=== PATIENT | male | born 1970 | race Caucasian/White ===

== ENCOUNTER → 2016-05-30 | Outpatient (CLI) | payer MEDICAID ==
[~2016-05-30] MED LIST: AGM875T PO; AMOX500C2 PO; ASP81TEC PO; ATOR80TA PO; BUTA1TAB46 PO; CEFU500T5 PO; CIPR250S2 PO; CLN150C PO; CLN150C1RX PO; CYCL10TA9 PO; CYCL5TAB PO; GABA100T PO; GABA600T PO; GLYB2.5T4 PO; GLYB5TAB6 PO; HYDR-3714 PO; HYDR-3720 PO; HYDR1CAP2 PO; Hydrochlorothiazide PO; LIRA0.6P SQ; LISI10TA PO; LISI1TAB10 PO; Lisinopril PO; MTF500T PO; NAPR-243 PO; NAPR-684 PO; NAPR-689 PO; OXYC-272 PO; SIMV40TA4 PO; TRAM50TA2 PO; TRM50T PO
--- OUTSIDE RECORDS SUMMARY | 2016-05-30 10:00 | XMS REPORT | Continuity of Care Document ---
Author Author [facility] Organization [facility] Address Unknown Phone Unavailable Care Team Providers Care Process Steward Name Role Phone Evelia Oquendo PCP [phone] Source Comments Some departments are not documenting in the electronic medical record. If you do not see the information that you expected, contact Release of Information in the Health Information Management department at [phone] for further assistance in locating additional records.[facility] Active Allergies and Adverse Reactions No Known Allergies Current Medications Prescription Sig. Disp. Refills Start End Date Status Date Bimatoprost 0.01 % drop Place 1 Drop into or Active around eye(s) at bedtime daily. gabapentin (NEURONTIN) Take 600 mg by mouth Active 600 mg tablet three times daily. glyBURIDE (DIABETA) 5 mg Take 10 mg by mouth twice Active tablet daily with meals. lisinopril (PRINIVIL, Take 40 mg by mouth Active ZESTRIL) 40 mg tablet daily. hydrochlorothiazide Take 25 mg by mouth Active (HYDRODIURIL) 25 mg daily. tablet simvastatin (ZOCOR) 40 mg Take 40 mg by mouth Active tablet daily. pioglitazone (ACTOS) 30 Take 30 mg by mouth Active mg tablet daily. cyclobenzaprine Take 10 mg by mouth daily Active (FLEXERIL) 10 mg tablet as needed for Muscle Cramps. naproxen (NAPROSYN) 500 Take 500 mg by mouth at Active mg tablet bedtime daily. acetaminophen (TYLENOL) Take 500 mg by mouth Active 500 mg tablet every 6 hours as needed for Pain. Calcium Carbonate 300 mg Take 1 Tab by mouth daily Active (750 mg) chew as needed. silver sulfADIAZINE Apply 0.5 g to affected Active (THERMAZINE) 1 % topical area daily. cream liraglutide(+) (VICTOZA) Inject 1.2 mg into Active 0.6 mg/0.1 mL (18 mg/3 area(s) as directed mL) pnij daily. omeprazole DR(+) Take 20 mg by mouth Active (PRILOSEC) 20 mg capsule daily. hyoscyamine (ANASPAZ; Place 1 Tab under tongue 20 Tab 1 08/28/19 Active NULEV; SYMAX FASTABS; every 4 hours as needed 16 HYOMAX-FT; ED-SPAZ; (as needed for bladder OSCIMIN) 0.125 mg rapid spasms). dissolve tablet Active Problems Problem Noted Date Anterior urethral stricture 05/13/2015 Peripheral polyneuropathy (HCC) 05/13/2015 Erectile dysfunction 05/13/2015 Charcot foot due to diabetes mellitus ([facility]) 05/13/2015 Type 1 diabetes mellitus ([facility]) 05/13/2015 Social History Tobacco Use Types Packs/Day Years Used Date Former Smoker Cigarettes 2 20 Quit: 05/12/2011 Alcohol Use Drinks/Week oz/Week Comments Yes 0 Standard 0.0 Rare drinks or equivalent Last Filed Vital Signs Vital Sign Reading Time Taken Blood Pressure 129/79 09/08/2015 11:37 AM CDT Pulse 111 09/08/2015 11:37 AM CDT Temperature 36.7 C (98.1 F) 09/08/2015 11:37 AM CDT Respiratory Rate 18 09/08/2015 11:37 AM CDT Height 1.778 m (5' 10") 09/08/2015 11:37 AM CDT Weight 126.281 kg (278 lb 6.4 09/08/2015 11:37 AM CDT oz) Body Mass Index 39.95 09/08/2015 11:37 AM CDT Oxygen Saturation 95% 08/28/2015 9:00 AM CDT Plan of Care Health Maintenance Due Date Last Done Comments Physical (Comprehensive) 1975 Exam Pertussis Vaccine 1979 Tetanus Vaccine 1985 Dilated Eye Exam 1986 Foot Exam 1986 Hba1c 1986 Microalbumin 1986 Pneumonia Vaccine (Dm) 1986 Influenza Vaccine 12/10/2015 Results from Last 3 Months Not on file
[2016-05-30 10:19] LABS: BASOPHILS % (AUTO) 0 % (0-10); EOSINOPHILS # (AUTO) 0.1 10^3/uL (0.0-0.3); EOSINOPHILS % (AUTO) 1 % (0-10); LYMPHOCYTES # (AUTO) 1.6 X 10^3 (1.0-4.0); LYMPHOCYTES % (AUTO) 22 % (12-44); MEAN CORPUSCULAR HEMOGLOBIN 31 PG (25-34); MEAN CORPUSCULAR HGB CONC 33 G/DL (32-36); MEAN CORPUSCULAR VOLUME 93 FL (80-99); MONOCYTES # (AUTO) 0.6 X 10^3 (0.0-1.0); MONOCYTES % (AUTO) 7 % (0-12); NEUTROPHILS # (AUTO) 5.1 X 10^3 (1.8-7.8); NEUTROPHILS % (AUTO) 69 % (42-75); PLATELET COUNT 194 10^3/uL (130-400); RED BLOOD COUNT 4.74 10^6/uL (4.35-5.85); RED CELL DISTRIBUTION WIDTH 14.4 % (10.0-14.5); WHITE BLOOD COUNT 7.4 10^3/uL (4.3-11.0)
[2016-05-30 10:38] LABS: ALANINE AMINOTRANSFERASE 33 U/L (0-55); ANION GAP 12 MMOL/L (5-14); ASPARTATE AMINO TRANSFERASE 20 U/L (5-34); BILIRUBIN,TOTAL 0.4 MG/DL (0.1-1.0); BLOOD UREA NITROGEN 25 MG/DL (7-18); BUN/CREATININE RATIO 21; CALCIUM 9.4 MG/DL (8.5-10.1); CARBON DIOXIDE 21 MMOL/L (21-32); CHLORIDE 106 MMOL/L (98-107); CREATININE SERUM 1.19 MG/DL (0.60-1.30); GFR ESTIMATED > 60; GLUCOSE 95 MG/DL (70-105); POTASSIUM 4.4 MMOL/L (3.6-5.0); SODIUM 139 MMOL/L (135-145); TOTAL PROTEIN 6.6 G/DL (6.4-8.2)
== END ==
LOC: LAB 09:57
PROVIDERS: ATTEND Surgery
DX: E11.621 Type 2 diabetes mellitus with foot ulcer (principal); E11.42 Type 2 diabetes mellitus with diabetic polyneuropathy; L97.522 Non-pressure chronic ulcer of other part of left foot with fat layer exposed
CPT/HCPCS: 36415; 80053; 85025

== ENCOUNTER 2016-07-18 08:27 | Outpatient (RCR) | payer MEDICAID | END 2016-07-18 16:00 | disposition home or self-care (01) | LOC: WOUNDCARE 08:27 | PROVIDERS: ATTEND Surgery | DX: E11.621 Type 2 diabetes mellitus with foot ulcer (principal); E11.42 Type 2 diabetes mellitus with diabetic polyneuropathy; L97.522 Non-pressure chronic ulcer of other part of left foot with fat layer exposed; M14.672 Charcot's joint, left ankle and foot; I70.245 Atherosclerosis of native arteries of left leg with ulceration of other part of foot | CPT/HCPCS: 11042; 29445; 99212 ==

== ENCOUNTER 2016-08-23 12:55 | Outpatient (CLI) | payer MEDICAID ==
[~2016-08-23] VITALS: Ht 182.9 cm; Wt 137.4 kg
[2016-08-23 13:01] VITALS: BP 144/79
[2016-08-23] MEDS ORDERED: BIMA2.5D4 OU (13:09)
== END 2016-08-23 13:20 | disposition home or self-care (01) ==
LOC: PREOP 12:55
PROVIDERS: ATTEND Podiatrist Foot & Ankle Surgery
DX: Z01.818 Encounter for other preprocedural examination (principal); Z11.2 Encounter for screening for other bacterial diseases; M20.22 Hallux rigidus, left foot
CPT/HCPCS: 87081

== ENCOUNTER 2016-08-24 01:11 | Emergency (ER) | payer MEDICAID ==
[~2016-08-24] VITALS: Ht 182.9 cm; Wt 136.1 kg
[~2016-08-24 01:11] MED LIST changes: +BIMA2.5D4 OU
[2016-08-24] MEDS ORDERED: LIDOCAINE 2% VISCOUS 15 ML UDC ONE (02:20)
[2016-08-24] MEDS ORDERED: HURRICAINE EXT TUBE (BENZOCAINE) XX ONE (02:30)
[2016-08-24] MEDS ORDERED: LIDOCAINE 2% VISCOUS 15 ML UDC PO ONE (02:30)
--- NOTE | 2016-08-24 02:50 | ED EENT ---
History of Present Illness General Chief Complaint: Dental Problems/Pain Stated Complaint: DENTAL PAIN Nursing Triage Note: PT TO ED 8 W/ C/O RT UPPER JAW PAIN. REPORTS "BAD TEETH" ET WAS SEEN BY [facility] 08/23/16 BUT DENIES IMPROVEMENT Source: patient Exam Limitations: no limitations History of Present Illness Time seen by provider: 02:11 Initial Comments This 46-year-old gentleman presents to the emergency room with right upper dental pain. He has some significant decay at the base of some of his molars. He has had temperature sensitivity over the past couple of weeks. Pain intensified tonight and he was unable to sleep. He has taken ibuprofen 10 and naproxen 3 in the past 24 hours. He was seen at the [facility] walk-in clinic and started on amoxicillin. He has only had opportunity to take one dose so far. He was instructed to present to the dental clinic tomorrow. He is here tonight because he cannot sleep due to the pain. Allergies and Home Medications Allergies Coded Allergies: No Known Drug Allergies (Unverified , 03/16/14) Home Medications Bimatoprost 2.5 Ml Drops, 1 DROP OU DAILY, (Reported) Cyclobenzaprine Hcl 5 Mg Tablet, 5 MG PO TID PRN for MUSCLE SPASMS, (Reported) Gabapentin 600 Mg Tablet, 600 MG PO TID, (Reported) Glyburide 5 Mg Tablet, 5 MG PO BID, (Reported) Liraglutide 0.6 Mg/0.1 Ml Pen.injctr, 1.2 MG SQ AM, (Reported) Naproxen 500 Mg Tablet, 500 MG PO BID, (Reported) Simvastatin 40 Mg Tablet, 40 MG PO DAILY, (Reported) [Hydrochlorothiazide] 25 MG TAB, 25 MG PO DAILY@0900, #30 Ref 3 Prescribed by: ROBERTA SAHU on 03/19/14 1135 [Lisinopril] 20 MG TAB, 40 MG PO DAILY@0900, #30 Ref 3 Prescribed by: ROBERTA SAHU on 03/19/14 1135 Review of Systems Constitutional: no symptoms reported Eyes: No Symptoms Reported Ears: No Symptoms Reported Nose: no symptoms reported Mouth: see HPI Throat: no symptoms reported Respiratory: no symptoms reported Neurological: No Symptoms Reported Past Qyalznl-Czdren-Rdjmuo Hx Patient Social History Alcohol Use: Denies Use Recreational Drug Use: No Smoking Status: Former Smoker Former Smoker/When Quit: Sep 09, 2011 Recent Foreign Travel: No Contact w/Someone Who Travel: No Recent Infectious Disease Expo: No Recent Hopitalizations: No Immunizations Up To Date Tetanus Booster (TDap): Unknown Date of Influenza Vaccine: Feb 10, 2014 Seasonal Allergies Seasonal Allergies: Yes Surgeries HX Surgeries: Yes (HERNIA AGE 1, HEART CATH, urethreal stricture ) Surgeries: Abdominal, Cardiac (cardiac catheterization), Tonsillectomy Respiratory Hx Respiratory Disorders: No Cardiovascular Hx Cardiac Disorders: Yes Cardiac Disorders: Hypertension Neurological Hx Neurological Disorders: Yes Neurological Disorders: Neuropathy Reproductive System Hx Reproductive Disorders: No Sexually Transmitted Disease: No HIV/AIDS: No Genitourinary Hx Genitourinary Disorders: No Gastrointestinal Hx Gastrointestinal Disorders: No Musculoskeletal Hx Musculoskeletal Disorders: Yes (open wound on left big toe, 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) Endocrine Hx Endocrine Disorders: No Endocrine Disorders: Diabetes, Non-Insulin dep HEENT HX ENT Disorders: No Hearing Impairment: Denies Cancer Hx Cancer: No Psychosocial Hx Psychiatric Problems: No Integumentary HX Skin/Integumentary Disorder: No Skin/Integumentary Disorders: Pruritis Blood Transfusions Hx Blood Disorders: No Adverse Reaction to a Blood Tr: No Family Medical History Significant Family History: No Pertinent Family Hx Family Medial History: Chest pain 03 MOTHER, Onset:Unknown Congestive heart failure 03 MOTHER, Onset:Unknown Family history: Cardiovascular disease 03 MOTHER, Onset:Unknown Family history: Coronary thrombosis 03 MOTHER, Onset:Unknown Family history: Diabetes mellitus 03 FATHER, Onset:Unknown 03 MOTHER, Onset:Unknown 09 BROTHER, Onset:Unknown Family history: Glaucoma 03 MOTHER, Onset:Unknown Family history: Hypertension 03 FATHER, Onset:Unknown 03 MOTHER, Onset:Unknown 09 BROTHER, Onset:Unknown Heart disease 03 MOTHER, Onset:Unknown Hypercholesterolemia 03 FATHER, Onset:Unknown 03 MOTHER, Onset:Unknown 09 BROTHER, Onset:Unknown Myocardial infarction 03 MOTHER, Onset:Unknown Psychotic disorder 03 MOTHER, Onset:Unknown Seizure disorder 03 MOTHER, Onset:Unknown Stroke 03 MOTHER, Onset:Unknown Visual impairment 03 MOTHER, Onset:Unknown No Family History of: Abdominal aortic aneurysm Tab's disease Alcoholism Aphasia Cancer Cancer of colon Cataract Congenital heart disease Cystic fibrosis Dementia Dysphagia Family history: Allergy Family history: Alzheimer's disease Family history: Arthritis Family history: Asthma Family history: Breast disease Family history: Gastrointestinal disease Family history: Osteoporosis Family history: Thyroid disorder Headache Hearing loss Hereditary disease History of - anemia History of - disorder History of - respiratory disease History of drug abuse Human immunodeficiency virus (HIV) seropositivity Infertile Kidney disease Malignant neoplasm of lung Parkinson's disease Prostate cancer Tuberculosis Physical Exam Vital Signs Vital Sign - Last 12Hours 08/24/16 01:24 Temp 98.2 Pulse 85 Resp 20 B/P (MAP) 161/93 Pulse Ox 98 O2 Delivery Room Air General Appearance: WD/WN, no apparent distress Eyes: bilateral eye EOMI, bilateral eye PERRL, bilateral eye normal inspection Ears: bilateral ear TM normal, bilateral ear auricle normal, bilateral ear canal normal Nose: normal inspection Mouth/Throat: pharynx normal, dental tenderness, other (mild edema and erythema of the gingiva and adjacent buccal mucosa on the right upper jaw. Significant decay at the root of the right upper posterior teeth) Neck: normal inspection Cardiovascular: regular rate, rhythm, no edema, no murmur Respiratory: lungs clear, normal breath sounds, no respiratory distress, no accessory muscle use Neurologic/Psychiatric: tripe scraper II-XII nml as tested, no motor/sensory deficits, alert, normal mood/affect, oriented x 3 Skin: normal color, warm/dry Progress/Results/Core Measures Results/Orders My Orders Orders - CHRISSIE ROGERS MD Lidocaine 2% Viscous 15 Ml (Xylocaine Vi (08/24/16 02:30) Benzocaine Extension Tube (Hurricaine Ex (08/24/16 02:30) Lidocaine 2% Viscous 15 Ml (Xylocaine Vi (08/24/16 02:20) Medications Given in ED Current Medications Medications Dose Ordered Sig/Reji Route Start Time Stop Time Status Last Admin Dose Admin Lidocaine HCl 15 ml ONCE ONCE PO 08/24/16 02:30 08/24/16 02:32 DC 08/24/16 02:55 15 ML Vital Signs/I&O Vital Sign - Last 12Hours 08/24/16 08/24/16 01:24 02:55 Temp 98.2 Pulse 85 0 Resp 20 0 B/P (MAP) 161/93 Pulse Ox 98 0 O2 Delivery Room Air Blood Pressure Mean: 115 Progress Note : Progress Note Anesthetic gauze pads were prepared and dispensed. Departure Impression Impression: Primary Impression: Dental caries Additional Impression: Pain, dental Disposition: 01 HOME, SELF-CARE Condition: Improved Departure-Patient Inst. Decision time for Depature: 02:20 Referrals: [facility] (PCP) Primary Care Physician CATIA IBARRA (Family) Primary Care Physician Patient Instructions: Dental Pain (DC) Add. Discharge Instructions: Continue to brush your teeth gently twice daily. See a dentist as soon as possible. Complete your antibiotics as prescribed. You may use the anesthetic gauze pads as needed. Eat and drink carefully after use as they may numb the mouth and throat. Do not fall sleep with gauze pads in your mouth. Return to care if symptoms worsen. You may use ibuprofen up to 800 mg every 8 hours as needed for pain. Add Tylenol (acetaminophen) up to 1000 mg every 6 hours as needed for additional pain relief. All discharge instructions reviewed with patient and/or family. Voiced understanding. CHRISSIE ROGERS MD August 24, 2016 02:50
[2016-08-24 02:55] VITALS: BP 0/0
== END 2016-08-24 02:55 | disposition home or self-care (01) ==
LOC: EDUNIT# 01:11 → ER 01:13
DX: K02.9 Dental caries, unspecified (principal); I10 Essential (primary) hypertension; E11.9 Type 2 diabetes mellitus without complications; Z79.84 Long term (current) use of oral hypoglycemic drugs; Z79.899 Other long term (current) drug therapy; Z87.891 Personal history of nicotine dependence
CPT/HCPCS: 99282

== ENCOUNTER 2016-09-09 12:15 | Day surgery (SDC) | payer MEDICAID ==
[~2016-09-09] VITALS: Ht 182.9 cm; Wt 136.1 kg
[2016-09-09] MEDS: LACTATED RINGERS 1,000 ML IV PRN ×2 (12:30→17:05)
[2016-09-09] MEDS ORDERED: ceFAZolin 1 GM/NS 50 ML IVPB IV ONE ×2 (12:45)
[2016-09-09 12:54] VITALS: BP 145/80
[2016-09-09] MEDS ORDERED: BUPIVACAINE 0.5% 30 ML (SENSORCAINE) VIAL ONE (13:58)
[2016-09-09] MEDS ORDERED: LIDOCAINE 1% INJ 20 ML (XYLOCAINE) VIAL ONE (13:58)
[2016-09-09] MEDS ORDERED: PROPOFOL INJECTION 50 ML IV ONE (15:19)
[2016-09-09] MEDS ORDERED: fentaNYL INJECTION 100 MCG/2 ML AMP ONE (15:19)
[2016-09-09] MEDS ORDERED: LIDOCAINE PF 2% 5 ML (XYLOCAINE) VIAL ONE (15:19)
[2016-09-09] MEDS ORDERED: MIDAZOLAM 2 MG/2 ML (VERSED) VIAL ONE (15:20)
--- NOTE | 2016-09-09 15:48 | Progress Note-Pre Operative ---
Pre-Operative Progress Note H&P Reviewed The H&P was reviewed, patient examined and no changes noted. Date Seen by Provider: Sep 09, 2016 Time Seen by Provider: 15:48 Date H&P Reviewed: Sep 09, 2016 Time H&P Reviewed: 15:47 Pre-Operative Diagnosis: Chronic Ulceration left hallux, Hallux Limitus, left GRISEL BATES DPM Sep 09, 2016 3:48 pm
[2016-09-09] MEDS ORDERED: proPOfol 200 MG/20 ML (DIPRIVAN) VIAL IV ONE (16:58)
[2016-09-09] MEDS ORDERED: LACTATED RINGERS 2,000 ML IV ONE (16:59)
[2016-09-09] MEDS ORDERED: LACTATED RINGERS 1,000 ML IV SCH (17:15)
[2016-09-09] MEDS ORDERED: HYDROcodone/APAP 5 MG/325 MG (LORTAB) TAB PO PRN (17:15)
--- NOTE | 2016-09-09 17:15 | Progress Note-Post Operative ---
Post-Operative Progess Note Surgeon (s)/Zipper Measurer (s) Surgeon GRISEL BATES DPM Zipper Measurer: none Pre-Operative Diagnosis Chronic Ulceration left hallux, Hallux Limitus, left Post-Operative Diagnosis Same Procedure & Operative Findings Date of Procedure 09/09/16 Procedure Performed/Findings Cheilectomy, left Arthroplasty left hallux interphalangeal joint Anesthesia Type General Estimated Blood Loss Estimated blood loss (mL): Minimal Specimens/Packing Specimens Removed Head of proximal phalanx, left hallux GRISEL BATES DPM Sep 09, 2016 5:15 pm
[2016-09-09] MEDS ORDERED: CEPH500C PO (17:18)
[2016-09-09] MEDS ORDERED: HYDR-3812 PO (17:18)
[2016-09-09 17:40] VITALS: BP 161/85
--- NOTE | 2016-09-09 17:51 | Diagnostic Imaging Report ---
INDICATION: Postoperative foot pinning. COMPARISON STUDY: Left foot from 06/28/2014. FINDINGS: Two views of the left foot demonstrate interval ostomy of the distal aspect of the proximal phalanx of the great toe with pinning. IMPRESSION: Interval pinning of the great toe with no complications. Degenerative changes in the forefoot appear stable. Dictated by: Dictated on workstation # [id number]
[2016-09-09 18:10] VITALS: BP 155/83
[2016-09-09 18:15] VITALS: BP 155/83
--- NOTE | 2016-09-09 22:28 | OPERATIVE REPORT ---
DATE OF SERVICE: 09/09/2016 SURGEON: Kelle Bates DPM PREOPERATIVE DIAGNOSES: 1. Chronic ulceration to the left hallux. 2. Hallux rigidus, left. POSTOPERATIVE DIAGNOSES: 1. Chronic ulceration to the left hallux. 2. Hallux rigidus, left. PROCEDURES: 1. Cheilectomy, left. 2. Arthroplasty, left hallux interphalangeal joint, with K-wire fixation. WOUND CLASS: Clean. ANESTHESIA: Monitored anesthesia care. HEMOSTASIS: Pneumatic ankle tourniquet at 250 mmHg. INDICATION: This 46-year-old male presents complaining of a chronic ulceration to the left hallux. Conservative therapy has met with unsatisfactory results, and the patient is agreeable to surgical intervention after risks and complications were discussed at length. No guarantees were extended to the patient, and he is willing to proceed. PROCEDURE: The patient was brought back to the operating table, placed in secure supine position. An appropriate timeout was performed. A pneumatic ankle tourniquet was placed on the left lower extremity over several layers of padding. The left great toe was anesthetized and a Rose block with a 1:1 mixture of 0.5% Marcaine and 2% xylocaine. Twenty mL were utilized in total. The left foot was then prepped and draped in normal sterile manner. The left foot was then elevated and allowed to exsanguinate, after which the tourniquet was inflated to 250 mmHg. Attention was then directed to the dorsal aspect of the left 1st metatarsophalangeal joint where a 6 cm longitudinal linear incision was created. The incision was deepened in the same plane with great care to identify and retract all vital neurovascular structures. All the necessary blood vessels were cauterized as encountered. The incision was deepened down to the capsular tissue TopofForm where a longitudinal capsulotomy was performed. The capsular tissue was reflected medial laterally, exposing the hypertrophic dorsal eminence of the 1st metatarsal head, which was resected with a power sagittal saw. The same saw was utilized to reduce the dorsal eminence to the base of the proximal phalanx as well. Excellent range of motion was appreciated now at the 1st metatarsophalangeal joint. Next, the extensor hallucis longus was incised longitudinally, and a Z slide lengthening performed. The extensor tendon was then reflected distally, exposing the interphalangeal joint of the left hallux. The mediolateral collateral ligaments were released, as well as a capsulorrhaphy. The head of the proximal phalanx was then resected utilizing a power sagittal saw. The wound was flushed with copious amounts of normal saline. A 0.062 smooth K-wire was driven down the toe, holding the phalanx into a rectus alignment. There was good alignment of the digit noted at this time with excellent range of motion of the 1st metatarsophalangeal joint. The wound was flushed once again, after which closure was performed in layers. The K-wire was cut, and a protective ball placed over the end of the wire. The extensor tendon was repaired with 3-0 Vicryl. Deep closure was also performed with 3-0 Vicryl, superficial closure with 4-0 Vicryl, skin closure with 4-0 Prolene in a horizontal mattress-type stitch. Postoperative dressing consisted of Betadine-soaked adaptic, sterile 4 x 4s, sterile Kerlix, all secured with a Coban wrap. The patient tolerated the anesthesia and procedure well and was transported from the operating room to the recovery area with vital signs stable and vascular status intact to all digits of the left foot. He is to follow up in the [facility] on 09/16/2016. Job ID: [id number] DocumentID: [id number] Dictated Date: 09/09/2016 17:24:24 Airconditioning Drafting Officer Date: 09/09/2016 22:27:33 Dictated By: KELLE BATES DPM
== END 2016-09-09 18:15 | disposition home or self-care (01) ==
LOC: SDC 12:15
PROVIDERS: ATTEND Podiatrist Foot & Ankle Surgery
DX: M20.22 Hallux rigidus, left foot (principal); E11.621 Type 2 diabetes mellitus with foot ulcer; E11.40 Type 2 diabetes mellitus with diabetic neuropathy, unspecified; I10 Essential (primary) hypertension; E78.5 Hyperlipidemia, unspecified; F41.9 Anxiety disorder, unspecified; G47.33 Obstructive sleep apnea (adult) (pediatric); Z79.899 Other long term (current) drug therapy
CPT/HCPCS: 73620; 82962

== ENCOUNTER 2017-01-05 09:15 | Outpatient (RCR) | payer MEDICAID ==
[~2017-01-05 09:15] MED LIST changes: +CEPH500C PO; +HYDR-3812 PO
== END 2017-01-07 | disposition home or self-care (01) ==
PROVIDERS: ATTEND Nurse Practitioner Community Health
DX: R60.0 Localized edema (principal); M62.561 Muscle wasting and atrophy, not elsewhere classified, right lower leg; M62.562 Muscle wasting and atrophy, not elsewhere classified, left lower leg

== ENCOUNTER 2017-04-07 13:42 | Outpatient (RCR) | payer MEDICAID ==
[~2017-04-07 13:42] MED LIST changes: +ACHD5005 PO; -HYDR-3812 PO
== END 2017-04-10 | disposition home or self-care (01) ==
PROVIDERS: ATTEND Nurse Practitioner Community Health
DX: R60.0 Localized edema (principal); M62.561 Muscle wasting and atrophy, not elsewhere classified, right lower leg; M62.562 Muscle wasting and atrophy, not elsewhere classified, left lower leg

== ENCOUNTER 2017-04-14 10:05 | Outpatient (RCR) | payer MEDICAID | END 2017-04-21 15:47 | disposition home or self-care (01) | PROVIDERS: ATTEND Nurse Practitioner Community Health | DX: R60.0 Localized edema (principal); M62.561 Muscle wasting and atrophy, not elsewhere classified, right lower leg; M62.562 Muscle wasting and atrophy, not elsewhere classified, left lower leg ==

== ENCOUNTER 2017-09-19 09:28 | Outpatient (CLI) | payer MEDICAID ==
[~2017-09-19] VITALS: Ht 182.9 cm; Wt 150.1 kg
[2017-09-19 09:38] VITALS: BP 125/62
[2017-09-19] MEDS ORDERED: LIRA0.6P3 SQ (11:09)
[2017-09-19] MEDS ORDERED: GLYB5TAB6 PO (11:09)
[2017-09-19] MEDS ORDERED: LISI40TA PO (11:09)
[2017-09-19] MEDS ORDERED: NAPR-915 PO (11:09)
[2017-09-19] MEDS ORDERED: PIOG45TA18 PO (11:09)
[2017-09-19] MEDS ORDERED: GABA600T2 PO (11:09)
[2017-09-19] MEDS ORDERED: SIMV40TA4 PO (11:09)
[2017-09-19] MEDS ORDERED: CYCL10TA9 PO (11:09)
[2017-09-19] MEDS ORDERED: PROP40TA5 PO (11:09)
[2017-09-19] MEDS ORDERED: LATA2.5D5 OU (11:09)
[2017-09-19] MEDS ORDERED: HYDR25TA4 PO (11:09)
[2017-09-27] MEDS ORDERED: HYDR-3062 PO (07:26)
== END 2017-09-19 10:00 | disposition home or self-care (01) ==
LOC: PREOP 09:28
PROVIDERS: ATTEND Orthopaedic Surgery
DX: Z01.818 Encounter for other preprocedural examination (principal); G56.02 Carpal tunnel syndrome, left upper limb; G56.22 Lesion of ulnar nerve, left upper limb
CPT/HCPCS: 87081

== ENCOUNTER 2017-09-27 06:00 | Day surgery (SDC) | payer MEDICAID ==
--- NOTE | 2017-09-18 11:55 | HISTORY AND PHYSICAL ---
DATE OF SERVICE: ADMISSION HISTORY AND PHYSICAL DATE OF ADMISSION: 09/27/2017 REASON FOR ADMISSION: This will be for outpatient surgery on 09/27/2017 for left carpal tunnel release and left ulnar nerve decompression. HISTORY OF PRESENT ILLNESS: The patient is a 47-year-old gentleman with complaints of left hand pain and paresthesias. He underwent a nerve conduction study which showed evidence of left carpal and cubital tunnel syndromes. He reports worsening paresthesias in his ring and small fingers. He reports it is constant. Reports weakness in his hand and difficulty with fine motor skills. Due to functional impairment with progressive symptoms, the patient elected to proceed with surgical intervention. REVIEW OF SYSTEMS: No chest pain, no shortness of breath. No dysuria. PAST MEDICAL HISTORY: Charcot foot, type 2 diabetes, hypertension and neuropathy. PAST SURGICAL HISTORY: Diabetic ulcer, herniorrhaphy, heart catheterization. FAMILY HISTORY: Significant for congestive heart failure, hypertension, diabetes. PR[facility] CARE: [facility]. MEDICATIONS: Simvastatin. ALLERGIES: No known drug allergies. SOCIAL HISTORY: The patient is a former smoker, drinks alcohol rarely. PHYSICAL EXAMINATION: GENERAL: The patient is well developed, well-nourished, in no acute distress. HEENT: Normocephalic, atraumatic. Pupils are equal, round, react to light. Oropharynx is clear. NECK: Supple, no lymphadenopathy. LUNGS: Clear to auscultation bilaterally. HEART: Regular rate and rhythm. ABDOMEN: Soft, nontender, nondistended. EXTREMITIES: The left hand demonstrates intrinsic atrophy has marked weakness in finger abduction, thumb palmar abduction as well as absent sensation in ulnar distribution with decreased sensation in median distribution. He has positive Tinel's at the carpal tunnel and a mildly positive Phalen's maneuver. IMPRESSION: Left carpal and cubital tunnel syndromes. PLAN: Left carpal and cubital tunnel release. The risks, benefits, options, ramifications and recovery have been discussed at length with the patient. He understands and wishes to proceed. Job ID: [id number] DocumentID: [id number] Dictated Date: 09/18/2017 11:31:05 Patient Financial Representative Date: 09/18/2017 11:54:49 Dictated By: DONAL MARTIN MD
[~2017-09-27] VITALS: Ht 182.9 cm; Wt 149.7 kg
[~2017-09-27 06:00] MED LIST changes: +GABA600T2 PO; +HYDR25TA4 PO; +LATA2.5D5 OU; +LIRA0.6P3 SQ; +LISI40TA PO; +NAPR-915 PO; +PIOG45TA18 PO; +PROP40TA5 PO
[2017-09-27 06:15] VITALS: BP 135/74
[2017-09-27] MEDS: LACTATED RINGERS 1,000 ML IV PRN ×2 (06:25→09:08)
[2017-09-27] MEDS ORDERED: ceFAZolin INJECTION 1,000 MG in NS (IVPB) 50 ML IV ONE (06:45)
[2017-09-27] MEDS ORDERED: proPOfol 200 MG/20 ML (DIPRIVAN) VIAL IV ONE ×2 (07:06→08:39)
[2017-09-27] MEDS ORDERED: DEXAMETHASONE 10 MG/ML (DECADRON) 1 ML VIAL ONE (07:06)
[2017-09-27] MEDS ORDERED: ONDANSETRON 4 MG/2 ML (SDV) Z0FRAN ONE (07:06)
[2017-09-27] MEDS ORDERED: LIDOCAINE PF 2% 5 ML (XYLOCAINE) VIAL ONE (07:06)
[2017-09-27] MEDS ORDERED: SEVOFLURANE (ULTANE) 15 ML INHAL SOLN ONE ×5 (07:06→08:39)
[2017-09-27] MEDS ORDERED: fentaNYL INJECTION 100 MCG/2 ML AMP ONE ×2 (07:07→08:12)
[2017-09-27] MEDS ORDERED: ceFAZolin 1,000 MG (ANCEF) VIAL ONE ×2 (07:07→07:32)
[2017-09-27] MEDS ORDERED: NS (IVPB) 50 ML ONE (07:07)
[2017-09-27] MEDS ORDERED: MIDAZOLAM 2 MG/2 ML (VERSED) VIAL ONE (07:07)
[2017-09-27] MEDS ORDERED: LIDOCAINE 1% INJ 20 ML 20 ML VIAL ONE (07:08)
[2017-09-27] MEDS ORDERED: BUPIVACAINE 0.25% 30 ML (SENSORCAINE) VIAL ONE (07:09)
[2017-09-27] MEDS ORDERED: BUPIVACAINE 0.5% 30 ML (SENSORCAINE) VIAL ONE (07:10)
[2017-09-27] MEDS ORDERED: FAMOTIDINE 20MG/2ML IV (PEPCID) ONE (07:17)
--- NOTE | 2017-09-27 07:24 | Progress Note-Pre Operative ---
Pre-Operative Progress Note H&P Reviewed The H&P was reviewed, patient examined and no changes noted. Date Seen by Provider: Sep 27, 2017 Time Seen by Provider: 07:11 Date H&P Reviewed: Sep 27, 2017 Time H&P Reviewed: 07:11 Pre-Operative Diagnosis: left cubital and carpal tunnel syndrome DONAL MARTIN MD Sep 27, 2017 07:24
--- NOTE | 2017-09-27 07:25 | Progress Note-Post Operative ---
Post-Operative Progess Note Surgeon (s)/Tactical Response Group Officer (s) Surgeon DONAL MARTIN MD Tactical Response Group Officer: none Pre-Operative Diagnosis left cubital and carpal tunnel syndrome Post-Operative Diagnosis left cubital and carpal tunnel syndrome Procedure & Operative Findings Date of Procedure 09/27/17 Procedure Performed/Findings left cubital and carpal tunnel release Anesthesia Type GETA Estimated Blood Loss Estimated blood loss (mL): minimal Specimens/Packing Specimens Removed none Packing: none DONAL MARTIN MD Sep 27, 2017 07:25
[2017-09-27] MEDS ORDERED: HYDR-3062 PO (07:26)
[2017-09-27] MEDS ORDERED: oxyCODONE/APAP 5/325MG (PERCOCET 5) TABLET PO PRN (07:30)
[2017-09-27] MEDS ORDERED: ONDANSETRON 4 MG/2 ML (SDV) Z0FRAN IVP PRN ×2 (07:30→08:45)
[2017-09-27] MEDS ORDERED: ACETAMINOPHEN 325 MG TABLET PO PRN (07:30)
[2017-09-27] MEDS ORDERED: morphine INJ 10 MG/ML 1ML (SYR OR VIAL) IVP PRN (08:45)
[2017-09-27] MEDS ORDERED: morphine INJ 10 MG/ML 1ML (SYR OR VIAL) ONE (09:03)
[2017-09-27 09:40] VITALS: BP 140/88
[2017-09-27] MEDS ORDERED: HYDR-3816 PO (09:45)
[2017-09-27 10:10] VITALS: BP 141/85
[2017-09-27 11:00] VITALS: BP 141/85
--- NOTE | 2017-09-27 14:38 | OPERATIVE REPORT ---
DATE OF SERVICE: PREOPERATIVE DIAGNOSIS: Left cubital tunnel syndrome. left carpal tunnel syndrome POSTOPERATIVE DIAGNOSIS: left cubital tunnel syndrome Left carpal tunnel syndrome. PROCEDURE: 1. Left cubital tunnel release. 2. Left carpal tunnel release. SURGEON: Cheikh Martin MD. ANESTHESIA: General endotracheal by Lluvia Terry CRNA. TOURNIQUET TIME: 28 minutes at 250 mmHg. ESTIMATED BLOOD LOSS: Minimal. DRAINS: None. COMPLICATIONS: None. POSTOP PLANS: Routine protocol. The patient was transferred to the recovery room awake and stable condition. STATEMENT OF MEDICAL NECESSITY: The patient is a 47-year-old gentleman with complaints of left hand pain and paresthesias. He had marked atrophy of his intrinsics with marked weakness with finger abduction and thumb palmar abduction with decreased sensation in a median and ulnar distribution. The patient has a positive elbow flexion test, positive Tinel's at the carpal tunnel with positive Phalen's maneuver. The patient was counseled that due to his severe symptoms, he may not get much recovery of his nerve function. DESCRIPTION OF PROCEDURE: After risks and benefits of procedure were discussed and questions were answered, an informed consent was signed and placed on the chart. The operative site was confirmed in the preoperative holding area initialed by the surgeon. The patient was then transferred to the operating room and after adequate levels of general endotracheal anesthetic was obtained, timeout was called confirming the operative site. The left upper extremity was prepped and draped in the usual sterile fashion with arm elevated, tourniquet was inflated to 250 mmHg. An L-shaped incision was made posterior to the medial epicondyle. The underlying soft tissues were carefully dissected. The ulnar nerve was found within the fatty layer posterior to the medial epicondyle, but was markedly atrophied. It was less than one third the size of a typical ulnar nerve. It was in continuity but markedly atrophied. This was dissected free 2.9 cm proximal to the medial epicondyle and into the flexor/pronator mass and was intact at the conclusion of the procedure. This wound was then packed and attention was turned to the carpal tunnel. A longitudinal incision was made on the palmar aspect of the hand in line with the radial border of the ring finger. The underlying soft tissues were sharply dissected. The roof of the carpal tunnel was identified and sharply incised. The median nerve was identified and carefully protected throughout the procedure and intact at the conclusion of the procedure, the distal extent was confirmed fully freed with a freer. Proximally, the transverse carpal ligament was spread above and below with dissection scissors and then opened while carefully protecting the median nerve. This was confirmed, fully freed with a freer. The tourniquet was deflated for a total tourniquet time of 28 minutes. Pressure was used for hemostasis. Both wounds were copiously irrigated and then closed 3-0 Vicryl was used to reapproximate subcutaneous tissue at the elbow incision skin incisions were closed with 4-0 nylon in running alternating horizontal mattress fashion. A soft dressing was applied after infiltrating the incisions with plain Marcaine and a wrist splint was applied and the patient transferred to the recovery room awake and stable condition. Job ID: [id number] DocumentID: [id number] Dictated Date: 09/27/2017 08:52:12 Hotel Associate Date: 09/27/2017 14:37:53 Dictated By: CHEIKH MARTIN MD MTDD
== END 2017-09-27 11:00 | disposition home or self-care (01) ==
LOC: SDC 06:00
PROVIDERS: ATTEND Orthopaedic Surgery
DX: G56.22 Lesion of ulnar nerve, left upper limb (principal); G56.02 Carpal tunnel syndrome, left upper limb; E11.42 Type 2 diabetes mellitus with diabetic polyneuropathy; I10 Essential (primary) hypertension; G47.33 Obstructive sleep apnea (adult) (pediatric); Z87.891 Personal history of nicotine dependence; Z79.899 Other long term (current) drug therapy
CPT/HCPCS: 82962

== ENCOUNTER → 2017-12-25 | Outpatient (CLI) | payer MEDICAID ==
[~2017-12-25] MED LIST changes: +HYDR-3062 PO; +HYDR-3816 PO; -PIOG45TA18 PO; +PIOG45TA65 PO
== END ==
LOC: WOUNDCARE 08:44
PROVIDERS: ATTEND Surgery
DX: E11.622 Type 2 diabetes mellitus with other skin ulcer (principal); I87.333 Chronic venous hypertension (idiopathic) with ulcer and inflammation of bilateral lower extremity; L97.211 Non-pressure chronic ulcer of right calf limited to breakdown of skin; I70.242 Atherosclerosis of native arteries of left leg with ulceration of calf; L97.222 Non-pressure chronic ulcer of left calf with fat layer exposed; I89.0 Lymphedema, not elsewhere classified; E66.01 Morbid (severe) obesity due to excess calories; Z68.42 Body mass index [BMI] 45.0-49.9, adult
CPT/HCPCS: 99214

== ENCOUNTER → 2018-01-01 | Outpatient (CLI) | payer MEDICAID | LOC: WOUNDCARE 08:16 | PROVIDERS: ATTEND Surgery | DX: E11.622 Type 2 diabetes mellitus with other skin ulcer (principal); I70.232 Atherosclerosis of native arteries of right leg with ulceration of calf; I87.333 Chronic venous hypertension (idiopathic) with ulcer and inflammation of bilateral lower extremity; L97.211 Non-pressure chronic ulcer of right calf limited to breakdown of skin; I89.0 Lymphedema, not elsewhere classified; E66.01 Morbid (severe) obesity due to excess calories; Z68.42 Body mass index [BMI] 45.0-49.9, adult | CPT/HCPCS: 99212 ==

== ENCOUNTER → 2018-01-01 | Outpatient (CLI) | payer MEDICAID | LOC: LAB 09:18 | PROVIDERS: ATTEND Surgery | DX: I87.331 Chronic venous hypertension (idiopathic) with ulcer and inflammation of right lower extremity (principal); I70.232 Atherosclerosis of native arteries of right leg with ulceration of calf; L97.211 Non-pressure chronic ulcer of right calf limited to breakdown of skin; E11.622 Type 2 diabetes mellitus with other skin ulcer; I89.0 Lymphedema, not elsewhere classified; E66.01 Morbid (severe) obesity due to excess calories | CPT/HCPCS: 36415; 81240; 81241; 83090; 85240; 85300; 85303; 85306; 85307; 85610; 85613; 85705; 85730; 86146; 86147 ==

== ENCOUNTER → 2018-01-08 | Outpatient (CLI) | payer MEDICAID | LOC: WOUNDCARE 08:19 | PROVIDERS: ATTEND Surgery | DX: L97.211 Non-pressure chronic ulcer of right calf limited to breakdown of skin (principal); I87.331 Chronic venous hypertension (idiopathic) with ulcer and inflammation of right lower extremity; I70.232 Atherosclerosis of native arteries of right leg with ulceration of calf; E11.622 Type 2 diabetes mellitus with other skin ulcer; E66.01 Morbid (severe) obesity due to excess calories | CPT/HCPCS: 29581 ==

== ENCOUNTER → 2018-01-15 | Outpatient (CLI) | payer MEDICAID | LOC: WOUNDCARE 08:11 | PROVIDERS: ATTEND Surgery | DX: E11.622 Type 2 diabetes mellitus with other skin ulcer (principal); I70.232 Atherosclerosis of native arteries of right leg with ulceration of calf; I87.331 Chronic venous hypertension (idiopathic) with ulcer and inflammation of right lower extremity; L97.211 Non-pressure chronic ulcer of right calf limited to breakdown of skin; E66.01 Morbid (severe) obesity due to excess calories; Z68.41 Body mass index [BMI] 40.0-44.9, adult | CPT/HCPCS: 99212 ==

== ENCOUNTER → 2019-03-12 | Outpatient (CLI) | payer MEDICAID ==
[~2019-03-12] VITALS: Ht 182 cm; Wt 162.0 kg
[~2019-03-12] MED LIST changes: +AMOX-358 PO; +ASPI-999; +ATOR80TA76 PO; -GABA600T2 PO; +GBPN600T PO; +OMEP20CA13 PO; +REGADENOSON 0.4 MG/5 ML SYR (LEXISCAN) IV ONE; +SULF-222 PO
[2019-03-12] MEDS: CATHETER FLUSH 10 ML SYR IV PRN ×2 (07:55→07:56)
--- NOTE | 2019-03-12 11:21 | NUR ---
PT GIVEN 1 ML OF DEFINITY SOLUTION. PT TOLERATED EXAM WELL.
--- NOTE | 2019-03-14 12:30 | STRESS TEST ---
DATE OF SERVICE: 03/12/2019 RESTING AND POST REGADENOSON TECHNETIUM-99M TETROFOSMIN SPECT CT IMAGING ORDERING PHYSICIAN: Dr. Dias. PRIMARY PHYSICIAN: Dr. Palma. CLINICAL DIAGNOSES: Coronary artery disease. Baseline images were carried out after injection of 10.6 mCi of technetium-99m Tetrofosmin. This was followed by 0.4 mg regadenoson and 29.9 mCi of technetium-99m Tetrofosmin for stress imaging. The electrocardiogram showed sinus rhythm at baseline. The electrocardiogram did not change significantly with regadenoson infusion. Review of images at rest and following stress does not indicate significant perfusion defects consistent with significant myocardial ischemia or infarction. Gated images show normal global left ventricular systolic function with normal regional wall motion. Left ventricular ejection fraction is calculated to be 79%. Left ventricular end diastolic volume is 47 mL. TID is absent (0.87). CONCLUSIONS: 1. No evidence of any significant myocardial ischemia or infarction is seen. 2. Normal regional wall motion. 3. Normal global left ventricular systolic function with a calculated ejection fraction of 79%. Job ID: [id number] DocumentID: [id number] Dictated Date: 03/14/2019 11:01:01 Binding Folder Machine Date: 03/14/2019 12:30:30 Dictated By: TANESHA DIAS MD, MA, FACP, FACC,
== END ==
LOC: CARD 07:18
PROVIDERS: ATTEND Internal Medicine Cardiovascular Disease
DX: I25.10 Atherosclerotic heart disease of native coronary artery without angina pectoris (principal); E78.5 Hyperlipidemia, unspecified; E11.42 Type 2 diabetes mellitus with diabetic polyneuropathy
CPT/HCPCS: 78452; 93017

== ENCOUNTER 2019-03-29 11:12 | Inpatient (IN) | payer MEDICAID ==
[~2019-03-29] VITALS: Ht 182.9 cm; Wt 166.0 kg
[~2019-03-29 11:12] MED LIST changes: -AMOX-358 PO; -ASPI-999; -ATOR80TA76 PO; -OMEP20CA13 PO; -REGADENOSON 0.4 MG/5 ML SYR (LEXISCAN) IV ONE; -SULF-222 PO
--- NOTE | 2019-03-29 11:49 | NUR ---
PT STATES NO CHANGE MEDS.
--- NOTE | 2019-03-29 11:53 | ED General ---
General Chief Complaint: Lower Extremity Stated Complaint: CELLULITUS LEFT HEEL Source of Information: Patient Exam Limitations: No Limitations History of Present Illness Date Seen by Provider: Mar 29, 2019 Time Seen by Provider: 11:33 Initial Comments Here with worsening wound to the left foot at the area of the heel. Wound apparently has purulent drainage is foul-smelling and he has red streaks up the leg as well as surrounding erythema. He was seen by Dr. Carpenter today and office and had some debridement. Apparently his had cultures recently although these are still pending. Does have history of diabetes as well as history of previous diabetic ulcer to that foot. States diabetes is usually well controlled although recently his blood sugars have been in the low 200s. Has had some low-grade fevers and feels like he is sick. Denies nausea, vomiting, chest pain or breathing problems. Timing/Duration: Getting Worse Severity: Moderate Associated Systoms: No Chest Pain, No Cough; Fever/Chills, Malaise; No Nausea/Vomiting, No Shortness of Air, No Weakness Allergies and Home Medications Allergies Coded Allergies: No Known Drug Allergies (Unverified , 03/16/14) Home Medications Bimatoprost 2.5 Ml Drops, 1 DROP OU HS, (Reported) Cyclobenzaprine HCl 10 Mg Tablet, 10 MG PO TID PRN for MUSCLE SPASMS, (Reported) Gabapentin 600 Mg Tablet, 600 MG PO TID, (Reported) Glyburide 5 Mg Tablet, 10 MG PO BID, (Reported) take 2 (5mg) tabs Hydrochlorothiazide 25 Mg Tablet, 25 MG PO DAILY, (Reported) Hydrocodone/Acetaminophen 1 Each Tablet, 1-2 TAB PO Q4H PRN for PAIN-MODERATE Prescribed by: PARUL ARGUETA on 09/27/17 0945 Latanoprost 2.5 Ml Drops, 1 DROP OU HS, (Reported) Liraglutide 0.6 Mg/0.1 Ml Pen.injctr, 1.2 MG SQ DAILY, (Reported) Lisinopril 40 Mg Tablet, 40 MG PO DAILY, (Reported) Naproxen 500 Mg Tablet, 500 MG PO BID, (Reported) Pioglitazone HCl 45 Mg Tablet, 45 MG PO DAILY, (Reported) Propranolol HCl 40 Mg Tablet, 40 MG PO BID, (Reported) Simvastatin 40 Mg Tablet, 40 MG PO HS, (Reported) Patient Home Medication List Home Medication List Reviewed: Yes Review of Systems Review of Systems Constitutional: see HPI EENTM: no symptoms reported Respiratory: no symptoms reported Cardiovascular: no symptoms reported Gastrointestinal: No diarrhea, No nausea, No vomiting Genitourinary: No dysuria, No pain Musculoskeletal: No back pain; joint pain, muscle pain Skin: change in color, lesions Psychiatric/Neurological: No Symptoms Reported All Other Systems Reviewed Negative Unless Noted: Yes Past Xudtmii-Alekhk-Fykwvd Hx Past Med/Social Hx: Reviewed Nursing Past Med/Soc Hx Patient Social History Alcohol Use: Denies Use Recreational Drug Use: No Smoking Status: Former Smoker Type Used: Cigarettes Former Smoker, Quit: Sep 26, 2011 Recent Foreign Travel: No Contact w/Someone Who Travel: No Recent Hopitalizations: No Physical Abuse: No Sexual Abuse: No Immunizations Up To Date Tetanus Booster (TDap): Unknown Date of Influenza Vaccine: Feb 10, 2014 Seasonal Allergies Seasonal Allergies: Yes Past Medical History Surgeries: Yes (HERNIA AGE 1, HEART CATH, urethreal stricture, left big toe osteoectomy) Abdominal, Cardiac, Tonsillectomy Respiratory: Yes (going to get a sleep study done) Cardiac: Yes High Cholesterol, Hypertension Neurological: Yes Neuropathy Reproductive Disorders: No Sexually Transmitted Disease: No HIV/AIDS: No Gastrointestinal: No Musculoskeletal: Yes (open wound on left big toe, 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) Endocrine: Yes Diabetes, Non-Insulin dep Hearing Impairment: Denies Cancer: No Psychosocial: No Integumentary: No Pruritis Blood Disorders: No Adverse Reaction/Blood Tranf: No Family Medical History Reviewed Nursing Family Hx Chest pain 03 MOTHER, Onset:Unknown Congestive heart failure 03 MOTHER, Onset:Unknown Family history: Cardiovascular disease 03 MOTHER, Onset:Unknown Family history: Coronary thrombosis 03 MOTHER, Onset:Unknown Family history: Diabetes mellitus 03 FATHER, Onset:Unknown 03 MOTHER, Onset:Unknown 09 BROTHER, Onset:Unknown Family history: Glaucoma 03 MOTHER, Onset:Unknown Family history: Hypertension 03 FATHER, Onset:Unknown 03 MOTHER, Onset:Unknown 09 BROTHER, Onset:Unknown Heart disease 03 MOTHER, Onset:Unknown Hypercholesterolemia 03 FATHER, Onset:Unknown 03 MOTHER, Onset:Unknown 09 BROTHER, Onset:Unknown Myocardial infarction 03 MOTHER, Onset:Unknown Psychotic disorder 03 MOTHER, Onset:Unknown Seizure disorder 03 MOTHER, Onset:Unknown Stroke 03 MOTHER, Onset:Unknown Visual impairment 03 MOTHER, Onset:Unknown No Pertinent Family Hx Physical Exam-Suspected Sepsis Physical Exam Vital Signs Vital Signs - First Documented 03/29/19 11:15 Temp 37.0 Pulse 96 Resp 18 B/P (MAP) 150/76 (100) Pulse Ox 94 Capillary Refill : Height, Weight, BMI Height: 6'0.00" Weight: 330lbs. 0.0oz. 149.643930ca; 48.90 BMI Method:Stated General Appearance: No Apparent Distress, WD/WN, Obese HEENT: PERRL/EOMI, Pharynx Normal Neck: Non Tender, Supple Respiratory: Lungs Clear, Normal Breath Sounds Cardiovascular: No Murmur, Tachycardia Gastrointestinal: Non Tender, Soft Back: Normal Inspection, No CVA Tenderness, No Vertebral Tenderness Extremity: Normal Range of Motion, Non Tender Neurologic/Psychiatric: Alert, Oriented x3 Skin: ulcerations (left heel with 10-10 cm ulceration with black eschar and foul-smelling drainage. Significant surrounding erythema involving most of the foot and encroaching up the lower leg.) Focused Exam Lactate Level 03/29/19 13:50: Lactic Acid Level 1.36 Lactic Acid Level Laboratory Tests Test 03/29/19 13:50 Lactic Acid Level 1.36 MMOL/L (0.50-2.00) Progress/Results/Core Measures Suspected Sepsis SIRS Temperature: Pulse: Respiratory Rate: Laboratory Tests 03/29/19 11:49: White Blood Count 10.1 Blood Pressure / Mean: 03/29/19 13:50: Lactic Acid Level 1.36 Laboratory Tests 03/29/19 11:49: Creatinine 1.58H, INR Comment 1.2, Platelet Count 274, Total Bilirubin 0.5 Results/Orders Lab Results Laboratory Tests Test 03/29/19 11:49 03/29/19 13:50 03/29/19 14:30 Range/Units White Blood Count 10.1 4.3-11.0 10^3/uL Red Blood Count 3.78 L 4.35-5.85 10^6/uL Hemoglobin 11.4 L 13.3-17.7 G/DL Hematocrit 35 L 40-54 % Mean Corpuscular Volume 92 80-99 FL Mean Corpuscular Hemoglobin 30 25-34 PG Mean Corpuscular Hemoglobin Concent 33 32-36 G/DL Red Cell Distribution Width 15.4 H 10.0-14.5 % Platelet Count 274 130-400 10^3/uL Mean Platelet Volume 11.6 H 7.4-10.4 FL Neutrophils (%) (Auto) 82 H 42-75 % Lymphocytes (%) (Auto) 9 L 12-44 % Monocytes (%) (Auto) 8 0-12 % Eosinophils (%) (Auto) 1 0-10 % Basophils (%) (Auto) 0 0-10 % Neutrophils # (Auto) 8.2 H 1.8-7.8 X 10^3 Lymphocytes # (Auto) 1.0 1.0-4.0 X 10^3 Monocytes # (Auto) 0.8 0.0-1.0 X 10^3 Eosinophils # (Auto) 0.1 0.0-0.3 10^3/uL Basophils # (Auto) 0.0 0.0-0.1 10^3/uL Prothrombin Time 15.2 H 12.2-14.7 SEC INR Comment 1.2 0.8-1.4 Activated Partial Thromboplast Time 31 24-35 SEC Sodium Level 134 L 135-145 MMOL/L Potassium Level 4.7 3.6-5.0 MMOL/L Chloride Level 100 98-107 MMOL/L Carbon Dioxide Level 23 21-32 MMOL/L Anion Gap 11 5-14 MMOL/L Blood Urea Nitrogen 25 H 7-18 MG/DL Creatinine 1.58 H 0.60-1.30 MG/DL Estimat Glomerular Filtration Rate 47 BUN/Creatinine Ratio 16 Glucose Level 145 H 70-105 MG/DL Calcium Level 9.3 8.5-10.1 MG/DL Corrected Calcium 9.5 8.5-10.1 MG/DL Total Bilirubin 0.5 0.1-1.0 MG/DL Aspartate Amino Transf (AST/SGOT) 19 5-34 U/L Alanine Aminotransferase (ALT/SGPT) 21 0-55 U/L Alkaline Phosphatase 118 40-136 U/L Total Protein 7.2 6.4-8.2 GM/DL Albumin 3.7 3.2-4.5 GM/DL Lactic Acid Level 1.36 0.50-2.00 MMOL/L Urine Color YELLOW Urine Clarity CLEAR Urine pH 6.0 5-9 Urine Specific Perkins 1.020 1.016-1.022 Urine Protein NEGATIVE NEGATIVE Urine Glucose (UA) NEGATIVE NEGATIVE Urine Ketones NEGATIVE NEGATIVE Urine Nitrite NEGATIVE NEGATIVE Urine Bilirubin NEGATIVE NEGATIVE Urine Urobilinogen 0.2 < = 1.0 MG/DL Urine Leukocyte Esterase NEGATIVE NEGATIVE Urine RBC (Auto) TRACE-I NEGATIVE Urine RBC 0-2 /HPF Urine WBC 0-2 /HPF Urine Crystals NONE /LPF Urine Bacteria TRACE /HPF Urine Casts NONE /LPF Urine Mucus NEGATIVE /LPF Urine Culture Indicated CULTURE PENDING My Orders Orders - LEONIDAS MEDINA MD Cbc With Automated Diff (03/29/19 11:32) Comprehensive Metabolic Panel (03/29/19 11:32) Blood Culture (03/29/19 11:32) Sputum Culture (03/29/19 11:32) Urinalysis (03/29/19 11:32) Urine Culture (03/29/19 11:32) Protime With Inr (03/29/19 11:32) Partial Thromboplastin Time (03/29/19 11:32) Ed Iv/Invasive Line Start (03/29/19 11:32) Vital Signs Adult Sepsis Patie Q15M (03/29/19 11:32) O2 (03/29/19 11:32) Remove Rings In Anticipation O (03/29/19 11:32) Lactic Acid Analyzer (03/29/19 11:32) Venous Access Request Order (03/29/19 11:32) Wound Culture (03/29/19 12:17) Chest 1 View, Ap/Pa Only (03/29/19 12:58) Amb Us Guide Vascular Access (03/29/19 ) Us Balbir Lower Ext [id number] (03/29/19 15:05) Piperacillin Sodium/Tazobactam (Zosyn Vi (03/29/19 15:15) Vancomycin Injection (Vancomycin Injecti (03/29/19 15:15) Vital Signs/I&O 03/29/19 11:15 Temp 37.0 Pulse 96 Resp 18 B/P (MAP) 150/76 (100) Pulse Ox 94 Capillary Refill : Progress Note : Progress Note Seen and evaluated. IV, labs, blood cultures and lactic acid ordered. Wound culture left foot. Chest x-ray ordered. Anticipate admission. Monitor patient. Patient sent for PICC line placement. 1445: I discussed the case with Dr. Oquendo who accepts patient for admission on-call for [facility]. She is requesting vancomycin and Zosyn for antibiotics. These were ordered. She is requesting cardiology consult. I discussed the case with Dr. Issa. He is requesting bilateral lower extremity arterial ultrasound and echocardiogram. This has not been done recently. Records reveal that an echo was done earlier this month so that was not ordered. Admit, inpatient status. Patient agrees with plan. Diagnostic Imaging Diagonstic Imaging: Xray Plain Films/CT/US/NM/MRI: chest Comments [facility]. [place], [place] NAME: ASAF AGUILA [facility] REC#: [id number] PT STATUS: REG ER : 1970 PHYSICIAN: LEONIDAS MEDINA MD ADMIT DATE: 03/29/19/ER Signed Date of Exam:03/29/19 CHEST 1 VIEW, AP/PA ONLY INDICATION: PICC line placement. TIME OF EXAM: 01:33 p.m. Comparison is made with prior chest from 04/06/2011. FINDINGS: Heart size is stable. Lungs are clear. No infiltrates are seen. There is no effusion or pneumothorax. PICC line appears to have the tip overlying the SVC. IMPRESSION: Satisfactory PICC line placement. Dictated by: Dictated on workstation # [id number] Dict: 03/29/19 1344 Trans: 03/29/19 1508 [id number] Interpreted by: DAWIT LOMBARDI MD Electronically signed by: DAWIT LOMBARDI MD 03/29/19 1508 Departure Communication (Admissions) Time/Spoke to Admitting Phy: 14:45 Time/Spoke to Consulting Phy: 14:50 Impression Primary Impression: Diabetic ulcer of left foot Qualified Codes: E11.621 - Type 2 diabetes mellitus with foot ulcer; L97.422 - Non-pressure chronic ulcer of left heel and midfoot with fat layer exposed Disposition: ADMITTED INPATIENT Condition: Stable Admissions Decision to Admit Reason: Admit from ER (General) Decision to Admit/Date: Mar 29, 2019 Time/Decision to Admit Time: 14:45 Departure-Patient Inst. Referrals: ANIA BARRIOS MD (PCP) Primary Care Physician CATIA IBARRA (Family) Primary Care Physician LEONIDAS MEDINA MD Mar 29, 2019 11:53
--- NOTE | 2019-03-29 11:55 | NUR ---
PT TO OUT PATIENT FOR PICC LINE PLACEMENT
[2019-03-29 12:02] LABS: BASOPHILS % (AUTO) 0 % (0-10); EOSINOPHILS # (AUTO) 0.1 10^3/uL (0.0-0.3); EOSINOPHILS % (AUTO) 1 % (0-10); HEMATOCRIT 35 % (40-54); HEMOGLOBIN 11.4 G/DL (13.3-17.7); LYMPHOCYTES % (AUTO) 9 % (12-44); MEAN CORPUSCULAR HEMOGLOBIN 30 PG (25-34); MEAN CORPUSCULAR HGB CONC 33 G/DL (32-36); MEAN CORPUSCULAR VOLUME 92 FL (80-99); MEAN PLATELET VOLUME 11.6 FL (7.4-10.4); MONOCYTES # (AUTO) 0.8 X 10^3 (0.0-1.0); MONOCYTES % (AUTO) 8 % (0-12); NEUTROPHILS # (AUTO) 8.2 X 10^3 (1.8-7.8); NEUTROPHILS % (AUTO) 82 % (42-75); PLATELET COUNT 274 10^3/uL (130-400); RED CELL DISTRIBUTION WIDTH 15.4 % (10.0-14.5); WHITE BLOOD COUNT 10.1 10^3/uL (4.3-11.0)
[2019-03-29 12:17] LABS: INR 1.2 (0.8-1.4); PROTHROMBIN TIME PATIENT 15.2 SEC (12.2-14.7)
[2019-03-29 12:26] LABS: ALBUMIN 3.7 GM/DL (3.2-4.5); BILIRUBIN,TOTAL 0.5 MG/DL (0.1-1.0); CALCIUM 9.3 MG/DL (8.5-10.1); CREATININE SERUM 1.58 MG/DL (0.60-1.30); POTASSIUM 4.7 MMOL/L (3.6-5.0); TOTAL PROTEIN 7.2 GM/DL (6.4-8.2)
--- NOTE | 2019-03-29 13:47 | Diagnostic Imaging Report ---
INDICATION: PICC line placement. TIME OF EXAM: 01:33 p.m. Comparison is made with prior chest from 04/06/2011. FINDINGS: Heart size is stable. Lungs are clear. No infiltrates are seen. There is no effusion or pneumothorax. PICC line appears to have the tip overlying the SVC. IMPRESSION: Satisfactory PICC line placement. Dictated by: Dictated on workstation # [id number]
[2019-03-29 14:39] LABS: BILIRUBIN,URINE NEGATIVE (NEGATIVE); CLARITY,URINE CLEAR; COLOR,URINE YELLOW; GLUCOSE, URINE (UA) NEGATIVE (NEGATIVE); KETONES,URINE NEGATIVE (NEGATIVE); LEUKOCYTE ESTERASE ,URINE NEGATIVE (NEGATIVE); NITRITE,URINE NEGATIVE (NEGATIVE); PROTEIN,URINE NEGATIVE (NEGATIVE)
[2019-03-29 14:47] LABS: BACTERIA,URINE TRACE /HPF; RBC,URINE 0-2 /HPF; WBC,URINE 0-2 /HPF
[2019-03-29] MEDS ORDERED: PIPERACILLIN SODIUM/TAZOBACTAM 4.5 GM in NS (IVPB) 100 ML IV ONE (15:15)
[2019-03-29] MEDS ORDERED: VANCOMYCIN INJECTION 2,000 MG in NS IV 500 ML 500 ML IV SCH (15:15)
--- NOTE | 2019-03-29 16:04 | NUR ---
REPORT TO ANDREW SOSA
--- NOTE | 2019-03-29 16:22 | History & Physical-Hospitalist ---
History of Present Illness Source: patient Exam Limitations: no limitations Date Seen 03/29/19 Time Seen by a Provider: 17:00 Attending Physician Evelia Oquendo David F MD Referring Physician Date of Admission Mar 29, 2019 at 15:00 Home Medications & Allergies Home Medications Reviewed patient Home Medication Reconciliation performed by pharmacy medication reconciliations service center technician and/or nursing. Patients Allergies have been reviewed. Allergies Allergies Coded Allergies No Known Drug Allergies (Gyjpelkydx61/7/14) Past Gtetjbl-Pvermw-Jcjrfs Hx Past Med/Social Hx: Reviewed Nursing Past Med/Soc Hx Patient Social History Alcohol Use: Denies Use Recreational Drug Use: No Smoking Status: Former Smoker Former Smoker, Quit: Sep 26, 2011 Type Used: Cigarettes Recent Foreign Travel: No Contact w/other who traveled: No Recent Hopitalizations: No Recent Infectious Disease Expo: No Immunizations Up To Date Tetanus Booster (TDap): Unknown Date of Influenza Vaccine: Feb 10, 2014 Seasonal Allergies Seasonal Allergies: Yes Past Medical History Surgeries: Abdominal, Cardiac, Tonsillectomy Cardiac: High Cholesterol, Hypertension Neurological: Neuropathy Reproductive: No Sexually Transmitted Disease: No HIV/AIDS: No Endocrine: Diabetes, Non-Insulin dep Hearing Impairment: Denies Skin/Integumentary: Pruritis History of Blood Disorders: No Adverse Reaction to Blood Salazar: No Family History Reviewed Nursing Family Hx Chest pain 03 MOTHER, Onset:Unknown Congestive heart failure 03 MOTHER, Onset:Unknown Family history: Cardiovascular disease 03 MOTHER, Onset:Unknown Family history: Coronary thrombosis 03 MOTHER, Onset:Unknown Family history: Diabetes mellitus 03 FATHER, Onset:Unknown 03 MOTHER, Onset:Unknown 09 BROTHER, Onset:Unknown Family history: Glaucoma 03 MOTHER, Onset:Unknown Family history: Hypertension 03 FATHER, Onset:Unknown 03 MOTHER, Onset:Unknown 09 BROTHER, Onset:Unknown Heart disease 03 MOTHER, Onset:Unknown Hypercholesterolemia 03 FATHER, Onset:Unknown 03 MOTHER, Onset:Unknown 09 BROTHER, Onset:Unknown Myocardial infarction 03 MOTHER, Onset:Unknown Psychotic disorder 03 MOTHER, Onset:Unknown Seizure disorder 03 MOTHER, Onset:Unknown Stroke 03 MOTHER, Onset:Unknown Visual impairment 03 MOTHER, Onset:Unknown No Family History of: Abdominal aortic aneurysm [place]'s disease Alcoholism Aphasia Cancer Cancer of colon Cataract Congenital heart disease Cystic fibrosis Dementia Dysphagia Family history: Allergy Family history: Alzheimer's disease Family history: Arthritis Family history: Asthma Family history: Breast disease Family history: Gastrointestinal disease Family history: Osteoporosis Family history: Thyroid disorder Headache Hearing loss Hereditary disease History of - anemia History of - disorder History of - respiratory disease History of drug abuse Human immunodeficiency virus (HIV) seropositivity Infertile Kidney disease Malignant neoplasm of lung Parkinson's disease Prostate cancer Tuberculosis No Pertinent Family Hx Physical Exam Physical Exam Vital Signs Vital Signs - First Documented 03/29/19 11:15 Temp 37.0 Pulse 96 Resp 18 B/P (MAP) 150/76 (100) Pulse Ox 94 Capillary Refill : Less Than 3 Seconds Height, Weight, BMI Height: 6'0.00" Weight: 330lbs. 0.0oz. 149.422496mn; 49.00 BMI Method:Stated Results Results/Procedures Labs Laboratory Tests 03/29/19 11:49 03/30/19 05:30 Patient resulted labs reviewed. EVELIA OQUENDO DO Mar 29, 2019 16:22
--- NOTE | 2019-03-29 16:43 | Diagnostic Imaging Report ---
PROCEDURE: US Bilateral lower extremity arterial. TECHNIQUE: Multiple real-time grayscale images are obtained through both lower extremity arterial systems with color Doppler imaging and color Doppler spectral analysis. INDICATION: Nonhealing ulcer left heel, diabetes, leg pain. COMPARISON: None. FINDINGS: Mild atherosclerotic disease is seen throughout. There is a predominant biphasic wave pattern. There is normal runoff flow in the right lower extremity. However, no flow is detected in the dorsalis pedis artery of the left foot. Runoff flow is seen in the left posterior tibial artery. Velocities are elevated in the left common femoral artery indicating a moderate degree of stenosis. IMPRESSION: 1. Diffuse atherosclerosis. 2. Focal elevated velocity in left common femoral artery indicating a moderate degree of stenosis. 3. No flow detected within the left dorsalis pedis artery. Dictated by: Dictated on workstation # [id number]
[2019-03-29] MEDS ORDERED: ONDANSETRON 4 MG/2 ML (SDV) Z0FRAN IV PRN (16:45)
[2019-03-29 16:47] VITALS: BP 160/70
--- NOTE | 2019-03-29 16:48 | NUR ---
CR 1.58; CR CL > 60; WT 165 KG; VANCO 2000 MG IV GIVEN IN ER; CONTINUE WITH VANCO 1500 MG IV Q12H; TROUGH AFTER 3RD DOSE
[2019-03-29] MEDS ORDERED: diphenhydrAMINE 25 MG TAB (BENADRYL) PO PRN (17:15)
[2019-03-29] MEDS ORDERED: DOCUSATE SODIUM 100 MG (COLACE) CAP PO PRN (17:15)
[2019-03-29] MEDS ORDERED: ALPRAZolam 0.25 MG (XANAX) TAB PO PRN (17:15)
[2019-03-29] MEDS ORDERED: HYDROcodone/APAP 5 MG/325 MG (LORTAB) TAB PO PRN (17:15)
[2019-03-29] MEDS ORDERED: CALCIUM CARBONATE 500 MG (TUMS) TAB.CHEW PO PRN (17:15)
[2019-03-29] MEDS ORDERED: guaiFENesin/CODEINE (ROBITUSSIN AC) 10ML UDC PO PRN (17:15)
[2019-03-29] MEDS ORDERED: ONDANSETRON 4 MG/2 ML (SDV) Z0FRAN IVP PRN (17:15)
[2019-03-29] MEDS ORDERED: LOPERAMIDE 2 MG (IMODIUM) TABLET PO PRN (17:15)
[2019-03-29] MEDS ORDERED: ACETAMINOPHEN 500 MG TAB (TYLENOL) PO PRN (17:15)
[2019-03-29] MEDS ORDERED: MELATONIN 3 MG TABLET PO PRN (17:15)
[2019-03-29] MEDS ORDERED: ASPI-999 (17:52)
[2019-03-29] MEDS ORDERED: SULF-222 PO (17:52)
[2019-03-29] MEDS ORDERED: OMEP20CA13 PO (17:52)
--- NOTE | 2019-03-29 18:24 | NUR ---
Med rec completed by this RN using patient's bottles of medication to verify. Notified Dr. Oquendo at this time that med rec is complete. Dr. Oquendo states, "Restart all home medications, please." Will carry out order and continue to monitor.
[2019-03-29] MEDS ORDERED: CYCLOBENZAPRINE 10 MG (FLEXERIL) TAB PO PRN (18:30)
[2019-03-29] MEDS: ENOXAPARIN 40 MG/0.4 ML (LOVENOX) SYR SC SCH (18:45)
[2019-03-29] MEDS: NS IV 1000 ML 1,000 ML IV SCH (18:45)
[2019-03-29 19:54] VITALS: BP 140/63
[2019-03-29] MEDS: inSUlin ASPART (NovoLOG) 1 UNIT/0.01 ML (CHARGE PER UNIT) SC SCH (20:54)
[2019-03-29] MEDS ORDERED: SIMvastatin 40 MG (ZOCOR) TAB PO SCH (21:00)
[2019-03-29] MEDS ORDERED: NON-FORMULARY MEDICATION 1 EA EA (Naproxen 500 MG) PO SCH (21:00)
[2019-03-29] MEDS ORDERED: NON-FORMULARY MEDICATION 1 EA EA (Propranolol HCl 40 MG) PO SCH (21:00)
[2019-03-29] MEDS: SENNA W/DOCUSATE (SENOKOT S) TABLET PO SCH (21:14)
[2019-03-29] MEDS: PROPRANOLOL 20 MG (INDERAL) TABLET PO SCH (21:14)
[2019-03-29] MEDS: GABAPENTIN 600 MG (NEURONTIN) TAB PO SCH (21:14)
[2019-03-29] MEDS: PIPERACILLIN/TAZO 4.5 GM/NS 100 ML IV SCH ×2 (21:15)
[2019-03-29] MEDS: LATANOPROST 0.005% (XALATAN) OPHTH SOLN 2.5 ML OU SCH (21:15)
[2019-03-29 23:43] VITALS: BP 136/63
[2019-03-30 04:00] VITALS: BP 142/68
[2019-03-30] MEDS: PIPERACILLIN/TAZO 4.5 GM/NS 100 ML IV SCH ×6 (05:30→20:57)
[2019-03-30] MEDS: VANCOMYCIN 1500 MG/NS 500 ML IVPB IV SCH ×4 (05:31→18:30)
[2019-03-30 05:44] LABS: BASOPHILS % (AUTO) 0 % (0-10); EOSINOPHILS # (AUTO) 0.1 10^3/uL (0.0-0.3); EOSINOPHILS % (AUTO) 1 % (0-10); HEMATOCRIT 35 % (40-54); HEMOGLOBIN 11.2 G/DL (13.3-17.7); LYMPHOCYTES # (AUTO) 0.8 X 10^3 (1.0-4.0); LYMPHOCYTES % (AUTO) 11 % (12-44); MEAN CORPUSCULAR HEMOGLOBIN 29 PG (25-34); MEAN CORPUSCULAR HGB CONC 32 G/DL (32-36); MEAN CORPUSCULAR VOLUME 92 FL (80-99); MEAN PLATELET VOLUME 10.9 FL (7.4-10.4); MONOCYTES # (AUTO) 0.6 X 10^3 (0.0-1.0); MONOCYTES % (AUTO) 8 % (0-12); NEUTROPHILS # (AUTO) 5.6 X 10^3 (1.8-7.8); NEUTROPHILS % (AUTO) 80 % (42-75); PLATELET COUNT 247 10^3/uL (130-400); RED CELL DISTRIBUTION WIDTH 15.2 % (10.0-14.5); WHITE BLOOD COUNT 7.1 10^3/uL (4.3-11.0)
[2019-03-30 06:14] LABS: ALBUMIN 3.5 GM/DL (3.2-4.5); BILIRUBIN,TOTAL 0.5 MG/DL (0.1-1.0); CREATININE SERUM 1.49 MG/DL (0.60-1.30); POTASSIUM 4.6 MMOL/L (3.6-5.0); TOTAL PROTEIN 6.9 GM/DL (6.4-8.2)
[2019-03-30] MEDS: inSUlin ASPART (NovoLOG) 1 UNIT/0.01 ML (CHARGE PER UNIT) SC SCH ×4 (06:49→19:38)
[2019-03-30] MEDS: NAPROXEN 250 MG (NAPROSYN) TABLET PO SCH ×2 (07:01→18:45)
[2019-03-30] MEDS: ENOXAPARIN 40 MG/0.4 ML (LOVENOX) SYR SC SCH ×2 (07:01→18:30)
[2019-03-30] MEDS: PIOGLITAZONE 30MG (ACTOS) TAB PO SCH (07:02)
[2019-03-30] MEDS: glyBURIDE 5 MG (MICRONASE) TAB PO SCH ×2 (07:02→18:30)
[2019-03-30 08:03] VITALS: BP 146/65
[2019-03-30] MEDS ORDERED: OMEPRAZOLE 20 MG (PriLOSEC) CAP NON-FORMULARY PO SCH (09:00)
[2019-03-30] MEDS ORDERED: NON-FORMULARY MEDICATION 1 EA EA (Pioglitazone HCl 45 MG) PO SCH (09:00)
[2019-03-30] MEDS ORDERED: NON-FORMULARY MEDICATION 1 EA EA (Liraglutide (Victoza 3-Pak) 1.2 MG) SQ SCH (09:00)
[2019-03-30] MEDS: SENNA W/DOCUSATE (SENOKOT S) TABLET PO SCH ×2 (09:09→20:29)
[2019-03-30] MEDS: PROPRANOLOL 20 MG (INDERAL) TABLET PO SCH ×2 (09:10→20:29)
[2019-03-30] MEDS: lisINopril 40 MG (PRINIVIL) TABLET PO SCH (09:10)
[2019-03-30] MEDS: PANTOPRAZOLE 20 MG TABLET (PROTONIX) PO SCH (09:11)
[2019-03-30] MEDS: HYDROCHLOROTHIAZIDE 25 MG (HCTZ) TAB PO SCH (09:11)
[2019-03-30] MEDS: ASPIRIN 81 MG CHEW (CHILDREN'S ASA) PO SCH (09:11)
[2019-03-30] MEDS: GABAPENTIN 600 MG (NEURONTIN) TAB PO SCH ×3 (09:11→20:29)
[2019-03-30 11:52] VITALS: BP 139/63
--- NOTE | 2019-03-30 11:55 | Consultation - Surgery ---
BUTCH FINNEY MED STUDENT 03/30/19 1155: History of Present Illness History of Present Illness Patient Consulted On(douglas/time) 03/30/19 11:50 Date Seen by Provider: Mar 30, 2019 Time Seen by Provider: 11:30 History of Present Illness Mr. Chung was seen today due to a large non-healing ulcer on the heel of his left foot. He reports that he first noticed it about 9 days ago, and it started to l ook like it does today about one week ago. During this time he reports having a low grade fever and feeling fatigued. He saw an urgent care, which prescribed him bactram, which he reports did not help his symptoms. He saw his jewel bearing turner Dr. Carpenter on Monday, who he reports debrided his wound and recommended he be admitted to the hospital. Since being admitted and started on fluids and medications he reports his fever has gone away and he feels much better. Allergies and Home Medications Allergies Coded Allergies: No Known Drug Allergies (Unverified , 03/16/14) Home Medications Aspirin 81 Mg Tab.chew, 81 MG DAILY, (Reported) Cyclobenzaprine HCl 10 Mg Tablet, 10 MG PO TID PRN for MUSCLE SPASMS, (Reported) Gabapentin 600 Mg Tablet, 600 MG PO TID, (Reported) Glyburide 5 Mg Tablet, 10 MG PO BID, (Reported) take 2 (5mg) tabs Hydrochlorothiazide 25 Mg Tablet, 25 MG PO DAILY, (Reported) Latanoprost 2.5 Ml Drops, 1 DROP OU HS, (Reported) Liraglutide 0.6 Mg/0.1 Ml Pen.injctr, 1.2 MG SQ DAILY, (Reported) Lisinopril 40 Mg Tablet, 40 MG PO DAILY, (Reported) Naproxen 500 Mg Tablet, 500 MG PO BID, (Reported) Omeprazole 20 Mg Capsule.dr, 20 MG PO DAILY, (Reported) Pioglitazone HCl 45 Mg Tablet, 45 MG PO DAILY, (Reported) Propranolol HCl 40 Mg Tablet, 40 MG PO BID, (Reported) Simvastatin 40 Mg Tablet, 40 MG PO HS, (Reported) Sulfamethoxazole/Trimethoprim 1 Each Tablet, 1 TAB PO BID, (Reported) Past Btplxnp-Phypjw-Ygjjrt Hx Patient Social History Alcohol Use: Denies Use Recreational Drug Use: No Smoking Status: Former Smoker Former Smoker, Quit: Sep 26, 2011 Type Used: Cigarettes Recent Foreign Travel: No Contact w/Someone Who Travel: No Recent Infectious Disease Expo: No Recent Hopitalizations: No Immunizations Up To Date Tetanus Booster (TDap): Unknown Date of Influenza Vaccine: Dec 28, 2018 Seasonal Allergies Seasonal Allergies: Yes Surgeries History of Surgeries: Yes (HERNIA AGE 1, HEART CATH, urethreal stricture, left big toe osteoectomy) Surgeries: Abdominal, Cardiac, Tonsillectomy Respiratory History of Respiratory Disorde: Yes (going to get a sleep study done) Cardiovascular History of Cardiac Disorders: Yes Cardiac Disorders: High Cholesterol, Hypertension Neurological History of Neurological Disord: Yes Neurological Disorders: Neuropathy Reproductive System Hx Reproductive Disorders: No Sexually Transmitted Disease: No HIV/AIDS: No Gastrointestinal History of Gastrointestinal Di: No Musculoskeletal History of Musculoskeletal Dis: Yes (open wound on left big toe, 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) Endocrine History of Endocrine Disorders: Yes Endocrine Disorders: Diabetes, Non-Insulin dep HEENT Hearing Impairment: Denies Cancer History of Cancer: No Psychosocial History of Psychiatric Problem: No Integumentary History of Skin or Integumenta: No Skin/Integumentary Disorders: Pruritis Blood Transfusions History of Blood Disorders: No Adverse Reaction to a Blood Tr: No Family Medical History Significant Family History: No Pertinent Family Hx Family Medial History: Chest pain 03 MOTHER, Onset:Unknown Congestive heart failure 03 MOTHER, Onset:Unknown Family history: Cardiovascular disease 03 MOTHER, Onset:Unknown Family history: Coronary thrombosis 03 MOTHER, Onset:Unknown Family history: Diabetes mellitus 03 FATHER, Onset:Unknown 03 MOTHER, Onset:Unknown 09 BROTHER, Onset:Unknown Family history: Glaucoma 03 MOTHER, Onset:Unknown Family history: Hypertension 03 FATHER, Onset:Unknown 03 MOTHER, Onset:Unknown 09 BROTHER, Onset:Unknown Heart disease 03 MOTHER, Onset:Unknown Hypercholesterolemia 03 FATHER, Onset:Unknown 03 MOTHER, Onset:Unknown 09 BROTHER, Onset:Unknown Myocardial infarction 03 MOTHER, Onset:Unknown Psychotic disorder 03 MOTHER, Onset:Unknown Seizure disorder 03 MOTHER, Onset:Unknown Stroke 03 MOTHER, Onset:Unknown Visual impairment 03 MOTHER, Onset:Unknown No Family History of: Abdominal aortic aneurysm Tab's disease Alcoholism Aphasia Cancer Cancer of colon Cataract Congenital heart disease Cystic fibrosis Dementia Dysphagia Family history: Allergy Family history: Alzheimer's disease Family history: Arthritis Family history: Asthma Family history: Breast disease Family history: Gastrointestinal disease Family history: Osteoporosis Family history: Thyroid disorder Headache Hearing loss Hereditary disease History of - anemia History of - disorder History of - respiratory disease History of drug abuse Human immunodeficiency virus (HIV) seropositivity Infertile Kidney disease Malignant neoplasm of lung Parkinson's disease Prostate cancer Tuberculosis Review of Systems-General Constitutional: No chills (was cold at times), No dizziness; fever, malaise EENTM: No nose congestion, No throat pain Respiratory: No cough, No short of breath Cardiovascular: No chest pain; edema (baseline for him); No palpitations Gastrointestinal: No abdominal pain, No constipation, No diarrhea, No melena, No nausea, No vomiting Genitourinary: No dysuria, No hematuria Musculoskeletal: other (bilateral charcot foot) Skin: lesions (large nonhealing ulcer on heel of left foot), other (stasis dermatitis on R leg) Psychiatric/Neurological: Numbness (no sensation from mid-leg down); Denies Paresthesia Physical Exam-General Problems Physical Exam Vital Signs Vital Signs - First Documented 03/29/19 11:15 Temp 37.0 Pulse 96 Resp 18 B/P (MAP) 150/76 (100) Pulse Ox 94 Capillary Refill : Less Than 3 Seconds General Appearance: no apparent distress, obese HEENT: PERRL/EOMI; No scleral icterus (R), No scleral icterus (L), No pale conjunctivae (R), No pale conjunctivae (L) Neck: non-tender, supple, normal inspection Respiratory: lungs clear, normal breath sounds, no respiratory distress, no accessory muscle use Cardiovascular: normal peripheral pulses, regular rate, rhythm, no murmur Peripheral Pulses: 1+ Dorsalis Pedis (R), 1+ Left Dors-Pedis (L); 2+ Radial Pulses (R), 2+ Radial Pulses (L) Gastrointestinal: non tender, soft, no organomegaly, abnormal bowel sounds (hypoactive) Extremities: calf tenderness (mild tenderness at proximal edge of dermatitis bilaterally), inflammation (some erythema on medial side of ulcer on L foot extending up towards ankle), pedal edema Neurologic/Psychiatric: alert, normal mood/affect Skin: other (non healing ulcer on heel of L foot), rash (stasis dermatitis bilaterally, more extensive on R) Data Review Labs Laboratory Tests 03/29/19 13:50: Lactic Acid Level 1.36 03/29/19 14:30: Urine Color YELLOW, Urine Clarity CLEAR, Urine pH 6.0, Urine Specific [place] 1.020, Urine Protein NEGATIVE, Urine Glucose (UA) NEGATIVE, Urine Ketones NEGATIVE, Urine Nitrite NEGATIVE, Urine Bilirubin NEGATIVE, Urine Urobilinogen 0 .2, Urine Leukocyte Esterase NEGATIVE, Urine RBC (Auto) TRACE-I, Urine RBC 0-2, Urine WBC 0-2, Urine Crystals NONE, Urine Bacteria TRACE, Urine Casts NONE, Urine Mucus NEGATIVE, Urine Culture Indicated CULTURE PENDING 03/29/19 20:36: Glucometer 170H 03/30/19 05:30: White Blood Count 7.1, Red Blood Count 3.81L, Hemoglobin 11.2L, Hematocrit 35L, Mean Corpuscular Volume 92, Mean Corpuscular Hemoglobin 29, Mean Corpuscular Hemoglobin Concent 32, Red Cell Distribution Width 15.2H, Platelet Count 247, Mean Platelet Volume 10.9H, Neutrophils (%) (Auto) 80H, Lymphocytes (%) (Auto) 11L, Monocytes (%) (Auto) 8, Eosinophils (%) (Auto) 1, Basophils (%) (Auto) 0, Neutrophils # (Auto) 5.6, Lymphocytes # (Auto) 0.8L, Monocytes # (Auto) 0.6, Eosinophils # (Auto) 0.1, Basophils # (Auto) 0.0, Sodium Level 134L, Potassium Level 4.6, Chloride Level 100, Carbon Dioxide Level 23, Anion Gap 11, Blood Urea Nitrogen 21H, Creatinine 1.49H, Estimat Glomerular Filtration Rate 50, BUN/Creatinine Ratio 14, Glucose Level 127H, Calcium Level 9.0, Corrected Calcium 9.4, Total Bilirubin 0.5, Aspartate Amino Transf (AST/SGOT) 13, Alanine Aminotransferase (ALT/SGPT) 19, Alkaline Phosphatase 108, Total Protein 6.9, Albumin 3.5 03/30/19 09:55: Glucometer 115H Microbiology 03/29/19 Urine Culture - Final, Complete NO GROWTH 03/29/19 Gram Stain - Final, Resulted 03/29/19 Wound Culture - Preliminary, Resulted Staphylococcus aureus Corynebacterium species Assessment/Plan Assessment/Plan Assessment/Plan L heel diabetic ulcer LLE cellulitis DM PVD Charcot foot bilaterally Patient has nonhealing wound. Had debridement yesterday with Dr. Carpenter. Continue with IV fluids and antibiotics. Left common femoral artery moderate degree of stenosis, consider arteriogram/intervention with cardiology. No surgical intervention at this time, may need further debridement, continue local wound care and monitoring for signs of infection. Clinical Quality Measures DVT/VTE Risk/Contraindication: Risk Factor Score Per Nursin RFS Level Per Nursing on Admit: 4+=Very High IRA GILLESPIE DO 03/30/19 1301: History of Present Illness History of Present Illness History of Present Illness consult requested by Dr. Oquendo for left heel wound. Patient is a 48 year old male with longstanding feet issues due to Charcot. He about 9 days ago noticed changes to the left heal area. He has skin and then it continued to worsen and fall off. Patient had cellulitis form and saw urgent care and was started on oral antibiotics. He was seen yesterday by Dr. Carpenter and had wound debrided. Patient was told to go to hospital for further management. Patient states today he is feeling better. He has some serous appearing drainage. Denies any n/v fever sweats chills shortness of breath or chest pain. u/s demonstrating left common femoral moderated stricture. Allergies and Home Medications Allergies Coded Allergies: No Known Drug Allergies (Unverified , 03/16/14) Home Medications Aspirin 81 Mg Tab.chew, 81 MG DAILY, (Reported) Cyclobenzaprine HCl 10 Mg Tablet, 10 MG PO TID PRN for MUSCLE SPASMS, (Reported) Gabapentin 600 Mg Tablet, 600 MG PO TID, (Reported) Glyburide 5 Mg Tablet, 10 MG PO BID, (Reported) take 2 (5mg) tabs Hydrochlorothiazide 25 Mg Tablet, 25 MG PO DAILY, (Reported) Latanoprost 2.5 Ml Drops, 1 DROP OU HS, (Reported) Liraglutide 0.6 Mg/0.1 Ml Pen.injctr, 1.2 MG SQ DAILY, (Reported) Lisinopril 40 Mg Tablet, 40 MG PO DAILY, (Reported) Naproxen 500 Mg Tablet, 500 MG PO BID, (Reported) Omeprazole 20 Mg Capsule.dr, 20 MG PO DAILY, (Reported) Pioglitazone HCl 45 Mg Tablet, 45 MG PO DAILY, (Reported) Propranolol HCl 40 Mg Tablet, 40 MG PO BID, (Reported) Simvastatin 40 Mg Tablet, 40 MG PO HS, (Reported) Sulfamethoxazole/Trimethoprim 1 Each Tablet, 1 TAB PO BID, (Reported) Patient Home Medication List Home Medication List Reviewed: Yes Past Bkvnlue-Rucwlo-Oohexr Hx Reviewed Nursing Assessment Reviewed/Agree w Nursing PMH: Yes Family Medical History Significant Family History: No Pertinent Family Hx Family Medial History: Chest pain 03 MOTHER, Onset:Unknown Congestive heart failure 03 MOTHER, Onset:Unknown Family history: Cardiovascular disease 03 MOTHER, Onset:Unknown Family history: Coronary thrombosis 03 MOTHER, Onset:Unknown Family history: Diabetes mellitus 03 FATHER, Onset:Unknown 03 MOTHER, Onset:Unknown 09 BROTHER, Onset:Unknown Family history: Glaucoma 03 MOTHER, Onset:Unknown Family history: Hypertension 03 FATHER, Onset:Unknown 03 MOTHER, Onset:Unknown 09 BROTHER, Onset:Unknown Heart disease 03 MOTHER, Onset:Unknown Hypercholesterolemia 03 FATHER, Onset:Unknown 03 MOTHER, Onset:Unknown 09 BROTHER, Onset:Unknown Myocardial infarction 03 MOTHER, Onset:Unknown Psychotic disorder 03 MOTHER, Onset:Unknown Seizure disorder 03 MOTHER, Onset:Unknown Stroke 03 MOTHER, Onset:Unknown Visual impairment 03 MOTHER, Onset:Unknown No Family History of: Abdominal aortic aneurysm Tab's disease Alcoholism Aphasia Cancer Cancer of colon Cataract Congenital heart disease Cystic fibrosis Dementia Dysphagia Family history: Allergy Family history: Alzheimer's disease Family history: Arthritis Family history: Asthma Family history: Breast disease Family history: Gastrointestinal disease Family history: Osteoporosis Family history: Thyroid disorder Headache Hearing loss Hereditary disease History of - anemia History of - disorder History of - respiratory disease History of drug abuse Human immunodeficiency virus (HIV) seropositivity Infertile Kidney disease Malignant neoplasm of lung Parkinson's disease Prostate cancer Tuberculosis Review of Systems-General Constitutional: fever, malaise EENTM: no symptoms reported Respiratory: no symptoms reported Cardiovascular: no symptoms reported, edema (baseline for him lower extremity) Gastrointestinal: no symptoms reported Genitourinary: no symptoms reported Musculoskeletal: see HPI, other (bilateral charcot foot) Skin: lesions (large nonhealing ulcer on heel of left foot), other (stasis dermatitis on R leg) Psychiatric/Neurological: Numbness (no sensation from mid-leg down) Physical Exam-General Problems Physical Exam General Appearance: no apparent distress HEENT: PERRL/EOMI Neck: non-tender, supple, normal inspection Respiratory: chest non-tender, no respiratory distress, no accessory muscle use Cardiovascular: regular rate, rhythm Gastrointestinal: non tender, soft, no organomegaly Rectal: deferred Back: normal inspection, no CVA tenderness Extremities: inflammation (some erythema on medial side of (ulcer approximately 5 cm in diameter, granulation and minimal discoloration in wound ) L foot ext ending up towards ankle) Neurologic/Psychiatric: alert, normal mood/affect, oriented x 3 Skin: other (non healing ulcer on heel of L foot), rash (stasis dermatitis bilaterally, more extensive on R) Assessment/Plan Assessment/Plan Assessment/Plan L heel diabetic ulcer LLE cellulitis DM PVD Charcot foot bilaterally Left common femoral artery moderated stenosis continue abx local wound care, may need further debridment- change dressing bid and prn consider cardiology consultation for arteriogram/intervention no surgical intervention at this time, will follow. Supervisory-Addendum Brief Verification & Attestation Participated in pt care: history, MDM, physical Personally performed: exam, history, MDM, supervision of care Care discussed with: Medical Student Procedures: n/a Results interpretation: Verified all documentation Verification and Attestation of Medical Student E/M Service A medical student performed and documented this service in my presence. I reviewed and verified all information documented by the medical student and made modifications to such information, when appropriate. I personally performed the physical exam and medical decision making. Ira Gillespie, Mar 30, 2019,13:09 BUTCH FINNEY MED STUDENT Mar 30, 2019 11:55 IRA GILLESPIE DO Mar 30, 2019 13:01
--- NOTE | 2019-03-30 12:22 | History & Physical-Hospitalist ---
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 He reports that it started out with a slight bleeding from a sore on his left heel and progressed rapidly over the following 2 weeks and failed PO abx. I have restarted all of his home meds and will consult general surgeon Dr Osman. Source: patient Exam Limitations: no limitations Date Seen 03/30/19 Time Seen by a Provider: 11:00 Attending Physician Evelia Ambrosio DO PCP Ray Plama MD Referring Physician Date of Admission Mar 29, 2019 at 15:00 Home Medications & Allergies Home Medications Reviewed patient Home Medication Reconciliation performed by pharmacy medication reconciliations tattoo technician and/or nursing. Patients Allergies have been reviewed. 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) Alcohol Use: Denies Use Recreational Drug Use: No Smoking Status: Former Smoker Former Smoker, Quit: Sep 26, 2011 Type Used: Cigarettes Recent Foreign Travel: No Contact w/other who traveled: No Recent Hopitalizations: No Recent Infectious Disease Expo: No Immunizations Up To Date Tetanus Booster (TDap): Unknown Date of Influenza Vaccine: Dec 28, 2018 Seasonal Allergies Seasonal Allergies: Yes Past Medical History Surgeries: Abdominal, Cardiac, Orthopedic (left foot Dr Carpenter ), Tonsillectomy Respiratory: Sleep Apnea Currently Using CPAP: No Currently Using BIPAP: No Cardiac: High Cholesterol, Hypertension Neurological: Neuropathy Reproductive: No Sexually Transmitted Disease: No HIV/AIDS: No Endocrine: Diabetes, Non-Insulin dep Hearing Impairment: Denies Skin/Integumentary: Pruritis History of Blood Disorders: No Adverse Reaction to Blood Salazar: No Family History Reviewed Nursing Family Hx Chest pain 03 MOTHER, Onset:Unknown Congestive heart failure 03 MOTHER, Onset:Unknown Family history: Cardiovascular disease 03 MOTHER, Onset:Unknown Family history: Coronary thrombosis 03 MOTHER, Onset:Unknown Family history: Diabetes mellitus 03 FATHER, Onset:Unknown 03 MOTHER, Onset:Unknown 09 BROTHER, Onset:Unknown Family history: Glaucoma 03 MOTHER, Onset:Unknown Family history: Hypertension 03 FATHER, Onset:Unknown 03 MOTHER, Onset:Unknown 09 BROTHER, Onset:Unknown Heart disease 03 MOTHER, Onset:Unknown Hypercholesterolemia 03 FATHER, Onset:Unknown 03 MOTHER, Onset:Unknown 09 BROTHER, Onset:Unknown Myocardial infarction 03 MOTHER, Onset:Unknown Psychotic disorder 03 MOTHER, Onset:Unknown Seizure disorder 03 MOTHER, Onset:Unknown Stroke 03 MOTHER, Onset:Unknown Visual impairment 03 MOTHER, Onset:Unknown No Family History of: Abdominal aortic aneurysm Desha's disease Alcoholism Aphasia Cancer Cancer of colon Cataract Congenital heart disease Cystic fibrosis Dementia Dysphagia Family history: Allergy Family history: Alzheimer's disease Family history: Arthritis Family history: Asthma Family history: Breast disease Family history: Gastrointestinal disease Family history: Osteoporosis Family history: Thyroid disorder Headache Hearing loss Hereditary disease History of - anemia History of - disorder History of - respiratory disease History of drug abuse Human immunodeficiency virus (HIV) seropositivity Infertile Kidney disease Malignant neoplasm of lung Parkinson's disease Prostate cancer Tuberculosis No Pertinent Family Hx Review of Systems Constitutional: see HPI, weakness EENTM: no symptoms reported Respiratory: no symptoms reported Cardiovascular: no symptoms reported Gastrointestinal: no symptoms reported Genitourinary: no symptoms reported Musculoskeletal: other (left foot discomfort) Skin: see HPI Psychiatric/Neurological: No Symptoms Reported All Other Systems Reviewed Negative Unless Noted: Yes Physical Exam Physical Exam Vital Signs Vital Signs - First Documented 03/29/19 11:15 Temp 37.0 Pulse 96 Resp 18 B/P (MAP) 150/76 (100) Pulse Ox 94 Capillary Refill : Less Than 3 Seconds Height, Weight, BMI Height: 6'0.00" Weight: 330lbs. 0.0oz. 149.242993kp; 49.62 BMI Method:Stated General Appearance: No Apparent Distress, WD/WN, Chronically ill Eyes: Right Eye Normal Inspection, Right Eye PERRL HEENT: PERRL/EOMI, Normal ENT Inspection, Pharynx Normal, Moist Mucous Membranes Neck: Full Range of Motion, Normal Inspection, Non Tender Respiratory: Chest Non Tender, Lungs Clear, Normal Breath Sounds, No Accessory Muscle Use, No Respiratory Distress Cardiovascular: Regular Rate, Rhythm, No Edema, No Gallop, No JVD, No Murmur, Normal Peripheral Pulses Gastrointestinal: Normal Bowel Sounds, No Organomegaly, No Pulsatile Mass, Non Tender, Soft Back: Normal Inspection, No CVA Tenderness, No Vertebral Tenderness Extremity: Normal Capillary Refill, Normal Inspection, Normal Range of Motion, Non Tender, No Calf Tenderness, No Pedal Edema Neurologic/Psychiatric: Alert, Oriented x3, No Motor/Sensory Deficits, Normal Mood/Affect, Sensory Deficit (feet neuropathy) Skin: Normal Color, Warm/Dry, Other (large left heel ulceration with erythema of left leg with drainage from ulcer) Lymphatic: No Adenopathy Results Results/Procedures Labs Laboratory Tests 03/29/19 11:49 03/30/19 05:30 Patient resulted labs reviewed. Assessment/Plan Admission Diagnosis Assessment: Left heel DM ulcer failed outpatient PO abx in need of debridement consulted Dr Osman Charcodionisio foot bilateral DM BAILEE presumed has not completed sleep study Former smoker HTN HLP Neuropathy Plan: IV abx Dr Osman DVT PPx Home meds Admission Status: Inpatient Order (span 2 midnights) Reason for Inpatient Admission: Severe DM ulcer will require debridement with IV abx Diagnosis/Problems Diagnosis/Problems (1) Diabetic ulcer of left foot Status: Acute Qualifiers: Diabetic foot ulcer location: heel Diabetes mellitus type: type 2 Non- pressure ulcer stage: with fat layer exposed Qualified Codes: E11.621 - Type 2 diabetes mellitus with foot ulcer; L97.422 - Non-pressure chronic ulcer of left heel and midfoot with fat layer exposed (2) Cellulitis of left leg Status: Acute (3) Uncontrolled diabetes mellitus Status: Acute (4) Charcot foot Status: Acute (5) volume depletion Status: Acute Clinical Quality Measures DVT/VTE Risk/Contraindication: Risk Factor Score Per Nursin RFS Level Per Nursing on Admit: 4+=Very High EVELIA AMBROSIO DO Mar 30, 2019 12:22
[2019-03-30] MEDS: NS IV 1000 ML 1,000 ML IV SCH (13:20)
--- NOTE | 2019-03-30 15:23 | Consultation-Cardiology ---
HPI-Cardiology Cardiology Consultation: Date of Consultation 03/30/19 Date of Admission Attending Physician Evelia Oquendo DO Admitting Physician Ray Palma MD Consulting Physician Gerald ISSA MD HPI: Time Seen by a Provider: 13:00 Chief Complaint: Nonhealing left heel ulcer This is a 48-year-old gentleman with severe diabetes and history of diabetic foot. He denies active smoking. He denies premature CAD in the family. He presented with a large nonhealing ulcer on the heel of the foot. Drainage was also noted and Dr. Carpenter did deprive meant. Cultures were sent. Low-grade fever and not feeling well. Denies any chest pain, shortness of breath, nausea, vomiting. Has history of lymphedema especially in the right lower extremity. Recently had cardiac workup with a negative stress test and echocardiogram with Dr. Disa. Had a remote history of coronary angiography which according to the patient did not have any significant CAD. He was admitted for IV antibiotics. Review of Systems-Cardiology Review of Systems Constitutional: As described under HPI; No As described under HPI, No no symptoms reported, No chills, No fever, No lightheadedness Eyes: No As described under HPI, No no symptoms reported, No blindness, No blurred vision, No contact lenses, No drainage, No decreased acuity, No foreign body sensation, No pain, No vision change Ears/Nose/Throat: No As described under HPI, No no symptoms reported, No chronic hearing loss, No ear discharge, No ear pain, No nasal drainage, No ulcerations Respiratory: No no symptoms reported; As described under HPI; No As described under HPI, No cough, No orthopnea, No shortness of breath, No SOB with excertion Cardiovascular: No no symptoms reported; As described under HPI; No As described under HPI, No chest pain, No edema, No irregular heart rate, No lightheadedness, No palpitations Gastrointestinal: No no symptoms reported, No As described under HPI, No abdomen distended, No abdominal pain, No blood streaked bowels, No constipation, No diarrhea, No nausea, No vomiting, No stool coloration changes Genitourinary: No As described under HPI, No burning, No dysuria, No discharge, No frequency, No flank pain, No hematuria, No urgency Musculoskeletal: As describe under HPI Skin: No rash, No skin related problems, No ulcerations Psychiatric/Neurological: No anxiety, No depression, No seizure, No focal weakness, No syncope Hematologic: No bleeding abnormalities All Other Systems Reviewed Negative Unless Noted: Yes BED-Gndesp-Gwivux Hx Patient Social History Marrital Status: cohabiting 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 Family Medical History Family History: Chest pain 03 MOTHER, Onset:Unknown Congestive heart failure 03 MOTHER, Onset:Unknown Family history: Cardiovascular disease 03 MOTHER, Onset:Unknown Family history: Coronary thrombosis 03 MOTHER, Onset:Unknown Family history: Diabetes mellitus 03 FATHER, Onset:Unknown 03 MOTHER, Onset:Unknown 09 BROTHER, Onset:Unknown Family history: Glaucoma 03 MOTHER, Onset:Unknown Family history: Hypertension 03 FATHER, Onset:Unknown 03 MOTHER, Onset:Unknown 09 BROTHER, Onset:Unknown Heart disease 03 MOTHER, Onset:Unknown Hypercholesterolemia 03 FATHER, Onset:Unknown 03 MOTHER, Onset:Unknown 09 BROTHER, Onset:Unknown Myocardial infarction 03 MOTHER, Onset:Unknown Psychotic disorder 03 MOTHER, Onset:Unknown Seizure disorder 03 MOTHER, Onset:Unknown Stroke 03 MOTHER, Onset:Unknown Visual impairment 03 MOTHER, Onset:Unknown No Family History of: Abdominal aortic aneurysm Tab's disease Alcoholism Aphasia Cancer Cancer of colon Cataract Congenital heart disease Cystic fibrosis Dementia Dysphagia Family history: Allergy Family history: Alzheimer's disease Family history: Arthritis Family history: Asthma Family history: Breast disease Family history: Gastrointestinal disease Family history: Osteoporosis Family history: Thyroid disorder Headache Hearing loss Hereditary disease History of - anemia History of - disorder History of - respiratory disease History of drug abuse Human immunodeficiency virus (HIV) seropositivity Infertile Kidney disease Malignant neoplasm of lung Parkinson's disease Prostate cancer Tuberculosis Allergies and Home Medications Allergies Coded Allergies: No Known Drug Allergies (Unverified , 03/16/14) Home Medications Aspirin 81 Mg Tab.chew, 81 MG DAILY, (Reported) Cyclobenzaprine HCl 10 Mg Tablet, 10 MG PO TID PRN for MUSCLE SPASMS, (Reported) Gabapentin 600 Mg Tablet, 600 MG PO TID, (Reported) Glyburide 5 Mg Tablet, 10 MG PO BID, (Reported) take 2 (5mg) tabs Hydrochlorothiazide 25 Mg Tablet, 25 MG PO DAILY, (Reported) Latanoprost 2.5 Ml Drops, 1 DROP OU HS, (Reported) Liraglutide 0.6 Mg/0.1 Ml Pen.injctr, 1.2 MG SQ DAILY, (Reported) Lisinopril 40 Mg Tablet, 40 MG PO DAILY, (Reported) Naproxen 500 Mg Tablet, 500 MG PO BID, (Reported) Omeprazole 20 Mg Capsule.dr, 20 MG PO DAILY, (Reported) Pioglitazone HCl 45 Mg Tablet, 45 MG PO DAILY, (Reported) Propranolol HCl 40 Mg Tablet, 40 MG PO BID, (Reported) Simvastatin 40 Mg Tablet, 40 MG PO HS, (Reported) Sulfamethoxazole/Trimethoprim 1 Each Tablet, 1 TAB PO BID, (Reported) Patient Home Medication List Home Medication List Reviewed: Yes Physical Exam-Cardiology Physical Exam Vital Signs/I&O 03/30/19 03/30/19 03/30/19 03/30/19 04:00 08:00 08:03 11:52 Temp 36.8 37.5 36.8 Pulse 90 96 84 Resp 18 18 20 B/P (MAP) 142/68 (92) 146/65 (92) 139/63 (88) Pulse Ox 99 99 97 O2 Delivery Room Air Room Air Room Air Room Air 03/30/19 00:00 Intake Total 300 ml Balance 300 ml Capillary Refill : Less Than 3 Seconds Constitutional: appears stated age, AAO x 3; No apparent distress; well- developed, well-nourished HEENT: PERRL; No discharge; hearing is well preserved, oral hygience is good; No ulceration, No xanthelasmas are seen Neck: No carotid bruit; carotid pulses are 2 + bilaterally Respiratory: chest is bilaterally symmetric, lungs clear to auscultation Cardiovascular: regular rate-rhythm, S1 and S2 Gastrointestinal: soft, distended, audible bowel sounds; No spleenomegaly Rectal: deferred Extremities: No clubbing, No cyanosis, No significant edema; wound (left heel ulcer) Neurologic/Psychiatric: no motor/sensory deficits, alert, normal mood/affect, oriented x 3, power is 5/5 both on sides Skin: ulcerations (left heel with 10-10 cm ulceration with black eschar and foul-smelling drainage. Significant surrounding erythema involving most of the foot and encroaching up the lower leg.) Data Review Labs Laboratory Tests 03/29/19 20:36: Glucometer 170H 03/30/19 05:30: White Blood Count 7.1, Red Blood Count 3.81L, Hemoglobin 11.2L, Hematocrit 35L, Mean Corpuscular Volume 92, Mean Corpuscular Hemoglobin 29, Mean Corpuscular Hemoglobin Concent 32, Red Cell Distribution Width 15.2H, Platelet Count 247, Mean Platelet Volume 10.9H, Neutrophils (%) (Auto) 80H, Lymphocytes (%) (Auto) 11L, Monocytes (%) (Auto) 8, Eosinophils (%) (Auto) 1, Basophils (%) (Auto) 0, Neutrophils # (Auto) 5.6, Lymphocytes # (Auto) 0.8L, Monocytes # (Auto) 0.6, Eosinophils # (Auto) 0.1, Basophils # (Auto) 0.0, Sodium Level 134L, Potassium Level 4.6, Chloride Level 100, Carbon Dioxide Level 23, Anion Gap 11, Blood Urea Nitrogen 21H, Creatinine 1.49H, Estimat Glomerular Filtration Rate 50, BUN/Cre atinine Ratio 14, Glucose Level 127H, Calcium Level 9.0, Corrected Calcium 9.4, Total Bilirubin 0.5, Aspartate Amino Transf (AST/SGOT) 13, Alanine Aminotransferase (ALT/SGPT) 19, Alkaline Phosphatase 108, Total Protein 6.9, Albumin 3.5 03/30/19 09:55: Glucometer 115H 03/30/19 14:47: Glucometer 103 Microbiology 03/29/19 Urine Culture - Final, Complete NO GROWTH 03/29/19 Gram Stain - Final, Resulted 03/29/19 Wound Culture - Preliminary, Resulted Staphylococcus aureus Corynebacterium species Gram Pos Mixed Bacterial Barbara A/P-Cardiology Assessment/Admission Diagnosis Nonhealing left foot ulcer, Diabetes, Hyperlipidemia, Hypertension, Left lower extremity critical limb ischemia, Chronic kidney disease Plan Nonhealing left foot ulcer, bilateral lower extremity arterial ultrasound shows likely significant disease in the left common femoral artery as well as below the knee. Patient will require peripheral angiogram and possible intervention. I have spoken at length with the patient and since the patient does not have acute limb ischemia, I will defer till at least 48 hours of IV antibiotics are given. I will tentatively plan to schedule it on 04/01/2019 at 9 a.m. Informed consent was taken from the patient. 1 percent risk of a major complication including bleeding and transfer for open surgery. Right femoral access, bilateral lower extremity angiogram followed by possible intervention to the left lower extremity. We'll start aspirin, Plavix and high-dose statin therapy. Diabetes, deferred to the primary team. Hyperlipidemia, change to high dose Lipitor. Hypertension, continue outpatient medical therapy. Chronic kidney disease, likely due to diabetic nephropathy. IV fluids. Will recommend an echocardiogram. Thank you for your consultation. Please call me if you have any questions. Brady Issa MD, FACP, FACC, FSCAI, FHRS, CCDS Interventional Cardiology Cardiac Electrophysiology Vascular Medicine and Endovascular Interventions Clinical Quality Measures DVT/VTE Risk/Contraindication: Risk Factor Score Per Nursin RFS Level Per Nursing on Admit: 4+=Very High Gerald ISSA MD Mar 30, 2019 15:23
[2019-03-30 15:55] VITALS: BP 148/67
[2019-03-30] MEDS: CLOPIDOGREL 75 MG (PLAVIX) TABLET PO SCH (18:30)
[2019-03-30 19:24] VITALS: BP 143/67
[2019-03-30] MEDS: LATANOPROST 0.005% (XALATAN) OPHTH SOLN 2.5 ML OU SCH (20:31)
[2019-03-30 23:34] VITALS: BP 134/65
[2019-03-31] MEDS ORDERED: TROUGH ORDER-PHARMACY XX NR (04:00)
--- NOTE | 2019-03-31 05:17 | NUR ---
IV VANCOMYCIN SHEDULED FOR 1700 WAS GIVEN AT 1830. AT 0403 THIS RN CALLED NICOLA IN [facility] TO VERIFY THE TIME FOR THE TROUGH TO BE DRAWN WITH THE VANCOMYCIN DOSING BEING OFF, THIS RN WAS INFORMED THAT THIS TROUGH SHOULD BE DRAW AT 0530 NOT 0400.
[2019-03-31] MEDS: inSUlin ASPART (NovoLOG) 1 UNIT/0.01 ML (CHARGE PER UNIT) SC SCH ×4 (05:39→21:26)
[2019-03-31 06:24] LABS: VANCOMYCIN,TROUGH 18.3 UG/ML (10.0-20.0)
[2019-03-31] MEDS: VANCOMYCIN 1500 MG/NS 500 ML IVPB IV SCH ×4 (06:40→16:53)
[2019-03-31] MEDS: PIPERACILLIN/TAZO 4.5 GM/NS 100 ML IV SCH ×6 (06:40→22:45)
[2019-03-31] MEDS: NAPROXEN 250 MG (NAPROSYN) TABLET PO SCH ×2 (06:41→17:43)
[2019-03-31] MEDS: ENOXAPARIN 40 MG/0.4 ML (LOVENOX) SYR SC SCH ×2 (06:41→17:41)
[2019-03-31] MEDS: PIOGLITAZONE 30MG (ACTOS) TAB PO SCH (07:49)
[2019-03-31] MEDS: glyBURIDE 5 MG (MICRONASE) TAB PO SCH ×2 (07:49→17:43)
--- NOTE | 2019-03-31 07:49 | Progress Note - Surgery ---
[employer] STUDENT 03/31/19 0749: Subjective Date Seen by a Provider: Mar 31, 2019 Time Seen by a Provider: 07:20 Subjective/Events-last exam Mr. Chung reports feeling about the same since yesterday, he denies feeling any fevers or chills. Reports the drainage from the wound on his left heel has decreased. Review of Systems General: No Chills; Fatigue (normal for him) HEENT: No Sinus Congestion, No Post Nasal Drip, No Sore Throat Pulmonary: No Dyspnea, No Cough Cardiovascular: No: Chest Pain, Lt Headedness Gastrointestinal: No: Abdominal Pain, Diarrhea, Constipation, Melena Genitourinary: No Dysuria, No Hematuria Neurological: Numbness (neuropathy, normal for him), Other (mild neuropathic pain, normal for him) Focused Exam Lactate Level 03/29/19 13:50: Lactic Acid Level 1.36 Objective Exam Vital Signs Date Time Temp Pulse Resp B/P (MAP) Pulse Ox O2 Delivery O2 Flow Rate FiO2 03/30/19 23:34 37.0 80 18 134/65 (88) 97 Room Air 03/30/19 20:45 Room Air 03/30/19 19:24 37.6 92 18 143/67 (92) 95 Room Air 03/30/19 15:55 37.1 84 18 148/67 (94) 96 Room Air 03/30/19 11:52 36.8 84 20 139/63 (88) 97 Room Air 03/30/19 08:03 37.5 96 18 146/65 (92) 99 Room Air 03/30/19 08:00 Room Air I & O 03/31/19 07:00 Intake Total 3301 ml Balance 3301 ml Capillary Refill : Less Than 3 Seconds General Appearance: No Apparent Distress, Obese HEENT: PERRL/EOMI; No Pale Conjunctivae (L), No Pale Conjunctivae (R), No Scleral Icterus (L), No Scleral Icterus (R) Neck: Normal Inspection, Non Tender, Supple Respiratory: Lungs Clear, Normal Breath Sounds, No Accessory Muscle Use, No Respiratory Distress Cardiovascular: Regular Rate, Rhythm, No Gallop, No Murmur, Normal Peripheral Pulses Peripheral Pulses: 1+ Dorsalis Pedis (R), 1+ Left Dors-Pedis (L); 2+ Radial Pulses (R), 2+ Radial Pulses (L) Gastrointestinal: non tender, soft, no organomegaly Extremity: Calf Tenderness (mild, located at proximal end of dermatitis which is about mid leg), Pedal Edema Neurologic/Psychiatric: Alert, No Motor/Sensory Deficits, Normal Mood/Affect, Sensory Deficit (feet neuropathy) Skin: Normal Color, Warm/Dry, Rash (stasis dermatitis bilaterally), Other (large left heel ulceration with erythema of left leg with drainage from ulcer) Lymphatic: No Adenopathy Results Lab Laboratory Tests 03/30/19 09:55: Glucometer 115H 03/30/19 14:47: Glucometer 103 03/30/19 19:24: Glucometer 138H 03/31/19 05:29: Glucometer 70 03/31/19 05:30: Triglycerides Level 86, Cholesterol Level 96, LDL Cholesterol Direct 48, VLDL Cholesterol 17, HDL Cholesterol 30L, Vancomycin Level Trough 18.3 Microbiology 03/29/19 Urine Culture - Final, Complete NO GROWTH 03/29/19 Blood Culture - Preliminary, Resulted No growth 03/29/19 Gram Stain - Final, Resulted 03/29/19 Wound Culture - Preliminary, Resulted Staphylococcus aureus Corynebacterium species Gram Pos Mixed Bacterial Barbara Assessment/Plan Assessment/Plan Assessment/Plan L heel diabetic ulcer LLE cellulitis DM PVD Charcot foot bilaterally Left common femoral artery moderated stenosis Continue antibiotics, local wound care. Continue changing dressings BID and PRN, may need further debridement. No surgical intervention at this time, will follow. Cardiology visited yesterday, patient reports he will undergo an arteriogram of the L leg to see if any intervention is needed to increase arterial flow to his L foot. Clinical Quality Measures DVT/VTE Risk/Contraindication: Risk Factor Score Per Nursin RFS Level Per Nursing on Admit: 4+=Very High JOSEPH OSMAN DO 03/31/19 1247: Subjective Subjective/Events-last exam Less drainage from left foot. Feeling about the same. No new complaints. Denies n/v fever sweats chills shortness of breath or chest pain. Objective Exam General Appearance: No Apparent Distress, Obese HEENT: PERRL/EOMI Neck: Normal Inspection, Non Tender, Supple Respiratory: Chest Non Tender, No Accessory Muscle Use, No Respiratory Distress Cardiovascular: Regular Rate, Rhythm Gastrointestinal: non tender, soft, no organomegaly Extremity: Pedal Edema, Other (left heal wound, granulation tissue and area of eschar) Neurologic/Psychiatric: Alert, Oriented x3, No Motor/Sensory Deficits, Normal Mood/Affect, Sensory Deficit (feet neuropathy) Skin: Rash (stasis dermatitis bilaterally), Other (large left heel ulceration with erythema and eschar of left heal ) Lymphatic: No Adenopathy Assessment/Plan Assessment/Plan Assessment/Plan L heel diabetic ulcer LLE cellulitis DM PVD Charcot foot bilaterally Left common femoral artery moderated stenosis continue local wound care, will likely need further debridement at bedside likely tomorrow slight area that will allow to declare itself weather viable or not then debride. patient agrees with plan. Supervisory-Addendum Brief Verification & Attestation Participated in pt care: history, MDM, physical Personally performed: exam, history, MDM, supervision of care Care discussed with: Medical Student Procedures: n/a Results interpretation: Verified all documentation Verification and Attestation of Medical Student E/M Service A medical student performed and documented this service in my presence. I reviewed and verified all information documented by the medical student and made modifications to such information, when appropriate. I personally performed the physical exam and medical decision making. Joseph Osman, Mar 31, 2019,12:46 [employer] Mar 31, 2019 07:49 JOSEPH OSMAN DO Mar 31, 2019 12:47
[2019-03-31 08:00] VITALS: BP 156/77
--- NOTE | 2019-03-31 09:30 | NUR ---
"RD ASSESSMENT PMHx: hypercholesterolemia; HTN; DM PT INTERACTION: Pt was awake and pleasant during nutrition assessment. Pt states current appetite is good and has been for some time. Note pt avg PO intake of 100% x2d, per chart review. Pt states following a regular diet at home, and has no chewing/swallowing problems at this time. Pt states no recent issues with n/v/c/d at this time. Note last BM was 03/30 and pt currently on bowel regimen of senna BID, per chart review. Pt states no recent wt changes. Note unable to determine recent wt hx, per chart review. Pt states current DM management is pretty good and his avg blood glucose levels are between 120-130. Note pt has diabetic foot ulcer, per chart review. ABNORMAL NUTRITION-RELATED LAB VALUES LOW: HIGH: BUN 21; cr 1.49; glu 127 Est. kcal needs: 6713-7177 kcal | 15-18 kcal/kg Est. Pro needs: 133-166 g Pro | 0.8-1.0 g Pro/kg PES STATEMENT: Inadequate protein intake ([id number]) related to increased protein needs as evidenced by wounds (diabetic foot ulcer) INTERVENTION: Continue with current diet order of CHO 75g/m diet. Add Ensure HP to meals TID. Provides 160 kcal and 16 g Pro per serving for perceived benefit to wound healing. Will continue to follow and reassess as pt needs and status change. MONITOR/EVALUATE: PO Intake; Plan of Care; Hydration Status; Weight Status; Lab Values Carmelina Rizzo, MS, RD, LD"
[2019-03-31] MEDS: SENNA W/DOCUSATE (SENOKOT S) TABLET PO SCH ×2 (09:35→22:45)
[2019-03-31] MEDS: lisINopril 40 MG (PRINIVIL) TABLET PO SCH (09:35)
[2019-03-31] MEDS: HYDROCHLOROTHIAZIDE 25 MG (HCTZ) TAB PO SCH (09:35)
[2019-03-31] MEDS: PROPRANOLOL 20 MG (INDERAL) TABLET PO SCH ×2 (09:35→21:26)
[2019-03-31] MEDS: PANTOPRAZOLE 20 MG TABLET (PROTONIX) PO SCH (09:35)
[2019-03-31] MEDS: ASPIRIN 81 MG CHEW (CHILDREN'S ASA) PO SCH (09:35)
[2019-03-31] MEDS: GABAPENTIN 600 MG (NEURONTIN) TAB PO SCH ×3 (09:35→21:26)
[2019-03-31] MEDS: NS IV 1000 ML 1,000 ML IV SCH ×2 (09:38→11:34)
--- NOTE | 2019-03-31 10:50 | Cardiology Progress Note ---
Cardiology SOAP Progress Note Subjective: No cardiac complaints. Large nonhealing ulcer on the left heel. Objective: I&O/Vital Signs 03/30/19 03/31/19 03/31/19 23:34 08:00 09:15 Temp 37.0 36.6 Pulse 80 85 Resp 18 18 B/P (MAP) 134/65 (88) 156/77 (103) Pulse Ox 97 99 O2 Delivery Room Air Room Air Room Air 03/31/19 00:00 Intake Total 2516 ml Balance 2516 ml Weight (Pounds): 330 Weight (Ounces): 0.0 Weight (Calculated Kilograms): 149.556394 Constitutional: appears stated age, AAO x 3; No apparent distress; well- developed, well-nourished Respiratory: chest is bilaterally symmetric, lungs clear to auscultation Cardiovascular: regular rate-rhythm, S1 and S2 Gastrointestional: soft, distended, audible bowel sounds; No spleenomegaly Extremities: No clubbing, No cyanosis, No significant edema; wound (left heel ulcer) Neurologic/Psychiatric: no motor/sensory deficits, alert, normal mood/affect, oriented x 3, power is 5/5 both on sides Skin: ulcerations (left heel with 10-10 cm ulceration with black eschar and foul-smelling drainage. Significant surrounding erythema involving most of the foot and encroaching up the lower leg.) Results/Procedures: Labs Laboratory Tests 03/30/19 14:47: Glucometer 103 03/30/19 19:24: Glucometer 138H 03/31/19 05:29: Glucometer 70 03/31/19 05:30: Triglycerides Level 86, Cholesterol Level 96, LDL Cholesterol Direct 48, VLDL Cholesterol 17, HDL Cholesterol 30L, Vancomycin Level Trough 18.3 03/31/19 10:22: Glucometer 144H Microbiology 03/29/19 Urine Culture - Final, Complete NO GROWTH 03/29/19 Blood Culture - Preliminary, Resulted No growth 03/29/19 Gram Stain - Final, Resulted 03/29/19 Wound Culture - Preliminary, Resulted Staphylococcus aureus Corynebacterium species Gram Pos Mixed Bacterial Barbara A/P: Assessment/Dx: Nonhealing left foot ulcer, Diabetes, Hyperlipidemia, Hypertension, Left lower extremity critical limb ischemia, Chronic kidney disease Plan: Nonhealing left foot ulcer, bilateral lower extremity arterial ultrasound shows likely significant disease in the left common femoral artery as well as below the knee. Patient will require peripheral angiogram and possible intervention. I have spoken at length with the patient and since the patient does not have acute limb ischemia, I decided to defer till at least 48 hours of IV antibiotics are given. I will tentatively plan to schedule it on 04/01/2019 at 9 a.m. Informed consent was taken from the patient. 1 percent risk of a major complication including bleeding and transfer for open surgery. Right femoral access, bilateral lower extremity angiogram followed by possible intervention to the left lower extremity. Continue aspirin, Plavix and statin therapy. Diabetes, deferred to the primary team. Hyperlipidemia, change to high dose Lipitor. Hypertension, continue outpatient medical therapy. Chronic kidney disease, likely due to diabetic nephropathy. IV fluids. Echocardiogram pending. Thank you for your consultation. Please call me if you have any questions. Brady Issa MD, FACP, FACC, FSCAI, FHRS, CCDS Interventional Cardiology Cardiac Electrophysiology Vascular Medicine and Endovascular Interventions Focused Exam Lactate Level 03/29/19 13:50: Lactic Acid Level 1.36 Gerald ISSA MD Mar 31, 2019 10:50
[2019-03-31] MEDS: CLOPIDOGREL 75 MG (PLAVIX) TABLET PO SCH (10:53)
--- NOTE | 2019-03-31 12:04 | Progress Note - Hospitalist ---
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 He reports that it started out with a slight bleeding from a sore on his left heel and progressed rapidly over the following 2 weeks and failed PO abx. I have restarted all of his home meds and will consult general surgeon Dr Osman. Subjective/Events-last exam Patient doing very well Cardiology did evaluate his arterial ultrasound to be abnormal so he will have a peripheral catheterization tomorrow Maintain on broad-spectrum antibiotics Dr. Osman will speak with Dr. Carpenter tomorrow he definitely needs debridement Blood sugars good Home meds restarted Pain is well controlled Bowels are moving Review of Systems Musculoskeletal: foot pain Focused Exam Lactate Level 03/29/19 13:50: Lactic Acid Level 1.36 Objective Exam Vital Signs Vital Signs Date Time Temp Pulse Resp B/P (MAP) Pulse Ox O2 Delivery O2 Flow Rate FiO2 03/31/19 16:29 36.8 92 22 162/75 (104) 96 Room Air Capillary Refill : Less Than 3 Seconds General Appearance: No Apparent Distress, WD/WN, Chronically ill Respiratory: Chest Non Tender, Lungs Clear, Normal Breath Sounds, No Accessory Muscle Use, No Respiratory Distress Cardiovascular: Regular Rate, Rhythm, No Edema, No Gallop, No JVD, No Murmur, Normal Peripheral Pulses Neurologic/Psychiatric: Alert, Oriented x3, No Motor/Sensory Deficits, Normal Mood/Affect Results/Procedures Lab Patient resulted labs reviewed. Assessment/Plan Assessment and Plan Assess & Plan/Chief Complaint Assessment: Left heel DM ulcer failed outpatient PO abx in need of debridement consulted Dr Osman Charcodionisio foot bilateral DM BAILEE presumed has not completed sleep study Former smoker HTN HLP Neuropathy Abnl arterial [facility] needs peripheral catherization tomorrow per Dr Issa Plan: IV abx Dr Osman DVT PPx Home meds DR Issa for peripheral cath tomorrow Diagnosis/Problems Diagnosis/Problems (1) Diabetic ulcer of left foot Status: Acute Qualifiers: Diabetic foot ulcer location: heel Diabetes mellitus type: type 2 Non- pressure ulcer stage: with fat layer exposed Qualified Codes: E11.621 - Type 2 diabetes mellitus with foot ulcer; L97.422 - Non-pressure chronic ulcer of left heel and midfoot with fat layer exposed (2) Cellulitis of left leg Status: Acute (3) Uncontrolled diabetes mellitus Status: Acute (4) Charcot foot Status: Acute (5) volume depletion Status: Acute Clinical Quality Measures DVT/VTE Risk/Contraindication: Risk Factor Score Per Nursin RFS Level Per Nursing on Admit: 4+=Very High CRISTHIAN AMBROSIO DO Mar 31, 2019 12:04
[2019-03-31 16:29] VITALS: BP 162/75
[2019-03-31 20:59] VITALS: BP 159/72
[2019-03-31 21:06] VITALS: BP 159/72
[2019-03-31] MEDS: LATANOPROST 0.005% (XALATAN) OPHTH SOLN 2.5 ML OU SCH (21:27)
[2019-03-31 23:39] VITALS: BP 132/61
[2019-04-01 03:57] VITALS: BP 159/78
[2019-04-01] MEDS: VANCOMYCIN 1500 MG/NS 500 ML IVPB IV SCH ×2 (05:29)
[2019-04-01 05:40] LABS: BASOPHILS % (AUTO) 0 % (0-10); EOSINOPHILS # (AUTO) 0.1 10^3/uL (0.0-0.3); EOSINOPHILS % (AUTO) 1 % (0-10); HEMATOCRIT 35 % (40-54); HEMOGLOBIN 11.1 G/DL (13.3-17.7); LYMPHOCYTES # (AUTO) 1.1 X 10^3 (1.0-4.0); LYMPHOCYTES % (AUTO) 16 % (12-44); MEAN CORPUSCULAR HEMOGLOBIN 29 PG (25-34); MEAN CORPUSCULAR HGB CONC 32 G/DL (32-36); MEAN CORPUSCULAR VOLUME 92 FL (80-99); MEAN PLATELET VOLUME 10.8 FL (7.4-10.4); MONOCYTES # (AUTO) 0.7 X 10^3 (0.0-1.0); MONOCYTES % (AUTO) 10 % (0-12); NEUTROPHILS # (AUTO) 5.2 X 10^3 (1.8-7.8); NEUTROPHILS % (AUTO) 73 % (42-75); PLATELET COUNT 254 10^3/uL (130-400); RED CELL DISTRIBUTION WIDTH 15.1 % (10.0-14.5); WHITE BLOOD COUNT 7.1 10^3/uL (4.3-11.0)
[2019-04-01 05:58] LABS: ALBUMIN 3.5 GM/DL (3.2-4.5); BILIRUBIN,TOTAL 0.5 MG/DL (0.1-1.0); CREATININE SERUM 1.48 MG/DL (0.60-1.30); POTASSIUM 4.5 MMOL/L (3.6-5.0); TOTAL PROTEIN 6.9 GM/DL (6.4-8.2)
[2019-04-01] MEDS: inSUlin ASPART (NovoLOG) 1 UNIT/0.01 ML (CHARGE PER UNIT) SC SCH ×4 (06:15→21:24)
[2019-04-01] MEDS: PIPERACILLIN/TAZO 4.5 GM/NS 100 ML IV SCH ×6 (06:51→22:28)
--- NOTE | 2019-04-01 07:40 | NUR ---
DR COUCH ORDERED TO HOLD LOVENOX, NAPROXEN DUE TO PROCEDURE THIS MORNING.
[2019-04-01] MEDS: ENOXAPARIN 40 MG/0.4 ML (LOVENOX) SYR SC SCH ×2 (07:42→18:49)
[2019-04-01] MEDS: NAPROXEN 250 MG (NAPROSYN) TABLET PO SCH ×2 (07:43→17:40)
[2019-04-01 08:00] VITALS: BP 159/75
[2019-04-01] MEDS: CLOPIDOGREL 75 MG (PLAVIX) TABLET PO SCH (08:00)
[2019-04-01] MEDS: lisINopril 40 MG (PRINIVIL) TABLET PO SCH (08:00)
[2019-04-01] MEDS: PIOGLITAZONE 30MG (ACTOS) TAB PO SCH (08:00)
[2019-04-01] MEDS: HYDROCHLOROTHIAZIDE 25 MG (HCTZ) TAB PO SCH (08:00)
[2019-04-01] MEDS: glyBURIDE 5 MG (MICRONASE) TAB PO SCH ×2 (08:00→17:40)
[2019-04-01] MEDS: GABAPENTIN 600 MG (NEURONTIN) TAB PO SCH ×3 (08:00→21:14)
[2019-04-01] MEDS: SENNA W/DOCUSATE (SENOKOT S) TABLET PO SCH ×2 (08:00→21:23)
[2019-04-01] MEDS: PROPRANOLOL 20 MG (INDERAL) TABLET PO SCH ×2 (08:00→21:14)
[2019-04-01] MEDS: PANTOPRAZOLE 20 MG TABLET (PROTONIX) PO SCH (08:00)
[2019-04-01] MEDS: ASPIRIN 81 MG CHEW (CHILDREN'S ASA) PO SCH (08:00)
--- NOTE | 2019-04-01 08:09 | NUR ---
SPOKE WITH THE PT WELL GOING OVER THE EXT MED HISTORY WITH PT TO COMPLETE THE MED REC. THE NURSE DID THE MED REC OVER THE WEEKEND AND UPON LOOKING I DID NOT NEED TO MAKE ANY CHANGES. PT WAS ABLE TO TELL ME HOW/WHEN HE TAKES EACH MEDICATION AND IT MATCHED THE DAY SUPPLY ON THE EXT MED HISTORY. PT DENIES TAKING ANY OTC PRODUCTS.
[2019-04-01] MEDS ORDERED: LIDOCAINE 1% INJ 20 ML 20 ML VIAL ONE (08:16)
[2019-04-01] MEDS ORDERED: HEParin 1000 UNIT/ML (10ML VIAL) FOR BOLUS ONE (08:16)
[2019-04-01] MEDS ORDERED: NS IV 1000 ML 3,000 ML ONE (08:16)
[2019-04-01 12:00] VITALS: BP 165/72
[2019-04-01] MEDS ORDERED: MIDAZOLAM 5 MG/5 ML (VERSED) VIAL ONE (13:35)
[2019-04-01] MEDS ORDERED: fentaNYL INJECTION 100 MCG/2 ML AMP ONE (13:35)
--- NOTE | 2019-04-01 13:57 | CONSULTATION REPORT ---
DATE OF SERVICE: 04/01/2019 REASON FOR CONSULTATION: Continuation of foot care. HISTORY OF PRESENT ILLNESS: This 48-year-old male was admitted through the ER on Monday03/29/2019. He was seen in the [facility] by myself with cellulitis of the left heel with significant ulceration. There was a dry eschar with erythema and ascending cellulitis. I recommended the patient be admitted for IV antibiotics, which he did do. He indicates that he is feeling much better, does not feel "off." He denies any fever, chills, nausea or vomiting at this point. The patient has a history of peripheral vascular disease and Dr. Issa is to take him to the catheter lab to potentially balloon the femoral blockage. PAST MEDICAL HISTORY: Type 2 diabetes, peripheral vascular disease, diabetic neuropathy, Charcot foot bilaterally, sleep apnea, hypercholesterolemia, hypertension. PAST SURGICAL HISTORY: The patient had a left foot surgery in the past include, tonsillectomy. He is scheduled to have a right foot reconstruction early in 2019 at the [facility]. CURRENT MEDICATIONS: Listed on the patient's chart. ALLERGIES: He has no known drug allergies. SOCIAL HISTORY: He is a former smoker. 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 Denies alcohol or illicit drug use. PHYSICAL EXAMINATION: A well-developed male in no apparent distress. He is currently afebrile. He has nonpalpable pedal pulses, left foot. Capillary refill time is less than 3 seconds. He has absent protective sensation per 10 gram monofilament wire examination on the left foot. Dermatologically, the patient has a full thickness wound with a dry eschar on central aspect of the wound that measures 3.8 x 3 cm. Overall, the wound is approximately 8 x 8 cm with decreased surrounding erythema and increasing Calor compared to my evaluation 3 days ago. Surrounding the dry eschar is some granular and fibrotic tissue. No deep probing is identified. The wound is full thickness to at least 4 mm to the central calcaneus area. The patient has grown out of the wound staph aureus abundant growth, Corynebacterium and gram positive mixed bacterial ermias. ASSESSMENT: 1. Cellulitis, left heel. 2. Non-stageable ulceration, left heel. PLAN: Various treatment options were discussed with the patient today. The patient is currently n.p.o. for his treatment by Dr. Issa. The ulceration was sharply debrided to the left heel of the dry eschar and fibrotic tissue release of bioburden was also performed. The area was cleansed with sterile saline and Dakin solutions will be applied b.i.d. with gauze dressing. He is to be nonweightbearing on the left. Recommend pressure precautions for the patient's heels bilaterally. Job ID: [id number] DocumentID: [id number] Dictated Date: 04/01/2019 10:53:14 Databases Computer Consultant Date: 04/01/2019 13:56:55 Dictated By: LAY SALGUERO
--- NOTE | 2019-04-01 14:05 | NUR ---
Pt listed as Buddhist and currently getting heart Cath. Dtr states that he has not been active and wont need sacraments but will let us now if he does.
--- NOTE | 2019-04-01 14:31 | Cardiology Progress Note ---
Cardiology SOAP Progress Note Subjective: No cardiac complaints. Objective: I&O/Vital Signs 04/01/19 04/01/19 04/01/19 04/01/19 03:57 08:00 08:00 12:00 Temp 36.8 37.0 37.3 Pulse 78 80 89 Resp 20 16 18 B/P (MAP) 159/78 (105) 159/75 (103) 165/72 (103) Pulse Ox 98 98 96 O2 Delivery Room Air Room Air Room Air Room Air 04/01/19 00:00 Intake Total 1730 ml Balance 1730 ml Weight (Pounds): 330 Weight (Ounces): 0.0 Weight (Calculated Kilograms): 149.771835 Constitutional: appears stated age, AAO x 3; No apparent distress; well- developed, well-nourished Respiratory: chest is bilaterally symmetric, lungs clear to auscultation Cardiovascular: regular rate-rhythm, S1 and S2 Gastrointestional: soft, distended, audible bowel sounds; No spleenomegaly Extremities: No clubbing, No cyanosis, No significant edema; wound (left heel ulcer) Neurologic/Psychiatric: no motor/sensory deficits, alert, normal mood/affect, oriented x 3, power is 5/5 both on sides Skin: ulcerations (left heel with 10-10 cm ulceration with black eschar and foul-smelling drainage. Significant surrounding erythema involving most of the foot and encroaching up the lower leg.) Results/Procedures: Labs Laboratory Tests 03/31/19 15:30: Glucometer 146H 03/31/19 20:28: Glucometer 199H 04/01/19 05:28: Glucometer 134H 04/01/19 05:30: White Blood Count 7.1, Red Blood Count 3.77L, Hemoglobin 11.1L, Hematocrit 35L, Mean Corpuscular Volume 92, Mean Corpuscular Hemoglobin 29, Mean Corpuscular Hemoglobin Concent 32, Red Cell Distribution Width 15.1H, Platelet Count 254, Mean Platelet Volume 10.8H, Neutrophils (%) (Auto) 73, Lymphocytes (%) (Auto) 16, Monocytes (%) (Auto) 10, Eosinophils (%) (Auto) 1, Basophils (%) (Auto) 0, Neutrophils # (Auto) 5.2, Lymphocytes # (Auto) 1.1, Monocytes # (Auto) 0.7, Eosinophils # (Auto) 0.1, Basophils # (Auto) 0.0, Sodium Level 137, Potassium Level 4.5, Chloride Level 103, Carbon Dioxide Level 22, Anion Gap 12, Blood Urea Nitrogen 20H, Creatinine 1.48H, Estimat Glomerular Filtration Rate 50, BUN/Creatinine Ratio 14, Glucose Level 136H, Calcium Level 9.0, Corrected Calcium 9.4, Total Bilirubin 0.5, Aspartate Amino Transf (AST/SGOT) 16, Alanine Aminotransferase (ALT/SGPT) 22, Alkaline Phosphatase 115, Total Protein 6.9, Albumin 3.5 04/01/19 09:58: Glucometer 93 Microbiology 03/29/19 Urine Culture - Final, Complete NO GROWTH 03/29/19 Blood Culture - Preliminary, Resulted No growth 03/29/19 Gram Stain - Final, Complete 03/29/19 Wound Culture - Final, Complete Staphylococcus aureus Corynebacterium species Gram Pos Mixed Bacterial Barbara See Comments A/P: Assessment/Dx: Nonhealing left foot ulcer, Diabetes, Hyperlipidemia, Hypertension, Possible Left lower extremity critical limb ischemia, Chronic kidney disease Plan: Nonhealing left foot ulcer, bilateral lower extremity arterial ultrasound shows likely significant disease in the left common femoral artery as well as below the knee. Patient will require peripheral angiogram and possible intervention. I have spoken at length with the patient and since the patient does not have acute limb ischemia, I decided to defer till at least 48 hours of IV antibiotics are given. I will tentatively plan to schedule it on 04/01/2019. Informed consent was taken from the patient. 1 percent risk of a major complication including bleeding and transfer for open surgery. Right femoral access, bilateral lower extremity angiogram followed by possible intervention to the left lower extremity. Continue aspirin, Plavix and statin therapy. Diabetes, deferred to the primary team. Hyperlipidemia, change to high dose Lipitor. Hypertension, continue outpatient medical therapy. Chronic kidney disease, likely due to diabetic nephropathy. IV fluids. Echocardiogram pending. Thank you for your consultation. Please call me if you have any questions. Brady Issa MD, FACP, FACC, FSCAI, FHRS, CCDS Interventional Cardiology Cardiac Electrophysiology Vascular Medicine and Endovascular Interventions Gerald ISSA MD Apr 01, 2019 14:31
--- NOTE | 2019-04-01 14:31 | Cardiac Procedure Note-CS/ASA ---
Pre-Procedure Note Pre-Op Procedure Note H&P Reviewed The H&P was reviewed, patient examined and no changes noted. Date H&P Reviewed: Apr 01, 2019 Time H&P Reviewed: 10:00 Conscious Sedation Pre-Proced Time 10:00 ASA Score 3 For ASA 3 and 4: Consider anesthesia and medical clearance. Also, for patients with a history of failed moderate sedation consider anesthesia. Airway Lungs Heart ASA score ASA 1: a normal healthy patient ASA 2: a patient with a mild systemic disease (mid diabetes, controlled hypertension, obesity ASA 3: a patient with a severe systemic disease that limits activity (angina, COPD, prior Myocardial infarction) ASA 4: a patient with an incapacitating disease that is a constant threat to life (CHF, renal failure) ASA 5: a moribund patient not expected to survive 24 hrs. (ruptured aneurysm) ASA 6: a declared brain- patient whose organs are being harvested. For emergent operations, add the letter E after the classification Mallampati Classification Grade 1 Sedation Plan Analgesia, Amnesia, Plan communicated to team members, Discussed options with patient/fam, Discussed risks with patient/fam The patient is an appropriate candidate to undergo the planned procedure, sedation, and anesthesia. The patient immediately re-assessed prior to indication. Gerald COUCH MD Apr 01, 2019 14:31
--- NOTE | 2019-04-01 14:38 | Coronary Angiography Report ---
Peripheral Angiography DATE OF SERVICE: 04/01/19 PRIMARY PHYSICIAN: Ray Palma MD, Dr.. PERFORMING INTERVENTIONALIST: Dr. Brady Couch INDICATION: Non-healing left lower extremity ulcer. Abnormal arterial ultrasound. PREOPERATIVE INDICATION: Non-healing left lower extremity ulcer. Abnormal arterial ultrasound. POSTOPERATIVE DIAGNOSIS: Normal bilateral peripheral arteries. HISTORY: This is a 48-year-old gentleman with severe diabetes and history of bi lateral leg diabetic foot with large left heel ulcer. Bilateral lower extremity arterial ultrasound was suspicious for possible left-sided PAD. Peripheral angiogram is recommended. Patient has significant chronic kidney disease. PROCEDURE PERFORMED: 1. Abdominal aortogram and nonselective bilateral renal angiogram. 2. Right lower extremity runoff. 3. First order left lower extremity angiogram. 4. Second order left lower extremity angiogram. SPECIMENS: None. ANESTHESIA: Conscious sedation. BLOOD LOSS: 20 mL. COMPLICATIONS: None. CONTRAST USED: 67 ml. FLUOROSCOPY DOSE: 169 Mgy. FLUOROSCOPY TIME: 3.7 minutes. ANTICOAGULATION: none. DESCRIPTION OF PROCEDURE: The patient was brought to the dental laboratory worker after informed consent was taken. All the risks and complications were explained in detail. The patient was draped and prepped in the usual sterile fashion. Access was gained in the right femoral artery with a 5 Chinese sheath. The pigtail catheter was advanced over a35 wire and placed in the mid abdominal aorta. A mid abdominal aortogram with bilateral nonselective renal angiogram was done. The pigtail catheter was then pulled back and through the right femoral sheath we did a right lower extremity runoff. We then used a rim catheter to perform a crossover. Once a crossover was performed a J wire was placed in the left external iliac artery. The rim catheter was taken out and we went in with a straight catheter. First order angiogram was done of the internal iliac artery as well as the external iliac artery. The J wire was placed back into the straight catheter and the straight catheter was advanced into the CUSTOMER SERVICE REPRESENTATIVE. The wire was taken out and second order left lower extremity angiogram was done. FINDINGS: Normal mid abdominal aorta. Normal bilateral renal arteries. Normal bilateral common iliac artery, external iliac artery, common femoral artery, SFA, popliteal artery, at least 2 vessel runoff below the knee. No significant PAD noted. CONCLUSION: Nonvascular origin of the left lower extremity ulcer. Deferred to Dr. Carpenter. Aggressive IV fluids were given to prevent acute kidney injury in a patient with chronic kidney disease. Brady Couch MD, FACP, FACC, [facility] Vascular Medicine and Endovascular Interventions Gerald COUCH MD Apr 01, 2019 14:38
[2019-04-01] MEDS ORDERED: PATIENT MAY USE OWN MEDS, ALL PO SCH (14:45)
--- NOTE | 2019-04-01 14:45 | NUR ---
Patient off floor to laboratory coordinator at this time. Addendum: 04/01/19 at 1601 by JEMIMA CORDERO RN patient off floor to laboratory coordinator at 1345.
[2019-04-01] MEDS: NS IV 1000 ML 1,000 ML IV SCH (15:00)
--- NOTE | 2019-04-01 15:06 | Progress Note ---
Subjective Subjective/Events-last exam Afebrile, no acute events. Plan for revascularization today. Denies concerns. Wound debrided bedside by Dr. Carpenter this am. Objective Exam Last Set of Vital Signs Vital Signs Date Time Temp Pulse Resp B/P (MAP) Pulse Ox O2 Delivery O2 Flow Rate FiO2 04/01/19 12:00 37.3 89 18 165/72 (103) 96 Room Air Capillary Refill : Less Than 3 Seconds I&O Intake and Output 04/01/19 00:00 Intake Total 1880 ml Balance 1880 ml Intake Oral 1760 ml IV Total 120 ml # Voids 14 # Bowel Movements 2 General: Alert, No Acute Distress Neuro: Normal Speech Psych/Mental Status: Mental Status NL, Mood NL Results/Procedures Lab Laboratory Tests 03/31/19 15:30: Glucometer 146H 03/31/19 20:28: Glucometer 199H 04/01/19 05:28: Glucometer 134H 04/01/19 05:30: White Blood Count 7.1, Red Blood Count 3.77L, Hemoglobin 11.1L, Hematocrit 35L, Mean Corpuscular Volume 92, Mean Corpuscular Hemoglobin 29, Mean Corpuscular Hemoglobin Concent 32, Red Cell Distribution Width 15.1H, Platelet Count 254, Mean Platelet Volume 10.8H, Neutrophils (%) (Auto) 73, Lymphocytes (%) (Auto) 16, Monocytes (%) (Auto) 10, Eosinophils (%) (Auto) 1, Basophils (%) (Auto) 0, Neutrophils # (Auto) 5.2, Lymphocytes # (Auto) 1.1, Monocytes # (Auto) 0.7, Eosinophils # (Auto) 0.1, Basophils # (Auto) 0.0, Sodium Level 137, Potassium Level 4.5, Chloride Level 103, Carbon Dioxide Level 22, Anion Gap 12, Blood Urea Nitrogen 20H, Creatinine 1.48H, Estimat Glomerular Filtration Rate 50, BUN/Creatinine Ratio 14, Glucose Level 136H, Calcium Level 9.0, Corrected Calcium 9.4, Total Bilirubin 0.5, Aspartate Amino Transf (AST/SGOT) 16, Alanine Aminotransferase (ALT/SGPT) 22, Alkaline Phosphatase 115, Total Protein 6.9, Albumin 3.5 04/01/19 09:58: Glucometer 93 Microbiology 03/29/19 Urine Culture - Final, Complete NO GROWTH 03/29/19 Blood Culture - Preliminary, Resulted No growth 03/29/19 Gram Stain - Final, Complete 03/29/19 Wound Culture - Final, Complete Staphylococcus aureus Corynebacterium species Gram Pos Mixed Bacterial Barbara See Comments Assessment/Plan Assessment/Plan (1) Atherosclerotic occlusive disease Assessment & Plan: 04/01 Suspected based on US, plan for arteriography today. On atorvastatin and clopidogrel. (2) Diabetic ulcer of left foot Status: Acute Assessment & Plan: 04/01 Zosyn, will d/c vanc today as no growth and no history of MRSA Qualifiers: Qualified Codes: E11.621 - Type 2 diabetes mellitus with foot ulcer; L97.422 - Non-pressure chronic ulcer of left heel and midfoot with fat layer exposed (3) Uncontrolled diabetes mellitus Status: Acute Assessment & Plan: Sliding scale insulin, home glyburide Qualifiers: (4) Cellulitis of left leg Status: Acute Assessment & Plan: Zosyn (5) DVT prophylaxis Status: Acute Assessment & Plan: Enoxaparin Clinical Quality Measures DVT/VTE Risk/Contraindication: Risk Factor Score Per Nursin RFS Level Per Nursing on Admit: 4+=Very High RENATA HINTON MD Apr 01, 2019 15:06
[2019-04-01 16:00] VITALS: BP 165/72
--- NOTE | 2019-04-01 18:56 | NUR ---
Patient returned to room 408 at this time. Report received from Izabel SOSA. Patient oriented to room and call light. Will resume care of patient at this time.
[2019-04-01 19:05] VITALS: BP 164/71
[2019-04-01] MEDS: DAKIN'S 1/2 STRENGTH (0.25%) 473 ML BTL TOP SCH (21:13)
[2019-04-01] MEDS: LATANOPROST 0.005% (XALATAN) OPHTH SOLN 2.5 ML OU SCH (21:13)
[2019-04-01 23:56] VITALS: BP 163/79
--- NOTE | 2019-04-02 | NUR ---
ASSUMED CARE OF PT AT THIS TIME.PT RESTING IN BED WITH EYES CLOSED. NO DISTRESS NOTED. RIGHT GROIN SIDE SOFT,WITHOUT REDNESS OR EDEMA. DRESSING DRY AND INTACT. LEFT FOOT DRESSING DRY AND INTACT. WILL CONTINUE TO MONITOR.
[2019-04-02] MEDS: NS IV 1000 ML 1,000 ML IV SCH (00:52)
[2019-04-02 04:00] VITALS: BP 149/79
[2019-04-02 04:47] LABS: HEMOGLOBIN 10.5 G/DL (13.3-17.7); MEAN PLATELET VOLUME 10.7 FL (7.4-10.4); RED CELL DISTRIBUTION WIDTH 14.9 % (10.0-14.5); WHITE BLOOD COUNT 5.8 10^3/uL (4.3-11.0)
[2019-04-02 05:01] LABS: BUN/CREATININE RATIO 15; CALCIUM 8.7 MG/DL (8.5-10.1); CARBON DIOXIDE 24 MMOL/L (21-32); CHLORIDE 104 MMOL/L (98-107); GFR ESTIMATED > 60; GLUCOSE 157 MG/DL (70-105); POTASSIUM 4.1 MMOL/L (3.6-5.0); SODIUM 138 MMOL/L (135-145)
[2019-04-02 05:18] VITALS: BP 149/79
[2019-04-02] MEDS: inSUlin ASPART (NovoLOG) 1 UNIT/0.01 ML (CHARGE PER UNIT) SC SCH ×2 (05:25→10:22)
[2019-04-02] MEDS: ENOXAPARIN 40 MG/0.4 ML (LOVENOX) SYR SC SCH (06:26)
[2019-04-02] MEDS: NAPROXEN 250 MG (NAPROSYN) TABLET PO SCH (06:27)
[2019-04-02] MEDS: glyBURIDE 5 MG (MICRONASE) TAB PO SCH (06:27)
[2019-04-02] MEDS: PIOGLITAZONE 30MG (ACTOS) TAB PO SCH (06:27)
[2019-04-02] MEDS: PIPERACILLIN/TAZO 4.5 GM/NS 100 ML IV SCH ×2 (06:31)
[2019-04-02 08:00] VITALS: BP 189/80
[2019-04-02] MEDS: PANTOPRAZOLE 20 MG TABLET (PROTONIX) PO SCH (09:08)
[2019-04-02] MEDS: SENNA W/DOCUSATE (SENOKOT S) TABLET PO SCH (09:08)
[2019-04-02] MEDS: PROPRANOLOL 20 MG (INDERAL) TABLET PO SCH (09:08)
[2019-04-02] MEDS: HYDROCHLOROTHIAZIDE 25 MG (HCTZ) TAB PO SCH (09:09)
[2019-04-02] MEDS: CLOPIDOGREL 75 MG (PLAVIX) TABLET PO SCH (09:09)
[2019-04-02] MEDS: GABAPENTIN 600 MG (NEURONTIN) TAB PO SCH (09:09)
[2019-04-02] MEDS: ASPIRIN 81 MG CHEW (CHILDREN'S ASA) PO SCH (09:09)
[2019-04-02] MEDS: lisINopril 40 MG (PRINIVIL) TABLET PO SCH (09:09)
[2019-04-02] MEDS: DAKIN'S 1/2 STRENGTH (0.25%) 473 ML BTL TOP SCH (10:23)
[2019-04-02] MEDS ORDERED: AMOX-358 PO (11:38)
[2019-04-02] MEDS ORDERED: ATOR80TA76 PO (11:38)
--- NOTE | 2019-04-02 11:45 | Discharge Instructions ---
Discharge [facility] Discharge Medications New, Converted or Re-Newed RX: Transmitted to Pharmacy New Medications: Amoxicillin/Potassium Clav (Augmentin 875-125 Tablet) 1 Each Tablet 1 EACH PO BID, #14 TAB 0 Refills Atorvastatin Calcium (Atorvastatin Calcium) 80 Mg Tablet 80 MG PO HS, #30 TAB 0 Refills Continued Medications: Aspirin (Aspirin) 81 Mg Tab.chew 81 MG DAILY, TAB Cyclobenzaprine HCl (Cyclobenzaprine HCl) 10 Mg Tablet 10 MG PO TID PRN for MUSCLE SPASMS, TAB Gabapentin (Gabapentin) 600 Mg Tablet 600 MG PO TID, TAB Glyburide (Glyburide) 5 Mg Tablet 10 MG PO BID, TAB TAKES 2 (5MG) TABS TO EQUAL 10 MG TWICE DAILY Hydrochlorothiazide (Hydrochlorothiazide) 25 Mg Tablet 25 MG PO DAILY, TAB Latanoprost (Latanoprost) 2.5 Ml Drops 1 DROP OU DAILY, DROPS Liraglutide (Victoza 3-Ludwig) 0.6 Mg/0.1 Ml Pen.injctr 1.8 MG SQ DAILY, VIAL Lisinopril (Lisinopril) 40 Mg Tablet 40 MG PO DAILY, TAB Naproxen (Naproxen) 500 Mg Tablet 500 MG PO BID, TAB Omeprazole (Omeprazole) 20 Mg Capsule.dr 20 MG PO DAILY, CAP Pioglitazone HCl (Pioglitazone HCl) 45 Mg Tablet 45 MG PO DAILY, TAB Propranolol HCl (Propranolol HCl) 40 Mg Tablet 40 MG PO BID, TAB Discontinued Medications: Simvastatin (Simvastatin) 40 Mg Tablet 40 MG PO HS, TAB Sulfamethoxazole/Trimethoprim (Sulfamethoxazole-Tmp Ds Tablet) 1 Each Tablet 1 TAB PO BID PICKED UP #20 / 10 DAY SUPPLY ON ON 03-23-2019 Patient Instructions Goal/Follow Up Appt: Follow up with Malcolm Lawson on 04/08 at 9:20 am. Return to The Hospital For: Fever, foul drainage from wound Activity & Diet Discharge Diet: ADA Diet Orders-Post D/C & Referrals Pneu Vac Indicated: Yes Copy Copies To 1: LEIGHA Doyle BETHANY N MD Apr 02, 2019 11:44
--- NOTE | 2019-04-02 12:13 | NUR ---
CM/SS: Visited with pt to discuss discharge plans Plan: Plan to discharge to home DME: Pt thought he needed a walker, but indicated he checked and he no longer needs one. Has a walker at his home. Summary: Pt will discharge to home. Pt thought he needed a walker, however discovered he has one at home and does not need to get one. Pt does have walker at home. Pt did not identify any other needs at this time. No other follow up at this time.
[2019-04-02 13:43] VITALS: BP 189/80
--- NOTE | 2019-04-02 13:47 | NUR ---
PIV and PICC lines removed without difficulty/catheter tips intact. Pt tolerated well.
--- NOTE | 2019-04-02 13:51 | NUR ---
ASAF AGUILA demonstrates understanding of discharge instructions and accurately returns instructions upon questioning. Copy of Post-Discharge Instructions and Medication Discharge Instructions, and wound supplies given to pt. Sheldon is able to manage continuing needs after discharge. Patients belongings returned to pt/. Skin dry and intact; no breakdown noted. Patient discharged from [facility]- on 04/02/19 at 1350. ASAF AGUILA left floor via WC, accompanied by staff/.
--- NOTE | 2019-04-02 15:20 | Discharge Summary ---
Discharge Summary Hospital Course Problems/Diagnosis: (1) Atherosclerotic occlusive disease Assessment & Plan: 04/01 Suspected based on US, plan for arteriography today. On atorvastatin and clopidogrel. 04/02 angiogram with no blockage (2) Diabetic ulcer of left foot Status: Acute Assessment & Plan: 04/01 Zosyn, will d/c vanc today as no growth and no history of MRSA 04/02 symptomatically improved, discharged on Augmentin, will need referral to wound care, for now continued on Dakins cleanser then 4x4 and kerlix twice daily and prn. Qualifiers: Qualified Codes: E11.621 - Type 2 diabetes mellitus with foot ulcer; L97.422 - Non-pressure chronic ulcer of left heel and midfoot with fat layer exposed (3) Uncontrolled diabetes mellitus Status: Acute Assessment & Plan: Sliding scale insulin, home glyburide Resumed home meds on d/c Qualifiers: Hospital Course Date of Admission: Mar 29, 2019 at 15:00 Admission Diagnosis : Family Physician/Provider: Joshua Lawson Date of Discharge: 04/02/19 Discharge Diagnosis: See problem list Hospital Course: SEe problem list Labs and Pending Lab Test: Laboratory Tests 04/01/19 21:23: Glucometer 165H 04/02/19 04:41: White Blood Count 5.8, Red Blood Count 3.55L, Hemoglobin 10.5L, Hematocrit 33L, Mean Corpuscular Volume 93, Mean Corpuscular Hemoglobin 30, Mean Corpuscular Hemoglobin Concent 32, Red Cell Distribution Width 14.9H, Platelet Count 245, Mean Platelet Volume 10.7H, Sodium Level 138, Potassium Level 4.1, Chloride Level 104, Carbon Dioxide Level 24, Anion Gap 10, Blood Urea Nitrogen 18, Creatinine 1.20, Estimat Glomerular Filtration Rate > 60, BUN/Creatinine Ratio 15, Glucose Level 157H, Calcium Level 8.7 04/02/19 09:59: Glucometer 190H Microbiology 03/29/19 Urine Culture - Final, Complete NO GROWTH 03/29/19 Blood Culture - Preliminary, Resulted No growth 03/29/19 Gram Stain - Final, Complete 03/29/19 Wound Culture - Final, Complete Staphylococcus aureus Corynebacterium species Gram Pos Mixed Bacterial Barbara See Comments Home Meds Active Atorvastatin Calcium 80 Mg Tablet 80 Mg PO HS Augmentin 875-125 Tablet (Amoxicillin/Potassium Clav) 1 Each Tablet 1 Each PO BID Reported Aspirin 81 Mg Tab.chew 81 Mg DAILY Omeprazole 20 Mg Capsule.dr 20 Mg PO DAILY Latanoprost 2.5 Ml Drops 1 Drop OU DAILY Propranolol HCl 40 Mg Tablet 40 Mg PO BID Pioglitazone HCl 45 Mg Tablet 45 Mg PO DAILY Lisinopril 40 Mg Tablet 40 Mg PO DAILY Hydrochlorothiazide 25 Mg Tablet 25 Mg PO DAILY Naproxen 500 Mg Tablet 500 Mg PO BID Gabapentin 600 Mg Tablet 600 Mg PO TID Cyclobenzaprine HCl 10 Mg Tablet 10 Mg PO TID PRN Victoza 3-Ludwig (Liraglutide) 0.6 Mg/0.1 Ml Pen.injctr 1.8 Mg SQ DAILY Glyburide 5 Mg Tablet 10 Mg PO BID TAKES 2 (5MG) TABS TO EQUAL 10 MG TWICE DAILY Assessment/Pt DC Instructions See problem list Discharge Diet: ADA Diet Orders-Post D/C & Referrals Pneu Vac Indicated: Yes Discharge Physical Examination Allergies: Coded Allergies: No Known Drug Allergies (Unverified , 03/16/14) General Appearance: No Apparent Distress, Obese Respiratory: Lungs Clear, Normal Breath Sounds Cardiovascular: Regular Rate, Rhythm, No Murmur Extremity: Other (left foot wrapped, right lower leg with chronic venous stasis dermatitis) Neurologic/Psychiatric: Alert, Normal Mood/Affect Copy Copies To 1: Malcolm Lawson APRN Discharge Summary Date of Admission Mar 29, 2019 at 15:00 Date of Discharge Apr 02, 2019 at 13:50 Discharge Date: Apr 02, 2019 Admission Diagnosis Assessment: Left heel DM ulcer failed outpatient PO abx in need of debridement consulted Dr Osman Charliz foot bilateral DM BAILEE presumed has not completed sleep study Former smoker HTN HLP Neuropathy Plan: IV abx Dr Osman DVT PPx Home meds Discharge Diagnosis (1) Diabetic ulcer of left foot Status: Acute Qualifiers: Qualified Codes: E11.621 - Type 2 diabetes mellitus with foot ulcer; L97.422 - Non-pressure chronic ulcer of left heel and midfoot with fat layer exposed (2) Cellulitis of left leg Status: Acute (3) Uncontrolled diabetes mellitus Status: Acute Qualifiers: (4) Charcot foot Status: Acute (5) volume depletion Status: Acute Clinical Quality Measures DVT/VTE Risk/Contraindication: Risk Factor Score Per Nursin RFS Level Per Nursing on Admit: 4+=Very High RENATA HINTON MD Apr 02, 2019 15:20
--- NOTE | 2019-04-02 15:23 | Cardiology Progress Note ---
Cardiology SOAP Progress Note Subjective: No cardiac complaints. Objective: I&O/Vital Signs 04/02/19 04/02/19 04/02/19 04/02/19 04:00 05:18 07:00 08:00 Temp 36.9 36.9 36.7 Pulse 76 76 75 82 Resp 16 16 18 B/P (MAP) 149/79 (102) 149/79 (102) 189/80 (116) Pulse Ox 99 99 98 O2 Delivery Room Air Room Air Room Air 04/02/19 04/02/19 08:00 13:43 Temp 36.7 Pulse 82 Resp 18 B/P (MAP) 189/80 Pulse Ox 98 O2 Delivery Room Air Room Air 04/02/19 00:00 Intake Total 500 ml Output Total 250 ml Balance 250 ml Weight (Pounds): 330 Weight (Ounces): 0.0 Weight (Calculated Kilograms): 149.369308 Constitutional: appears stated age, AAO x 3; No apparent distress; well-developed, well-nourished Respiratory: chest is bilaterally symmetric, lungs clear to auscultation Cardiovascular: regular rate-rhythm, S1 and S2 Gastrointestional: soft, distended, audible bowel sounds; No spleenomegaly Extremities: No clubbing, No cyanosis, No significant edema; wound (left heel ulcer) Neurologic/Psychiatric: no motor/sensory deficits, alert, normal mood/affect, oriented x 3, power is 5/5 both on sides Skin: ulcerations (left heel with 10-10 cm ulceration with black eschar and foul-smelling drainage. Significant surrounding erythema involving most of the foot and encroaching up the lower leg.) Results/Procedures: Labs Laboratory Tests 04/01/19 21:23: Glucometer 165H 04/02/19 04:41: White Blood Count 5.8, Red Blood Count 3.55L, Hemoglobin 10.5L, Hematocrit 33L, Mean Corpuscular Volume 93, Mean Corpuscular Hemoglobin 30, Mean Corpuscular Hemoglobin Concent 32, Red Cell Distribution Width 14.9H, Platelet Count 245, Mean Platelet Volume 10.7H, Sodium Level 138, Potassium Level 4.1, Chloride Level 104, Carbon Dioxide Level 24, Anion Gap 10, Blood Urea Nitrogen 18, Creatinine 1.20, Estimat Glomerular Filtration Rate > 60, BUN/Creatinine Ratio 15, Glucose Level 157H, Calcium Level 8.7 04/02/19 09:59: Glucometer 190H Microbiology 03/29/19 Urine Culture - Final, Complete NO GROWTH 03/29/19 Blood Culture - Preliminary, Resulted No growth 03/29/19 Gram Stain - Final, Complete 03/29/19 Wound Culture - Final, Complete Staphylococcus aureus Corynebacterium species Gram Pos Mixed Bacterial Barbara See Comments A/P: Assessment/Dx: Nonhealing left foot ulcer, Diabetes, Hyperlipidemia, Hypertension, Possible Left lower extremity critical limb ischemia, Chronic kidney disease Plan: Nonhealing left foot ulcer, peripheral angiography showed no PAD. Nonvascular etiology of nonhealing ulcer. DC aspirin, Plavix Diabetes, deferred to the primary team. Hyperlipidemia, change to high dose Lipitor. Hypertension, continue outpatient medical therapy. Chronic kidney disease, likely due to diabetic nephropathy. IV fluids. Echocardiogram showed normal LV function. Thank you for your consultation. Please call me if you have any questions. Brady Issa MD, FACP, FACC, FSCAI, FHRS, CCDS Interventional Cardiology Cardiac Electrophysiology Vascular Medicine and Endovascular Interventions Gerald ISSA MD Apr 02, 2019 15:23
--- NOTE | 2019-04-11 08:20 | Physician Query Clarification ---
PQ-Debridement Admission/Discharge Admission Date: Mar 29, 2019 at 15:00 Discharge Date: Apr 02, 2019 at 13:50 PHYSICIAN RESPONSE Operative report/procedure note reflects the following description: The ulceration was sharply debrided to the left heel of the dry eschar and fibrotic tissue release of bioburden was also performed. QUESTION: Please clarify the depth of the debridement. Please clarify if the debridement was excisional or non-excisional. Please document a response in the Progress Notes or Discharge Summary. 1. Level: SUBCUTANEOUS TISSUE Skin Subcutaneous tissue Fascia Muscle Bone 2. Type of debridement: EXCISIONAL Excisional Non-excisional 3. Other, with explanation of the clinical findings 4. Clinically unable to determine The debridement was down to subcutaneous tissue and excisional. Please remember a lack of response to the above will prompt a phone page by CDI/Coding staff. In responding to this query, please exercise your independent professional judgment. The purpose of this communication is to more accurately reflect the complexity of your patients condition. The fact that a question is asked does not imply that any particular answer is desired or expected. Thank you for your timely response to this clarification. Requestors name: Debbie THIS PHYSICIAN QUERY FORM IS A PERMANENT PART OF THE MEDICAL RECORD LEELA CIFUENTES Apr 11, 2019 08:20 GRISEL BATES DPM Apr 13, 2019 21:41
== END 2019-04-02 13:50 | disposition home or self-care (01) | DRG 623 ==
LOC: EDUNIT# 11:12 → ER 11:13 → 4TH 15:00 → CSD 04-01 14:50 → 4TH 04-01 19:00
PROVIDERS: ADMIT Internal Medicine; ATTEND Family Medicine
PROC: 02HV33Z Insertion of Infusion Device into Superior Vena Cava, Percutaneous Approach (ICD-10-PCS; 2019-03-29)
PROC: 0JBR0ZZ Excision of Left Foot Subcutaneous Tissue and Fascia, Open Approach (ICD-10-PCS; principal; 2019-04-01)
PROC: B41D1ZZ Fluoroscopy of Aorta and Bilateral Lower Extremity Arteries using Low Osmolar Contrast (ICD-10-PCS; 2019-04-01)
DX: E11.621 Type 2 diabetes mellitus with foot ulcer (principal); L97.422 Non-pressure chronic ulcer of left heel and midfoot with fat layer exposed; L03.116 Cellulitis of left lower limb; Z68.42 Body mass index [BMI] 45.0-49.9, adult; E11.52 Type 2 diabetes mellitus with diabetic peripheral angiopathy with gangrene; E11.618 Type 2 diabetes mellitus with other diabetic arthropathy; I10 Essential (primary) hypertension; E78.00 Pure hypercholesterolemia, unspecified; E11.40 Type 2 diabetes mellitus with diabetic neuropathy, unspecified; E11.22 Type 2 diabetes mellitus with diabetic chronic kidney disease; E66.9 Obesity, unspecified; G47.33 Obstructive sleep apnea (adult) (pediatric); I89.0 Lymphedema, not elsewhere classified; I70.202 Unspecified atherosclerosis of native arteries of extremities, left leg; I87.2 Venous insufficiency (chronic) (peripheral); E86.9 Volume depletion, unspecified; J30.2 Other seasonal allergic rhinitis; Z79.84 Long term (current) use of oral hypoglycemic drugs; Z87.891 Personal history of nicotine dependence; N18.9 Chronic kidney disease, unspecified; E78.5 Hyperlipidemia, unspecified
CPT/HCPCS: 36246; 36415; 36569; 71045; 75625; 76937; 80048; 80053; 80061; 80202; 81000; 82962; 83605; 85025; 85027; 85610; 85730; 87040; 87070; 87077; 87088; 87186; 87205; 93306; 93925; 96365; 96367; 96368

== ENCOUNTER 2019-04-17 19:17 | Inpatient (IN) | payer MEDICAID ==
[~2019-04-17] VITALS: Ht 182.9 cm; Wt 159.6 kg
[~2019-04-17 19:17] MED LIST changes: +AMOX-358 PO; +ASPI-999; +ATOR80TA76 PO; +OMEP-280 PO; +SIMV40TA25 PO; +SULF-222 PO
[2019-04-17 19:19] VITALS: BP 171/89
[2019-04-17] MEDS ORDERED: NS IV 1000 ML 1,000 ML IV ONE (19:45)
[2019-04-17] MEDS ORDERED: PIPERACILLIN SODIUM/TAZOBACTAM 4.5 GM in NS (IVPB) 100 ML IV ONE (19:45)
[2019-04-17 20:13] LABS: BASOPHILS % (AUTO) 0 % (0-10); EOSINOPHILS % (AUTO) 1 % (0-10); HEMATOCRIT 39 % (40-54); HEMOGLOBIN 12.7 G/DL (13.3-17.7); LYMPHOCYTES # (AUTO) 0.5 X 10^3 (1.0-4.0); LYMPHOCYTES % (AUTO) 8 % (12-44); MEAN CORPUSCULAR HEMOGLOBIN 29 PG (25-34); MEAN CORPUSCULAR HGB CONC 32 G/DL (32-36); MEAN CORPUSCULAR VOLUME 91 FL (80-99); MEAN PLATELET VOLUME 10.5 FL (7.4-10.4); MONOCYTES # (AUTO) 0.4 X 10^3 (0.0-1.0); MONOCYTES % (AUTO) 7 % (0-12); NEUTROPHILS # (AUTO) 5.5 X 10^3 (1.8-7.8); NEUTROPHILS % (AUTO) 85 % (42-75); PLATELET COUNT 276 10^3/uL (130-400); RED CELL DISTRIBUTION WIDTH 15.3 % (10.0-14.5); WHITE BLOOD COUNT 6.4 10^3/uL (4.3-11.0)
[2019-04-17] MEDS ORDERED: ACETAMINOPHEN 500 MG TAB (TYLENOL) PO ONE (20:15)
[2019-04-17 20:22] LABS: INR 1.1 (0.8-1.4); PROTHROMBIN TIME PATIENT 14.6 SEC (12.2-14.7)
[2019-04-17 20:29] LABS: ALBUMIN 4.1 GM/DL (3.2-4.5); BILIRUBIN,TOTAL 0.7 MG/DL (0.1-1.0); CALCIUM 9.7 MG/DL (8.5-10.1); CREATININE SERUM 1.29 MG/DL (0.60-1.30); POTASSIUM 3.7 MMOL/L (3.6-5.0); TOTAL PROTEIN 7.8 GM/DL (6.4-8.2)
--- NOTE | 2019-04-17 20:35 | Diagnostic Imaging Report ---
EXAMINATION: Chest one view at 08:16 p.m. INDICATION: Diabetes, infection. FINDINGS: The heart size is within normal limits and stable when compared to 03/29/2019. The lungs are clear. There is no evidence for failure, pneumonia, or for a pleural effusion. The mediastinum is not widened. The osseous structures are intact. IMPRESSION: There is no evidence for active disease. Dictated by: Dictated on workstation # [id number]
--- NOTE | 2019-04-17 20:35 | Diagnostic Imaging Report ---
EXAMINATION: Left foot at 8:19 PM INDICATION: Foot pain Three views were obtained. In the interval since the prior exam of 09/09/16, the orthopedic fixation wire traversing the distal phalanx and the proximal phalanx of the great toe has been removed. There is no fracture, dislocation or acute bony abnormality identified. The degenerative and/or posttraumatic changes involving the midfoot seen on the previous study are again evident and no different. The Lisfranc joint seems well maintained. As on the prior exam there is soft tissue edema over the forefoot. There is no radiopaque foreign body identified. IMPRESSION: 1. There is soft tissue edema of the forefoot but there is no sign of acute bony abnormality or for a radiopaque foreign body. 2. If there is clinical concern regarding osteomyelitis, then MRI would be recommended for further evaluation. Dictated by: Dictated on workstation # [id number]
[2019-04-17 20:49] LABS: BAND NEUTROPHILS 1 %; LYMPHOCYTES % (MANUAL) 9 %; MONOCYTES % (MANUAL) 5 %; NEUTROPHILS % (MANUAL) 85 %
[2019-04-17 20:50] LABS: RBC MORPH NORMAL
[2019-04-17 21:00] VITALS: BP 143/80
[2019-04-17] MEDS: VANCOMYCIN INJECTION 1,000 MG in NS (IVPB) 250 ML IV SCH ×2 (21:12→21:50)
--- NOTE | 2019-04-17 21:26 | ED General ---
General Chief Complaint: Skin/Wound Problems Stated Complaint: FEVER, L FOOT WOUND Nursing Triage Note: C/O FEVER AND WOUND ON LEFT HEEL. Nursing Sepsis Screen: Possible Sepsis Risk Source of Information: Patient, Old Records Exam Limitations: No Limitations History of Present Illness Date Seen by Provider: Apr 17, 2019 Time Seen by Provider: 19:20 Initial Comments This 48-year-old gentleman with diabetes and Charcot foot with a diabetic ulcer on the left heel presents to the emergency room with fever, tachycardia, and general feelings of illness. He was discharged from the hospital on April 02 after being treated with IV antibiotics for a similar infection. He completed outpatient oral antibiotics and was to see wound care. However, due to physician availability he has not been able to establish in the wound care clinic yet. He reports blood sugars have been elevated recently. He is febrile and tachycardic on presentation. Allergies and Home Medications Allergies Coded Allergies: No Known Drug Allergies (Unverified , 03/16/14) Home Medications Amoxicillin/Potassium Clav 1 Each Tablet, 1 EACH PO BID Prescribed by: RENATA HINTON on 04/02/19 1138 Aspirin 81 Mg Tab.chew, 81 MG DAILY, (Reported) Atorvastatin Calcium 80 Mg Tablet, 80 MG PO HS Prescribed by: RENATA HINTON on 04/02/19 1138 Cyclobenzaprine HCl 10 Mg Tablet, 10 MG PO TID PRN for MUSCLE SPASMS, (Reported) Gabapentin 600 Mg Tablet, 600 MG PO TID, (Reported) Glyburide 5 Mg Tablet, 10 MG PO BID, (Reported) TAKES 2 (5MG) TABS TO EQUAL 10 MG TWICE DAILY Hydrochlorothiazide 25 Mg Tablet, 25 MG PO DAILY, (Reported) Latanoprost 2.5 Ml Drops, 1 DROP OU DAILY, (Reported) Liraglutide 0.6 Mg/0.1 Ml Pen.injctr, 1.8 MG SQ DAILY, (Reported) Lisinopril 40 Mg Tablet, 40 MG PO DAILY, (Reported) Naproxen 500 Mg Tablet, 500 MG PO BID, (Reported) Omeprazole 20 Mg Capsule.dr, 20 MG PO DAILY, (Reported) Pioglitazone HCl 45 Mg Tablet, 45 MG PO DAILY, (Reported) Propranolol HCl 40 Mg Tablet, 40 MG PO BID, (Reported) Patient Home Medication List Home Medication List Reviewed: Yes Review of Systems Review of Systems Constitutional: see HPI EENTM: no symptoms reported Respiratory: no symptoms reported Cardiovascular: see HPI Gastrointestinal: no symptoms reported Genitourinary: no symptoms reported Musculoskeletal: see HPI Skin: see HPI Psychiatric/Neurological: No Symptoms Reported Hematologic/Lymphatic: No Symptoms Reported Immunological/Allergic: no symptoms reported Past Fkttoou-Llfkds-Ckwkbo Hx Past Med/Social Hx: Reviewed Nursing Past Med/Soc Hx Patient Social History Alcohol Use: Denies Use Recreational Drug Use: No (SMOKES 1 PPD) Type Used: Cigarettes Former Smoker, Quit: Sep 26, 2011 Recent Foreign Travel: No Contact w/Someone Who Travel: No Recent Infectious Disease Expo: No Recent Hopitalizations: No Physical Abuse: No Sexual Abuse: No Mistreated: No Fear: No Immunizations Up To Date Tetanus Booster (TDap): Unknown Date of Influenza Vaccine: Dec 28, 2018 Seasonal Allergies Seasonal Allergies: Yes Past Medical History Surgeries: Yes (HERNIA AGE 1, HEART CATH, urethreal stricture, left big toe osteoectomy) Abdominal, Cardiac, Orthopedic, Tonsillectomy Respiratory: Yes (going to get a sleep study done) Currently Using CPAP: No Currently Using BIPAP: No Cardiac: Yes High Cholesterol, Hypertension Neurological: Yes Neuropathy Reproductive Disorders: No Sexually Transmitted Disease: No HIV/AIDS: No Genitourinary: No Gastrointestinal: No Musculoskeletal: Yes (open wound on left big toe, 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) Endocrine: Yes Diabetes, Non-Insulin dep Hearing Impairment: Denies Cancer: No Psychosocial: No Integumentary: No Pruritis Blood Disorders: No Adverse Reaction/Blood Tranf: No Family Medical History Chest pain 03 MOTHER, Onset:Unknown Congestive heart failure 03 MOTHER, Onset:Unknown Family history: Cardiovascular disease 03 MOTHER, Onset:Unknown Family history: Coronary thrombosis 03 MOTHER, Onset:Unknown Family history: Diabetes mellitus 03 FATHER, Onset:Unknown 03 MOTHER, Onset:Unknown 09 BROTHER, Onset:Unknown Family history: Glaucoma 03 MOTHER, Onset:Unknown Family history: Hypertension 03 FATHER, Onset:Unknown 03 MOTHER, Onset:Unknown 09 BROTHER, Onset:Unknown Heart disease 03 MOTHER, Onset:Unknown Hypercholesterolemia 03 FATHER, Onset:Unknown 03 MOTHER, Onset:Unknown 09 BROTHER, Onset:Unknown Myocardial infarction 03 MOTHER, Onset:Unknown Psychotic disorder 03 MOTHER, Onset:Unknown Seizure disorder 03 MOTHER, Onset:Unknown Stroke 03 MOTHER, Onset:Unknown Visual impairment 03 MOTHER, Onset:Unknown No Family History of: Abdominal aortic aneurysm [place]'s disease Alcoholism Aphasia Cancer Cancer of colon Cataract Congenital heart disease Cystic fibrosis Dementia Dysphagia Family history: Allergy Family history: Alzheimer's disease Family history: Arthritis Family history: Asthma Family history: Breast disease Family history: Gastrointestinal disease Family history: Osteoporosis Family history: Thyroid disorder Headache Hearing loss Hereditary disease History of - anemia History of - disorder History of - respiratory disease History of drug abuse Human immunodeficiency virus (HIV) seropositivity Infertile Kidney disease Malignant neoplasm of lung Parkinson's disease Prostate cancer Tuberculosis No Pertinent Family Hx Physical Exam-Suspected Sepsis Physical Exam Vital Signs Vital Signs - First Documented Capillary Refill : Less Than 3 Seconds Blood Pressure Mean: 101 Height, Weight, BMI Height: 6'0.00" Weight: 330lbs. 0.0oz. 149.622519ms; 49.00 BMI Method:Stated General Appearance: No Apparent Distress, WD/WN, Obese HEENT: PERRL/EOMI, Normal ENT Inspection, Pharynx Normal Neck: Normal Inspection Respiratory: Lungs Clear, Normal Breath Sounds, No Accessory Muscle Use Cardiovascular: No Edema, No Murmur, Tachycardia Gastrointestinal: Non Tender, Soft Extremity: Other (mild to moderate edema of the lower extremities bilaterally. Charcot foot disfigurement bilaterally. No large diabetic ulcer on the left heel with foul odor. Eschar in the center of the ulcer.) Neurologic/Psychiatric: Alert, Oriented x3, Normal Mood/Affect, Other (n europathy of the feet bilaterally) Skin: normal color, warm/dry, other (see above) Focused Exam Lactate Level 04/17/19 20:01: Lactic Acid Level 1.49 Lactic Acid Level Laboratory Tests Test 04/17/19 20:01 Lactic Acid Level 1.49 MMOL/L (0.50-2.00) Progress/Results/Core Measures Suspected Sepsis Recent Fever Within 48 Hours: Yes Infection Criteria Present: Suspected New Infection New/Unexplained Altered Menta: No Sepsis Screen: Possible Sepsis Risk SIRS Temperature: Pulse: 119 Respiratory Rate: 20 Laboratory Tests 04/17/19 20:01: White Blood Count 6.4 Blood Pressure 143 /80 Mean: 101 04/17/19 20:01: Lactic Acid Level 1.49 Laboratory Tests 04/17/19 20:01: Creatinine 1.29, INR Comment 1.1, Platelet Count 276, Total Bilirubin 0.7 Results/Orders Lab Results Laboratory Tests Test 04/17/19 20:01 Range/Units White Blood Count 6.4 4.3-11.0 10^3/uL Red Blood Count 4.33 L 4.35-5.85 10^6/uL Hemoglobin 12.7 L 13.3-17.7 G/DL Hematocrit 39 L 40-54 % Mean Corpuscular Volume 91 80-99 FL Mean Corpuscular Hemoglobin 29 25-34 PG Mean Corpuscular Hemoglobin Concent 32 32-36 G/DL Red Cell Distribution Width 15.3 H 10.0-14.5 % Platelet Count 276 130-400 10^3/uL Mean Platelet Volume 10.5 H 7.4-10.4 FL Neutrophils (%) (Auto) 85 H 42-75 % Lymphocytes (%) (Auto) 8 L 12-44 % Monocytes (%) (Auto) 7 0-12 % Eosinophils (%) (Auto) 1 0-10 % Basophils (%) (Auto) 0 0-10 % Neutrophils # (Auto) 5.5 1.8-7.8 X 10^3 Lymphocytes # (Auto) 0.5 L 1.0-4.0 X 10^3 Monocytes # (Auto) 0.4 0.0-1.0 X 10^3 Eosinophils # (Auto) 0.0 0.0-0.3 10^3/uL Basophils # (Auto) 0.0 0.0-0.1 10^3/uL Neutrophils % (Manual) 85 % Lymphocytes % (Manual) 9 % Monocytes % (Manual) 5 % Band Neutrophils 1 % Blood Morphology Comment NORMAL Prothrombin Time 14.6 12.2-14.7 SEC INR Comment 1.1 0.8-1.4 Activated Partial Thromboplast Time 27 24-35 SEC Sodium Level 134 L 135-145 MMOL/L Potassium Level 3.7 3.6-5.0 MMOL/L Chloride Level 96 L 98-107 MMOL/L Carbon Dioxide Level 24 21-32 MMOL/L Anion Gap 14 5-14 MMOL/L Blood Urea Nitrogen 21 H 7-18 MG/DL Creatinine 1.29 0.60-1.30 MG/DL Estimat Glomerular Filtration Rate 59 BUN/Creatinine Ratio 16 Glucose Level 137 H 70-105 MG/DL Lactic Acid Level 1.49 0.50-2.00 MMOL/L Calcium Level 9.7 8.5-10.1 MG/DL Corrected Calcium 9.6 8.5-10.1 MG/DL Total Bilirubin 0.7 0.1-1.0 MG/DL Aspartate Amino Transf (AST/SGOT) 15 5-34 U/L Alanine Aminotransferase (ALT/SGPT) 18 0-55 U/L Alkaline Phosphatase 118 40-136 U/L C-Reactive Protein High Sensitivity 4.70 H 0.00-0.50 MG/DL Total Protein 7.8 6.4-8.2 GM/DL Albumin 4.1 3.2-4.5 GM/DL My Orders Orders - CHRISSIE ROGERS MD Cbc With Automated Diff (04/17/19 19:37) Comprehensive Metabolic Panel (04/17/19 19:37) Blood Culture (04/17/19 19:37) Sputum Culture (04/17/19 19:37) Urinalysis (04/17/19 19:37) Urine Culture (04/17/19 19:37) Protime With Inr (04/17/19 19:37) Partial Thromboplastin Time (04/17/19 19:37) Chest 1 View, Ap/Pa Only (04/17/19 19:37) Ed Iv/Invasive Line Start (04/17/19 19:37) Ed Iv/Invasive Line Start (04/17/19 19:37) Vital Signs Adult Sepsis Patie Q15M (04/17/19 19:37) O2 (04/17/19 19:37) Remove Rings In Anticipation O (04/17/19 19:37) Lactic Acid Analyzer (04/17/19 19:37) Hs C Reactive Protein (04/17/19 19:37) Foot, Left, 3 Views (04/17/19 19:37) Wound Culture (04/17/19 19:37) Piperacillin Sodium/Tazobactam (Zosyn Vi (04/17/19 19:45) Vancomycin Injection (Vancomycin Injecti (04/17/19 19:45) Ns Iv 1000 Ml (Sodium Chloride 0.9%) (04/17/19 19:45) Acetaminophen Tablet (Tylenol Tablet) (04/17/19 20:15) Manual Differential (04/17/19 20:01) Medications Given in ED Current Medications Medications Dose Ordered Sig/Reji Route Start Time Stop Time Status Last Admin Dose Admin Acetaminophen 1,000 mg ONCE ONCE PO 04/17/19 20:15 04/17/19 20:16 DC 04/17/19 20:34 1,000 MG Piperacillin Sod/ Tazobactam Sod 4.5 gm/Sodium Chloride 100 ml @ 200 mls/hr ONCE ONCE IV 04/17/19 19:45 04/17/19 20:14 DC 04/17/19 20:34 200 MLS/HR Sodium Chloride 1,000 ml @ 0 mls/hr Q0M ONCE IV 04/17/19 19:45 04/17/19 19:46 DC 04/17/19 20:35 1,000 MLS/HR Vital Signs/I&O 04/17/19 04/17/19 04/17/19 04/17/19 19:19 19:19 20:34 21:00 Temp 38.3 38.3 38.0 38.0 Pulse 124 124 119 Resp 20 20 20 B/P (MAP) 171/89 (116) 171/89 (116) 143/80 (101) Pulse Ox 97 97 98 Capillary Refill : Less Than 3 Seconds Blood Pressure Mean: 101 Progress Note #1: Progress Note Patient was treated with a liter of IV fluid, Tylenol for fever, and Zosyn and vancomycin for empiric antibiotic therapy. There were no major abnormalities with labs. Patient meets septic criteria with tachycardia and fever. Case was discussed with Dr. Hinton who requested surgery consult and MRI in the morning. Dr. Mullins was consulted and agrees with antibiotics and MRI. X-ray of the left foot revealed no evidence of osteomyelitis. A wound culture was obtained at the edge of the eschar where it was peeling up. Progress Note #2: Progress Note Patient requested that Dr. Carpenter be notified of his admission as well. I contacted Dr. Carpenter 21:45. He does want to be involved in the care of this, but stated the patient would benefit from general surgery consult with Dr. Mullins as well. Diagnostic Imaging Diagonstic Imaging: Xray Plain Films/CT/US/NM/MRI: chest Comments Chest x-ray viewed by me and report reviewed. See report below: NAME: ASAF AGUILA [facility] REC#: [id number] PT STATUS: REG ER : 1970 PHYSICIAN: CHRISSIE ROGERS MD ADMIT DATE: 04/17/19/ER Draft Date of Exam:04/17/19 CHEST 1 VIEW, AP/PA ONLY EXAMINATION: Chest one view at 08:16 p.m. INDICATION: Diabetes, infection. FINDINGS: The heart size is within normal limits and stable when compared to 03/29/2019. The lungs are clear. There is no evidence for failure, pneumonia, or for a pleural effusion. The mediastinum is not widened. The osseous structures are intact. IMPRESSION: There is no evidence for active disease. Dictated on workstation # [id number] Dict: 04/17/192022 Trans: 04/17/192033 [id number] Interpreted by: MINGO WEAVER MD Diagonstic Imaging: Xray Plain Films/CT/US/NM/MRI: other (left foot) Comments Left foot x-rays viewed by me and report reviewed. See report below: NAME: ASAF AGUILA [facility] REC#: [id number] PT STATUS: REG ER : 1970 PHYSICIAN: CHRISSIE ROGERS MD ADMIT DATE: 04/17/19/ER Draft Date of Exam:04/17/19 FOOT, LEFT, 3 VIEWS EXAMINATION: Left foot at 8:19 PM INDICATION: Foot pain Three views were obtained. In the interval since the prior exam of 09/09/16, the orthopedic fixation wire traversing the distal phalanx and the proximal phalanx of the great toe has been removed. There is no fracture, dislocation or acute bony abnormality identified. The degenerative and/or posttraumatic changes involving the midfoot seen on the previous study are again evident and no different. The Lisfranc joint seems well maintained. As on the prior exam there is soft tissue edema over the forefoot. There is no radiopaque foreign body identified. IMPRESSION: 1. There is soft tissue edema of the forefoot but there is no sign of acute bony abnormality or for a radiopaque foreign body. 2. If there is clinical concern regarding osteomyelitis, then MRI would be recommended for further evaluation. Dictated on workstation # [id number] Dict: 04/17/192023 Trans: 04/17/192034 [facility] [id number] Interpreted by: MINGO WEAVER MD Departure Communication (Admissions) Time/Spoke to Admitting Phy: 21:25 Dr. Hinton Time/Spoke to Consulting Phy: 21:27 Dr. Susanna Carpenter consulted at 2145 Impression Primary Impression: Sepsis Qualified Codes: A41.9 - Sepsis, unspecified organism Additional Impressions: Diabetic foot ulcer Qualified Codes: E11.621 - Type 2 diabetes mellitus with foot ulcer; L97.428 - Non-pressure chronic ulcer of left heel and midfoot with other specified severity Charcot foot Disposition: ADMITTED INPATIENT Condition: Improved Admissions Decision to Admit Reason: Admit from ER (General) Decision to Admit/Date: Apr 17, 2019 Time/Decision to Admit Time: 11:30 Departure-Patient Inst. Referrals: ANIA BARRIOS MD (PCP) Primary Care Physician CATIA IBARRA (Family) Primary Care Physician CHRISSIE ROGERS MD Apr 17, 2019 21:26
[2019-04-17] MEDS ORDERED: VANCOMYCIN 1000 MG/VIAL ONE (21:39)
[2019-04-17] MEDS ORDERED: NS (IVPB) 250 ML ONE (21:39)
[2019-04-17] MEDS ORDERED: VANCOMYCIN INJECTION 1,000 MG in NS (IVPB) 250 ML IV ONE (21:50)
[2019-04-17 22:15] VITALS: BP 142/65
[2019-04-17] MEDS ORDERED: NS IV 1000 ML 1,000 ML IV SCH (22:30)
[2019-04-17] MEDS ORDERED: IBUPROFEN 600 MG (MOTRIN) TAB PO PRN (22:30)
[2019-04-18] VITALS (7 sets, daily range): BP systolic 103–149; BP diastolic 59–76
[2019-04-18] MEDS ORDERED: PIPERACILLIN/TAZO 4.5 GM VIAL (ZOSYN) IV ONE (02:27)
[2019-04-18] MEDS ORDERED: NS (IVPB) 100 ML ONE (02:27)
[2019-04-18] MEDS: PIPERACILLIN/TAZO 4.5 GM/NS 100 ML IV SCH ×6 (02:45→18:52)
[2019-04-18 05:57] LABS: BASOPHILS % (AUTO) 0 % (0-10); EOSINOPHILS % (AUTO) 1 % (0-10); HEMATOCRIT 34 % (40-54); HEMOGLOBIN 10.8 G/DL (13.3-17.7); LYMPHOCYTES # (AUTO) 0.7 X 10^3 (1.0-4.0); LYMPHOCYTES % (AUTO) 16 % (12-44); MEAN CORPUSCULAR HEMOGLOBIN 29 PG (25-34); MEAN CORPUSCULAR HGB CONC 32 G/DL (32-36); MEAN CORPUSCULAR VOLUME 91 FL (80-99); MEAN PLATELET VOLUME 10.5 FL (7.4-10.4); MONOCYTES # (AUTO) 0.4 X 10^3 (0.0-1.0); MONOCYTES % (AUTO) 9 % (0-12); NEUTROPHILS # (AUTO) 3.1 X 10^3 (1.8-7.8); NEUTROPHILS % (AUTO) 75 % (42-75); PLATELET COUNT 232 10^3/uL (130-400); RED CELL DISTRIBUTION WIDTH 15.3 % (10.0-14.5); WHITE BLOOD COUNT 4.1 10^3/uL (4.3-11.0)
[2019-04-18 06:25] LABS: BUN/CREATININE RATIO 17; CALCIUM 8.6 MG/DL (8.5-10.1); CARBON DIOXIDE 22 MMOL/L (21-32); CHLORIDE 101 MMOL/L (98-107); CREATININE SERUM 1.22 MG/DL (0.60-1.30); GFR ESTIMATED > 60; GLUCOSE 80 MG/DL (70-105); POTASSIUM 3.2 MMOL/L (3.6-5.0); SODIUM 136 MMOL/L (135-145)
[2019-04-18] MEDS: PIOGLITAZONE 30MG (ACTOS) TAB PO SCH (06:32)
--- NOTE | 2019-04-18 08:02 | NUR ---
VANCOMYCIN DOSING: SCr 1.22, CrCl 96.6, WEIGHT 160.7KG LOADING DOSE 2 GM GIVEN IN ED BASED OFF OF MAR 28 DOSING 1500MG Q12H VANCOMYCIN TROUGH DUE 04/19 @ 0900; IF TROUGH >20, HOLD 04/19 0900 DOSE
[2019-04-18] MEDS ORDERED: ATOR80TA76 PO (08:27)
[2019-04-18] MEDS ORDERED: TERB15CR6 TOP (08:27)
--- NOTE | 2019-04-18 08:27 | NUR ---
WENT OVER THE EXT MED HX WITH THE PATIENT. HE VERIFIED HOW HE TAKES EACH MEDICATION. NOTHING HAS CHANGED SINCE HIS LAST ADMISSION EXCEPT FOR THE COMPLETION OF HIS ANTIBIOTIC AND HE HAS BEEN USING TERBINAFINE CREAM WHICH HE STATES HE IS ABOUT FINISHED WITH.
[2019-04-18] MEDS: VANCOMYCIN 1500 MG/NS 500 ML IVPB IV SCH ×4 (09:05→21:04)
[2019-04-18] MEDS ORDERED: CYCLOBENZAPRINE 10 MG (FLEXERIL) TAB PO PRN (09:30)
[2019-04-18] MEDS ORDERED: KCL 20 MEQ TAB (K-DUR) PO NR (09:30)
[2019-04-18] MEDS: NAPROXEN 250 MG (NAPROSYN) TABLET PO SCH ×2 (09:48→18:52)
[2019-04-18] MEDS: glyBURIDE 5 MG (MICRONASE) TAB PO SCH ×2 (09:48→16:47)
[2019-04-18] MEDS: PANTOPRAZOLE 20 MG TABLET (PROTONIX) PO SCH (09:48)
--- NOTE | 2019-04-18 10:46 | NUR ---
CM/SS visit with patient to assess for needs upon discharge. The patient stated that he is currently doing okay and did not need any assistance with anything at this time. CM/SS informed him that if the physician wanted him to go home with home health care for his foot that SS would help him get that set up. Will continue to follow.
--- NOTE | 2019-04-18 12:13 | History & Physical ---
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 He finished antibiotics but was unable to get in to wound care, on Monday he was rescheduled to next week but on monday he started to have fever, chills and nausea and malaise. Source: patient Date seen by provider: Apr 18, 2019 Time Seen by Provider: 10:45 Attending Physician Renata Dubois MD PCP Ray Palma MD Consult Date of Admission Apr 17, 2019 at 21:27 Home Medications Home Medications Reviewed patient Home Medication Reconciliation performed by pharmacy medication reconciliations vehicle glass technician and/or nursing. Patients Allergies have been reviewed. Allergies Coded Allergies: No Known Drug Allergies (Unverified , 03/16/14) [id number] Hx Patient Social History Alcohol Use: Denies Use Recreational Drug Use: No Former smoker/When Quit: Sep 09, 2011 Type Used: Cigarettes Recent Foreign Travel: No Contact w/other who traveled: No Recent Hopitalizations: No Recent Infectious Disease Expo: No Immunizations Up To Date Tetanus Booster (TDap): Unknown Date of Influenza Vaccine: Dec 28, 2018 Past Medical History Past Medical History 1. Diabetes Mellitus 2. Charcot Foot 3. Peripheral Neuropathy 4. HTN Past Surgical History 1. Tonsillectomy 2. Hernia Surgery at 1 years of age Family Medical History Significant Family History: Vascular Disease Review of Systems (CHC) Constitutional: fever, malaise EENTM: No nose congestion Respiratory: No cough, No short of breath Cardiovascular: No chest pain Gastrointestinal: No abdominal pain, No constipation, No diarrhea Skin: see HPI Reviewed Test Results Reviewed Test Results Radiology Laboratory Tests Test 04/17/19 20:01 04/18/19 05:38 04/18/19 10:34 Range/Units White Blood Count 6.4 4.1 L 4.3-11.0 10^3/uL Red Blood Count 4.33 L 3.74 L 4.35-5.85 10^6/uL Hemoglobin 12.7 L 10.8 L 13.3-17.7 G/DL Hematocrit 39 L 34 L 40-54 % Mean Corpuscular Volume 91 91 80-99 FL Mean Corpuscular Hemoglobin 29 29 25-34 PG Mean Corpuscular Hemoglobin Concent 32 32 32-36 G/DL Red Cell Distribution Width 15.3 H 15.3 H 10.0-14.5 % Platelet Count 276 232 130-400 10^3/uL Mean Platelet Volume 10.5 H 10.5 H 7.4-10.4 FL Neutrophils (%) (Auto) 85 H 75 42-75 % Lymphocytes (%) (Auto) 8 L 16 12-44 % Monocytes (%) (Auto) 7 9 0-12 % Eosinophils (%) (Auto) 1 1 0-10 % Basophils (%) (Auto) 0 0 0-10 % Neutrophils # (Auto) 5.5 3.1 1.8-7.8 X 10^3 Lymphocytes # (Auto) 0.5 L 0.7 L 1.0-4.0 X 10^3 Monocytes # (Auto) 0.4 0.4 0.0-1.0 X 10^3 Eosinophils # (Auto) 0.0 0.0 0.0-0.3 10^3/uL Basophils # (Auto) 0.0 0.0 0.0-0.1 10^3/uL Neutrophils % (Manual) 85 % Lymphocytes % (Manual) 9 % Monocytes % (Manual) 5 % Band Neutrophils 1 % Blood Morphology Comment NORMAL Prothrombin Time 14.6 12.2-14.7 SEC INR Comment 1.1 0.8-1.4 Activated Partial Thromboplast Time 27 24-35 SEC Sodium Level 134 L 136 135-145 MMOL/L Potassium Level 3.7 3.2 L 3.6-5.0 MMOL/L Chloride Level 96 L 101 98-107 MMOL/L Carbon Dioxide Level 24 22 21-32 MMOL/L Anion Gap 14 13 5-14 MMOL/L Blood Urea Nitrogen 21 H 21 H 7-18 MG/DL Creatinine 1.29 1.22 0.60-1.30 MG/DL Estimat Glomerular Filtration Rate 59 > 60 BUN/Creatinine Ratio 16 17 Glucose Level 137 H 80 70-105 MG/DL Lactic Acid Level 1.49 0.50-2.00 MMOL/L Calcium Level 9.7 8.6 8.5-10.1 MG/DL Corrected Calcium 9.6 8.5-10.1 MG/DL Total Bilirubin 0.7 0.1-1.0 MG/DL Aspartate Amino Transf (AST/SGOT) 15 5-34 U/L Alanine Aminotransferase (ALT/SGPT) 18 0-55 U/L Alkaline Phosphatase 118 40-136 U/L C-Reactive Protein High Sensitivity 4.70 H 0.00-0.50 MG/DL Total Protein 7.8 6.4-8.2 GM/DL Albumin 4.1 3.2-4.5 GM/DL Glucometer 166 H 70-110 MG/DL Physical Exam-(CHC) Physical Exam Vital Signs VS - Last 72 Hours, by Label 04/17/19 04/17/19 04/17/19 04/17/19 19:19 19:19 20:34 21:00 Temp 38.3 38.3 38.0 38.0 Pulse 124 124 119 Resp 20 20 20 B/P (MAP) 171/89 (116) 171/89 (116) 143/80 (101) Pulse Ox 97 97 98 04/17/19 04/17/19 04/17/19 04/17/19 21:36 22:05 22:15 22:20 Temp 37.2 37.0 38.0 Pulse 122 126 Resp 18 22 B/P (MAP) 141/74 142/65 Pulse Ox 95 95 O2 Delivery Room Air Room Air 04/17/19 04/18/19 04/18/19 04/18/19 23:05 00:15 02:09 04:00 Temp 38.0 38.0 37.2 Pulse 116 105 97 Resp 22 21 B/P (MAP) 103/59 (74) 119/69 (86) 119/69 (86) Pulse Ox 94 95 O2 Delivery Room Air Room Air 04/18/19 04/18/19 04/18/19 07:50 08:00 12:00 Temp 36.5 36.9 Pulse 86 93 Resp 18 18 B/P (MAP) 124/71 (88) 134/76 (95) Pulse Ox 97 98 O2 Delivery Room Air Room Air Room Air Capillary Refill : Less Than 3 Seconds General Appearance: no apparent distress Respiratory: lungs clear, normal breath sounds Cardiovascular: regular rate, rhythm, no murmur Neurologic/Psychiatric: alert, normal mood/affect Skin: other Assessment/Plan Assessment/Plan Admission Status: Inpatient Order (span 2 midnights) Reason for Inpatient Admission: Sepsis with diabetes high risk for decompensation (1) Sepsis Status: Acute Assessment & Plan: Suspect secondary to diabetic foot wound infection. Febrile, tachycardic. Lactic acid okay. Started zosyn and vancomycin. Qualifiers: Qualified Codes: A41.9 - Sepsis, unspecified organism (2) Diabetes mellitus, type 2 Status: Chronic Assessment & Plan: Resume home meds. Sliding scale insulin. (3) Charcot foot Status: Acute (4) Diabetic foot ulcer Status: Acute Assessment & Plan: Surgery and Podiatry consulted. Qualifiers: Qualified Codes: E11.621 - Type 2 diabetes mellitus with foot ulcer; L97.428 - Non-pressure chronic ulcer of left heel and midfoot with other specified sever ity (5) DVT prophylaxis Status: Acute Assessment & Plan: Enoxaparin Clinical Quality Measures DVT/VTE Risk/Contraindication: Risk Factor Score Per Nursin RFS Level Per Nursing on Admit: 4+=Very High RENATA DUBOIS MD Apr 18, 2019 12:13
--- NOTE | 2019-04-18 12:52 | Podiatry Progress Note ---
Standard Progress Note Progress Notes/Assess & Plan Date Seen by a Provider: Apr 18, 2019 Time Seen by a Provider: 12:49 Progress/Assessment & Plan Bedside debridement of the left heel wound done. Awaiting results of MRI. Expect that a deeper debridement will be needed. The wound was packed with 1/4" iodoform. Patient is NPO pending results of MRI and availability of Dr. Vazquez. Final Diagnosis Full Thickness Ulceration (Yoon grade 2) left heel, Cellulitis left heel, Diabetic Neuropathy GRISEL BATES DPM Apr 18, 2019 12:52
--- NOTE | 2019-04-18 12:59 | Diagnostic Imaging Report ---
PROCEDURE: MR imaging left lower extremity without contrast. TECHNIQUE: Multiplanar, multisequence non contrast enhanced MR imaging of the left lower extremity was accomplished. INDICATION: Diabetic foot ulcer at the bottom of the left heel. COMPARISON: Radiographs from 04/17/2019. FINDINGS: There is marked bone marrow edema with associated T1-weighted marrow replacement at the posterior calcaneus, with erosion of the cortex. There is overlying marked soft tissue edema. No definite drainable fluid collection is seen on this noncontrast exam. There is tearing and thickening of the origin of the plantar fascia, with complete avulsion of the central and medial components from the calcaneus. There is severe endstage degenerative change in the subtalar joint and midfoot, with destruction of the navicular. No significant joint effusion is seen. The anterior and posterior syndesmotic ligaments are intact. The anterior talofibular ligament appears thickened, which may be from prior injury. The deltoid ligament is intact. The sinus tarsi is small, with decreased fatty signal. The flexor, peroneal, and extensor tendons appear intact. There is marked superficial soft tissue edema about the ankle. There is atrophy of the musculature, which is likely neuropathic. IMPRESSION: 1. Findings consistent with osteomyelitis of the posterior calcaneus. No drainable fluid collection is seen on this noncontrast exam. 2. Marked tearing with avulsion fracture at the calcaneal attachment of the plantar fascia. 3. Severe degenerative changes in the hindfoot and midfoot, likely from a Charcot arthropathy. Dictated by: Dictated on workstation # [id number]
--- NOTE | 2019-04-18 13:35 | NUR ---
"RD ASSESSMENT PMHx: DM; HTN; hypercholesterolemia; charcot foot PT INTERACTION: Pt was awake and pleasant during nutrition assessment. Pt states current appetite is good and has been for some time. Pt states following a regular diet at home and has no issues with chewing/swallowing food. Pt states no recent issues with n/v/c/d at this time, and that his last BM was 04/17. Note pt not currently on bowel regimen per chart review. Pt states recent 15# wt loss, but could not give timeframe. Note recent 11# wt loss x2w, per chart review. Note presence of wound (diabetic foot ulcer) on left foot, per chart review. ABNORMAL NUTRITION-RELATED LAB VALUES LOW: K 3.2 HIGH: BUN 21 Est. kcal needs: 4769-5037 kcal | 15-18 kcal/kg Est. Pro needs: 128-160 g Pro | 0.8-1.0 g Pro/kg PES STATEMENT: Inadequate protein intake (NI-5.6.1) related to increased protein needs as evidenced by presence of wound (left foot ulcer) INTERVENTION: Note pt is currently NPO, per Dr. Carpenter, pending results of recent tests. Will continue to follow and reassess as pt needs and status change. MONITOR/EVALUATE: PO Intake; Plan of Care; Hydration Status; Weight Status; Lab Values Carmelina Rizzo, , RD, LD"
[2019-04-18] MEDS: GABAPENTIN 600 MG (NEURONTIN) TAB PO SCH ×2 (13:41→21:01)
--- NOTE | 2019-04-18 13:53 | NUR ---
Pt is Advent and declines Spiritual Care.
--- NOTE | 2019-04-18 15:11 | CONSULTATION REPORT ---
DATE OF SERVICE: 04/18/2019 REASON FOR CONSULTATION: Continuation of diabetic foot care. HISTORY OF PRESENT ILLNESS: This is a 48-year-old male who was admitted secondary to cellulitis and increase systemic symptoms. He has had a wound for the left heel, which he was receiving IV antibiotics and was released to home care and to follow up with wound care at [facility]. The follow up with the wound care did not happen due to scheduling conflicts. The patient has increased temperature and systemic symptoms and was admitted through the emergency room last night. The patient indicates that he is no longer have any fever, chills, nausea or vomiting since he has been on IV antibiotics. He has had a Dakin solution dressing changes twice a day. PHYSICAL EXAMINATION: EXTREMITIES: On lower extremity examination, the patient has a full thickness wound to the posterior aspect of the left heel that measures approximately 7 x 7 cm with a fibrotic base and some necrotic tissue malodor is present. There is probing approximately 2 cm, but nothing down to bone. He has a hyperkeratotic border. No proximal streaking is noted at this time. There is an increase in Calor present. Diminished pedal pulses due to brawny edema is noted left and right foot. He has absent protective sensation per 10 gram monofilament wire examination bilaterally. LABORATORY DATA: X-rays were reports were reviewed for the left foot and indicated: 1. There is soft tissue edema of the forefoot, but there are no signs of acute bony abnormalities or for radiographic foreign body. 2. If there are any clinical concerns regarding osteomyelitis, an MRI would be recommended. MRI was performed this morning, which is currently being red, but no report is available at this time. Laboratory work indicated that he has a white blood count of 4.1. ASSESSMENT: 1. Diabetic neuropathy. 2. Full-thickness ulceration with cellulitis, left heel necrosis and superficial abscess. PLAN: Various treatment options were discussed with the patient today. A bedside debridement was performed with a 10 blade. This was then excisional debridement of necrotic and fibrotic tissue. Once the debridement was performed, there is a significant amount of the malodor that was taken with the debridement. The area was cleansed and was packed with quarter inch iodoform to the plantar medial and lateral aspect of the left calcaneus area. The wound was dressed with sterile 4 x 4, sterile Kerlix and an ABD wrap. The patient will continue with Dakin soaks. It is my opinion that the patient will likely need a more extensive surgical debridement. Dr. Mullins will possibly be available this afternoon in anticipation of possible deeper debridement. The patient was placed n.p.o. He will continue with IV antibiotics and awaiting wound care consult. Job ID: [id number] DocumentID: [id number] Dictated Date: 04/18/2019 13:01:04 Finished Goods Inspector Date: 04/18/2019 15:10:20 Dictated By: GRISEL BATES DPM
--- NOTE | 2019-04-18 18:03 | Progress Note-Pre Operative ---
Pre-Operative Progress Note H&P Reviewed The H&P was reviewed, patient examined and no changes noted. Date Seen by Provider: Apr 18, 2019 Time Seen by Provider: 18:00 Date H&P Reviewed: Apr 18, 2019 Time H&P Reviewed: 18:00 Pre-Operative Diagnosis: osteomyelitis left posterior heal ALFA KELLER MD Apr 18, 2019 18:03
--- NOTE | 2019-04-18 18:31 | CONSULTATION REPORT ---
DATE OF SERVICE: 04/18/2019 ATTENDING PRIMARY CARE PHYSICIAN: Dr. Dubois. HISTORY OF PRESENT ILLNESS: The patient is a 48-year-old male with a history of chronic diabetes and bilateral Charcot foot. He was recently admitted for infection of the left heel. He finished a course of antibiotics as well as wound care; however, returned with a significant sized open wound of the left heel with necrotic tissue encompassing to the level of the fascia. He does not have any sensation of bilateral feet. There is minimal surrounding redness or erythema to indicate much cellulitis. He is otherwise doing well, does not have any systemic symptoms. He states that he was diagnosed with diabetes approximately 25 years ago and was diagnosed with Charcot foot 11 years ago and does have the physical changes associated with this disease process. There was also a large open wound of the left heel approximately 4 x 4 cm in size with necrotic debris encompassing skin, subcutaneous tissue to the level of the tendons and fascia. PAST MEDICAL HISTORY: Diabetes, peripheral neuropathy, hypertension, Charcot foot. PAST SURGERIES: Open left inguinal hernia repair, tonsillectomy, cardiac catheterization, arteriogram with bilateral lower extremity runoff recently. ALLERGIES: No known drug allergies. MEDICATIONS: Aspirin 81 mg daily, atorvastatin 80 mg daily, cyclobenzaprine 10 mg daily, gabapentin 600 mg daily, glyburide 10 mg b.i.d., hydrochlorothiazide 25 mg daily, latanoprost drops daily, liraglutide 1.8 mg subcutaneous daily, lisinopril 40 mg daily, naproxen 500 mg b.i.d., omeprazole 20 mg daily, hydrocortisone 45 mg daily, propranolol 40 mg b.i.d., terbinafine cream b.i.d. SOCIAL HISTORY: Previous smoker, quit in 2010, 20 pack years. Negative alcohol. FAMILY HISTORY: Brother, non-Hodgkin's lymphoma. VITAL SIGNS: Temperature 36.7, blood pressure 134/73, pulse 90, respirations 20, pulse ox 95% on room air. REVIEW OF SYSTEMS: A well-nourished male in no acute distress. He is not experiencing any shortness of breath or difficulty breathing. No chest pain, palpitations, diaphoresis. No nausea, vomiting. No diarrhea, constipation. No fever, chills, no recent inadvertent weight loss. All other review of systems negative. PHYSICAL EXAMINATION: CHEST: Clear. Good breath sounds bilaterally. HEART: Regular, no murmurs. EXTREMITIES: +2/3 bilateral lower extremity edema with physical changes and angulation of bilateral feet consistent with a Charcot foot bilaterally. HEENT: No scleral icterus, no cervical lymphadenopathy. ABDOMEN: Soft, nontender, nondistended. SKIN: Along the left heel Has an open wound 4 x 4 cm in size with necrotic debris encompassing skin and subcutaneous tissue in the depths of the necrosis is to the level of the fascia and the tendons. ASSESSMENT AND PLAN: A 48-year-old male with a history of Charcot foot with a large open wound of the left heel and MRI reading was consistent with soft tissue necrosis encompassing also osteomyelitis of the posterior aspect of the calcaneus. We will proceed with debridement of the soft tissue as well as debridement of the posterior aspect of the bone in hopes of allowing for a regeneration of tissue and wound healing. We will also consult wound care due to the fact of the large tissue defect in which will require granulation tissue and possible skin grafting if his vascular supply will allow for this. We will continue for IV antibiotics for now. Job ID: [id number] DocumentID: [id number] Dictated Date: 04/18/2019 17:50:39 Athletic Monitor Date: 04/18/2019 18:31:03 Dictated By: ALFA KELLER MD
[2019-04-18] MEDS: ENOXAPARIN 40 MG/0.4 ML (LOVENOX) SYR SQ SCH (21:01)
[2019-04-18] MEDS: HYDROcodone/APAP 5 MG/325 MG (LORTAB) TAB PO PRN (21:36)
[2019-04-18] MEDS: DAKIN'S 1/2 STRENGTH (0.25%) 473 ML BTL TOP SCH (21:37)
[2019-04-19] VITALS (11 sets, daily range): BP systolic 110–182; BP diastolic 64–86
[2019-04-19] MEDS: PIPERACILLIN/TAZO 4.5 GM/NS 100 ML IV SCH ×6 (01:57→17:47)
[2019-04-19] MEDS: glyBURIDE 5 MG (MICRONASE) TAB PO SCH ×2 (06:16→17:47)
[2019-04-19] MEDS: PIOGLITAZONE 30MG (ACTOS) TAB PO SCH (06:16)
[2019-04-19] MEDS: NAPROXEN 250 MG (NAPROSYN) TABLET PO SCH ×2 (06:17→17:47)
[2019-04-19 07:11] LABS: HEMOGLOBIN 10.5 G/DL (13.3-17.7); MEAN PLATELET VOLUME 10.4 FL (7.4-10.4); RED CELL DISTRIBUTION WIDTH 15.5 % (10.0-14.5); WHITE BLOOD COUNT 3.2 10^3/uL (4.3-11.0)
[2019-04-19 07:31] LABS: BUN/CREATININE RATIO 18; CALCIUM 8.4 MG/DL (8.5-10.1); CARBON DIOXIDE 22 MMOL/L (21-32); CHLORIDE 102 MMOL/L (98-107); CREATININE SERUM 1.18 MG/DL (0.60-1.30); GFR ESTIMATED > 60; GLUCOSE 182 MG/DL (70-105); POTASSIUM 3.2 MMOL/L (3.6-5.0); SODIUM 135 MMOL/L (135-145)
[2019-04-19] MEDS ORDERED: KCL 20 MEQ TAB (K-DUR) PO NR (08:15)
[2019-04-19] MEDS ORDERED: NON-FORMULARY MEDICATION 1 EA EA (Liraglutide (Victoza 3-Pak) 1.8 MG) SQ SCH (09:00)
[2019-04-19] MEDS ORDERED: TROUGH ORDER-PHARMACY XX NR (09:00)
[2019-04-19] MEDS: ENOXAPARIN 40 MG/0.4 ML (LOVENOX) SYR SQ SCH ×2 (09:00→20:19)
[2019-04-19] MEDS: ASPIRIN 81 MG CHEW (CHILDREN'S ASA) PO SCH (09:15)
[2019-04-19] MEDS: GABAPENTIN 600 MG (NEURONTIN) TAB PO SCH ×3 (09:15→20:19)
[2019-04-19] MEDS: PANTOPRAZOLE 20 MG TABLET (PROTONIX) PO SCH (09:15)
[2019-04-19] MEDS: DAKIN'S 1/2 STRENGTH (0.25%) 473 ML BTL TOP SCH (09:30)
[2019-04-19] MEDS: VANCOMYCIN 1500 MG/NS 500 ML IVPB IV SCH ×4 (10:31→21:29)
--- NOTE | 2019-04-19 11:07 | Progress Note ---
Subjective Subjective/Events-last exam Afebrile, feeling okay. MRI did show osteomyelitis of posterior calcaneus. Focused Exam Lactate Level 04/17/19 20:01: Lactic Acid Level 1.49 Objective Exam Last Set of Vital Signs Vital Signs Date Time Temp Pulse Resp B/P (MAP) Pulse Ox O2 Delivery O2 Flow Rate FiO2 04/19/19 08:00 36.6 102 18 139/64 (89) 98 Room Air Capillary Refill : Less Than 3 Seconds I&O Intake and Output 04/19/19 00:00 Intake Total 3205 ml Balance 3205 ml Intake Oral 1320 ml IV Total 1885 ml # Voids 7 # Bowel Movements 2 General: Alert, No Acute Distress Lungs: Clear to Auscultation, Normal Air Movement Heart: Regular Rate, No Murmurs Abdomen: Normal Bowel Sounds, Soft Neuro: Normal Speech Psych/Mental Status: Mental Status NL Results/Procedures Lab Laboratory Tests 04/18/19 16:52: Glucometer 151H 04/18/19 19:59: Glucometer 176H 04/19/19 05:15: Glucometer 169H 04/19/19 06:55: White Blood Count 3.2L, Red Blood Count 3.64L, Hemoglobin 10.5L, Hematocrit 33L, Mean Corpuscular Volume 91, Mean Corpuscular Hemoglobin 29, Mean Corpuscular Hemoglobin Concent 32, Red Cell Distribution Width 15.5H, Platelet Count 214, Mean Platelet Volume 10.4, Sodium Level 135, Potassium Level 3.2L, Chloride Level 102, Carbon Dioxide Level 22, Anion Gap 11, Blood Urea Nitrogen 21H, Creatinine 1.18, Estimat Glomerular Filtration Rate > 60, BUN/Creatinine Ratio 18, Glucose Level 182H, Calcium Level 8.4L 04/19/19 09:05: Vancomycin Level Trough 14.5 Microbiology 04/17/19 Blood Culture - Preliminary, Resulted No growth 04/17/19 Gram Stain - Final, Resulted 04/17/19 Wound Culture - Preliminary, Resulted Staphylococcus aureus Gram Negative Carson Gram Negative Carson#2 Radiology Laboratory Tests Test 04/17/19 20:01 04/18/19 05:38 04/18/19 10:34 Range/Units White Blood Count 6.4 4.1 L 4.3-11.0 10^3/uL Red Blood Count 4.33 L 3.74 L 4.35-5.85 10^6/uL Hemoglobin 12.7 L 10.8 L 13.3-17.7 G/DL Hematocrit 39 L 34 L 40-54 % Mean Corpuscular Volume 91 91 80-99 FL Mean Corpuscular Hemoglobin 29 29 25-34 PG Mean Corpuscular Hemoglobin Concent 32 32 32-36 G/DL Red Cell Distribution Width 15.3 H 15.3 H 10.0-14.5 % Platelet Count 276 232 130-400 10^3/uL Mean Platelet Volume 10.5 H 10.5 H 7.4-10.4 FL Neutrophils (%) (Auto) 85 H 75 42-75 % Lymphocytes (%) (Auto) 8 L 16 12-44 % Monocytes (%) (Auto) 7 9 0-12 % Eosinophils (%) (Auto) 1 1 0-10 % Basophils (%) (Auto) 0 0 0-10 % Neutrophils # (Auto) 5.5 3.1 1.8-7.8 X 10^3 Lymphocytes # (Auto) 0.5 L 0.7 L 1.0-4.0 X 10^3 Monocytes # (Auto) 0.4 0.4 0.0-1.0 X 10^3 Eosinophils # (Auto) 0.0 0.0 0.0-0.3 10^3/uL Basophils # (Auto) 0.0 0.0 0.0-0.1 10^3/uL Neutrophils % (Manual) 85 % Lymphocytes % (Manual) 9 % Monocytes % (Manual) 5 % Band Neutrophils 1 % Blood Morphology Comment NORMAL Prothrombin Time 14.6 12.2-14.7 SEC INR Comment 1.1 0.8-1.4 Activated Partial Thromboplast Time 27 24-35 SEC Sodium Level 134 L 136 135-145 MMOL/L Potassium Level 3.7 3.2 L 3.6-5.0 MMOL/L Chloride Level 96 L 101 98-107 MMOL/L Carbon Dioxide Level 24 22 21-32 MMOL/L Anion Gap 14 13 5-14 MMOL/L Blood Urea Nitrogen 21 H 21 H 7-18 MG/DL Creatinine 1.29 1.22 0.60-1.30 MG/DL Estimat Glomerular Filtration Rate 59 > 60 BUN/Creatinine Ratio 16 17 Glucose Level 137 H 80 70-105 MG/DL Lactic Acid Level 1.49 0.50-2.00 MMOL/L Calcium Level 9.7 8.6 8.5-10.1 MG/DL Corrected Calcium 9.6 8.5-10.1 MG/DL Total Bilirubin 0.7 0.1-1.0 MG/DL Aspartate Amino Transf (AST/SGOT) 15 5-34 U/L Alanine Aminotransferase (ALT/SGPT) 18 0-55 U/L Alkaline Phosphatase 118 40-136 U/L C-Reactive Protein High Sensitivity 4.70 H 0.00-0.50 MG/DL Total Protein 7.8 6.4-8.2 GM/DL Albumin 4.1 3.2-4.5 GM/DL Glucometer 166 H 70-110 MG/DL Assessment/Plan Assessment/Plan (1) Sepsis Status: Acute Assessment & Plan: Suspect secondary to diabetic foot wound infection. Febrile, tachycardic. Lactic acid okay. Started zosyn and vancomycin. 04/19 afebrile last 24 hours, still mildly tachycardic. Continue zosyn and vanc. Qualifiers: Qualified Codes: A41.9 - Sepsis, unspecified organism (2) Diabetes mellitus, type 2 Status: Chronic Assessment & Plan: Resume home meds. Sliding scale insulin. (3) Charcot foot Status: Acute (4) Diabetic foot ulcer Status: Acute Assessment & Plan: Surgery and Podiatry consulted. Qualifiers: Qualified Codes: E11.621 - Type 2 diabetes mellitus with foot ulcer; L97.428 - Non-pressure chronic ulcer of left heel and midfoot with other specified severity (5) Osteomyelitis Assessment & Plan: To OR today Qualifiers: (6) DVT prophylaxis Status: Acute Assessment & Plan: Enoxaparin Clinical Quality Measures DVT/VTE Risk/Contraindication: Risk Factor Score Per Nursin RFS Level Per Nursing on Admit: 4+=Very High RENATA HINTON MD Apr 19, 2019 11:07
[2019-04-19] MEDS ORDERED: BUP/EPI 0.5% 1:200,000 (SENSORCAINE) 30 ML VIAL ONE (11:55)
--- NOTE | 2019-04-19 12:25 | NUR ---
Patient off floor to surgery at this time.
[2019-04-19] MEDS ORDERED: MIDAZOLAM 2 MG/2 ML (VERSED) VIAL ONE ×2 (12:28→12:41)
[2019-04-19] MEDS ORDERED: PROPOFOL INJECTION 50 ML IV ONE (12:32)
[2019-04-19] MEDS ORDERED: KETAMINE/NaCl 50 MG/5 ML SYRINGE (ED ONLY) ONE (12:32)
[2019-04-19] MEDS ORDERED: ESMOLOL 100 MG/10 ML (BREVIBLOC) VIAL ONE (12:37)
[2019-04-19] MEDS ORDERED: LACTATED RINGERS 1,000 ML IV PRN (13:04)
[2019-04-19] MEDS ORDERED: ONDANSETRON 4 MG/2 ML (SDV) Z0FRAN IVP PRN (13:45)
[2019-04-19] MEDS ORDERED: morphine INJ 10 MG/ML 1ML (SYR OR VIAL) IVP ONE (13:45)
--- NOTE | 2019-04-19 13:50 | NUR ---
Patient back from surgery at this time. Report received from Vidhi Medrano RN.
--- NOTE | 2019-04-19 14:33 | Anesthesia-General Post-Op ---
MAC Patient Condition Mental Status/LOC: Same as Preop Cardiovascular: Satisfactory Nausea/Vomiting: Absent Respiratory: Satisfactory Pain: Controlled Complications: Absent Post Op Complications Complications None Follow Up Care/Instructions Patient Instructions None needed. Anesthesiology Discharge Order Discharge Order Patient is doing well, no complaints, stable vital signs, no apparent adverse anesthesia problems. CAROLINE CASSIDY DO Apr 19, 2019 14:33
--- NOTE | 2019-04-19 14:50 | NUR ---
Discussed with Dr. Mullins no one available to place wound vac. Dr. Mullins ordered BID dressing change with iodoform. Order placed in computer.
[2019-04-19] MEDS: LATANOPROST 0.005% (XALATAN) OPHTH SOLN 2.5 ML OU SCH (20:19)
[2019-04-19] MEDS: HYDROcodone/APAP 5 MG/325 MG (LORTAB) TAB PO PRN (21:32)
--- NOTE | 2019-04-19 23:11 | OPERATIVE REPORT ---
DATE OF SERVICE: 04/19/2019 ADMITTING PHYSICIAN: Naomi Dubois MD PREOPERATIVE DIAGNOSES: History of bilateral Charcot foot with left heel soft tissue necrosis as well as osteomyelitis of the posterior aspect of the calcaneus detected on MRI. POSTOPERATIVE DIAGNOSES: History of bilateral Charcot foot with left heel soft tissue necrosis as well as osteomyelitis of the posterior aspect of the calcaneus detected on MRI. PROCEDURE: Debridement left heel including skin, subcutaneous tissue, muscle and bone. SURGEON: Alfa Keller MD. ANESTHESIA: Monitored anesthesia care. ESTIMATED BLOOD LOSS: 150 mL. FINDINGS: Necrotic soft tissue of the left heel encompassing skin, subcutaneous tissue as well as the fascia. There was a soft bone at the posterior aspect of the calcaneus consistent with a clinical osteomyelitis. DISPOSITION: The patient tolerated the procedure well. INDICATIONS: The patient is a 48-year-old male with a history of diabetes for the past 25 years. He was diagnosed with a Charcot foot approximately 11 years ago and has had the characteristic degenerative changes of Charcot foot bilaterally. He has undergone extensive wound care as an outpatient by podiatry. He has had a left heel wound for some amount of time; however, this has grown larger in size and there appears to be a rind of necrotic tissue. A foot x-ray did not show any osteomyelitis; however, MRI did show osteomyelitis along the posterior aspect of the calcaneus bone. The patient also wished for as much foot salvage as possible. DESCRIPTION OF PROCEDURE: The patient was brought to the operating room, laid supine on the table. After adequate IV pain and stated medications and monitored anesthesia care, the left foot was prepped and draped in standard surgical fashion. The necrotic debris in the left heel with the dimensions of the open aspect of the heel was approximately 5 x 4 cm in size. The skin, subcutaneous tissue, fascia at the heel region appeared to be necrotic and was debrided sharply using a 10 blade as well as electrocautery. The soft portion of the posterior aspect of the left calcaneus was identified consistent with osteomyelitis. This was fully excised using a bone rasp until hard cancellous bone was identified with adequate bleeding. The bleeding was controlled with electrocautery. The defect was then copiously irrigated and suctioned out. Good hemostasis was observed. The defect was then packed with one inch iodoform packing followed by 4 x 4 gauze followed by ABD pad, Kerlix wrap and then Coban tape. The patient tolerated the procedure well. We will consult wound care for potential wound VAC. We will also recommend continued IV antibiotics for the next 48 hours and await the culture and sensitivity results to tailor our antibiotic regimen from the calcaneus bone that was sent for culture and sensitivity. Job ID: [id number] DocumentID: [id number] Dictated Date: 04/19/2019 13:25:25 Costume Seamstress Date: 04/19/2019 23:10:46 Dictated By: ALFA KELLER MD MTDD
[2019-04-20] VITALS: BP 165/76
[2019-04-20] MEDS: PIPERACILLIN/TAZO 4.5 GM/NS 100 ML IV SCH ×6 (02:09→18:46)
[2019-04-20 04:30] VITALS: BP 144/76
[2019-04-20] MEDS: PIOGLITAZONE 30MG (ACTOS) TAB PO SCH (05:45)
[2019-04-20] MEDS: HYDROcodone/APAP 5 MG/325 MG (LORTAB) TAB PO PRN (05:45)
[2019-04-20] MEDS: glyBURIDE 5 MG (MICRONASE) TAB PO SCH ×2 (05:45→17:15)
[2019-04-20] MEDS: NAPROXEN 250 MG (NAPROSYN) TABLET PO SCH ×2 (05:46→17:16)
[2019-04-20 06:12] LABS: HEMOGLOBIN 10.6 G/DL (13.3-17.7); MEAN PLATELET VOLUME 10.4 FL (7.4-10.4); RED CELL DISTRIBUTION WIDTH 15.2 % (10.0-14.5); WHITE BLOOD COUNT 3.3 10^3/uL (4.3-11.0)
[2019-04-20 06:32] LABS: BUN/CREATININE RATIO 16; CALCIUM 8.6 MG/DL (8.5-10.1); CARBON DIOXIDE 23 MMOL/L (21-32); CHLORIDE 106 MMOL/L (98-107); CREATININE SERUM 1.17 MG/DL (0.60-1.30); GFR ESTIMATED > 60; GLUCOSE 167 MG/DL (70-105); POTASSIUM 3.3 MMOL/L (3.6-5.0); SODIUM 139 MMOL/L (135-145)
[2019-04-20 08:00] VITALS: BP 146/67
[2019-04-20] MEDS: PANTOPRAZOLE 20 MG TABLET (PROTONIX) PO SCH (08:14)
[2019-04-20] MEDS: GABAPENTIN 600 MG (NEURONTIN) TAB PO SCH ×3 (08:14→19:48)
[2019-04-20] MEDS: ASPIRIN 81 MG CHEW (CHILDREN'S ASA) PO SCH (08:14)
[2019-04-20] MEDS: ENOXAPARIN 40 MG/0.4 ML (LOVENOX) SYR SQ SCH ×2 (08:16→19:47)
[2019-04-20] MEDS: VANCOMYCIN 1500 MG/NS 500 ML IVPB IV SCH ×4 (11:12→21:21)
[2019-04-20 12:00] VITALS: BP 163/78
--- NOTE | 2019-04-20 13:19 | Progress Note - Hospitalist ---
Subjective HPI/CC On Admission Date Seen by Provider: Apr 20, 2019 Time Seen by Provider: 11:30 Subjective/Events-last exam Patient had debridement yesterday by Dr. Mullins Bowels are moving Lovenox maintained for DVT prophylaxis Told me he went home on 04/02 to have wound care until 04/16 but they rescheduled to 04/23 and they were performing dressing changes on it by his girlfriend that he became very ill when he presented this past time so placed on broad-spectrum antibiotics and Dr. Mullins to prided it and took off a lot of bone. MRI showed osteomyelitis PICC line will be placed for vancomycin for at least 6 weeks Review of Systems Musculoskeletal: foot pain Focused Exam Lactate Level 04/17/19 20:01: Lactic Acid Level 1.49 Objective Exam Vital Signs Vital Signs Date Time Temp Pulse Resp B/P (MAP) Pulse Ox O2 Delivery O2 Flow Rate FiO2 04/20/19 12:00 36.9 108 20 163/78 (106) 98 Room Air Capillary Refill : Less Than 3 SecondsLess Than 3 Seconds General Appearance: No Apparent Distress, WD/WN, Chronically ill, Obese Respiratory: Chest Non Tender, Lungs Clear, Normal Breath Sounds, No Accessory Muscle Use, No Respiratory Distress Cardiovascular: Regular Rate, Rhythm, No Edema, No Gallop, No JVD, No Murmur, Normal Peripheral Pulses Neurologic/Psychiatric: Alert, Oriented x3, No Motor/Sensory Deficits, Normal Mood/Affect Skin: Normal Color, Warm/Dry Results/Procedures Lab Laboratory Tests 04/20/19 05:50 Patient resulted labs reviewed. Assessment/Plan Assessment and Plan Assess & Plan/Chief Complaint Assessment: Sepsis Diabetic foot ulcer heel s/p debridement POD # 1 Dr Mullins Charcot feet severe BAILEE presumed HTN HLP Neuropathy Former smoker Diabetes mellitus Poor IV access Abnl arterial USG s/p peripheral catherization per Dr Issa without evidence of stenosis on that procedure Plan: Maintain DVT prophylaxis Needs PICC line Dressing changes Appreciate general surgery Diagnosis/Problems Diagnosis/Problems (1) Sepsis Status: Acute Qualifiers: Sepsis type: sepsis due to unspecified organism Sepsis acute organ dysfunction status: unspecified Qualified Codes: A41.9 - Sepsis, unspecified organism (2) Diabetic foot ulcer Status: Acute Qualifiers: Diabetic foot ulcer location: heel Diabetes mellitus type: type 2 Laterality: left Non-pressure ulcer stage: with other severity Qualified Co mono: E11.621 - Type 2 diabetes mellitus with foot ulcer; L97.428 - Non-pressure chronic ulcer of left heel and midfoot with other specified severity (3) DVT prophylaxis Status: Acute (4) Diabetes mellitus, type 2 Status: Chronic (5) Osteomyelitis Qualifiers: Osteomyelitis location: foot Laterality: left (6) Charcot foot Status: Acute (7) Cellulitis of left leg Status: Acute Clinical Quality Measures DVT/VTE Risk/Contraindication: Risk Factor Score Per Nursin RFS Level Per Nursing on Admit: 4+=Very High CRISTHIAN ABMROSIO DO Apr 20, 2019 13:19
[2019-04-20] MEDS ORDERED: KCL 10 MEQ TAB (MICRO K) PO ONE ×2 (13:30→17:11)
[2019-04-20 16:00] VITALS: BP 158/78
--- NOTE | 2019-04-20 17:51 | Progress Note - Surgery ---
Subjective Time Seen by a Provider: 16:24 Subjective/Events-last exam Pt seen and examined, states he walked to bathroom and "felt pop, in my heel". Denies pain but states "bandage is drenched". Review of Systems General: No Chills, No Night Sweats Pulmonary: No Dyspnea, No Cough Cardiovascular: No: Chest Pain, Palpitations Gastrointestinal: No: Nausea, Vomiting, Abdominal Pain Focused Exam Lactate Level 04/17/19 20:01: Lactic Acid Level 1.49 Objective Exam Vital Signs Date Time Temp Pulse Resp B/P (MAP) Pulse Ox O2 Delivery O2 Flow Rate FiO2 04/20/19 16:00 36.8 101 22 158/78 (104) 97 Room Air 04/20/19 12:00 36.9 108 20 163/78 (106) 98 Room Air 04/20/19 08:00 Room Air 04/20/19 08:00 36.0 93 20 146/67 (93) 97 Room Air 04/20/19 04:30 36.7 95 21 144/76 (98) 97 Room Air 04/20/19 00:00 36.8 108 20 165/76 (105) 94 Room Air 04/19/19 20:20 Room Air 04/19/19 19:33 36.6 101 16 144/80 (101) 99 Room Air I & O 04/20/19 07:00 Intake Total 2780 ml Output Total 300 ml Balance 2480 ml Capillary Refill : Less Than 3 SecondsLess Than 3 Seconds General Appearance: No Apparent Distress, WD/WN, Obese HEENT: PERRL/EOMI, Moist Mucous Membranes Respiratory: Chest Non Tender, Lungs Clear, Normal Breath Sounds, No Accessory Muscle Use, No Respiratory Distress Cardiovascular: Regular Rate, Rhythm, No Murmur Gastrointestinal: non tender, soft Extremity: Other (mild to moderate edema of the lower extremities bilaterally. Charcot foot disfigurement bilaterally. open area of debridement left foot, iodophor packing in place, some dried blood and min erythema surrounding edges.) Neurologic/Psychiatric: Alert, Oriented x3 Skin: Normal Color, Warm/Dry Results Lab Laboratory Tests 04/19/19 22:16: Glucometer 191H 04/20/19 05:21: Glucometer 161H 04/20/19 05:50: White Blood Count 3.3L, Red Blood Count 3.65L, Hemoglobin 10.6L, Hematocrit 33L, Mean Corpuscular Volume 91, Mean Corpuscular Hemoglobin 29, Mean Corpuscular Hemoglobin Concent 32, Red Cell Distribution Width 15.2H, Platelet Count 219, Mean Platelet Volume 10.4, Sodium Level 139, Potassium Level 3.3L, Chloride Level 106, Carbon Dioxide Level 23, Anion Gap 10, Blood Urea Nitrogen 19H, Creatinine 1.17, Estimat Glomerular Filtration Rate > 60, BUN/Creatinine Ratio 16, Glucose Level 167H, Calcium Level 8.6 04/20/19 10:33: Glucometer 232H 04/20/19 15:35: Glucometer 200H Microbiology 04/19/19 Gram Stain - Final, Resulted 04/19/19 Surgical Culture - Preliminary, Resulted Staphylococcus warneri 04/18/19 MRSA Screen - Final, Complete MRSA not isolated 04/17/19 Blood Culture - Preliminary, Resulted No growth Assessment/Plan Assessment/Plan Assessment/Plan Osteomyelitis of Left Heel S/P debridement, change packing daily, IV ABX, pain control as needed. Pt will probably have to stop walking, because when he does he puts pressure on his heel (this will make things worse and may delay healing). Spoke with Dr. Carpenter, he thinks foot can still be saved. Will need to try and find something to help pt keep weight off of heel. Clinical Quality Measures DVT/VTE Risk/Contraindication: Risk Factor Score Per Nursin RFS Level Per Nursing on Admit: 4+=Very High MENDY MCKEON DO Apr 20, 2019 17:51
[2019-04-20] MEDS: LATANOPROST 0.005% (XALATAN) OPHTH SOLN 2.5 ML OU SCH (19:48)
--- NOTE | 2019-04-20 19:48 | Podiatry Progress Note ---
Standard Progress Note Progress Notes/Assess & Plan Date Seen by a Provider: Apr 20, 2019 Time Seen by a Provider: 19:41 Progress/Assessment & Plan The patient reports that he attempted to walk to the bathroom "taking it easy" when he heard a pop of the left foot and felt a "shift". He states that the dressing was changed a few time today due to bleeding. Dr. Moreno was in today to look at the wound. The dressing was intact and there was no strikethrough. Laboratory Tests White Blood Count 3.3L, Red Blood Count 3.65L, Hemoglobin 10.6L, Hematocrit 33L, Red Cell Distribution Width 15.2H, Potassium Level 3.3L, Blood Urea Nitrogen 19H , Glucose Level 167H 04/20/19 10:33: Glucometer 232H 04/20/19 15:35: Glucometer 200H Vital Signs Date Time Temp Pulse Resp B/P (MAP) Pulse Ox O2 Delivery O2 Flow Rate FiO2 04/20/19 16:00 36.8 101 22 158/78 (104) 97 Room Air 04/20/19 12:00 36.9 108 20 163/78 (106) 98 Room Air 04/20/19 08:00 Room Air 04/20/19 08:00 36.0 93 20 146/67 (93) 97 Room Air 04/20/19 04:30 36.7 95 21 144/76 (98) 97 Room Air 04/20/19 00:00 36.8 108 20 165/76 (105) 94 Room Air 04/19/19 20:20 Room Air I & O 04/20/19 07:00 Intake Total 2780 ml Output Total 300 ml Balance 2480 ml A/P: Osteomyelitis left Calcaneus, Diabetic Neuropathy, Charcot foot - Continue with wound care daily. Order for left foot x-rays given. Recommend non-weight bearing left foot. Final Diagnosis Osteomyelitis left Calcaneus, Diabetic Neuropathy, Charcot foot GRISEL BATES DPM Apr 20, 2019 19:48
--- NOTE | 2019-04-20 19:50 | NUR ---
Dr. Carpenter here to see patient. New orders rec for 3 view left foot xray and Non weight bearing left foot.
[2019-04-20 20:03] VITALS: BP 146/76
[2019-04-21 00:05] VITALS: BP 150/81
[2019-04-21] MEDS: PIPERACILLIN/TAZO 4.5 GM/NS 100 ML IV SCH ×6 (02:30→18:05)
[2019-04-21] MEDS: NAPROXEN 250 MG (NAPROSYN) TABLET PO SCH ×2 (06:33→16:52)
[2019-04-21] MEDS: KCL 10 MEQ TAB (MICRO K) PO SCH (06:33)
[2019-04-21] MEDS: glyBURIDE 5 MG (MICRONASE) TAB PO SCH ×2 (06:33→16:52)
[2019-04-21] MEDS: PIOGLITAZONE 30MG (ACTOS) TAB PO SCH (06:33)
[2019-04-21 08:19] VITALS: BP 154/76
[2019-04-21] MEDS: ASPIRIN 81 MG CHEW (CHILDREN'S ASA) PO SCH (08:34)
[2019-04-21] MEDS: GABAPENTIN 600 MG (NEURONTIN) TAB PO SCH ×3 (08:37→20:49)
[2019-04-21] MEDS: PANTOPRAZOLE 20 MG TABLET (PROTONIX) PO SCH (08:37)
[2019-04-21] MEDS: ENOXAPARIN 40 MG/0.4 ML (LOVENOX) SYR SQ SCH ×2 (08:39→20:49)
--- NOTE | 2019-04-21 09:30 | Podiatry Progress Note ---
Standard Progress Note Progress Notes/Assess & Plan Date Seen by a Provider: Apr 21, 2019 Time Seen by a Provider: 09:24 Progress/Assessment & Plan The patient reports no pain to the left foot, no reported F/C/N/V. Lateral foot x-ray shoes a non-displaced calcaneal fracture. The wound was visualized today, left heel. There is no-malodor, probing to the posterior calcaneus with granular tissue, minimal necrosis, no active exudate. A/P: Osteomyelitis left Calcaneus, Diabetic Neuropathy, Charcot foot - Continue with wound care daily with [facility]. Continue wound care daily. He is to be non-weight bearing left foot. Final Diagnosis Osteomyelitis left Calcaneus, Diabetic Neuropathy, Charcot foot, Calcaneal Fracture left GRISEL BATES DPGerald Apr 21, 2019 09:30
[2019-04-21] MEDS: VANCOMYCIN 1500 MG/NS 500 ML IVPB IV SCH ×4 (11:16→22:29)
--- NOTE | 2019-04-21 12:06 | Progress Note - Hospitalist ---
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 of Systems General: Fatigue Musculoskeletal: foot pain Objective Exam Vital Signs Vital Signs Date Time Temp Pulse Resp B/P (MAP) Pulse Ox O2 Delivery O2 Flow Rate FiO2 04/21/19 08:19 36.6 100 20 154/76 (102) 98 Room Air Capillary Refill : Less Than 3 SecondsLess Than 3 Seconds General Appearance: No Apparent Distress, WD/WN, Chronically ill, Obese Respiratory: Chest Non Tender, Lungs Clear, Normal Breath Sounds, No Accessory Muscle Use, No Respiratory Distress Cardiovascular: Regular Rate, Rhythm, No Edema, No Gallop, No JVD, No Murmur, Normal Peripheral Pulses Neurologic/Psychiatric: Alert, Oriented x3, Normal Mood/Affect, Sensory Deficit (feet) Results/Procedures Lab Patient resulted labs reviewed. Assessment/Plan Assessment and Plan Assess & Plan/Chief Complaint Assessment: Sepsis Diabetic foot ulcer heel s/p debridement POD # 2 Dr Mullins Acute left heel fracture confirmed on xray and eval by Dr Carpenter now complete non-weight bearing Charcot feet severe DVT PPx BAILEE presumed HTN HLP Neuropathy Former smoker Diabetes mellitus Poor IV access needs PICC Abnl arterial USG s/p peripheral catherization per Dr Issa without evidence of stenosis on that procedure last admit Plan: Maintain DVT prophylaxis Needs PICC line tomorrow Dressing changes Appreciate general surgery PT/OT IRF? Diagnosis/Problems Diagnosis/Problems (1) Sepsis Status: Acute Qualifiers: Sepsis type: sepsis due to unspecified organism Sepsis acute organ dysfunction status: unspecified Qualified Codes: A41.9 - Sepsis, unspecified organism (2) Diabetic foot ulcer Status: Acute Qualifiers: Diabetic foot ulcer location: heel Diabetes mellitus type: type 2 Laterality: left Non-pressure ulcer stage: with other severity Qualified Codes: E11.621 - Type 2 diabetes mellitus with foot ulcer; L97.428 - Non- pressure chronic ulcer of left heel and midfoot with other specified severity (3) DVT prophylaxis Status: Acute (4) Diabetes mellitus, type 2 Status: Chronic (5) Osteomyelitis Qualifiers: Osteomyelitis location: foot Laterality: left (6) Charcot foot Status: Acute (7) Cellulitis of left leg Status: Acute Clinical Quality Measures DVT/VTE Risk/Contraindication: Risk Factor Score Per Nursin RFS Level Per Nursing on Admit: 4+=Very High CRISTHIAN AMBROSIO DO Apr 21, 2019 12:05
--- NOTE | 2019-04-21 14:15 | Progress Note - Surgery ---
Subjective Time Seen by a Provider: 12:49 Subjective/Events-last exam Pt seen and examined, states he is doing ok today. Dr. Carpenter came in and saw pt; xray from last night shows calcaneal fracture. Review of Systems General: No Chills, No Night Sweats Pulmonary: No Dyspnea, No Cough Cardiovascular: No: Chest Pain, Palpitations Objective Exam Vital Signs Date Time Temp Pulse Resp B/P (MAP) Pulse Ox O2 Delivery O2 Flow Rate FiO2 04/21/19 08:19 36.6 100 20 154/76 (102) 98 Room Air 04/21/19 08:00 Room Air 04/21/19 00:05 36.8 96 20 150/81 (104) 98 Room Air 04/20/19 20:03 36.8 93 22 146/76 (99) 98 Room Air 04/20/19 19:50 Room Air 04/20/19 16:00 36.8 101 22 158/78 (104) 97 Room Air I & O 04/21/19 07:00 Intake Total 2875 ml Output Total 525 ml Balance 2350 ml Capillary Refill : Less Than 3 SecondsLess Than 3 Seconds General Appearance: No Apparent Distress, WD/WN, Obese HEENT: PERRL/EOMI, Moist Mucous Membranes Respiratory: Chest Non Tender, Lungs Clear, Normal Breath Sounds, No Accessory Muscle Use, No Respiratory Distress Cardiovascular: Regular Rate, Rhythm, No Murmur Gastrointestinal: non tender, soft Extremity: Other (mild to moderate edema of the lower extremities bilaterally. Charcot foot disfigurement bilaterally. open area of debridement left foot, iodophor packing in place, some dried blood and min erythema surrounding edges.) Neurologic/Psychiatric: Alert, Oriented x3 Skin: Normal Color, Warm/Dry Results Lab Laboratory Tests 04/20/19 15:35: Glucometer 200H 04/20/19 20:54: Glucometer 178H 04/21/19 06:02: Glucometer 79 04/21/19 10:55: Glucometer 167H Microbiology 04/19/19 Gram Stain - Final, Resulted 04/19/19 Surgical Culture - Preliminary, Resulted Staphylococcus warneri 04/18/19 MRSA Screen - Final, Complete MRSA not isolated 04/17/19 Blood Culture - Preliminary, Resulted No growth Assessment/Plan Assessment/Plan Assessment/Plan Osteomyelitis of Left Heel Left Calcaneal Fracture S/P debridement, change packing daily, IV ABX, pain control as needed. Pt is non-weight bearing on left foot. Clinical Quality Measures DVT/VTE Risk/Contraindication: Risk Factor Score Per Nursin RFS Level Per Nursing on Admit: 4+=Very High MENDY MCKEON DO Apr 21, 2019 14:15
[2019-04-21] MEDS: POTASSIUM CL 10MEQ/50ML IVPB 50 ML IV SCH ×4 (14:16→18:05)
[2019-04-21 15:30] VITALS: BP 151/75
[2019-04-21] MEDS: NS IV 500 ML 500 ML IV SCH (16:53)
[2019-04-21] MEDS: LATANOPROST 0.005% (XALATAN) OPHTH SOLN 2.5 ML OU SCH (20:49)
[2019-04-21 23:41] VITALS: BP 153/78
[2019-04-22] MEDS: PIPERACILLIN/TAZO 4.5 GM/NS 100 ML IV SCH ×4 (01:10→09:27)
[2019-04-22 05:30] LABS: BASOPHILS % (AUTO) 1 % (0-10); EOSINOPHILS # (AUTO) 0.2 10^3/uL (0.0-0.3); EOSINOPHILS % (AUTO) 4 % (0-10); HEMATOCRIT 33 % (40-54); HEMOGLOBIN 10.4 G/DL (13.3-17.7); LYMPHOCYTES # (AUTO) 1.3 X 10^3 (1.0-4.0); LYMPHOCYTES % (AUTO) 33 % (12-44); MEAN CORPUSCULAR HEMOGLOBIN 29 PG (25-34); MEAN CORPUSCULAR HGB CONC 32 G/DL (32-36); MEAN CORPUSCULAR VOLUME 91 FL (80-99); MEAN PLATELET VOLUME 10.4 FL (7.4-10.4); MONOCYTES # (AUTO) 0.4 X 10^3 (0.0-1.0); MONOCYTES % (AUTO) 11 % (0-12); NEUTROPHILS # (AUTO) 2.1 X 10^3 (1.8-7.8); NEUTROPHILS % (AUTO) 53 % (42-75); PLATELET COUNT 216 10^3/uL (130-400); RED CELL DISTRIBUTION WIDTH 15.3 % (10.0-14.5); WHITE BLOOD COUNT 4.1 10^3/uL (4.3-11.0)
[2019-04-22 05:47] LABS: ALANINE AMINOTRANSFERASE 23 U/L (0-55); ALBUMIN 3.2 GM/DL (3.2-4.5); ALKALINE PHOSPHATASE 98 U/L (40-136); BILIRUBIN,TOTAL 0.4 MG/DL (0.1-1.0); BUN/CREATININE RATIO 12; CALCIUM 8.4 MG/DL (8.5-10.1); CARBON DIOXIDE 20 MMOL/L (21-32); CHLORIDE 110 MMOL/L (98-107); CREATININE SERUM 1.21 MG/DL (0.60-1.30); GFR ESTIMATED > 60; GLUCOSE 125 MG/DL (70-105); POTASSIUM 3.4 MMOL/L (3.6-5.0); SODIUM 141 MMOL/L (135-145)
[2019-04-22] MEDS: NS IV 500 ML 500 ML IV SCH ×2 (06:19→21:16)
[2019-04-22] MEDS: NAPROXEN 250 MG (NAPROSYN) TABLET PO SCH ×2 (06:49→17:22)
[2019-04-22] MEDS: glyBURIDE 5 MG (MICRONASE) TAB PO SCH ×2 (06:49→17:23)
[2019-04-22] MEDS: PIOGLITAZONE 30MG (ACTOS) TAB PO SCH (06:49)
[2019-04-22] MEDS: KCL 10 MEQ TAB (MICRO K) PO SCH (06:49)
[2019-04-22 07:37] VITALS: BP 150/75
--- NOTE | 2019-04-22 09:04 | Diagnostic Imaging Report ---
CLINICAL INDICATION: Patient with PICC line placement. EXAM: Portable chest x-ray, upright view. COMPARISON: Portable chest x-ray dated 04/17/2019. Findings: There is interval placement of a left-sided PICC line with the tip in the mid superior vena cava region. The lungs are clear. There is no pleural effusion or pneumothorax. The pulmonary vasculature and cardiac silhouette are within normal limits. There has been no significant interval abnormality. IMPRESSION: 1. Interval placement of a left sided PICC line with the tip in the mid superior vena cava. 2. There is no interval radiographic evidence of an acute cardiopulmonary process. Dictated by: Dictated on workstation # [id number]
--- NOTE | 2019-04-22 09:09 | NUR ---
Rodrick PICKARD, PICC RN REPORT THAT LEFT UPPER ARM PICC IS PATENT AND CAN BE USED BY THIS RN .
[2019-04-22] MEDS: ASPIRIN 81 MG CHEW (CHILDREN'S ASA) PO SCH (09:25)
[2019-04-22] MEDS: ENOXAPARIN 40 MG/0.4 ML (LOVENOX) SYR SQ SCH ×2 (09:25→21:16)
[2019-04-22] MEDS: GABAPENTIN 600 MG (NEURONTIN) TAB PO SCH ×3 (09:25→21:16)
[2019-04-22] MEDS: PANTOPRAZOLE 20 MG TABLET (PROTONIX) PO SCH (09:26)
[2019-04-22] MEDS: VANCOMYCIN 1500 MG/NS 500 ML IVPB IV SCH ×2 (09:27)
[2019-04-22] MEDS ORDERED: inSUlin ASPART (NovoLOG) 1 UNIT/0.01 ML (CHARGE PER UNIT) SC SCH (10:00)
--- NOTE | 2019-04-22 10:34 | Occupational Therapy Eval ---
OT Evaluation-General/PLF Medical Diagnosis Admission Date Apr 17, 2019 at 21:27 Medical Diagnosis: sepsis, L diabetic foot ulcer, L calcaneal fx Onset Date: Apr 17, 2019 Therapy Diagnosis Therapy Diagnosis: impaired ADLs and mobility Height/Weight Height (Feet): 6 Height (Inches): 0.00 Weight (Pounds): 330 Weight (Ounces): 0.0 Precautions Precautions/Isolations: Fall Prevention, Standard Precautions Safety Interventions: None Weight Bear Status Weight Bearing Restriction: Non Weight Bearing Location Restriction: LT FOOT Referral Physician: Jere Referral Reason: Activity Tolerance, Self Care, Evaluation/Treatment, Strengthening/ROM Medical History Pertinent Medical History: DM, HTN, Neuropathy (peripheral) Current History Per H&P: "48 yo male with 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 He finished antibiotics but was unable to get in to wound care, on Monday he was rescheduled to next week but on monday he started to have fever, chills and nausea and malaise." Pt had debridement on 04/19/2019 of L heel of skin, subcutaneous tissue, muscle and bone. On 04/20/09 xray shows L calcaneal fx. Social History Home: Single Level Current Living Status: Significant Other Entry Into Home: Stairs With Railing Steps Into Home: 3 ADL-Prior Level of Function SCALE: Activities may be completed with or without assistive devices. 2-Fgdjaltzuu-xrzjgru completes the activity by him/herself with no assistance from a helper. 5-Set-up or Clean-up Assistance-helper sets up or cleans up; patient completes activity. [place] assists only prior to or following the activity. 4-Supervision or Touching Assistance-helper provides verbal cues and/or touching/steadying and/or contact guard assistance as patient completes activity. Assistance may be provided throughout the activity or intermittently. 3-Partial/Moderate Assistance-helper does LESS THAN HALF the effort. [place] lifts, holds or supports trunk or limbs, but provides less than half the effort. 2-Substantial/Maximal Assistance-helper does MORE THAN HALF the effort. [place] lifts or holds trunk or limbs and provides more than half the effort. 1-Mznfbnbsn-pvxeih does ALL the effort. Patient does none of the effort to co mplete the activity. Or, the assistance of 2 or more helpers is required for the patient to complete the activity. If activity was not attempted, code reason: 7-Patient Refused. 9-Not Applicable-not attempted and the patient did not perform the activity before the current illness, exacerbation or injury. 10-Not Attempted due to Environmental Limitations-(lack of equipment, weather restraints, etc.). 88-Not Attempted due to Medical Conditions or Safety Concerns. ADL PLOF Comments Pt reports being able to complete all ADLs independently if he needs to, but he sometimes requires assistance from his girlfriend. Self Care: Needed Some Help Functional Cognition: Independent DME/Equipment: Bath Chair, Tub/Shower DME/Equipment Comments denies using walker/cane. OT Current Status Subjective Pt laying in bed at start of session, agreeable to OT evaluation and tx on this date. He did not report any pain during tx. Mental Status/Objective Patient Orientation: Time, Situation Current Glasses/Contacts: Yes Hearing Aids: No Dentures/Partials: No Upper Extremity ROM WFL, BUE shoulder flexion to approx 150 degrees, he is able to touch back of his head. Upper Extremity Coordination WFL Upper Extremity Sensation PT reports some tingling in numbness in left arm since his carpal tunnel surgery and surgery to relieve a pinched ulnar nerve at the elbow. Upper Extremity Strength grossly 4/5 ADL-Treatment Eating (QC): 6 (Pt reports eating breakfast independently. He was able to open all containers and bring food to his mouth.) Oral Hygiene (QC): 5 (set up assist at bed side table.) Shower/Bathe Self (QC): 3 (Pt able to wash upper body, periarea and upper legs. he required assist with buttocks and BLE lower legs/feet. ) Upper Body Dressing (QC): 5 (set up assist) Lower Body Dressing (QC): 2 (Pt able to doff pants and kick off of his feet. To don pants, OT held pants open and pt was able to thread BLE into pants. He reached down and pulled them up to his waist. During stand at , OT assisted with pulling pants up.) On/Off Footwear (QC): 1 (Pt required total assist with donning/doffing LLE.) Other Treatments Pt laying in bed at start of session, provided information about PLOF and home set up. OT educated pt on benefits of OT and different AE available, bath bench vs bath chair. He stated he would like to take a shower and brush his teeth. OT set up items for oral hygiene on pt's tray table, pt brushed his teeth as OT gathered supplies for ADL tx. Pt then transferred supine to sit with SBA, then transferred to transfer w/c using FWW stand pivot transfer. OT wheeled pt into shower area where he transferred to the shower bench using grab bars, pivoting on his right foot. OT covered pt's IV ports on R & LUE, and covered pt's LLE. Pt completed showering and dressing. he transferred back to the transfer w/c then from w/c to his bed. All transfers during session were complete towards the right side. Post OT session, pt laying in bed with call light in reach and all needs met. Education OT Patient Education: Correct positioning, Energy conservation, Modified ADL techniques, Progress toward Goal/Update tx plan, Purpose of tx/functional activities, Safety issues, Transfer techniques Teaching Recipient: Patient Teaching Methods: Demonstration, Discussion Response to Teaching: Verbalize Understanding, Return Demonstration OT Business And Services Instructor Goals Prison Goals Time Frame: May 03, 2019 Oral Hygiene (QC): 6 Toileting Hygiene (QC): 6 Shower/Bathe Self (QC): 5 Upper Body Dressing (QC): 6 Lower Body Dressing (QC): 5 On/Off Footwear (QC): 5 Additional Goals: 1-Demonstrate ADL Tasks, 2-Verbalize Understanding, 3- ImproveStrength/Kota 1=Demonstrate adherence to instructed precautions during ADL tasks. 2=Patient will verbalize/demonstrate understanding of assistive devices/gricelda fications for ADL. 3=Patient will improve strength/tolerance for activity to enable patient to perform ADL's. OT Education/Plan Problem List/Assessment Assessment: Decreased Activ Tolerance, Impaired Funct Balance, Impaired I ADL's, Impaired Self-Care Skills Pt benefit from skilled OT services in order to increase his independence with ADLs including education and training on AE for dressing/self-care. Discharge Recommendations Plan/Recommendations: Continue POC Treatment Plan/Plan of Care Treatment,Training & Education: Yes Patient would benefit from OT for education, treatment and training to promote independence in ADL's, mobility, safety and/or upper extremity function for ADL's. Plan of Care: ADL Retraining, Functional Mobility, UE Funct Exercise/Act Treatment Duration: May 03, 2019 Frequency: 5 times per week Estimated Hrs Per Day: .25 hour per day Agreement: Yes Rehab Potential: Good Time/GCodes Start Time: 08:42 Stop Time: 09:57 Total Time Billed (hr/min): 75 Billed Treatment Time 1, EVM (15 mins), ADL 4 (60 mins) MOISE BAKER OT Apr 22, 2019 10:34
--- NOTE | 2019-04-22 10:42 | Physical Therapy Daily Note ---
PT Daily Note-Current Subjective Patient agrees to PT. Pain Numeric Pain Scale: 0-No Pain Location: No Pain Reported Mental Status Patient Orientation: Normal For Age Transfers SCALE: Activities may be completed with or without assistive devices. 5-Xnjrrxxngu-gozuxai completes the activity by him/herself with no assistance from a helper. 5-Set-up or Clean-up Assistance-helper sets up or cleans up; patient completes activity. [place] assists only prior to or following the activity. 4-Supervision or Touching Assistance-helper provides verbal cues and/or touching/steadying and/or contact guard assistance as patient completes activity. Assistance may be provided throughout the activity or intermittently. 3-Partial/Moderate Assistance-helper does LESS THAN HALF the effort. [place] lifts, holds or supports trunk or limbs, but provides less than half the effort. 2-Substantial/Maximal Assistance-helper does MORE THAN HALF the effort. [place] lifts or holds trunk or limbs and provides more than half the effort. 4-Ontweezjt-dajwka does ALL the effort. Patient does none of the effort to com plete the activity. Or, the assistance of 2 or more helpers is required for the patient to complete the activity. If activity was not attempted, code reason: 7-Patient Refused. 9-Not Applicable-not attempted and the patient did not perform the activity before the current illness, exacerbation or injury. 10-Not Attempted due to Environmental Limitations-(lack of equipment, weather restraints, etc.). 88-Not Attempted due to Medical Conditions or Safety Concerns. Roll Left & Right (QC): 6 Sit to Lying (QC): 6 Lying to Sitting/Side of Bed(Q: 6 Sit to Stand (QC): 6 Patient is NWB left LE and is unable to hop with right LE due to his foot is compromised due to disease process and he wants to "save" that foot. Weight Bearing Right Lower Extremity: Right Weight Bearing/Tolerated Left Lower Extremity: Left Non Weight Bearing Gait Training Does the Patient Walk?: No and Walking Goal NOT indicated Exercises Supine Ex: Ankle pumps, Quad Set, Heel Slides, Straight leg raise, Hip abd/add Supine Reps: 12 Assessment 48 y.o. male, is currently at independent LOF with bed mobility and transfers with NWB left LE. Due to morbid obesity and right foot deformity, patient is unable to safely "hop" with FWW for safe mobility and will require extended time with w/c to allow left foot to heal. Patient lives at home with girlfriend and has 2 steps to enter home. PT educated patient on probable use of installing a ramp at home to ensure patient can return to home in w/c to allow extended healing time to occur. PT Alf Goals Alf Goals PT Alf Goals Time Frame: May 04, 2019 Roll Left & Right (QC): 6 Sit to Lying (QC): 6 Lying-Sitting on Side/Bed(QC): 6 Sit to Stand (QC): 6 Chair/Elf-xc-Omzaf Xfer(QC): 6 Toilet Transfer (QC): 6 Does the Patient Walk: No and Walking Goal NOT indicated Does the Pt use WC or Scooter?: Yes Type: Manual Type: Manual PT Plan Problem List Problem List: Activity Tolerance, Functional Strength, Safety, Balance, Gait, Transfer, Bed Mobility Treatment/Plan Treatment Plan: Continue Plan of Care Treatment Plan: Bed Mobility, Education, Functional Activity [place], Functional Strength, Gait, Safety, Therapeutic Exercise, Transfers Treatment Duration: May 04, 2019 Frequency: 6 times per week Estimated Hrs Per Day: .25 hour per day Patient and/or Family Agrees t: Yes Time/GCodes Time In: 1001 Time Out: 1012 Total Billed Treatment Time: 11 Total Billed Treatment 1 visit EVMod 11 min ANI HUGGINS PT Apr 22, 2019 10:42
[2019-04-22] MEDS: inSUlin ASPART (NovoLOG) 1 UNIT/0.01 ML (CHARGE PER UNIT) SC SCH ×3 (11:53→21:18)
--- NOTE | 2019-04-22 11:56 | Progress Note - Hospitalist ---
[facility]ENE ARELLANO [facility] 04/22/19 1156: Subjective HPI/CC On Admission Date Seen by Provider: Apr 22, 2019 Time Seen by Provider: 08:45 Subjective/Events-last exam Patient is a 48 year old male with history of charcot foot, diabetic foot ulcer, osteomyelitis and calcaneal fracture. He was seen in late March for similar issue where he received IV Abx but did not follow up with wound care due to scheduling conflicts. Patient was sitting up and eating breakfast when I arrived. He reports he is feeling good and has no new complaints. He had a PICC line put in this morning. He had a bowel movement this morning and is voiding. He reports he was able to sleep fine the night before. He is up with help only for essential purposes like bathing and toileting. After debridement of his foot ulcer he felt a popping sound in his foot, xray revealed he had a calcaneal fracture. Patient is motivated to move to the rehab floor and is awaiting approval. Focused Exam Respiratory: No Accessory Muscle Use, No Respiratory Distress Skin: normal color, warm/dry Objective Exam Vital Signs Vital Signs Date Time Temp Pulse Resp B/P (MAP) Pulse Ox O2 Delivery O2 Flow Rate FiO2 04/22/19 08:00 98 Room Air 04/22/19 07:37 36.9 110 20 150/75 (100) Capillary Refill : Less Than 3 SecondsLess Than 3 Seconds General Appearance: No Apparent Distress, WD/WN Respiratory: No Accessory Muscle Use, No Respiratory Distress Rectal: Deferred Neurologic/Psychiatric: Alert Results/Procedures Lab Laboratory Tests 04/22/19 04:57 Patient resulted labs reviewed. Assessment/Plan Assessment and Plan Assess & Plan/Chief Complaint Assessment Diabetes Charcot Foot Diabetic foot ulcer s/p debridement Calcaneal fracture Sepsis Osteomyelitis Would benefit from rehab Plan Abx - Vanco for 6 weeks Rehab floor approval No weight bearing on L foot DVT Prophylaxis Clinical Quality Measures DVT/VTE Risk/Contraindication: Risk Factor Score Per Nursin RFS Level Per Nursing on Admit: 4+=Very High EVELIA AMBROSIO DO 04/22/192136: Subjective Subjective/Events-last exam Picc line was placed- left arm without difficulty. Inpatient rehab will be submitted to his insurance. Sliding scale with AC and HS. Novolog A will be started. Pain is pretty well controlled. Overall doing pretty well. Review of Systems Musculoskeletal: foot pain Objective Exam General Appearance: No Apparent Distress, WD/WN, Chronically ill Neck: No Full Range of Motion, No Normal Inspection, No Non Tender, No Supple, No Carotid Bruit, No JVD, No Limited Range of Motion, No Lymphadenopathy (L), No Lymphadenopathy (R), No Tender Lateral, No Tender Midline, No Thyromegaly, No Other Respiratory: Chest Non Tender, Lungs Clear, Normal Breath Sounds, No Accessory Muscle Use, No Respiratory Distress Cardiovascular: Regular Rate, Rhythm, No Edema, No Gallop, No JVD, No Murmur, Normal Peripheral Pulses Assessment/Plan Assessment and Plan Assess & Plan/Chief Complaint Assessment: Sepsis Diabetic foot ulcer heel s/p debridement POD # 3 Dr Mullins Acute left heel fracture confirmed on xray and eval by Dr Carpenter now complete non-weight bearing Charcot feet severe DVT PPx BAILEE presumed HTN HLP Neuropathy Former smoker Diabetes mellitus Poor IV access needs PICC Abnl arterial USG s/p peripheral catherization per Dr Issa without evidence of stenosis on that procedure last admit Plan: Maintain DVT prophylaxis PICC line Dressing changes Appreciate general surgery PT/OT IRF? Diagnosis/Problems Diagnosis/Problems (1) Sepsis Status: Acute Qualifiers: Qualified Codes: A41.9 - Sepsis, unspecified organism (2) Diabetic ulcer of left foot Status: Acute (3) Cellulitis of left leg Status: Acute (4) DVT prophylaxis Status: Acute (5) Diabetes mellitus, type 2 Status: Chronic (6) Osteomyelitis Qualifiers: (7) Charcot foot Status: Acute Supervisory-Addendum Brief Verification & Attestation Participated in pt care: history, MDM, physical Personally performed: exam, history, MDM, supervision of care Care discussed with: Medical Student Procedures: n/a Results interpretation: Verified all documentation Verification and Attestation of Medical Student E/M Service A medical student performed and documented this service in my presence. I reviewed and verified all information documented by the medical student and made modifications to such information, when appropriate. I personally performed the physical exam and medical decision making. Evelia Ambrosio, Apr 22, 2019,21:37 [facility] Apr 22, 2019 11:56 EVELIA AMBROSIO DO Apr 22, 2019 21:37
--- NOTE | 2019-04-22 14:17 | NUR ---
IRF Evaluation Order received to evaluate patient for the ARU. Chart review complete and findings discussed with Dr. Oquendo - patient accepted for admission. It is noted patient's primary insurance provider is [facility]; therefore, prior authorization will be required. Prior authorization process initiated and clinical information submitted to [facility]. Will continue to follow. Thank you for this referral.
--- NOTE | 2019-04-22 15:36 | NUR ---
CM/SS visited with the patient per patient request to nurse. The patient wanted to discuss if there are any resources to help get a ramp built at his home due to patient having stairs in both from and back of the house. He believes he will be in wheelchair bound and not be able to get in his house. CM/SS spoke with other social science analyst Paresh who suggested [address]. CM/SS left a message for [address] and waiting for a return call. He goes to [facility] and has built ramps before. CM/SS also tried to call the patients [facility] worker Luc with the phone number of [phone]. Luc did not answer but a voice mail was left. Will continue to follow.
[2019-04-22 16:00] VITALS: BP 166/77
--- NOTE | 2019-04-22 20:50 | Podiatry Progress Note ---
Standard Progress Note Progress Notes/Assess & Plan Date Seen by a Provider: Apr 22, 2019 Time Seen by a Provider: 20:45 Progress/Assessment & Plan The patient reports no pain, no F/C/N/V. The wound has increased granular tissue with some necrosis, left heel. There is no-malodor, probing to the posterior calcaneus, no active exudate, no proximal streaking. Laboratory Tests Microbiology MSSA 04/19/19 Surgical Culture - Preliminary, Resulted Staph, Coag Neg ([employer] WORKER) Staphylococcus aureus 04/18/19 MRSA Screen - Final, Complete MRSA not isolated 04/17/19 Blood Culture - Preliminary, Resulted No growth A/P: Osteomyelitis left Calcaneus, Diabetic Neuropathy, Charcot foot - Continue with wound care daily with [facility]. Continue wound care daily. He is to be non-weight bearing left foot. Consult wound care. Will debride the wound tomorrow. Final Diagnosis Osteomyelitis left Calcaneus, Diabetic Neuropathy, Charcot foot, Calcaneal Fracture, left GRISEL BATES DPM Apr 22, 2019 20:50
[2019-04-22] MEDS: CEFEPIME 2,000 MG/SWFI 20 ML IV PUSH IV SCH ×2 (21:18)
[2019-04-22] MEDS: LATANOPROST 0.005% (XALATAN) OPHTH SOLN 2.5 ML OU SCH (21:21)
[2019-04-23] VITALS: BP 180/81
[2019-04-23 05:14] LABS: BASOPHILS % (AUTO) 0 % (0-10); EOSINOPHILS # (AUTO) 0.1 10^3/uL (0.0-0.3); EOSINOPHILS % (AUTO) 3 % (0-10); HEMATOCRIT 32 % (40-54); HEMOGLOBIN 10.3 G/DL (13.3-17.7); LYMPHOCYTES # (AUTO) 1.2 X 10^3 (1.0-4.0); LYMPHOCYTES % (AUTO) 24 % (12-44); MEAN CORPUSCULAR HEMOGLOBIN 29 PG (25-34); MEAN CORPUSCULAR HGB CONC 32 G/DL (32-36); MEAN CORPUSCULAR VOLUME 91 FL (80-99); MEAN PLATELET VOLUME 10.2 FL (7.4-10.4); MONOCYTES # (AUTO) 0.5 X 10^3 (0.0-1.0); MONOCYTES % (AUTO) 10 % (0-12); NEUTROPHILS # (AUTO) 3.2 X 10^3 (1.8-7.8); NEUTROPHILS % (AUTO) 64 % (42-75); PLATELET COUNT 209 10^3/uL (130-400); RED CELL DISTRIBUTION WIDTH 15.6 % (10.0-14.5); WHITE BLOOD COUNT 5.1 10^3/uL (4.3-11.0)
[2019-04-23 05:38] LABS: ALANINE AMINOTRANSFERASE 28 U/L (0-55); ALBUMIN 3.3 GM/DL (3.2-4.5); ALKALINE PHOSPHATASE 85 U/L (40-136); BILIRUBIN,TOTAL 0.4 MG/DL (0.1-1.0); BUN/CREATININE RATIO 13; CALCIUM 8.8 MG/DL (8.5-10.1); CARBON DIOXIDE 22 MMOL/L (21-32); CHLORIDE 107 MMOL/L (98-107); CREATININE SERUM 1.05 MG/DL (0.60-1.30); GFR ESTIMATED > 60; GLUCOSE 91 MG/DL (70-105); POTASSIUM 3.3 MMOL/L (3.6-5.0); SODIUM 141 MMOL/L (135-145); TOTAL PROTEIN 6.1 GM/DL (6.4-8.2)
[2019-04-23] MEDS: inSUlin ASPART (NovoLOG) 1 UNIT/0.01 ML (CHARGE PER UNIT) SC SCH ×4 (06:44→21:25)
[2019-04-23] MEDS: glyBURIDE 5 MG (MICRONASE) TAB PO SCH ×2 (06:45→16:26)
[2019-04-23] MEDS: PIOGLITAZONE 30MG (ACTOS) TAB PO SCH (06:45)
[2019-04-23] MEDS: KCL 10 MEQ TAB (MICRO K) PO SCH (06:45)
[2019-04-23] MEDS: NAPROXEN 250 MG (NAPROSYN) TABLET PO SCH ×2 (06:45→16:25)
[2019-04-23] MEDS: CEFEPIME 2,000 MG/SWFI 20 ML IV PUSH IV SCH ×4 (07:57→21:24)
[2019-04-23] MEDS: ENOXAPARIN 40 MG/0.4 ML (LOVENOX) SYR SQ SCH ×2 (07:58→21:25)
[2019-04-23] MEDS: PANTOPRAZOLE 20 MG TABLET (PROTONIX) PO SCH (07:58)
[2019-04-23] MEDS: PROPRANOLOL 20 MG (INDERAL) TABLET PO SCH ×2 (07:58→21:25)
[2019-04-23] MEDS: lisINopril 40 MG (PRINIVIL) TABLET PO SCH (07:58)
[2019-04-23] MEDS: GABAPENTIN 600 MG (NEURONTIN) TAB PO SCH ×3 (07:58→21:25)
[2019-04-23] MEDS: ASPIRIN 81 MG CHEW (CHILDREN'S ASA) PO SCH (07:58)
[2019-04-23 08:30] VITALS: BP 180/80
--- NOTE | 2019-04-23 11:14 | Progress Note - Hospitalist ---
RENE ARELLANO [facility] 04/23/19 1114: Subjective HPI/CC On Admission Date Seen by Provider: Apr 23, 2019 Time Seen by Provider: 08:15 Subjective/Events-last exam Patient is doing well. Wound care was in the room and changing his dressing when I arrived. He is having normal bowel movements and is tolerating diet. Denies nausea, vomiting, fevers, blood in stool or urine, or pain. Awaiting approval for rehab floor. Last afternoon, patient experienced some shortness of breath that he attributed to being laid back at an incline. His symptoms resolved with change of position. Objective Exam Vital Signs Vital Signs Date Time Temp Pulse Resp B/P (MAP) Pulse Ox O2 Delivery O2 Flow Rate FiO2 04/23/19 08:30 36.8 91 20 180/80 (113) 96 Room Air Capillary Refill : Less Than 3 SecondsLess Than 3 Seconds General Appearance: No Apparent Distress, WD/WN Respiratory: Lungs Clear, Normal Breath Sounds, No Accessory Muscle Use, No Respiratory Distress Cardiovascular: Regular Rate, Rhythm, No Gallop, No Murmur, Normal Peripheral Pulses Rectal: Deferred Back: No Vertebral Tenderness Neurologic/Psychiatric: Alert, Oriented x3, Normal Mood/Affect Results/Procedures Lab Laboratory Tests 04/23/19 05:05 Patient resulted labs reviewed. Assessment/Plan Assessment and Plan Assess & Plan/Chief Complaint Assessment Diabetes Charcot Foot Diabetic foot ulcer s/p debridement Calcaneal fracture Sepsis Osteomyelitis Would benefit from rehab Plan Abx - Vanco for 6 weeks Rehab floor approval No weight bearing on L foot DVT Prophylaxis Clinical Quality Measures DVT/VTE Risk/Contraindication: Risk Factor Score Per Nursin RFS Level Per Nursing on Admit: 4+=Very High EVELIA AMBROSIO DO 04/23/198: Subjective Subjective/Events-last exam Awaiting decision for rehab from insurance Potassium 3.3 adding supplement SOB last night but likely he has undiagnosed BAILEE and needs O2 at night Bowels are moving Working with therapy Objective Exam General Appearance: No Apparent Distress, WD/WN, Chronically ill Respiratory: Lungs Clear Cardiovascular: Regular Rate, Rhythm Neurologic/Psychiatric: Alert, Oriented x3 Assessment/Plan Assessment and Plan Assess & Plan/Chief Complaint PT/OT Non weight bearing Diagnosis/Problems Diagnosis/Problems (1) Cellulitis of left leg Status: Acute (2) Diabetic foot ulcer Status: Acute Qualifiers: Qualified Codes: E11.621 - Type 2 diabetes mellitus with foot ulcer; L97.428 - Non-pressure chronic ulcer of left heel and midfoot with other specified severity (3) Sepsis Status: Acute Qualifiers: Qualified Codes: A41.9 - Sepsis, unspecified organism (4) Charcot foot Status: Acute (5) Diabetes mellitus, type 2 Status: Chronic (6) DVT prophylaxis Status: Acute Supervisory-Addendum Brief Verification & Attestation Participated in pt care: history, MDM, physical Personally performed: exam, history, MDM, supervision of care Care discussed with: Medical Student Procedures: n/a Results interpretation: Verified all documentation Verification and Attestation of Medical Student E/M Service A medical student performed and documented this service in my presence. I review ed and verified all information documented by the medical student and made modifications to such information, when appropriate. I personally performed the physical exam and medical decision making. Evelia Ambrosio, Apr 23, 2019,21:07 [facility] ARELLANO [facility] Apr 23, 2019 11:14 EVELIA AMBROSIO DO Apr 23, 2019 21:08
--- NOTE | 2019-04-23 11:37 | Physical Therapy Daily Note ---
PT Daily Note-Current Subjective Patient in bed pre tx, agrees to PT, no complaints of pain at rest. Agrees to exercises in bed, just had OT for a bath, patient performs his own transfers without assist. Appearance Patient in bed post tx with nurse call, phone, tray, all needs met. Mental Status Patient Orientation: Normal For Age Transfers SCALE: Activities may be completed with or without assistive devices. 9-Zpheroovlo-djgioxp completes the activity by him/herself with no assistance from a helper. 5-Set-up or Clean-up Assistance-helper sets up or cleans up; patient completes activity. [place] assists only prior to or following the activity. 4-Supervision or Touching Assistance-helper provides verbal cues and/or touching/steadying and/or contact guard assistance as patient completes activity. Assistance may be provided throughout the activity or intermittently. 3-Partial/Moderate Assistance-helper does LESS THAN HALF the effort. [place] lifts, holds or supports trunk or limbs, but provides less than half the effort. 2-Substantial/Maximal Assistance-helper does MORE THAN HALF the effort. [place] lifts or holds trunk or limbs and provides more than half the effort. 2-Stsbxvsjc-dqgtrj does ALL the effort. Patient does none of the effort to complete the activity. Or, the assistance of 2 or more helpers is required for the patient to complete the activity. If activity was not attempted, code reason: 7-Patient Refused. 9-Not Applicable-not attempted and the patient did not perform the activity before the current illness, exacerbation or injury. 10-Not Attempted due to Environmental Limitations-(lack of equipment, weather restraints, etc.). 88-Not Attempted due to Medical Conditions or Safety Concerns. Weight Bearing Right Lower Extremity: Right Weight Bearing/Tolerated Left Lower Extremity: Left Non Weight Bearing Exercises Supine Ex: Ankle pumps, Quad Set, Glut sets, Heel Slides, Straight leg raise, Hip abd/add Supine Reps: 20 Treatments LE exercise, patient did not feel comfortable performing ankle pumps and heel slides on the left side because he was worried about protecting his heel. Assessment Current Status: Fair Progress Patient performs exercises without assist PT Nursing Home Goals Laboratory Scientist Goals PT Nursing Home Goals Time Frame: May 04, 2019 Roll Left & Right (QC): 6 Sit to Lying (QC): 6 Lying-Sitting on Side/Bed(QC): 6 Sit to Stand (QC): 6 Chair/Xkg-dx-Cmtxd Xfer(QC): 6 Toilet Transfer (QC): 6 Does the Patient Walk: No and Walking Goal NOT indicated Does the Pt use WC or Scooter?: Yes Type: Manual Type: Manual PT Plan Problem List Problem List: Activity Tolerance, Functional Strength, Safety, Balance, Gait, ROM Treatment/Plan Treatment Plan: Continue Plan of Care Treatment Plan: Bed Mobility, Education, Functional Activity Kota, Functional Strength, Gait, Safety, Therapeutic Exercise, Transfers Treatment Duration: May 04, 2019 Frequency: 6 times per week Estimated Hrs Per Day: .25 hour per day Patient and/or Family Agrees t: Yes Safety Risks/Education Patient Education: Correct Positioning, Safety Issues Teaching Recipient: Patient Teaching Methods: Demonstration, Discussion Response to Teaching: Reinforcement Needed Time/GCodes Time In: 1110 Time Out: 1120 Total Billed Treatment Time: 10 Total Billed Treatment 1 visit EX [place]' IVETH GIORDANO PT Apr 23, 2019 11:37
--- NOTE | 2019-04-23 11:45 | Occupational Ther Daily Note ---
OT Current Status-Daily Note Subjective Pt in bed, agrees to therapy. Pt has no c/o pain. ADL-Treatment Pt requests shower this morning, IAN ochoa. IV and left foot covered during shower to prevent getting wet. Supine to sit without assist. Pt completed stand pivot transfer to w/c, NWB left LE. Pt completed oral care with set up while seated. Pt transferred w/c <-> shower bench with SBA using grab bars, cues for safety. Able to maintain NWB left LE. Doff shirt without assist. Pt doffed shorts with min assist. Seated bathing completed using hand held shower. Pt required assist to wash right lower leg/foot and buttocks, but able to wash all other areas. Pt requires assist to thread LE into shorts. Pt able to pull up to hips, but requires assist to fully complete pant hike. Assist to doff/don right sock. Pt requires increased time to complete ADL tasks. Pt resting in bed with needs met and PT present after session. Therapy Code Descriptions/Definitions Functional [place] Measure: 0=Not Assessed/NA 4=Minimal Assistance 1=Total Assistance 5=Supervision or Setup 2=Maximal Assistance 6=Modified [place] 3=Moderate Assistance 7=Complete IndependenceSCALE: Activities may be completed with or without assistive devices. 3-Wvaefqnmme-tqegsmy completes the activity by him/herself with no assistance from a helper. 5-Set-up or Clean-up Assistance-helper sets up or cleans up; patient completes activity. [place] assists only prior to or following the activity. 4-Supervision or Touching Assistance-helper provides verbal cues and/or touching/steadying and/or contact guard assistance as patient completes activity. Assistance may be provided throughout the activity or intermittently. 3-Partial/Moderate Assistance-helper does LESS THAN HALF the effort. [place] lifts, holds or supports trunk or limbs, but provides less than half the effort. 2-Substantial/Maximal Assistance-helper does MORE THAN HALF the effort. [place] lifts or holds trunk or limbs and provides more than half the effort. 2-Jcbbvlrkl-ggotmq does ALL the effort. Patient does none of the effort to complete the activity. Or, the assistance of 2 or more helpers is required for the patient to complete the activity. If activity was not attempted, code reason: 7-Patient Refused. 9-Not Applicable-not attempted and the patient did not perform the activity before the current illness, exacerbation or injury. 10-Not Attempted due to Environmental Limitations-(lack of equipment, weather restraints, etc.). 88-Not Attempted due to Medical Conditions or Safety Concerns. Oral Hygiene (QC): 5 Shower/Bathe Self (QC): 3 Upper Body Dressing (QC): 5 Lower Body Dressing (QC): 2 On/Off Footwear: 1 OT [facility] Goals Veterinary Laboratory Diagnostician Goals Time Frame: May 03, 2019 Oral Hygiene (QC): 6 Toileting Hygiene (QC): 6 Shower/Bathe Self (QC): 5 Upper Body Dressing (QC): 6 Lower Body Dressing (QC): 5 On/Off Footwear (QC): 5 Additional Goals: 1-Demonstrate ADL Tasks, 2-Verbalize Understanding, 3-ImproveStrength/Kota 1=Demonstrate adherence to instructed precautions during ADL tasks. 2=Patient will verbalize/demonstrate understanding of assistive devices/modifications for ADL. 3=Patient will improve strength/tolerance for activity to enable patient to perform ADL's. OT Education/Plan Problem List/Assessment Pt benefit from skilled OT services in order to increase his independence with ADLs including education and training on AE for dressing/self-care. Discharge Recommendations Plan/Recommendations: Continue POC Treatment Plan/Plan of Care Patient would benefit from OT for education, treatment and training to promote independence in ADL's, mobility, safety and/or upper extremity function for ADL's. Plan of Care: ADL Retraining, Functional Mobility, UE Funct Exercise/Act Treatment Duration: May 03, 2019 Frequency: 5 times per week Estimated Hrs Per Day: .25 hour per day Agreement: Yes Rehab Potential: Good Time/GCodes Start Time: 10:12 Stop Time: 11:10 Total Time Billed (hr/min): 58 Billed Treatment Time 1 visit, ADLx4(58minutes) MARBIN BARRETT OT Apr 23, 2019 11:45
--- NOTE | 2019-04-23 11:45 | Physical Therapy Evaluation ---
PT Evaluation-General Medical Diagnosis Admission Date Apr 17, 2019 at 21:27 Medical Diagnosis: sepsis, L diabetic foot ulcer, L calcaneal fx Onset Date: Apr 17, 2019 Therapy Diagnosis Therapy Diagnosis: debility Height/Weight Height (Feet): 6 Height (Inches): 0.00 Weight (Pounds): 330 Weight (Ounces): 0.0 Precautions Precautions/Isolations: Fall Prevention, Standard Precautions, Pressure Ulcer Weight Bear Status Right Lower Extremity: Right Weight Bearing/Tolerated Left Lower Extremity: Left Non Weight Bearing Referral Physician: Jere Reason for Referral: Evaluation/Treatment Medical History Pertinent Medical History: DM, HTN, Neuropathy (peripheral) Current History ER with left foot wound Social History Home: Single Level Current Living Status: Significant Other Entry Into Home: Stairs With Railing PT Steps Into Home: 3 Prior Prior Level of Function SCALE: Activities may be completed with or without assistive devices. 3-Pqjixneaay-aydstdj completes the activity by him/herself with no assistance from a helper. 5-Set-up or Clean-up Assistance-helper sets up or cleans up; patient completes activity. [place] assists only prior to or following the activity. 4-Supervision or Touching Assistance-helper provides verbal cues and/or touching/steadying and/or contact guard assistance as patient completes activity. Assistance may be provided throughout the activity or intermittently. 3-Partial/Moderate Assistance-helper does LESS THAN HALF the effort. [place] lifts, holds or supports trunk or limbs, but provides less than half the effort. 2-Substantial/Maximal Assistance-helper does MORE THAN HALF the effort. [place] lifts or holds trunk or limbs and provides more than half the effort. 1-Tatbjawgv-ansehu does ALL the effort. Patient does none of the effort to complete the activity. Or, the assistance of 2 or more helpers is required for the patient to complete the activity. If activity was not attempted, code reason: 7-Patient Refused. 9-Not Applicable-not attempted and the patient did not perform the activity before the current illness, exacerbation or injury. 10-Not Attempted due to Environmental Limitations-(lack of equipment, weather restraints, etc.). 88-Not Attempted due to Medical Conditions or Safety Concerns. Bed Mobility: 6 Transfers (B,C,W/C): 6 PT Evaluation-Current Subjective Patient agrees to PT. Pain Numeric Pain Scale: 0-No Pain Location: No Pain Reported Objective Patient Orientation: Normal For Age ROM/Strength ROM Lower Extremities bilateral LE WFL Strength Lower Extremities left LE 4/5/right LE4/5 Integumentary/Posture Integumentary noted left foot wound Bowel Incontinence: No Bladder Incontinence: No Posture WFL Neuromuscular (Tone, Coordination, Reflexes) grossly intact Sensory Vision: Functional Hearing: Functional Sensation Right Lower Extremit: Impaired Sensation Left Lower Extremity: Impaired Transfers Roll Left to Right (QC): 6 Sit to Lying (QC): 6 Lying to Sitting/Side of Bed(Q: 6 Sit to Stand (QC): 6 Chair/Qkm-fl-Rzhyy Xfer(QC): 6 Gait Does the Patient Walk?: No and Walking Goal NOT indicated Anticipated Mode of Locomotion: Wheelchair Balance Sitting Static: Normal Sitting Dynamic: Normal Standing Static: Normal Standing Dynamic: Normal Assessment/Needs Patient is NWB left Le and is unable to hop with right LE due to foot compromised with deformity. Patient states he wants to "save" his right foot d ue to left foot disease process. Rehab Potential: Guarded PT Care Home Goals Marketing Systems Manager Goals PT Care Home Goals Time Frame: May 04, 2019 Roll Left & Right (QC): 6 Sit to Lying (QC): 6 Lying-Sitting on Side/Bed(QC): 6 Sit to Stand (QC): 6 Chair/Mzs-ql-Slztt Xfer(QC): 6 Toilet Transfer (QC): 6 Does the Patient Walk: No and Walking Goal NOT indicated Does the Pt use WC or Scooter?: Yes Type: Manual Type: Manual PT Plan Treatment/Plan Treatment Plan: Continue Plan of Care Treatment Plan: Bed Mobility, Education, Functional Activity Kota, Functional Strength, Gait, Safety, Therapeutic Exercise, Transfers Treatment Duration: May 04, 2019 Frequency: 6 times per week Estimated Hrs Per Day: .25 hour per day Patient and/or Family Agrees t: Yes Time/GCodes Time In: 1001 Time Out: 1012 Total Billed Treatment Time: 11 Total Billed Treatment 1 visit EVLowC 12 min (evaluation 04/22/19) ANI HUGGINS PT Apr 23, 2019 11:45
--- NOTE | 2019-04-23 12:59 | NUR ---
[facility] Insurance authorization request to be cancelled. This cancellation is due to patient's inability to make significant progress with inpatient rehabilitation program, at this time. Patient's participation/progress is limited due to NWB LLE, L calcaneal fx, L foot ulcer, as well as RLE deformity. CM/SS notified.
[2019-04-23] MEDS: NS IV 500 ML 500 ML IV SCH (13:17)
--- NOTE | 2019-04-23 15:16 | Progress Note ---
Subjective Date Seen by a Provider: Apr 23, 2019 Time Seen by a Provider: 12:00 Subjective/Events-last exam doing well. no fever/chills. labs normal. Objective Exam Vital Signs Date Time Temp Pulse Resp B/P (MAP) Pulse Ox O2 Delivery O2 Flow Rate FiO2 04/23/19 08:30 36.8 91 20 180/80 (113) 96 Room Air 04/23/19 08:00 Room Air 04/23/19 00:00 36.8 86 20 180/81 (114) 97 Room Air 04/22/19 19:30 Room Air 04/22/19 16:00 36.5 97 20 166/77 (106) 95 Room Air I & O 04/23/19 07:00 Intake Total 2235 ml Output Total 700 ml Balance 1535 ml Capillary Refill : Less Than 3 SecondsLess Than 3 Seconds General Appearance: No Apparent Distress HEENT: PERRL/EOMI Neck: Full Range of Motion Respiratory: Chest Non Tender, Lungs Clear, Normal Breath Sounds Cardiovascular: Regular Rate, Rhythm Gastrointestinal: normal bowel sounds, non tender, soft Extremity: Normal Capillary Refill, Other (wound clean/dry) Neurologic/Psychiatric: Alert, Oriented x3 Skin: Normal Color Lymphatic: No Adenopathy Results Lab Laboratory Tests 04/22/19 15:45: Glucometer 183H 04/22/19 20:49: Glucometer 140H 04/23/19 05:05: White Blood Count 5.1, Red Blood Count 3.54L, Hemoglobin 10.3L, Hematocrit 32L, Mean Corpuscular Volume 91, Mean Corpuscular Hemoglobin 29, Mean Corpuscular Hemoglobin Concent 32, Red Cell Distribution Width 15.6H, Platelet Count 209, Mean Platelet Volume 10.2, Neutrophils (%) (Auto) 64, Lymphocytes (%) (Auto) 24, Monocytes (%) (Auto) 10, Eosinophils (%) (Auto) 3, Basophils (%) (Auto) 0, Neutrophils # (Auto) 3.2, Lymphocytes # (Auto) 1.2, Monocytes # (Auto) 0.5, Eosinophils # (Auto) 0.1, Basophils # (Auto) 0.0, Sodium Level 141, Potassium Level 3.3L, Chloride Level 107, Carbon Dioxide Level 22, Anion Gap 12, Blood Urea Nitrogen 14, Creatinine 1.05, Estimat Glomerular Filtration Rate > 60, BUN/Creatinine Ratio 13, Glucose Level 91, Calcium Level 8.8, Corrected Calcium 9.4, Total Bilirubin 0.4, Aspartate Amino Transf (AST/SGOT) 26, Alanine Aminotransferase (ALT/SGPT) 28, Alkaline Phosphatase 85, Total Protein 6.1L, Albumin 3.3 04/23/19 10:07: Glucometer 135H Microbiology 04/19/19 Gram Stain - Final, Complete 04/19/19 Surgical Culture - Final, Complete Staph, Coag Neg (PRECISION AGRONOMIST) Staphylococcus aureus 04/18/19 MRSA Screen - Final, Complete MRSA not isolated 04/17/19 Blood Culture - Preliminary, Resulted No growth Assessment/Plan Assessment/Plan Assess & Plan/Chief Complaint left calcaneous osteomyelitis. continue wound care per dr. Carpenter recommendations. cont abx. Clinical Quality Measures DVT/VTE Risk/Contraindication: Risk Factor Score Per Nursin RFS Level Per Nursing on Admit: 4+=Very High ALFA KELLER MD Apr 23, 2019 15:16
[2019-04-23 15:52] VITALS: BP 158/68
--- NOTE | 2019-04-23 16:48 | NUR ---
CM/SS visited with patient to find SNF placement. The patient is disabled but does not have Medicare he only has Medicaid. This would not be a skilled placement. The patient was declined by [facility] and is need of a placement. The patient was provided a shelter facility choice form with the star ratings. He reported to CM/SS his [facility] be [facility]. [facility] and 3. [facility]. CM/SS sent referrals to both [place] and [facility] who both declined. CM/SS contacted Dang at [facility] to inform her of the referral. They will look at it and give an answer. CM/SS will continue to follow.
--- NOTE | 2019-04-23 16:57 | NUR ---
this RN took over patient care at this time. patient alert and orientated, dressing intact, verbalizes no other needs at this time
[2019-04-23] MEDS: LATANOPROST 0.005% (XALATAN) OPHTH SOLN 2.5 ML OU SCH (21:25)
[2019-04-24 00:12] VITALS: BP 162/79
[2019-04-24 05:30] LABS: BASOPHILS % (AUTO) 0 % (0-10); EOSINOPHILS # (AUTO) 0.2 10^3/uL (0.0-0.3); EOSINOPHILS % (AUTO) 3 % (0-10); HEMATOCRIT 34 % (40-54); HEMOGLOBIN 10.7 G/DL (13.3-17.7); LYMPHOCYTES # (AUTO) 1.3 X 10^3 (1.0-4.0); LYMPHOCYTES % (AUTO) 22 % (12-44); MEAN CORPUSCULAR HEMOGLOBIN 29 PG (25-34); MEAN CORPUSCULAR HGB CONC 32 G/DL (32-36); MEAN CORPUSCULAR VOLUME 92 FL (80-99); MEAN PLATELET VOLUME 10.5 FL (7.4-10.4); MONOCYTES # (AUTO) 0.4 X 10^3 (0.0-1.0); MONOCYTES % (AUTO) 7 % (0-12); NEUTROPHILS % (AUTO) 69 % (42-75); PLATELET COUNT 203 10^3/uL (130-400); RED CELL DISTRIBUTION WIDTH 15.9 % (10.0-14.5); WHITE BLOOD COUNT 5.9 10^3/uL (4.3-11.0)
[2019-04-24 05:48] LABS: ALANINE AMINOTRANSFERASE 31 U/L (0-55); ALBUMIN 3.4 GM/DL (3.2-4.5); ALKALINE PHOSPHATASE 95 U/L (40-136); BILIRUBIN,TOTAL 0.4 MG/DL (0.1-1.0); BUN/CREATININE RATIO 16; CALCIUM 8.7 MG/DL (8.5-10.1); CARBON DIOXIDE 23 MMOL/L (21-32); CHLORIDE 107 MMOL/L (98-107); CREATININE SERUM 1.03 MG/DL (0.60-1.30); GFR ESTIMATED > 60; GLUCOSE 86 MG/DL (70-105); POTASSIUM 3.4 MMOL/L (3.6-5.0); SODIUM 141 MMOL/L (135-145); TOTAL PROTEIN 6.3 GM/DL (6.4-8.2)
[2019-04-24] MEDS: inSUlin ASPART (NovoLOG) 1 UNIT/0.01 ML (CHARGE PER UNIT) SC SCH ×4 (06:49→20:53)
[2019-04-24] MEDS: NS IV 500 ML 500 ML IV SCH (06:49)
[2019-04-24] MEDS: KCL 10 MEQ TAB (MICRO K) PO SCH (06:50)
[2019-04-24] MEDS: glyBURIDE 5 MG (MICRONASE) TAB PO SCH ×2 (06:50→16:47)
[2019-04-24] MEDS: PIOGLITAZONE 30MG (ACTOS) TAB PO SCH (06:50)
[2019-04-24] MEDS: NAPROXEN 250 MG (NAPROSYN) TABLET PO SCH ×2 (06:50→17:36)
[2019-04-24 08:00] VITALS: BP 195/85
[2019-04-24] MEDS: CEFEPIME 2,000 MG/SWFI 20 ML IV PUSH IV SCH ×4 (09:35→21:06)
[2019-04-24] MEDS: ENOXAPARIN 40 MG/0.4 ML (LOVENOX) SYR SQ SCH ×2 (09:36→21:06)
[2019-04-24] MEDS: PANTOPRAZOLE 20 MG TABLET (PROTONIX) PO SCH (09:36)
[2019-04-24] MEDS: ASPIRIN 81 MG CHEW (CHILDREN'S ASA) PO SCH (09:36)
[2019-04-24] MEDS: PROPRANOLOL 20 MG (INDERAL) TABLET PO SCH ×2 (09:36→21:06)
[2019-04-24] MEDS: GABAPENTIN 600 MG (NEURONTIN) TAB PO SCH ×3 (09:36→21:07)
[2019-04-24] MEDS: lisINopril 40 MG (PRINIVIL) TABLET PO SCH (09:36)
--- NOTE | 2019-04-24 09:44 | Physical Therapy Daily Note ---
PT Daily Note-Current Subjective Patient agreeable to performing exercises with his right leg and hesitant to perform exercises with his left leg due to his left heel wound. Patient reports no pain at this time. Appearance Patient in bed with feet elevated, call light and bedside table within reach. Mental Status Patient Orientation: Person, Place, Time, Situation Transfers SCALE: Activities may be completed with or without assistive devices. 0-Avrztshajz-wyzpgll completes the activity by him/herself with no assistance from a helper. 5-Set-up or Clean-up Assistance-helper sets up or cleans up; patient completes activity. [place] assists only prior to or following the activity. 4-Supervision or Touching Assistance-helper provides verbal cues and/or touching/steadying and/or contact guard assistance as patient completes activity. Assistance may be provided throughout the activity or intermittently. 3-Partial/Moderate Assistance-helper does LESS THAN HALF the effort. [place] lifts, holds or supports trunk or limbs, but provides less than half the effort. 2-Substantial/Maximal Assistance-helper does MORE THAN HALF the effort. [place] lifts or holds trunk or limbs and provides more than half the effort. 5-Ijprnquek-swwifv does ALL the effort. Patient does none of the effort to complete the activity. Or, the assistance of 2 or more helpers is required for the patient to complete the activity. If activity was not attempted, code reason: 7-Patient Refused. 9-Not Applicable-not attempted and the patient did not perform the activity before the current illness, exacerbation or injury. 10-Not Attempted due to Environmental Limitations-(lack of equipment, weather restraints, etc.). 88-Not Attempted due to Medical Conditions or Safety Concerns. Roll Left & Right (QC): 6 Sit to Lying (QC): 6 Lying to Sitting/Side of Bed(Q: 6 Weight Bearing Right Lower Extremity: Right Weight Bearing/Tolerated Left Lower Extremity: Left Non Weight Bearing Gait Training Does the Patient Walk?: No and Walking Goal NOT indicated Exercises Supine Ex: Ankle pumps, Quad Set, Glut sets, Heel Slides, Straight leg raise, Hip abd/add Supine Reps: 15 Patient performed all exercises with his RLE but with his LLE he declined doing heel slides, hip abd/add, ankle pumps, and straight leg raise due to his heel wound. Assessment Current Status: Good Progress Patient is doing transfers and all bed mobility IND and is performing his exerci ses IND and therefore is no longer in need of skilled PT at this time. PT Senior Living Goals Carbon Capture Power Plant Manager Goals PT Senior Living Goals Time Frame: May 04, 2019 Roll Left & Right (QC): 6 Sit to Lying (QC): 6 Lying-Sitting on Side/Bed(QC): 6 Sit to Stand (QC): 6 Chair/Bvq-dc-Crmhb Xfer(QC): 6 Toilet Transfer (QC): 6 Does the Patient Walk: No and Walking Goal NOT indicated Does the Pt use WC or Scooter?: Yes Type: Manual Type: Manual PT Plan Treatment/Plan Treatment Plan: Discontinue PT Treatment Plan: Bed Mobility, Education, Functional Activity Kota, Functional Strength, Gait, Safety, Therapeutic Exercise, Transfers Treatment Duration: May 04, 2019 Frequency: 6 times per week Estimated Hrs Per Day: .25 hour per day Patient and/or Family Agrees t: Yes Safety Risks/Education Patient Education: Reviewed Precautions, Correct Positioning Teaching Recipient: Patient Teaching Methods: Discussion Response to Teaching: Reinforcement Needed Time/GCodes Time In: 904 Time Out: 912 Total Billed Treatment Time: 8 Total Billed Treatment 1 visit EX (8 minutes) IVETH GIORDANO PT Apr 24, 2019 09:44
--- NOTE | 2019-04-24 10:53 | Occupational Ther Daily Note ---
OT Current Status-Daily Note Subjective Pt alert, lying in bed. Nrsg present in room. No c/o pain. Agrees to therapy. Mental Status/Objective Patient Orientation: Person, Place, Time, Situation Attachments: IV ADL-Treatment Pt requests shower this morning. IV and left foot covered during shower to prevent getting wet. Supine to sit min assist. Pt completed stand pivot transfer to w/c, NWB left LE. Pt completed oral care with set up while seated. Pt transferred w/c <-> shower bench with SBA using grab bars, cues for safety. Able to maintain NWB left LE. Doff shirt without assist. Pt doffed shorts sitting on shower bench. Seated bathing completed using hand held shower. Pt required assist to wash right lower leg/foot and buttocks, but able to wash all other areas. Pt requires assist to thread LE into shorts. Pt able to pull up to hips, but requires assist to fully complete pant hike. Assist to doff/don right sock. Pt requires increased time to complete ADL tasks. After therapy, pt lying in bed with call light/phone in reach. All needs met in room. Therapy Code Descriptions/Definitions Functional [place] Measure: 0=Not Assessed/NA 4=Minimal Assistance 1=Total Assistance 5=Supervision or Setup 2=Maximal Assistance 6=Modified [place] 3=Moderate Assistance 7=Complete IndependenceSCALE: Activities may be completed with or without assistive devices. 6-Gjjqldwupq-zfptzzl completes the activity by him/herself with no assistance from a helper. 5-Set-up or Clean-up Assistance-helper sets up or cleans up; patient completes activity. [place] assists only prior to or following the activity. 4-Supervision or Touching Assistance-helper provides verbal cues and/or touching/steadying and/or contact guard assistance as patient completes activity. Assistance may be provided throughout the activity or intermittently. 3-Partial/Moderate Assistance-helper does LESS THAN HALF the effort. [place] lifts, holds or supports trunk or limbs, but provides less than half the effort. 2-Substantial/Maximal Assistance-helper does MORE THAN HALF the effort. [place] lifts or holds trunk or limbs and provides more than half the effort. 3-Zphljhoij-mmqahh does ALL the effort. Patient does none of the effort to complete the activity. Or, the assistance of 2 or more helpers is required for the patient to complete the activity. If activity was not attempted, code reason: 7-Patient Refused. 9-Not Applicable-not attempted and the patient did not perform the activity before the current illness, exacerbation or injury. 10-Not Attempted due to Environmental Limitations-(lack of equipment, weather restraints, etc.). 88-Not Attempted due to Medical Conditions or Safety Concerns. Oral Hygiene (QC): 5 Shower/Bathe Self (QC): 3 Upper Body Dressing (QC): 5 Lower Body Dressing (QC): 3 On/Off Footwear: 2 OT Belt Knife Feeder Goals Belt Knife Feeder Goals Time Frame: May 03, 2019 Oral Hygiene (QC): 6 Toileting Hygiene (QC): 6 Shower/Bathe Self (QC): 5 Upper Body Dressing (QC): 6 Lower Body Dressing (QC): 5 On/Off Footwear (QC): 5 Additional Goals: 1-Demonstrate ADL Tasks, 2-Verbalize Understanding, 3- ImproveStrength/Kota 1=Demonstrate adherence to instructed precautions during ADL tasks. 2=Patient will verbalize/demonstrate understanding of assistive devices/modifications for ADL. 3=Patient will improve strength/tolerance for activity to enable patient to perform ADL's. OT Education/Plan Problem List/Assessment Assessment: Impaired Self-Care Skills Pt benefit from skilled OT services in order to increase his independence with ADLs including education and training on AE for dressing/self-care. Discharge Recommendations Plan/Recommendations: Continue POC Treatment Plan/Plan of Care Patient would benefit from OT for education, treatment and training to promote independence in ADL's, mobility, safety and/or upper extremity function for ADL's. Plan of Care: ADL Retraining, Functional Mobility, UE Funct Exercise/Act Treatment Duration: May 03, 2019 Frequency: 5 times per week Estimated Hrs Per Day: .25 hour per day Agreement: Yes Rehab Potential: Guarded Time/GCodes Start Time: 09:40 Stop Time: 10:25 Total Time Billed (hr/min): 45 Billed Treatment Time 1 visit-ADL 3 (45 min) MELANIA MUHAMMAD Apr 24, 2019 10:53
--- NOTE | 2019-04-24 11:41 | NUR ---
CM/SS visited with patient to discuss discharge planning. CM/SS sent a referral to [facility] today and the [facility] is checking the patients wound and will notify outcome to this CM/SS. Will continue to follow.
--- NOTE | 2019-04-24 13:27 | Progress Note - Hospitalist ---
[facility] 04/24/19 1327: Subjective HPI/CC On Admission Date Seen by Provider: Apr 24, 2019 Time Seen by Provider: 08:10 Subjective/Events-last exam Patient was sitting and eating breakfast when I arrived. Patient is doing well and has no new complaints. Wound care is managing his dressings. Patient will not be going to the rehab floor and will be going to [facility] for f urther care and wound management. At this time he is sleeping well, having normal bowel movements and voiding appropriately. Pt denies fever, nausea, vomiting, chills, shortness of breath, chest pain, or any other pain. Patient report some depressed mood and will consider seeing a counselor. Objective Exam Vital Signs Vital Signs Date Time Temp Pulse Resp B/P (MAP) Pulse Ox O2 Delivery O2 Flow Rate FiO2 04/24/19 08:02 Room Air 04/24/19 08:00 35.9 95 18 195/85 (121) 95 Capillary Refill : Less Than 3 SecondsLess Than 3 Seconds General Appearance: No Apparent Distress, WD/WN Respiratory: Chest Non Tender, Lungs Clear, Normal Breath Sounds, No Accessory Muscle Use, No Respiratory Distress Cardiovascular: Regular Rate, Rhythm, No Gallop, No JVD, No Murmur, Normal Peripheral Pulses Gastrointestinal: No Pulsatile Mass, Non Tender, Soft Rectal: Deferred Back: No Vertebral Tenderness Neurologic/Psychiatric: Alert, Oriented x3, Normal Mood/Affect Results/Procedures Lab Laboratory Tests 04/24/19 05:15 Patient resulted labs reviewed. Assessment/Plan Assessment and Plan Assess & Plan/Chief Complaint Assessment Diabetes Charcot Foot Diabetic foot ulcer s/p debridement Calcaneal fracture Sepsis Osteomyelitis Plan Awaiting approval for [facility]. Abx - Vanco for 6 weeks No weight bearing on L foot DVT Prophylaxis Clinical Quality Measures DVT/VTE Risk/Contraindication: Risk Factor Score Per Nursin RFS Level Per Nursing on Admit: 4+=Very High EVELIA AMBROSIO DO 04/24/192029: Subjective Subjective/Events-last exam Awaiting [facility] fdc placement. Cefepime antibiotic maintained for diabetic foot ulcer cellulitis. Pain is well controlled. Bowels are moving well. Review of Systems General: Fatigue Musculoskeletal: leg pain Objective Exam General Appearance: No Apparent Distress, WD/WN, Chronically ill Respiratory: Lungs Clear Cardiovascular: Regular Rate, Rhythm Assessment/Plan Assessment and Plan Assess & Plan/Chief Complaint Awaiting placement IV abx Diagnosis/Problems Diagnosis/Problems (1) Cellulitis of left leg Status: Acute (2) Diabetic foot ulcer Status: Acute Qualifiers: Qualified Codes: E11.621 - Type 2 diabetes mellitus with foot ulcer; L97.428 - Non-pressure chronic ulcer of left heel and midfoot with other specified severity (3) Osteomyelitis Qualifiers: (4) DVT prophylaxis Status: Acute (5) Diabetes mellitus, type 2 Status: Chronic Supervisory-Addendum Brief Verification & Attestation Participated in pt care: history, MDM, physical Personally performed: exam, history, MDM, supervision of care Care discussed with: Medical Student Procedures: n/a Results interpretation: Verified all documentation Verification and Attestation of Medical Student E/M Service A medical student performed and documented this service in my presence. I reviewed and verified all information documented by the medical student and made modifications to such information, when appropriate. I personally performed the physical exam and medical decision making. Evelia Ambrosio, Apr 24, 2019,20:30 [facility] Apr 24, 2019 13:27 EVELIA AMBROSIO DO Apr 24, 2019 20:30
--- NOTE | 2019-04-24 16:00 | NUR ---
CM/SS cant move further into discharge planning until wound care dressing orders are clarified. [facility] is a pending yes dependant on wound care dressing orders. [facility] verbal[facility] that they are denying the patient admissions. The patient is informed of this and is upset by the barriers. Will continue to follow. Addendum: 04/24/19 at 1611 by AMADA DYKES SSS CM/SS called dr Carpenter office twice with message and number left. Did not receive a call back.
[2019-04-24 16:12] VITALS: BP 169/76
[2019-04-24] MEDS: LATANOPROST 0.005% (XALATAN) OPHTH SOLN 2.5 ML OU SCH (21:07)
--- NOTE | 2019-04-24 22:00 | NUR ---
pt request medication to help him sleep. NEW ORDER RECEIVED FROM DR AMBROSIO. SEE ORDER HISTORY
[2019-04-24] MEDS ORDERED: ZOLPIDEM 5 MG (AMBIEN) TAB PO PRN (22:15)
[2019-04-25 00:25] VITALS: BP 163/80
[2019-04-25] MEDS: NS IV 500 ML 500 ML IV SCH ×2 (06:01→17:19)
[2019-04-25] MEDS: NAPROXEN 250 MG (NAPROSYN) TABLET PO SCH ×2 (06:20→16:32)
[2019-04-25] MEDS: KCL 10 MEQ TAB (MICRO K) PO SCH (06:20)
[2019-04-25] MEDS: PIOGLITAZONE 30MG (ACTOS) TAB PO SCH (06:21)
[2019-04-25] MEDS: glyBURIDE 5 MG (MICRONASE) TAB PO SCH ×2 (06:21→16:32)
[2019-04-25] MEDS: inSUlin ASPART (NovoLOG) 1 UNIT/0.01 ML (CHARGE PER UNIT) SC SCH ×4 (06:22→21:02)
[2019-04-25 06:29] LABS: BASOPHILS % (AUTO) 0 % (0-10); EOSINOPHILS # (AUTO) 0.2 10^3/uL (0.0-0.3); EOSINOPHILS % (AUTO) 3 % (0-10); HEMATOCRIT 34 % (40-54); HEMOGLOBIN 10.8 G/DL (13.3-17.7); LYMPHOCYTES # (AUTO) 1.2 X 10^3 (1.0-4.0); LYMPHOCYTES % (AUTO) 20 % (12-44); MEAN CORPUSCULAR HEMOGLOBIN 29 PG (25-34); MEAN CORPUSCULAR HGB CONC 32 G/DL (32-36); MEAN CORPUSCULAR VOLUME 91 FL (80-99); MEAN PLATELET VOLUME 10.6 FL (7.4-10.4); MONOCYTES # (AUTO) 0.5 X 10^3 (0.0-1.0); MONOCYTES % (AUTO) 8 % (0-12); NEUTROPHILS # (AUTO) 4.2 X 10^3 (1.8-7.8); NEUTROPHILS % (AUTO) 69 % (42-75); PLATELET COUNT 197 10^3/uL (130-400); RED CELL DISTRIBUTION WIDTH 16.1 % (10.0-14.5); WHITE BLOOD COUNT 6.1 10^3/uL (4.3-11.0)
[2019-04-25 06:45] LABS: ALANINE AMINOTRANSFERASE 33 U/L (0-55); ALBUMIN 3.5 GM/DL (3.2-4.5); ALKALINE PHOSPHATASE 99 U/L (40-136); BILIRUBIN,TOTAL 0.4 MG/DL (0.1-1.0); BUN/CREATININE RATIO 16; CALCIUM 8.9 MG/DL (8.5-10.1); CARBON DIOXIDE 25 MMOL/L (21-32); CHLORIDE 105 MMOL/L (98-107); CREATININE SERUM 1.07 MG/DL (0.60-1.30); GFR ESTIMATED > 60; GLUCOSE 100 MG/DL (70-105); POTASSIUM 3.5 MMOL/L (3.6-5.0); SODIUM 140 MMOL/L (135-145); TOTAL PROTEIN 6.4 GM/DL (6.4-8.2)
--- NOTE | 2019-04-25 07:32 | Podiatry Progress Note ---
Standard Progress Note Progress Notes/Assess & Plan Date Seen by a Provider: Apr 25, 2019 Time Seen by a Provider: 07:28 Progress/Assessment & Plan The patient reports no pain, no F/C/N/V. The wound has increased granular tissue with some necrosis, left heel. There is no-malodor, probing to the posterior calcaneus, no active exudate, no proximal streaking. There is some necrotic tissue to the left heel wound with increase in granulation tissue. No mal-odor, no erythema, no proximal streaking. A/P: Osteomyelitis left Calcaneus, Diabetic Neuropathy, Charcot foot - Debrided sharply the necrotic tissue of the left heel wound (excisional). Flushed with normal saline, Dakins dressing. Continue wound care daily. He is to be non- weight bearing left foot. Final Diagnosis Full thickness wound left heel (Yoon grade 3), Diabetic Neuropathy, Osteomyelitis left calcaneus. GRISEL BATES DPM Apr 25, 2019 07:32
[2019-04-25 08:00] VITALS: BP 200/92
[2019-04-25 08:56] VITALS: BP 172/80
[2019-04-25] MEDS: CEFEPIME 2,000 MG/SWFI 20 ML IV PUSH IV SCH ×4 (09:16→19:53)
[2019-04-25] MEDS: ENOXAPARIN 40 MG/0.4 ML (LOVENOX) SYR SQ SCH ×2 (09:16→19:52)
[2019-04-25] MEDS: lisINopril 40 MG (PRINIVIL) TABLET PO SCH (09:16)
[2019-04-25] MEDS: ASPIRIN 81 MG CHEW (CHILDREN'S ASA) PO SCH (09:16)
[2019-04-25] MEDS: GABAPENTIN 600 MG (NEURONTIN) TAB PO SCH ×3 (09:16→19:52)
[2019-04-25] MEDS: PROPRANOLOL 20 MG (INDERAL) TABLET PO SCH ×2 (09:16→19:53)
[2019-04-25] MEDS: PANTOPRAZOLE 20 MG TABLET (PROTONIX) PO SCH (09:19)
--- NOTE | 2019-04-25 10:44 | Occupational Ther Daily Note ---
OT Current Status-Daily Note Subjective Pt alert, lying in bed. Pt anxious about discharge planning. Pt agrees to therapy. No c/o pain. Mental Status/Objective Patient Orientation: Person, Place, Time, Situation Attachments: IV ADL-Treatment Pt requests shower this morning. IV and left foot covered during shower to prevent getting wet. Supine to sit mod I using HOB elevated. Pt completed stand pivot transfer to w/c, NWB left LE. Pt completed oral care with set up while seated EOB. Pt transferred w/c <-> shower bench with SBA using grab bars. Able to maintain NWB left LE. Doff/don shirt without assist. Pt doffed shorts sitting on shower bench. Seated bathing completed using hand held shower. Pt required assist to wash buttocks, but able to wash all other areas. Pt requires assist to thread LE into shorts. Pt able to pull up to hips, but requires assist to fully complete pant hike. Assist to doff/don right sock. Pt requires increased time to complete ADL tasks. Pt agrees to look at lower body dressing equipment. After therapy, pt lying in bed with call light/phone in reach. All needs met in room. Therapy Code Descriptions/Definitions Functional [place] Measure: 0=Not Assessed/NA 4=Minimal Assistance 1=Total Assistance 5=Supervision or Setup 2=Maximal Assistance 6=Modified Douglas 3=Moderate Assistance 7=Complete IndependenceSCALE: Activities may be completed with or without assistive devices. 7-Telsamzmda-sbyhcup completes the activity by him/herself with no assistance from a helper. 5-Set-up or Clean-up Assistance-helper sets up or cleans up; patient completes activity. [place] assists only prior to or following the activity. 4-Supervision or Touching Assistance-helper provides verbal cues and/or touching/steadying and/or contact guard assistance as patient completes activity. Assistance may be provided throughout the activity or intermittently. 3-Partial/Moderate Assistance-helper does LESS THAN HALF the effort. [place] lifts, holds or supports trunk or limbs, but provides less than half the effort. 2-Substantial/Maximal Assistance-helper does MORE THAN HALF the effort. [place] lifts or holds trunk or limbs and provides more than half the effort. 7-Bluvqekbc-jjcwmd does ALL the effort. Patient does none of the effort to complete the activity. Or, the assistance of 2 or more helpers is required for the patient to complete the activity. If activity was not attempted, code reason: 7-Patient Refused. 9-Not Applicable-not attempted and the patient did not perform the activity before the current illness, exacerbation or injury. 10-Not Attempted due to Environmental Limitations-(lack of equipment, weather restraints, etc.). 88-Not Attempted due to Medical Conditions or Safety Concerns. Oral Hygiene (QC): 5 (Gathering supplies and pt able to complete rest of task.) Shower/Bathe Self (QC): 3 Upper Body Dressing (QC): 5 Lower Body Dressing (QC): 3 On/Off Footwear: 2 OT Paint Line Production Supervisor Goals Paint Line Production Supervisor Goals Time Frame: May 03, 2019 Oral Hygiene (QC): 6 Toileting Hygiene (QC): 6 Shower/Bathe Self (QC): 5 Upper Body Dressing (QC): 6 Lower Body Dressing (QC): 5 On/Off Footwear (QC): 5 Additional Goals: 1-Demonstrate ADL Tasks, 2-Verbalize Understanding, 3- ImproveStrength/Kota 1=Demonstrate adherence to instructed precautions during ADL tasks. 2=Patient will verbalize/demonstrate understanding of assistive devices/modifications for ADL. 3=Patient will improve strength/tolerance for activity to enable patient to perform ADL's. OT Education/Plan Problem List/Assessment Assessment: Impaired Self-Care Skills Pt benefit from skilled OT services in order to increase his independence with ADLs including education and training on AE for dressing/self-care. Discharge Recommendations Plan/Recommendations: Continue POC Treatment Plan/Plan of Care Patient would benefit from OT for education, treatment and training to promote independence in ADL's, mobility, safety and/or upper extremity function for ADL's. Plan of Care: ADL Retraining, Functional Mobility, UE Funct Exercise/Act Treatment Duration: May 03, 2019 Frequency: 5 times per week Estimated Hrs Per Day: .25 hour per day Agreement: Yes Rehab Potential: Guarded Time/GCodes Start Time: 09:32 Stop Time: 10:35 Total Time Billed (hr/min): 63 Billed Treatment Time 1 visit-ADL 4 (63 min) MELANIA MUHAMMAD Apr 25, 2019 10:44
--- NOTE | 2019-04-25 11:21 | Progress Note - Hospitalist ---
[facility] 04/25/19 1121: Subjective HPI/CC On Admission Date Seen by Provider: Apr 25, 2019 Time Seen by Provider: 07:45 Subjective/Events-last exam Patient was sitting up and eating breakfast when I arrived. Patient is doing well and has no new complaints. At 7:30a wound care changed his dressings and his foot has less swelling. Bowels are moving and patient has no pain. He is gaye erating diet and reports no nausea or vomiting. Patient is awaiting approval for half-way. He talked about possibly getting care at home despite the heavy resources needed for his care. Objective Exam Vital Signs Vital Signs Date Time Temp Pulse Resp B/P (MAP) Pulse Ox O2 Delivery O2 Flow Rate FiO2 04/25/19 08:56 172/80 (110) 04/25/19 08:00 97 Room Air 04/25/19 08:00 36.5 85 04/25/19 00:25 20 Capillary Refill : Less Than 3 SecondsLess Than 3 Seconds General Appearance: No Apparent Distress, WD/WN Neck: Normal Inspection Respiratory: Chest Non Tender, Lungs Clear, Normal Breath Sounds, No Accessory Muscle Use, No Respiratory Distress Cardiovascular: Regular Rate, Rhythm, No Edema, No Gallop, No Murmur, Normal Peripheral Pulses Gastrointestinal: Non Tender, Soft Rectal: Deferred Back: No CVA Tenderness Neurologic/Psychiatric: Alert, Oriented x3 Results/Procedures Lab Laboratory Tests 04/25/19 06:20 Patient resulted labs reviewed. Assessment/Plan Assessment and Plan Assess & Plan/Chief Complaint Assessment Diabetes Charcot Foot Diabetic foot ulcer s/p debridement Calcaneal fracture Sepsis Osteomyelitis Plan Awaiting approval for via [facility]. Abx - Vanco for 6 weeks No weight bearing on L foot DVT Prophylaxis Clinical Quality Measures DVT/VTE Risk/Contraindication: Risk Factor Score Per Nursin RFS Level Per Nursing on Admit: 4+=Very High EVELIA AMBROSIO DO 04/25/195: Subjective Subjective/Events-last exam Pt becoming very frustrated custodial won't accept him and if that is the case it would be a roommate Pt wants to go home but half-way says he is too resource intensive to go home so I told him that would not be a good idea Labs reviewed Bowels are moving well Review of Systems General: Fatigue Musculoskeletal: leg pain Objective Exam General Appearance: No Apparent Distress, WD/WN, Chronically ill, Obese Respiratory: Lungs Clear, Normal Breath Sounds Cardiovascular: Regular Rate, Rhythm Assessment/Plan Assessment and Plan Assess & Plan/Chief Complaint All HH orders and DME placed Continue abx Supervisory-Addendum Brief Verification & Attestation Participated in pt care: history, MDM, physical Personally performed: exam, history, MDM, supervision of care Care discussed with: Medical Student Procedures: n/a Results interpretation: Verified all documentation Verification and Attestation of Medical Student E/M Service A medical student performed and documented this service in my presence. I reviewed and verified all information documented by the medical student and made modifications to such information, when appropriate. I personally performed the physical exam and medical decision making. Evelia Ambrosio, Apr 25, 2019,21:35 [facility] Apr 25, 2019 11:21 EVELIA AMBROSIO DO Apr 25, 2019 21:35
[2019-04-25] MEDS ORDERED: ENOX40DI8 SQ (12:35)
[2019-04-25] MEDS ORDERED: POTA10TA6 PO (12:35)
[2019-04-25] MEDS ORDERED: CEFE2FRO IV (12:35)
--- NOTE | 2019-04-25 12:37 | D/C HH Face to Face Order ---
D/C Face to Face Orders Reconcile Patient Problems Problems Reviewed?: Yes Instructions for Patient [facility], Patient Instructions/FollowUp: [facility] 2 week Physician to follow Patient: [facility] Discharge Diet for Home: ADA Diet Patient Problems: Left dm foot ulcer left heel fracture Goals for Patient: complete abx return to weight bearing Patient Data-Allergies,Ht & Wt Patient Allergies: Coded Allergies: No Known Drug Allergies (Unverified , 03/16/14) Height (Feet): 6 Height (Inches): 0.00 Weight (Pounds): 330 Weight (Ounces): 0.0 Home Health Need/Face to Face Date of Face to Face: Apr 25, 2019 Clinical Findings: Generalized weakness and fatigue, Non or partial weight bearing I have seen Pt [id number]: Yes Discharged To: Home Diagnosis/Conditions: dm foot ukcer Patient is Homebound due to: Non-weight bearing Homebound Status Due to the above stated illness, injury or surgical procedure (medical condition or diagnosis) and associated clinical findings, the patient is homebound because of his/her inability to leave home except with aid of a supportive device and/or person AND leaving the home requires a considerable and taxing effort or is medically contraindicated. Pt req the following assistanc: Medically contraindicated Home Health Nursing Orders Home Health Services Order: Nursing Services change dressing daily cefepime iv abx q12 hrs x 45 days Home Health Infusion Therapy Line Start Date: Apr 22, 2019 Certify Stmt I certify that this patient is under my care and that I, a nurse practitioner or a physician; a assistant signal maintainer working with me, had a face to face encounter that - meets the physician face to face encounter requirements with this patient as dated. CRISTHIAN AMBROSIO DO Apr 25, 2019 12:37
--- NOTE | 2019-04-25 14:37 | NUR ---
"RD ASSESSMENT PMHx: DM; HTN; charcot foot; hypercholesterolemia PT INTERACTION: Pt was awake and pleasant during nutrition follow-up. Pt states eating well since last assessment. Note avg PO intake >75% x5d, per chart review. Pt states no issues with n/v/c/d since last assessment. Note last BM was 04/25 and pt not currently on bowel regimen per chart review. Note presence of wound (left heel with necrosis, per Dr. Carpenter). ABNORMAL NUTRITION-RELATED LAB VALUES LOW: K 3.5 HIGH: Est. kcal needs: 5634-2670 kcal | 15-18 kcal/kg Est. Pro needs: 128-160 g Pro | 0.8-1.0 g Pro/kg PES STATEMENT: Inadequate protein intake ([id number]) related to increased protein needs as evidenced by presence of wound (left heel) INTERVENTION: Continue with current diet order of CHO 75g/m 1snack diet. Add Ensure HP (vary) to meals TID. Provides 160 kcal and 16 g Pro per serving for perceived benefit to wound healing. Will continue to follow and reassess as pt needs and status change. MONITOR/EVALUATE: PO Intake; Plan of Care; Hydration Status; Weight Status; Lab Values Carmelina Rizzo, MS, RD, LD"
--- NOTE | 2019-04-25 15:46 | NUR ---
CM/SS visited with patient to continue discharge planning. The patient expressed that he would prefer to go home with Home Health vs intermediate placement. The patient will need to have a wheelchair, ramp, and wound care, and home health. Home Health: The patient was provided a patient preference form. Patient verbalized that he preferred [facility]. CM/SS contacted [facility] and faxed medical records. DME: The patient needs a wheelchair due to not being able to bear weight. The patient was provided a choice form. Patient verbalized that he wants [facility]. The script for the wheelchair was faxed to DME. Wound Care: has an appointment with outpatient wound care on Monday at 8. [facility]: Information has been sent. Waiting for approval on IV antibiotics. Summary: The patient is calling around town to see if there is a wheelchair that he could loan to get him home. CM/SS called about the wheelchair ramp today; however, the person did not get back with this worker. The patient has not had luck either. The patients case investigator Luc is attempting to find a solution as well. Will continue to follow.
[2019-04-25 16:00] VITALS: BP 175/79
[2019-04-25 19:00] VITALS: BP 196/85
[2019-04-25] MEDS: LATANOPROST 0.005% (XALATAN) OPHTH SOLN 2.5 ML OU SCH (19:53)
[2019-04-25 23:38] VITALS: BP 174/78
[2019-04-26] MEDS: KCL 10 MEQ TAB (MICRO K) PO SCH (06:13)
[2019-04-26] MEDS: PIOGLITAZONE 30MG (ACTOS) TAB PO SCH (06:13)
[2019-04-26] MEDS: glyBURIDE 5 MG (MICRONASE) TAB PO SCH ×2 (06:13→17:22)
[2019-04-26] MEDS: NAPROXEN 250 MG (NAPROSYN) TABLET PO SCH ×2 (06:13→17:22)
[2019-04-26] MEDS: inSUlin ASPART (NovoLOG) 1 UNIT/0.01 ML (CHARGE PER UNIT) SC SCH ×4 (06:21→20:53)
[2019-04-26 08:00] VITALS: BP 183/84
[2019-04-26] MEDS: NS IV 500 ML 500 ML IV SCH ×2 (08:10→23:59)
[2019-04-26] MEDS: GABAPENTIN 600 MG (NEURONTIN) TAB PO SCH ×3 (09:01→21:00)
[2019-04-26] MEDS: lisINopril 40 MG (PRINIVIL) TABLET PO SCH (09:01)
[2019-04-26] MEDS: PANTOPRAZOLE 20 MG TABLET (PROTONIX) PO SCH ×2 (09:01→09:03)
[2019-04-26] MEDS: CEFEPIME 2,000 MG/SWFI 20 ML IV PUSH IV SCH ×4 (09:01→21:01)
[2019-04-26] MEDS: PROPRANOLOL 20 MG (INDERAL) TABLET PO SCH ×2 (09:02→21:00)
[2019-04-26] MEDS: ENOXAPARIN 40 MG/0.4 ML (LOVENOX) SYR SQ SCH ×2 (09:03→21:00)
[2019-04-26] MEDS: ASPIRIN 81 MG CHEW (CHILDREN'S ASA) PO SCH (09:04)
--- NOTE | 2019-04-26 11:28 | Discharge Summary ---
[facility] 04/26/19 1128: Diagnosis/Chief Complaint Date of Admission Apr 17, 2019 at 21:27 Date of Discharge Discharge Date: Apr 25, 2019 Primary Care Joshua Lawson Discharge Diagnosis (1) Cellulitis of left leg Status: Acute (2) Diabetic foot ulcer Status: Acute (3) Osteomyelitis (4) DVT prophylaxis Status: Acute (5) Diabetes mellitus, type 2 Status: Chronic Discharge Summary Discharge Physical Exam Allergies: Coded Allergies: No Known Drug Allergies (Unverified , 03/16/14) Vitals & I&Os Vital Signs Date Time Temp Pulse Resp B/P (MAP) Pulse Ox O2 Delivery O2 Flow Rate FiO2 04/26/19 08:03 Room Air 04/26/19 08:00 36.6 78 18 183/84 (117) 95 General Appearance: No Apparent Distress, WD/WN Respiratory: Chest Non Tender, Lungs Clear, Normal Breath Sounds, No Accessory Muscle Use, No Respiratory Distress Cardiovascular: Regular Rate, Rhythm, No Gallop, No Murmur Gastrointestinal: Non Tender, Soft Skin: Normal Color, Warm/Dry Neurologic/Psychiatric: Alert, Oriented x3 Hospital Course Patient is a 48 year old male with significant medical history of diabetes and Charcot feet. He has a diabetic foot ulcer on his L foot that required debridement and condition was further complicated after a calcaneal fracture occurred after patient was trying to get to the bathroom. Several considerations were made on where to best continue his care after discharge. The social media content manager communicated to him that he would be able to be discharged to home with home health. Patient is working on doing modifications to his home such as adding a ramp and bathroom handles. At time of discharge, patient is doing well and has no new complaints. He denies headaches, pain, fevers, chills, SOB, chest pain, palpitations, abdominal pain, blood in stool, or problems urinating. Labs (last 24 hrs) Laboratory Tests 04/25/19 16:01: Glucometer 182H 04/25/19 20:52: Glucometer 177H 04/26/19 06:19: Glucometer 99 Microbiology 04/19/19 Gram Stain - Final, Complete 04/19/19 Surgical Culture - Final, Complete Staph, Coag Neg (GTA) Staphylococcus aureus 04/18/19 MRSA Screen - Final, Complete MRSA not isolated 04/17/19 Blood Culture - Final, Complete No growth Patient resulted labs reviewed. Pending Labs Laboratory Tests 04/26/19 06:19: Glucometer 99 Discharge Home Medications: Active Scripts Active Cefepime 2 gm Injection (Cefepime HCl/Dextrose, Iso-Osm) 2 Gm/100 Ml Froz.piggy 2 Gm IV BID 45 Days Klor-Con 10 (Potassium Chloride) 10 Meq Tablet.er 10 Meq PO DAILY@0700 Enoxaparin Sodium 40 Mg/0.4 Ml Syringe 40 Mg SQ Q12H 30 Days Reported Atorvastatin Calcium 80 Mg Tablet 80 Mg PO HS Terbinafine (Terbinafine HCl) 15 Gm Cream..g. TOP BID Aspirin 81 Mg Tab.chew 81 Mg DAILY Omeprazole 20 Mg Capsule.dr 20 Mg PO DAILY Latanoprost 2.5 Ml Drops 1 Drop OU DAILY Propranolol HCl 40 Mg Tablet 40 Mg PO BID Pioglitazone HCl 45 Mg Tablet 45 Mg PO DAILY Lisinopril 40 Mg Tablet 40 Mg PO DAILY Naproxen 500 Mg Tablet 500 Mg PO BID Gabapentin 600 Mg Tablet 600 Mg PO TID Cyclobenzaprine HCl 10 Mg Tablet 10 Mg PO TID PRN Victoza 3-Ludwig (Liraglutide) 0.6 Mg/0.1 Ml Pen.injctr 1.8 Mg SQ DAILY Glyburide 5 Mg Tablet 10 Mg PO BID TAKES 2 (5MG) TABS TO EQUAL 10 MG TWICE DAILY Instructions to patient/family Please see electronic discharge instructions given to patient. Clinical Quality Measures DVT/VTE Risk/Contraindication: Risk Factor Score Per Nursin RFS Level Per Nursing on Admit: 4+=Very High EVELIA OQUENDO DO 04/26/192045: Discharge Summary Discharge Physical Exam Allergies: Coded Allergies: No Known Drug Allergies (Unverified , 03/16/14) General Appearance: No Apparent Distress, WD/WN Respiratory: Lungs Clear Cardiovascular: Regular Rate, Rhythm Neurologic/Psychiatric: Alert, Oriented x3, No Motor/Sensory Deficits, Normal Mood/Affect Hospital Course Was the Problem List Reviewed?: Yes Discussion & Recommendations Discharge Planning: <30 minutes discharge planning Supervisory-Addendum Brief Verification & Attestation Participated in pt care: history, MDM, physical Personally performed: exam, history, MDM, supervision of care Care discussed with: Medical Student Procedures: n/a Results interpretation: Verified all documentation Verification and Attestation of Medical Student E/M Service A medical student performed and documented this service in my presence. I reviewed and verified all information documented by the medical student and made modifications to such information, when appropriate. I personally performed the physical exam and medical decision making. Evelia Oquendo, Apr 26, 2019,20:44 Problem Qualifiers (1) Diabetic foot ulcer: Diabetic foot ulcer location: heel Diabetes mellitus type: type 2 Laterality: left Non-pressure ulcer stage: with other severity Qualified Codes: E11.621 - Type 2 diabetes mellitus with foot ulcer; L97.428 - Non- pressure chronic ulcer of left heel and midfoot with other specified severity (2) Osteomyelitis: Osteomyelitis location: foot Laterality: left [facility] Apr 26, 2019 11:28 EVELIA OQUENDO DO Apr 26, 2019 20:46
--- NOTE | 2019-04-26 11:38 | NUR ---
CM/SS visited with the patient to continue discharge planning. CM/SS both have called and exhausted all resources known for a wheelchair ramp. [facility] [place] states they will try and work with the patient. The patient needs to complete an application and send in to [employer]. An application was printed and given to the patient. He states he does not have the information available today. The patient states he will try and attempt to complete it this weekend. Home Health: [facility] is planning to start with patient on Monday. And educate patients significant other on tasks needed at home. Infusion Center: Will be able to deliver IV antibiotic on Monday. Official script with physician signature was faxed to the [facility] Infusion center. No other needs at this time. Addendum: 04/26/19 at 1147 by AMADA DYKES [facility] DME: [facility] stated that they sent in orders for approval on wheelchair. They state it should be here by Monday.
--- NOTE | 2019-04-26 14:13 | Occupational Ther Daily Note ---
OT Current Status-Daily Note Subjective Pt alert, lying in bed. Pt agrees to therapy. No c/o pain. Mental Status/Objective Patient Orientation: Person, Place, Time, Situation ADL-Treatment Pt requests shower. IV and left foot covered during shower to prevent getting wet. Supine to sit mod I using HOB elevated. Pt completed stand pivot transfer to w/c, NWB left LE. Pt completed oral care with set up while seated EOB. Pt transferred w/c <-> shower bench with SBA using grab bars. Able to maintain NWB left LE. Doff/don shirt without assist. Pt doffed shorts sitting on shower bench. Seated bathing completed using hand held shower. Pt required assist to wash buttocks, but able to wash all other areas. Pt utilized dressing stick to thread LE into shorts. Pt able to pull up to hips, but requires assist to fully complete pant hike. Pt used dressing stick to doff R sock. Assist to don right sock with sock aide. Pt requires increased time to complete ADL tasks. Pt agrees to look at lower body dressing equipment. After therapy, pt lying in bed with call light/phone in reach. All needs met in room. Therapy Code Descriptions/Definitions Functional Lewis Measure: 0=Not Assessed/NA 4=Minimal Assistance 1=Total Assistance 5=Supervision or Setup 2=Maximal Assistance 6=Modified Lewis 3=Moderate Assistance 7=Complete IndependenceSCALE: Activities may be completed with or without assistive devices. 3-Gtmnmxgqql-jfzxnnn completes the activity by him/herself with no assistance from a helper. 5-Set-up or Clean-up Assistance-helper sets up or cleans up; patient completes activity. Lomita assists only prior to or following the activity. 4-Supervision or Touching Assistance-helper provides verbal cues and/or touching/steadying and/or contact guard assistance as patient completes activity. Assistance may be provided throughout the activity or intermittently. 3-Partial/Moderate Assistance-helper does LESS THAN HALF the effort. Lomita lifts, holds or supports trunk or limbs, but provides less than half the effort. 2-Substantial/Maximal Assistance-helper does MORE THAN HALF the effort. Lomita lifts or holds trunk or limbs and provides more than half the effort. 2-Hucgowyaq-zaxpcg does ALL the effort. Patient does none of the effort to complete the activity. Or, the assistance of 2 or more helpers is required for the patient to complete the activity. If activity was not attempted, code reason: 7-Patient Refused. 9-Not Applicable-not attempted and the patient did not perform the activity before the current illness, exacerbation or injury. 10-Not Attempted due to Environmental Limitations-(lack of equipment, weather restraints, etc.). 88-Not Attempted due to Medical Conditions or Safety Concerns. Oral Hygiene (QC): 5 Shower/Bathe Self (QC): 3 Upper Body Dressing (QC): 5 Lower Body Dressing (QC): 3 On/Off Footwear: 3 OT Usp Goals Usp Goals Time Frame: May 03, 2019 Oral Hygiene (QC): 6 Toileting Hygiene (QC): 6 Shower/Bathe Self (QC): 5 Upper Body Dressing (QC): 6 Lower Body Dressing (QC): 5 On/Off Footwear (QC): 5 Additional Goals: 1-Demonstrate ADL Tasks, 2-Verbalize Understanding, 3- ImproveStrength/Kota 1=Demonstrate adherence to instructed precautions during ADL tasks. 2=Patient will verbalize/demonstrate understanding of assistive devices/modifications for ADL. 3=Patient will improve strength/tolerance for activity to enable patient to perform ADL's. OT Education/Plan Problem List/Assessment Assessment: Decreased Activ Tolerance, Impaired Funct Balance, Impaired Self- Care Skills Pt benefit from skilled OT services in order to increase his independence with ADLs including education and training on AE for dressing/self-care. Discharge Recommendations Plan/Recommendations: Continue POC Treatment Plan/Plan of Care Patient would benefit from OT for education, treatment and training to promote independence in ADL's, mobility, safety and/or upper extremity function for ADL's. Plan of Care: ADL Retraining, Functional Mobility, UE Funct Exercise/Act Treatment Duration: May 03, 2019 Frequency: 5 times per week Estimated Hrs Per Day: .25 hour per day Agreement: Yes Rehab Potential: Guarded Time/GCodes Start Time: 13:10 Stop Time: 14:05 Total Time Billed (hr/min): 55 Billed Treatment Time 1 visit-ADL 4 (55 min) MELANIA MUHAMMAD Apr 26, 2019 14:13
[2019-04-26 15:44] VITALS: BP 169/74
[2019-04-26] MEDS: LATANOPROST 0.005% (XALATAN) OPHTH SOLN 2.5 ML OU SCH (21:01)
[2019-04-27] VITALS: BP 165/73
[2019-04-27] MEDS: inSUlin ASPART (NovoLOG) 1 UNIT/0.01 ML (CHARGE PER UNIT) SC SCH ×4 (06:03→20:16)
[2019-04-27] MEDS: KCL 10 MEQ TAB (MICRO K) PO SCH (06:21)
[2019-04-27] MEDS: NAPROXEN 250 MG (NAPROSYN) TABLET PO SCH ×2 (06:21→16:42)
[2019-04-27] MEDS: glyBURIDE 5 MG (MICRONASE) TAB PO SCH ×2 (06:22→15:37)
[2019-04-27] MEDS: PIOGLITAZONE 30MG (ACTOS) TAB PO SCH (06:22)
[2019-04-27 06:32] LABS: BASOPHILS % (AUTO) 0 % (0-10); EOSINOPHILS # (AUTO) 0.2 10^3/uL (0.0-0.3); EOSINOPHILS % (AUTO) 3 % (0-10); HEMATOCRIT 35 % (40-54); HEMOGLOBIN 10.9 G/DL (13.3-17.7); LYMPHOCYTES # (AUTO) 1.1 X 10^3 (1.0-4.0); LYMPHOCYTES % (AUTO) 21 % (12-44); MEAN CORPUSCULAR HEMOGLOBIN 29 PG (25-34); MEAN CORPUSCULAR HGB CONC 31 G/DL (32-36); MEAN CORPUSCULAR VOLUME 92 FL (80-99); MEAN PLATELET VOLUME 10.8 FL (7.4-10.4); MONOCYTES # (AUTO) 0.5 X 10^3 (0.0-1.0); MONOCYTES % (AUTO) 10 % (0-12); NEUTROPHILS # (AUTO) 3.5 X 10^3 (1.8-7.8); NEUTROPHILS % (AUTO) 66 % (42-75); PLATELET COUNT 202 10^3/uL (130-400); RED CELL DISTRIBUTION WIDTH 16.8 % (10.0-14.5); WHITE BLOOD COUNT 5.3 10^3/uL (4.3-11.0)
[2019-04-27 06:59] LABS: ALANINE AMINOTRANSFERASE 31 U/L (0-55); ALBUMIN 3.5 GM/DL (3.2-4.5); ALKALINE PHOSPHATASE 95 U/L (40-136); BILIRUBIN,TOTAL 0.5 MG/DL (0.1-1.0); BUN/CREATININE RATIO 21; CALCIUM 9.2 MG/DL (8.5-10.1); CARBON DIOXIDE 25 MMOL/L (21-32); CHLORIDE 104 MMOL/L (98-107); GFR ESTIMATED > 60; GLUCOSE 112 MG/DL (70-105); POTASSIUM 3.6 MMOL/L (3.6-5.0); SODIUM 141 MMOL/L (135-145); TOTAL PROTEIN 6.3 GM/DL (6.4-8.2)
[2019-04-27 07:23] VITALS: BP 160/82
[2019-04-27] MEDS: GABAPENTIN 600 MG (NEURONTIN) TAB PO SCH ×3 (08:11→20:28)
[2019-04-27] MEDS: ENOXAPARIN 40 MG/0.4 ML (LOVENOX) SYR SQ SCH ×2 (08:11→20:28)
[2019-04-27] MEDS: CEFEPIME 2,000 MG/SWFI 20 ML IV PUSH IV SCH ×4 (08:11→20:28)
[2019-04-27] MEDS: lisINopril 40 MG (PRINIVIL) TABLET PO SCH (08:11)
[2019-04-27] MEDS: PROPRANOLOL 20 MG (INDERAL) TABLET PO SCH ×2 (08:12→20:28)
[2019-04-27] MEDS: ASPIRIN 81 MG CHEW (CHILDREN'S ASA) PO SCH (08:12)
[2019-04-27] MEDS: NS IV 500 ML 500 ML IV SCH (10:56)
--- NOTE | 2019-04-27 14:55 | Progress Note - Hospitalist ---
Subjective HPI/CC On Admission Date Seen by Provider: Apr 27, 2019 Time Seen by Provider: 14:00 Subjective/Events-last exam patient appears to be comfortable. He is unable to gain access to get back into his house because of stairs. He is unable to get a ramp built and he is completely non-ambulatory. Discharge is being held awaiting a way to get him into his house. He is frustrated has no complaints. Objective Exam Vital Signs Vital Signs Date Time Temp Pulse Resp B/P (MAP) Pulse Ox O2 Delivery O2 Flow Rate FiO2 04/28/19 08:00 98 Room Air 04/28/19 08:00 36.5 83 18 167/74 (105) Capillary Refill : Less Than 3 SecondsLess Than 3 Seconds General Appearance: Chronically ill, Obese Neck: Limited Range of Motion Respiratory: Chest Non Tender, Lungs Clear, Normal Breath Sounds, No Accessory Muscle Use, No Respiratory Distress Cardiovascular: Regular Rate, Rhythm, No Gallop, No Murmur, Normal Peripheral Pulses Gastrointestinal: Normal Bowel Sounds, No Organomegaly, Non Tender, Soft Rectal: Deferred Extremity: Pedal Edema Neurologic/Psychiatric: Alert, Oriented x3, No Motor/Sensory Deficits, Normal Mood/Affect Results/Procedures Lab Patient resulted labs reviewed. Assessment/Plan Assessment and Plan Assess & Plan/Chief Complaint Diabetes Charcot Foot Diabetic foot ulcer s/p debridement Calcaneal fracture Sepsis Osteomyelitis poor social situation-awaiting solution Clinical Quality Measures DVT/VTE Risk/Contraindication: Risk Factor Score Per Nursin RFS Level Per Nursing on Admit: 4+=Very High RENEE SHAW MD Apr 27, 2019 14:55
[2019-04-27 16:13] VITALS: BP 158/70
[2019-04-27] MEDS: LATANOPROST 0.005% (XALATAN) OPHTH SOLN 2.5 ML OU SCH (20:29)
[2019-04-28] VITALS: BP 178/84
[2019-04-28] MEDS: NAPROXEN 250 MG (NAPROSYN) TABLET PO SCH ×2 (06:20→16:00)
[2019-04-28] MEDS: inSUlin ASPART (NovoLOG) 1 UNIT/0.01 ML (CHARGE PER UNIT) SC SCH ×4 (06:20→21:04)
[2019-04-28] MEDS: PIOGLITAZONE 30MG (ACTOS) TAB PO SCH (06:21)
[2019-04-28] MEDS: glyBURIDE 5 MG (MICRONASE) TAB PO SCH ×2 (06:21→16:01)
[2019-04-28] MEDS: KCL 10 MEQ TAB (MICRO K) PO SCH (06:22)
[2019-04-28] MEDS: PROPRANOLOL 20 MG (INDERAL) TABLET PO SCH ×2 (07:59→20:54)
[2019-04-28] MEDS: PANTOPRAZOLE 20 MG TABLET (PROTONIX) PO SCH (07:59)
[2019-04-28] MEDS: ASPIRIN 81 MG CHEW (CHILDREN'S ASA) PO SCH (07:59)
[2019-04-28] MEDS: GABAPENTIN 600 MG (NEURONTIN) TAB PO SCH ×3 (07:59→20:54)
[2019-04-28] MEDS: lisINopril 40 MG (PRINIVIL) TABLET PO SCH (07:59)
[2019-04-28 08:00] VITALS: BP 167/74
[2019-04-28] MEDS: CEFEPIME 2,000 MG/SWFI 20 ML IV PUSH IV SCH ×4 (08:00→20:54)
[2019-04-28] MEDS: ENOXAPARIN 40 MG/0.4 ML (LOVENOX) SYR SQ SCH ×2 (08:00→20:53)
[2019-04-28] MEDS: NS IV 500 ML 500 ML IV SCH (09:21)
--- NOTE | 2019-04-28 12:43 | Progress Note - Hospitalist ---
Subjective HPI/CC On Admission Date Seen by Provider: Apr 28, 2019 Time Seen by Provider: 11:55 Subjective/Events-last exam patient is without complaint. Gets up and takes a shower daily. Review of Systems Neurological: Weakness Objective Exam Vital Signs Vital Signs Date Time Temp Pulse Resp B/P (MAP) Pulse Ox O2 Delivery O2 Flow Rate FiO2 04/28/19 08:00 98 Room Air 04/28/19 08:00 36.5 83 18 167/74 (105) Capillary Refill : NONELess Than 3 Seconds General Appearance: No Apparent Distress, WD/WN, Obese HEENT: Normal ENT Inspection Neck: Supple Respiratory: Lungs Clear, Normal Breath Sounds, No Accessory Muscle Use, No Respiratory Distress Cardiovascular: Regular Rate, Rhythm, No Gallop, No Murmur Gastrointestinal: Normal Bowel Sounds, No Organomegaly, Non Tender, Soft Rectal: Deferred Extremity: Pedal Edema, Other (bilateral feet are wrapped) Results/Procedures Lab Patient resulted labs reviewed. Assessment/Plan Assessment and Plan Assess & Plan/Chief Complaint Diabetes Charcot Foot Diabetic foot ulcer s/p debridement Calcaneal fracture Sepsis Osteomyelitis poor social situation-awaiting solution-discharge Monday or Monday of this next week Clinical Quality Measures DVT/VTE Risk/Contraindication: Risk Factor Score Per Nursin RFS Level Per Nursing on Admit: 4+=Very High RENEE SHAW MD Apr 28, 2019 12:43
[2019-04-28 16:38] VITALS: BP 181/84
[2019-04-28] MEDS: LATANOPROST 0.005% (XALATAN) OPHTH SOLN 2.5 ML OU SCH (20:54)
[2019-04-28] MEDS: DAKIN'S 1/2 STRENGTH (0.25%) 473 ML BTL TOP SCH (20:54)
[2019-04-29] VITALS: BP 162/74
[2019-04-29] MEDS: inSUlin ASPART (NovoLOG) 1 UNIT/0.01 ML (CHARGE PER UNIT) SC SCH ×4 (05:17→21:15)
[2019-04-29] MEDS: glyBURIDE 5 MG (MICRONASE) TAB PO SCH ×2 (05:57→16:54)
[2019-04-29] MEDS: KCL 10 MEQ TAB (MICRO K) PO SCH (05:57)
[2019-04-29] MEDS: NAPROXEN 250 MG (NAPROSYN) TABLET PO SCH ×2 (05:57→16:54)
[2019-04-29] MEDS: PIOGLITAZONE 30MG (ACTOS) TAB PO SCH (05:58)
[2019-04-29 08:00] VITALS: BP 146/63
[2019-04-29] MEDS: ENOXAPARIN 40 MG/0.4 ML (LOVENOX) SYR SQ SCH ×2 (09:06→20:01)
[2019-04-29] MEDS: lisINopril 40 MG (PRINIVIL) TABLET PO SCH (09:06)
[2019-04-29] MEDS: ASPIRIN 81 MG CHEW (CHILDREN'S ASA) PO SCH (09:06)
[2019-04-29] MEDS: CEFEPIME 2,000 MG/SWFI 20 ML IV PUSH IV SCH ×4 (09:06→20:02)
[2019-04-29] MEDS: DAKIN'S 1/2 STRENGTH (0.25%) 473 ML BTL TOP SCH ×2 (09:07→21:07)
[2019-04-29] MEDS: PROPRANOLOL 20 MG (INDERAL) TABLET PO SCH ×2 (09:07→20:02)
[2019-04-29] MEDS: GABAPENTIN 600 MG (NEURONTIN) TAB PO SCH ×3 (09:07→20:02)
[2019-04-29] MEDS: PANTOPRAZOLE 20 MG TABLET (PROTONIX) PO SCH (09:07)
--- NOTE | 2019-04-29 11:05 | Progress Note ---
FABRICE MERCEDES,MED STUDENT 04/29/19 1105: Subjective Subjective/Events-last exam No new concerns today. Denies pain in lower extremities due to loss of sensation. Eating and drinking okay. Reports last bm was 30 minutes ago. Afebrile today. Objective Exam Last Set of Vital Signs Vital Signs Date Time Temp Pulse Resp B/P (MAP) Pulse Ox O2 Delivery O2 Flow Rate FiO2 04/29/19 08:00 35.8 78 18 146/63 (90) 100 Room Air Capillary Refill : NONELess Than 3 Seconds I&O Intake and Output 04/29/19 00:00 Intake Total 2230 ml Output Total 1150 ml Balance 1080 ml Intake Oral 1710 ml IV Total 520 ml Output Urine Total 1150 ml # Voids 1 # Bowel Movements 2 General: Alert, Oriented X3, No Acute Distress Lungs: Clear to Auscultation, Normal Air Movement Heart: Regular Rate, Normal S1, Normal S2 Abdomen: Normal Bowel Sounds, Soft, No Tenderness Results/Procedures Lab Laboratory Tests 04/28/19 11:25: Glucometer 104 04/28/19 16:08: Glucometer 164H 04/28/19 20:59: Glucometer 161H 04/29/19 05:13: Glucometer 94 Microbiology 04/19/19 Gram Stain - Final, Complete 04/19/19 Surgical Culture - Final, Complete Staph, Coag Neg (FACTORY HELPER) Staphylococcus aureus 04/18/19 MRSA Screen - Final, Complete MRSA not isolated 04/17/19 Blood Culture - Final, Complete No growth Radiology Laboratory Tests Test 04/17/19 20:01 04/18/19 05:38 04/18/19 10:34 Range/Units White Blood Count 6.4 4.1 L 4.3-11.0 10^3/uL Red Blood Count 4.33 L 3.74 L 4.35-5.85 10^6/uL Hemoglobin 12.7 L 10.8 L 13.3-17.7 G/DL Hematocrit 39 L 34 L 40-54 % Mean Corpuscular Volume 91 91 80-99 FL Mean Corpuscular Hemoglobin 29 29 25-34 PG Mean Corpuscular Hemoglobin Concent 32 32 32-36 G/DL Red Cell Distribution Width 15.3 H 15.3 H 10.0-14.5 % Platelet Count 276 232 130-400 10^3/uL Mean Platelet Volume 10.5 H 10.5 H 7.4-10.4 FL Neutrophils (%) (Auto) 85 H 75 42-75 % Lymphocytes (%) (Auto) 8 L 16 12-44 % Monocytes (%) (Auto) 7 9 0-12 % Eosinophils (%) (Auto) 1 1 0-10 % Basophils (%) (Auto) 0 0 0-10 % Neutrophils # (Auto) 5.5 3.1 1.8-7.8 X 10^3 Lymphocytes # (Auto) 0.5 L 0.7 L 1.0-4.0 X 10^3 Monocytes # (Auto) 0.4 0.4 0.0-1.0 X 10^3 Eosinophils # (Auto) 0.0 0.0 0.0-0.3 10^3/uL Basophils # (Auto) 0.0 0.0 0.0-0.1 10^3/uL Neutrophils % (Manual) 85 % Lymphocytes % (Manual) 9 % Monocytes % (Manual) 5 % Band Neutrophils 1 % Blood Morphology Comment NORMAL Prothrombin Time 14.6 12.2-14.7 SEC INR Comment 1.1 0.8-1.4 Activated Partial Thromboplast Time 27 24-35 SEC Sodium Level 134 L 136 135-145 MMOL/L Potassium Level 3.7 3.2 L 3.6-5.0 MMOL/L Chloride Level 96 L 101 98-107 MMOL/L Carbon Dioxide Level 24 22 21-32 MMOL/L Anion Gap 14 13 5-14 MMOL/L Blood Urea Nitrogen 21 H 21 H 7-18 MG/DL Creatinine 1.29 1.22 0.60-1.30 MG/DL Estimat Glomerular Filtration Rate 59 > 60 BUN/Creatinine Ratio 16 17 Glucose Level 137 H 80 70-105 MG/DL Lactic Acid Level 1.49 0.50-2.00 MMOL/L Calcium Level 9.7 8.6 8.5-10.1 MG/DL Corrected Calcium 9.6 8.5-10.1 MG/DL Total Bilirubin 0.7 0.1-1.0 MG/DL Aspartate Amino Transf (AST/SGOT) 15 5-34 U/L Alanine Aminotransferase (ALT/SGPT) 18 0-55 U/L Alkaline Phosphatase 118 40-136 U/L C-Reactive Protein High Sensitivity 4.70 H 0.00-0.50 MG/DL Total Protein 7.8 6.4-8.2 GM/DL Albumin 4.1 3.2-4.5 GM/DL Glucometer 166 H 70-110 MG/DL Assessment/Plan Assessment/Plan Assessment & Plan Diabetes Diabetic L foot ulcer s/p debridement Calcaneal fracture Sepsis - resolved Osteomyelitis Continue to change wound dressing regularly Schedule wound care appointment Consider discharge soon (1) Sepsis Status: Resolved Assessment & Plan: Suspect secondary to diabetic foot wound infection. Febrile, tachycardic. Lactic acid okay. Started zosyn and vancomycin. 04/19 afebrile last 24 hours, still mildly tachycardic. Continue zosyn and vanc. Qualifiers: Qualified Codes: A41.9 - Sepsis, unspecified organism (2) Diabetes mellitus, type 2 Status: Chronic Assessment & Plan: Resume home meds. Sliding scale insulin. (3) Charcot foot Status: Acute (4) Diabetic foot ulcer Status: Acute Assessment & Plan: Surgery and Podiatry consulted. Qualifiers: Qualified Codes: E11.621 - Type 2 diabetes mellitus with foot ulcer; L97.428 - Non-pressure chronic ulcer of left heel and midfoot with other specified severity (5) Osteomyelitis Assessment & Plan: To OR today Qualifiers: (6) DVT prophylaxis Status: Acute Assessment & Plan: Enoxaparin Clinical Quality Measures DVT/VTE Risk/Contraindication: Risk Factor Score Per Nursin RFS Level Per Nursing on Admit: 4+=Very High MANUELA BARON MD 04/29/191939: Subjective Subjective/Events-last exam Patient states that he is ready for d/c today, Unable to get IV meds until tomorrow. Tolerating PO diet. Pain well controlled with current meds Review of Systems Pulmonary: No Dyspnea, No Cough Cardiovascular: Edema; No: Chest Pain, Palpitations Gastrointestinal: No: Nausea, Vomiting, Abdominal Pain, Diarrhea, Constipation Musculoskeletal: foot pain Neurological: Weakness Objective Exam General: Alert, Oriented X3, No Acute Distress Neck: Supple, No JVD Lungs: Clear to Auscultation, Normal Air Movement Heart: Regular Rate, No Murmurs Abdomen: Normal Bowel Sounds, Soft, No Tenderness, No Masses Extremities: Other (Left foot with swelling and erythema, dressing present today) Neuro: Normal Speech, Cranial Nerves 3-12 NL Psych/Mental Status: Mental Status NL, Mood NL Assessment/Plan Assessment/Plan (1) Sepsis Status: Resolved Assessment & Plan: Suspect secondary to diabetic foot wound infection. Febrile, tachycardic. Lactic acid okay. Started zosyn and vancomycin. 04/19 afebrile last 24 hours, still mildly tachycardic. Continue zosyn and vanc. 04/29: Will continue IV antibiotics at home, PICC in place Qualifiers: Qualified Codes: A41.9 - Sepsis, unspecified organism (2) Diabetes mellitus, type 2 Status: Chronic Assessment & Plan: Resume home meds. Sliding scale insulin. 04/29: Discussed the importance of good control of blood sugars for wound healing (3) Charcot foot Status: Acute (4) Diabetic foot ulcer Status: Acute Assessment & Plan: Surgery and Podiatry consulted. Qualifiers: Qualified Codes: E11.621 - Type 2 diabetes mellitus with foot ulcer; L97.428 - Non-pressure chronic ulcer of left heel and midfoot with other specified severity (5) Osteomyelitis Assessment & Plan: To OR today 04/29: Home tomorrow with HH and IV antibiotics Qualifiers: (6) DVT prophylaxis Status: Acute Assessment & Plan: Enoxaparin Supervisory-Addendum Brief Verification & Attestation Participated in pt care: history Personally performed: exam Care discussed with: Medical Student Procedures: n/a Verification and Attestation of Medical Student E/M Service A medical student performed and documented this service in my presence. I reviewed and verified all information documented by the medical student and made modifications to such information, when appropriate. I personally performed the physical exam and medical decision making. Manuela Baron, Apr 29, 2019,19:39 FABRICE MERCEDES,MED STUDENT Apr 29, 2019 11:05 MANUELA BARON MD Apr 29, 2019 19:40
--- NOTE | 2019-04-29 11:32 | Occ Therapy Progress Note ---
Therapy Progress Note Pt explained that he had already had shower today and will be discharging from hospital tomorrow. Pt declined using AE for lower body dressing and that SO with assist. Pt also stated that he will be getting a w/c for home use and a ramp will be in place by 05/04/2019. Pt has no questions or concerns for OT. Discharge OT services. MELANIA MUHAMMAD Apr 29, 2019 11:32
--- NOTE | 2019-04-29 12:03 | NUR ---
CM/SS visited with the patient to continue discharge planning. Plan: The patient will discharge tomorrow due to antibiotic need. The patient will have a ride from his girlfriend and have dispatch help get him in the house. [facility]: Will deliver the antibiotic tomorrow to the patients home around 1:00 p.m. Home Health: is set up to start tomorrow in the evening for evening medication dose. DME: stated this a.m. that they haven't heard back of pre authorization for Medicaid. CM/SS has another option if DME cannot provide for ride home. Summary: The patient was alert and oriented as this CM/SS discussed with the patient the fire safety hazard of not having a ramp. The patient verbalized understanding the risk and states he will still go home with home health. CM/SS now has someone who will make a ramp for the patient. It will be set up on Monday. No other needs at this time.
[2019-04-29 16:00] VITALS: BP 164/71
[2019-04-29] MEDS: LATANOPROST 0.005% (XALATAN) OPHTH SOLN 2.5 ML OU SCH (20:02)
[2019-04-29 23:43] VITALS: BP 169/74
[2019-04-30] MEDS: inSUlin ASPART (NovoLOG) 1 UNIT/0.01 ML (CHARGE PER UNIT) SC SCH ×2 (06:35→11:41)
[2019-04-30] MEDS: NAPROXEN 250 MG (NAPROSYN) TABLET PO SCH (07:30)
[2019-04-30] MEDS: glyBURIDE 5 MG (MICRONASE) TAB PO SCH (07:30)
[2019-04-30] MEDS: KCL 10 MEQ TAB (MICRO K) PO SCH (07:30)
[2019-04-30] MEDS: PIOGLITAZONE 30MG (ACTOS) TAB PO SCH (07:31)
[2019-04-30 08:00] VITALS: BP 181/78
[2019-04-30] MEDS: PANTOPRAZOLE 20 MG TABLET (PROTONIX) PO SCH (08:37)
[2019-04-30] MEDS: PROPRANOLOL 20 MG (INDERAL) TABLET PO SCH (08:37)
[2019-04-30] MEDS: GABAPENTIN 600 MG (NEURONTIN) TAB PO SCH (08:37)
[2019-04-30] MEDS: lisINopril 40 MG (PRINIVIL) TABLET PO SCH (08:37)
[2019-04-30] MEDS: CEFEPIME 2,000 MG/SWFI 20 ML IV PUSH IV SCH ×2 (08:38)
[2019-04-30] MEDS: ASPIRIN 81 MG CHEW (CHILDREN'S ASA) PO SCH (08:38)
[2019-04-30] MEDS: ENOXAPARIN 40 MG/0.4 ML (LOVENOX) SYR SQ SCH (08:38)
[2019-04-30] MEDS: DAKIN'S 1/2 STRENGTH (0.25%) 473 ML BTL TOP SCH (08:42)
--- NOTE | 2019-04-30 09:19 | NUR ---
CM/SS to finish discharge planning. Plan: The patient will return home today with [place] at home. CM/SS contacted the home health agency and they verbalized they will be seeing patient this evening. The patient has a wheelchair in the room to get home. The patient has spoken with the IV infusion center who will be delivering the antibiotics today. CM/SS asked patient if he wanted SS to call non emergent dispatch for when he arrived at the home but the patient declined and stated he wanted to call himself at home. No other needs at this time. Patient stated he was thankful for all of the assistance.
--- NOTE | 2019-05-01 13:11 | Physician Query Clarification ---
PQ-Further Specificity Admission/Discharge Admission Date: Apr 17, 2019 at 21:27 Discharge Date: Apr 30, 2019 at 13:56 The medical record reflects the following clinical scenario: History/Risk Factors: Sepsis, diabetic osteomyelitis Lt heel, charcot feet, Lt. foot ulcer Clinical Findings: necrotic tissue to the left heel wound with increase in granulation tissue. Treatment: Debrided sharply the necrotic tissue of the left heel wound (excisional) Question: Can you further specify the depth of the excisional debridement done on 04/25 per the clinical indicators above? Please document a response in the Progress Notes or Discharge Summary. The debridement was of subcutaneous tissue and fascia 1. subcutaneous tissue/fascia 2. skin lt heel 3. Other, with explanation of the clinical findings. 4. Clinically undetermined, no explanation for the clinical findings. PHYSICIAN RESPONSE Can you specify per above: 1 Explanation/Clinical Findings The debridement was of necrotic tissue down to subcutaneous and deep fascia tissue. Please remember a lack of response to the above will prompt a phone page by CDI/Coding staff. In responding to this query, please exercise your independent professional judgment. The purpose of this communication is to more accurately reflect the complexity of your patients condition. The fact that a question is asked does not imply that any particular answer is desired or expected. Thank you for your timely response to this clarification. Requestors name: Leela THIS PHYSICIAN QUERY FORM IS A PERMANENT PART OF THE MEDICAL RECORD LEELA CIFUENTES May 01, 2019 13:11 GRISEL BATES DPM May 03, 2019 12:40
--- NOTE | 2019-05-01 13:17 | Physician Query Clarification ---
PQ-Further Specificity Admission/Discharge Admission Date: Apr 17, 2019 at 21:27 Discharge Date: Apr 30, 2019 at 13:56 The medical record reflects the following clinical scenario: History/Risk Factors: Sepsis, diabetic ulcer lt heel, diabetic osteomyelitis, diabetic charcot joint leonie feet, cellulitis lt lower limb Clinical Findings: walk to bathroom and felt pop in lt heel. lt calcaneal fracture Treatment: nonweight bearing Question: Can you further specify the type of fracture per the clinical indicators above? Please document a response in the Progress Notes or Discharge Summary. 1. pathological fracture 2. stress fracture 3. Other, with explanation of the clinical findings. 4. Clinically undetermined, no explanation for the clinical findings. PHYSICIAN RESPONSE Can you specify per above: 1 Please remember a lack of response to the above will prompt a phone page by CDI /Coding staff. In responding to this query, please exercise your independent professional judgment. The purpose of this communication is to more accurately reflect the complexity of your patients condition. The fact that a question is asked does not imply that any particular answer is desired or expected. Thank you for your timely response to this clarification. Requestors name: Leela THIS PHYSICIAN QUERY FORM IS A PERMANENT PART OF THE MEDICAL RECORD LEELA CIFUENTES May 01, 2019 13:17 CRISTHIAN AMBROSIO DO May 01, 2019 19:36
--- NOTE | 2019-05-02 13:52 | Diagnostic Imaging Report ---
INDICATION: Pain, felt a pop COMPARISON: 04/18/2019 and 04/17/2019 TECHNIQUE: 3 radiographs of the left foot dated 04/20/2019 however, images were submitted for interpretation on 05/02/2019. FINDINGS: A new lucency is identified extending through the calcaneus from the posterior and inferior aspect of the calcaneus to the region of the subtalar joints. Findings concerning for a recent fracture. Significant soft tissue gas is identified overlying the plantar aspect of the posterior aspect of the calcaneus, which is new from the prior exam. Extensive disorganization and irregularity is noted within the mid foot, appearing similar. Flattening and sclerosis of the 2nd metatarsal head is again noted. No additional new fracture or dislocation. Soft tissue swelling of the forefoot is again seen. No suspicious radiopaque foreign body. IMPRESSION: Acute fracturing of the posterior and mid calcaneus, not significantly displaced. Of note, recent MRI demonstrated findings consistent with osteomyelitis at this location. Prominent soft tissue gas along the posterior and inferior aspect of the calcaneus which may relate to soft tissue wound or recent postsurgical changes. Charcot foot. Findings discussed with Dr. Carpenter at 1343 on 05/02/2019. At that time, this was a known calcaneal fracture and the patient is currently being treated for the fracture and osteomyelitis. Dictated by: Dictated on workstation # [id number]
== END 2019-04-30 13:56 | disposition home health service (06) | DRG 854 ==
LOC: EDUNIT# 19:17 → ER 19:18 → 4TH 21:27
PROVIDERS: ADMIT Family Medicine; ATTEND Internal Medicine
PROC: 0JBR0ZZ Excision of Left Foot Subcutaneous Tissue and Fascia, Open Approach (ICD-10-PCS; principal; 2019-04-18)
PROC: 0QBM0ZZ Excision of Left Tarsal, Open Approach (ICD-10-PCS; 2019-04-19)
DX: A41.9 Sepsis, unspecified organism (principal); E11.52 Type 2 diabetes mellitus with diabetic peripheral angiopathy with gangrene; E11.69 Type 2 diabetes mellitus with other specified complication; M86.9 Osteomyelitis, unspecified; E11.621 Type 2 diabetes mellitus with foot ulcer; L97.429 Non-pressure chronic ulcer of left heel and midfoot with unspecified severity; L03.116 Cellulitis of left lower limb; M84.675A Pathological fracture in other disease, left foot, initial encounter for fracture; E11.610 Type 2 diabetes mellitus with diabetic neuropathic arthropathy; E11.40 Type 2 diabetes mellitus with diabetic neuropathy, unspecified; F17.210 Nicotine dependence, cigarettes, uncomplicated; E78.5 Hyperlipidemia, unspecified; I10 Essential (primary) hypertension; L29.9 Pruritus, unspecified; G47.33 Obstructive sleep apnea (adult) (pediatric)
CPT/HCPCS: 36415; 36569; 71045; 73630; 76937; 80048; 80053; 80202; 82962; 83605; 85007; 85025; 85027; 85610; 85730; 86141; 87040; 87070; 87075; 87076; 87077; 87081; 87101; 87186; 87205; 96361; 96365; 96375

== ENCOUNTER → 2019-05-07 | Outpatient (CLI) | payer MEDICAID ==
[~2019-05-07] MED LIST changes: +CEFE2FRO IV; +ENOX40DI8 SQ; +POTA10TA6 PO; +TERB15CR6 TOP
== END ==
LOC: WOUNDCARE 12:29
PROVIDERS: ATTEND Orthopaedic Surgery Hand Surgery
DX: E11.621 Type 2 diabetes mellitus with foot ulcer (principal); E11.42 Type 2 diabetes mellitus with diabetic polyneuropathy; L97.524 Non-pressure chronic ulcer of other part of left foot with necrosis of bone; M86.172 Other acute osteomyelitis, left ankle and foot; I89.0 Lymphedema, not elsewhere classified; I87.2 Venous insufficiency (chronic) (peripheral); E66.01 Morbid (severe) obesity due to excess calories
CPT/HCPCS: 11044; 11047

== ENCOUNTER → 2019-05-14 | Outpatient (CLI) | payer MEDICAID | LOC: WOUNDCARE 09:26 | PROVIDERS: ATTEND Orthopaedic Surgery Hand Surgery | DX: E11.621 Type 2 diabetes mellitus with foot ulcer (principal); E11.42 Type 2 diabetes mellitus with diabetic polyneuropathy; L97.524 Non-pressure chronic ulcer of other part of left foot with necrosis of bone; M86.172 Other acute osteomyelitis, left ankle and foot; I89.0 Lymphedema, not elsewhere classified; I87.2 Venous insufficiency (chronic) (peripheral); E66.01 Morbid (severe) obesity due to excess calories | CPT/HCPCS: 11042; 11045 ==

== ENCOUNTER → 2019-05-21 | Outpatient (CLI) | payer MEDICAID | LOC: WOUNDCARE 09:23 | PROVIDERS: ATTEND Orthopaedic Surgery Hand Surgery | DX: E11.621 Type 2 diabetes mellitus with foot ulcer (principal); E11.42 Type 2 diabetes mellitus with diabetic polyneuropathy; L97.524 Non-pressure chronic ulcer of other part of left foot with necrosis of bone; M86.172 Other acute osteomyelitis, left ankle and foot; I89.0 Lymphedema, not elsewhere classified; I87.2 Venous insufficiency (chronic) (peripheral); E66.01 Morbid (severe) obesity due to excess calories | CPT/HCPCS: 11042; 11045 ==

== ENCOUNTER → 2019-05-28 | Outpatient (CLI) | payer MEDICAID | LOC: WOUNDCARE 09:29 | PROVIDERS: ATTEND Orthopaedic Surgery Hand Surgery | DX: E11.621 Type 2 diabetes mellitus with foot ulcer (principal); E11.42 Type 2 diabetes mellitus with diabetic polyneuropathy; L97.526 Non-pressure chronic ulcer of other part of left foot with bone involvement without evidence of necrosis; M86.172 Other acute osteomyelitis, left ankle and foot; I89.0 Lymphedema, not elsewhere classified; I87.2 Venous insufficiency (chronic) (peripheral); E66.01 Morbid (severe) obesity due to excess calories | CPT/HCPCS: 11042; 11045 ==

== ENCOUNTER → 2019-06-04 | Outpatient (CLI) | payer MEDICAID ==
[~2019-06-04] MED LIST changes: -OMEP-280 PO; +OMEP20CA18 PO
== END ==
LOC: WOUNDCARE 09:22
PROVIDERS: ATTEND Orthopaedic Surgery Hand Surgery
DX: L97.526 Non-pressure chronic ulcer of other part of left foot with bone involvement without evidence of necrosis (principal); E11.621 Type 2 diabetes mellitus with foot ulcer; E11.42 Type 2 diabetes mellitus with diabetic polyneuropathy; M86.172 Other acute osteomyelitis, left ankle and foot; I89.0 Lymphedema, not elsewhere classified; I87.2 Venous insufficiency (chronic) (peripheral); E66.01 Morbid (severe) obesity due to excess calories; E11.52 Type 2 diabetes mellitus with diabetic peripheral angiopathy with gangrene
CPT/HCPCS: 11042; 11045; 97605

== ENCOUNTER → 2019-06-12 | Outpatient (CLI) | payer MEDICAID ==
[~2019-06-12] MED LIST changes: -HYDR-3062 PO; +HYDR-34 PO; -HYDR-3816 PO
== END ==
LOC: WOUNDCARE 08:46
PROVIDERS: ATTEND Surgery
DX: L97.526 Non-pressure chronic ulcer of other part of left foot with bone involvement without evidence of necrosis (principal); E11.621 Type 2 diabetes mellitus with foot ulcer; E11.42 Type 2 diabetes mellitus with diabetic polyneuropathy; M86.472 Chronic osteomyelitis with draining sinus, left ankle and foot; I87.2 Venous insufficiency (chronic) (peripheral); E66.01 Morbid (severe) obesity due to excess calories; E11.52 Type 2 diabetes mellitus with diabetic peripheral angiopathy with gangrene
CPT/HCPCS: 11043

== ENCOUNTER → 2019-06-19 | Outpatient (CLI) | payer MEDICAID | LOC: WOUNDCARE 08:46 | PROVIDERS: ATTEND Surgery | DX: L97.423 Non-pressure chronic ulcer of left heel and midfoot with necrosis of muscle (principal); E11.621 Type 2 diabetes mellitus with foot ulcer; E11.42 Type 2 diabetes mellitus with diabetic polyneuropathy; M86.472 Chronic osteomyelitis with draining sinus, left ankle and foot; I87.2 Venous insufficiency (chronic) (peripheral); E66.01 Morbid (severe) obesity due to excess calories; E11.52 Type 2 diabetes mellitus with diabetic peripheral angiopathy with gangrene | CPT/HCPCS: 11043; 11046; 87070; 87205 ==

== ENCOUNTER → 2019-06-26 | Outpatient (CLI) | payer MEDICAID | LOC: WOUNDCARE 08:47 | PROVIDERS: ATTEND Surgery | DX: E11.621 Type 2 diabetes mellitus with foot ulcer (principal); L97.423 Non-pressure chronic ulcer of left heel and midfoot with necrosis of muscle; E11.42 Type 2 diabetes mellitus with diabetic polyneuropathy; M86.472 Chronic osteomyelitis with draining sinus, left ankle and foot; I87.2 Venous insufficiency (chronic) (peripheral); E66.01 Morbid (severe) obesity due to excess calories | CPT/HCPCS: 11043; 11046; 97605 ==

== ENCOUNTER → 2019-07-01 | Outpatient (CLI) | payer MEDICAID | LOC: WOUNDCARE 08:08 | PROVIDERS: ATTEND Surgery | DX: S91.302A Unspecified open wound, left foot, initial encounter (principal); E11.40 Type 2 diabetes mellitus with diabetic neuropathy, unspecified; M86.8X9 Other osteomyelitis, unspecified sites; I89.0 Lymphedema, not elsewhere classified; G47.30 Sleep apnea, unspecified; I25.10 Atherosclerotic heart disease of native coronary artery without angina pectoris; I10 Essential (primary) hypertension | CPT/HCPCS: 97605 ==

== ENCOUNTER → 2019-07-03 | Outpatient (CLI) | payer MEDICAID | LOC: WOUNDCARE 08:06 | PROVIDERS: ATTEND Surgery | DX: E11.621 Type 2 diabetes mellitus with foot ulcer (principal); E11.42 Type 2 diabetes mellitus with diabetic polyneuropathy; L97.426 Non-pressure chronic ulcer of left heel and midfoot with bone involvement without evidence of necrosis; M86.472 Chronic osteomyelitis with draining sinus, left ankle and foot; I87.2 Venous insufficiency (chronic) (peripheral); E66.01 Morbid (severe) obesity due to excess calories; E11.618 Type 2 diabetes mellitus with other diabetic arthropathy | CPT/HCPCS: 11043; 97605 ==

== ENCOUNTER → 2019-07-03 | Outpatient (CLI) | payer MEDICAID ==
--- NOTE | 2019-07-03 12:47 | Diagnostic Imaging Report ---
INDICATION: Ulcer of the left heel. Fracture. COMPARISON: 04/20/2019 FINDINGS: 3 radiographic views of the left foot were obtained. There has been interval increase in size and demarcation of lucency overlying the heel of the foot and posterior plantar margins of the calcaneus. No distinct underlying osteolytic process of the calcaneus is identified. Oblique oriented fracture is much less conspicuous, which may be on the basis of partial interval healing. There has however been significant interval increase in soft tissue swelling overlying the metatarsals and proximal phalanges. Evaluation of the underlying osseous structures demonstrates interval development of osteolytic appearance to the distal margins of the 1st proximal phalanx at the interphalangeal joint space. Findings are concerning for underlying osteomyelitis. There may be some component of disuse osteopenia in regards to the metatarsal heads as well. No unexpected radiopaque foreign bodies are identified. IMPRESSION: 1. Interval progression of osteolytic appearance of the distal margins of the 1st proximal phalanx concerning for underlying osteomyelitis. Correlation with MRI is recommended. 2. Interval progression of soft tissue swelling of the left foot. 3. Redemonstration of heel ulcer. There is no appreciable underlying osteolytic process of the calcaneus. Please note however that osteomyelitis cannot be excluded based on radiographs alone. Dictated by: Dictated on workstation # [id number]
== END ==
LOC: RAD 11:48
PROVIDERS: ATTEND Surgery
DX: E11.621 Type 2 diabetes mellitus with foot ulcer (principal); E11.42 Type 2 diabetes mellitus with diabetic polyneuropathy; E11.610 Type 2 diabetes mellitus with diabetic neuropathic arthropathy; S92.002D Unspecified fracture of left calcaneus, subsequent encounter for fracture with routine healing; L97.426 Non-pressure chronic ulcer of left heel and midfoot with bone involvement without evidence of necrosis; L97.423 Non-pressure chronic ulcer of left heel and midfoot with necrosis of muscle; M86.472 Chronic osteomyelitis with draining sinus, left ankle and foot; I87.2 Venous insufficiency (chronic) (peripheral); E66.01 Morbid (severe) obesity due to excess calories
CPT/HCPCS: 36415; 73630; 84134

== ENCOUNTER → 2019-07-08 | Outpatient (CLI) | payer MEDICAID | LOC: WOUNDCARE 08:04 | PROVIDERS: ATTEND Surgery | DX: E11.621 Type 2 diabetes mellitus with foot ulcer (principal); E11.42 Type 2 diabetes mellitus with diabetic polyneuropathy; L97.426 Non-pressure chronic ulcer of left heel and midfoot with bone involvement without evidence of necrosis; M86.472 Chronic osteomyelitis with draining sinus, left ankle and foot; I87.2 Venous insufficiency (chronic) (peripheral); E66.01 Morbid (severe) obesity due to excess calories; E11.618 Type 2 diabetes mellitus with other diabetic arthropathy | CPT/HCPCS: 97605 ==

== ENCOUNTER → 2019-07-10 | Outpatient (CLI) | payer MEDICAID | LOC: WOUNDCARE 08:06 | PROVIDERS: ATTEND Surgery | DX: E11.621 Type 2 diabetes mellitus with foot ulcer (principal); E11.42 Type 2 diabetes mellitus with diabetic polyneuropathy; E11.618 Type 2 diabetes mellitus with other diabetic arthropathy; M86.472 Chronic osteomyelitis with draining sinus, left ankle and foot; I87.2 Venous insufficiency (chronic) (peripheral); E66.01 Morbid (severe) obesity due to excess calories; L97.426 Non-pressure chronic ulcer of left heel and midfoot with bone involvement without evidence of necrosis | CPT/HCPCS: 11042 ==

== ENCOUNTER → 2019-07-15 | Outpatient (CLI) | payer MEDICAID | LOC: WOUNDCARE 08:04 | PROVIDERS: ATTEND Surgery | DX: E11.621 Type 2 diabetes mellitus with foot ulcer (principal); E11.42 Type 2 diabetes mellitus with diabetic polyneuropathy; E11.618 Type 2 diabetes mellitus with other diabetic arthropathy; M86.472 Chronic osteomyelitis with draining sinus, left ankle and foot; I87.2 Venous insufficiency (chronic) (peripheral); E66.01 Morbid (severe) obesity due to excess calories; L97.426 Non-pressure chronic ulcer of left heel and midfoot with bone involvement without evidence of necrosis | CPT/HCPCS: 97605 ==

== ENCOUNTER → 2019-07-17 | Outpatient (CLI) | payer MEDICAID | LOC: WOUNDCARE 08:04 | PROVIDERS: ATTEND Surgery | DX: E11.621 Type 2 diabetes mellitus with foot ulcer (principal); E11.42 Type 2 diabetes mellitus with diabetic polyneuropathy; E11.618 Type 2 diabetes mellitus with other diabetic arthropathy; M86.472 Chronic osteomyelitis with draining sinus, left ankle and foot; I87.2 Venous insufficiency (chronic) (peripheral); E66.01 Morbid (severe) obesity due to excess calories; L97.426 Non-pressure chronic ulcer of left heel and midfoot with bone involvement without evidence of necrosis | CPT/HCPCS: 11042; 97605 ==

== ENCOUNTER → 2019-07-22 | Outpatient (CLI) | payer MEDICAID | LOC: WOUNDCARE 08:05 | PROVIDERS: ATTEND Surgery | DX: E11.621 Type 2 diabetes mellitus with foot ulcer (principal); E11.42 Type 2 diabetes mellitus with diabetic polyneuropathy; M86.472 Chronic osteomyelitis with draining sinus, left ankle and foot; I89.0 Lymphedema, not elsewhere classified; G47.30 Sleep apnea, unspecified; I25.10 Atherosclerotic heart disease of native coronary artery without angina pectoris; I10 Essential (primary) hypertension | CPT/HCPCS: 97605 ==

== ENCOUNTER → 2019-07-24 | Outpatient (CLI) | payer MEDICAID | LOC: WOUNDCARE 12:28 | PROVIDERS: ATTEND Surgery | DX: E11.621 Type 2 diabetes mellitus with foot ulcer (principal); E11.42 Type 2 diabetes mellitus with diabetic polyneuropathy; L97.426 Non-pressure chronic ulcer of left heel and midfoot with bone involvement without evidence of necrosis; M86.472 Chronic osteomyelitis with draining sinus, left ankle and foot; E11.618 Type 2 diabetes mellitus with other diabetic arthropathy; I87.2 Venous insufficiency (chronic) (peripheral); E66.01 Morbid (severe) obesity due to excess calories | CPT/HCPCS: 11042; 97605 ==

== ENCOUNTER → 2019-07-29 | Outpatient (CLI) | payer MEDICAID | LOC: WOUNDCARE 08:02 | PROVIDERS: ATTEND Surgery | DX: E11.621 Type 2 diabetes mellitus with foot ulcer (principal); E11.42 Type 2 diabetes mellitus with diabetic polyneuropathy; L97.426 Non-pressure chronic ulcer of left heel and midfoot with bone involvement without evidence of necrosis; M86.472 Chronic osteomyelitis with draining sinus, left ankle and foot; E11.618 Type 2 diabetes mellitus with other diabetic arthropathy; E66.01 Morbid (severe) obesity due to excess calories; I89.0 Lymphedema, not elsewhere classified; G47.30 Sleep apnea, unspecified; I25.10 Atherosclerotic heart disease of native coronary artery without angina pectoris; I10 Essential (primary) hypertension | CPT/HCPCS: 97605 ==

== ENCOUNTER → 2019-07-31 | Outpatient (CLI) | payer MEDICAID | LOC: WOUNDCARE 08:05 | PROVIDERS: ATTEND Surgery | DX: E11.621 Type 2 diabetes mellitus with foot ulcer (principal); E11.42 Type 2 diabetes mellitus with diabetic polyneuropathy; L97.426 Non-pressure chronic ulcer of left heel and midfoot with bone involvement without evidence of necrosis; M86.472 Chronic osteomyelitis with draining sinus, left ankle and foot; E11.618 Type 2 diabetes mellitus with other diabetic arthropathy; E66.01 Morbid (severe) obesity due to excess calories; I87.2 Venous insufficiency (chronic) (peripheral) | CPT/HCPCS: 11044; 87070; 87075; 87205 ==

== ENCOUNTER → 2019-07-31 | Outpatient (CLI) | payer MEDICAID ==
--- NOTE | 2019-07-31 12:48 | Diagnostic Imaging Report ---
EXAMINATION: Left foot, 3 views. COMPARISON: July 03, 2019. HISTORY: 49-year-old male, history of osteomyelitis of the calcaneus. FINDINGS: There are bone erosions involving the lateral aspect of the first metatarsal head, second metatarsal head, and third metatarsal head. There is no pronounced joint space loss. There are erosions adjacent to the first interphalangeal joint with widening of the first interphalangeal joint space. There is no periosteal reaction. There is extensive mid foot arthritis and deformity with a similar appearance to the comparison exam. There is no definite acute aggressive bone destruction identified radiographically. There is degenerative type enthesopathy at the Achilles tendon insertion. There is prominent dorsal soft tissue swelling at the level of the foot in the region of the metatarsophalangeal joints. IMPRESSION: 1. 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 Septic arthritis would also be considered. 2. No convincing radiographic evidence of acute aggressive osteomyelitis. MRI would be more sensitive for detection, if indicated clinically. 3. Very prominent dorsal soft tissue swelling of the foot at the level of metatarsophalangeal joints. Dictated by: Dictated on workstation # [id number]
== END ==
LOC: RAD 12:15
PROVIDERS: ATTEND Surgery
DX: E11.621 Type 2 diabetes mellitus with foot ulcer (principal); E11.42 Type 2 diabetes mellitus with diabetic polyneuropathy; L97.424 Non-pressure chronic ulcer of left heel and midfoot with necrosis of bone; M86.472 Chronic osteomyelitis with draining sinus, left ankle and foot; I87.2 Venous insufficiency (chronic) (peripheral); E66.01 Morbid (severe) obesity due to excess calories; M14.672 Charcot's joint, left ankle and foot
CPT/HCPCS: 73630

== ENCOUNTER → 2019-08-07 | Outpatient (CLI) | payer MEDICAID | LOC: WOUNDCARE 08:07 | PROVIDERS: ATTEND Surgery | DX: E11.621 Type 2 diabetes mellitus with foot ulcer (principal); E11.42 Type 2 diabetes mellitus with diabetic polyneuropathy; L97.426 Non-pressure chronic ulcer of left heel and midfoot with bone involvement without evidence of necrosis; M86.472 Chronic osteomyelitis with draining sinus, left ankle and foot; E11.618 Type 2 diabetes mellitus with other diabetic arthropathy; E66.01 Morbid (severe) obesity due to excess calories; I87.2 Venous insufficiency (chronic) (peripheral) | CPT/HCPCS: 11042 ==

== ENCOUNTER → 2019-08-14 | Outpatient (CLI) | payer MEDICAID | LOC: WOUNDCARE 08:07 | PROVIDERS: ATTEND Surgery | DX: E11.621 Type 2 diabetes mellitus with foot ulcer (principal); E11.42 Type 2 diabetes mellitus with diabetic polyneuropathy; L97.426 Non-pressure chronic ulcer of left heel and midfoot with bone involvement without evidence of necrosis; M86.472 Chronic osteomyelitis with draining sinus, left ankle and foot; E11.618 Type 2 diabetes mellitus with other diabetic arthropathy; E66.01 Morbid (severe) obesity due to excess calories; I87.2 Venous insufficiency (chronic) (peripheral) | CPT/HCPCS: 11042 ==

== ENCOUNTER → 2019-08-21 | Outpatient (CLI) | payer MEDICAID | LOC: WOUNDCARE 08:12 | PROVIDERS: ATTEND Surgery | DX: E11.621 Type 2 diabetes mellitus with foot ulcer (principal); E11.42 Type 2 diabetes mellitus with diabetic polyneuropathy; L97.426 Non-pressure chronic ulcer of left heel and midfoot with bone involvement without evidence of necrosis; E11.618 Type 2 diabetes mellitus with other diabetic arthropathy; E66.01 Morbid (severe) obesity due to excess calories; I87.2 Venous insufficiency (chronic) (peripheral) | CPT/HCPCS: 11042 ==

== ENCOUNTER → 2019-08-28 | Outpatient (CLI) | payer MEDICAID | LOC: WOUNDCARE 08:06 | PROVIDERS: ATTEND Surgery | DX: E11.621 Type 2 diabetes mellitus with foot ulcer (principal); E11.42 Type 2 diabetes mellitus with diabetic polyneuropathy; L97.426 Non-pressure chronic ulcer of left heel and midfoot with bone involvement without evidence of necrosis; E11.618 Type 2 diabetes mellitus with other diabetic arthropathy; E66.01 Morbid (severe) obesity due to excess calories; I87.2 Venous insufficiency (chronic) (peripheral) | CPT/HCPCS: 11042 ==

== ENCOUNTER → 2019-08-28 | Outpatient (CLI) | payer MEDICAID | LOC: LAB 12:28 | PROVIDERS: ATTEND Surgery | DX: E11.621 Type 2 diabetes mellitus with foot ulcer (principal); E11.42 Type 2 diabetes mellitus with diabetic polyneuropathy; M85.862 Other specified disorders of bone density and structure, left lower leg; M14.672 Charcot's joint, left ankle and foot; I87.2 Venous insufficiency (chronic) (peripheral); E66.01 Morbid (severe) obesity due to excess calories | CPT/HCPCS: 36415; 85652; 86141 ==

== ENCOUNTER → 2019-09-03 | Outpatient (CLI) | payer MEDICAID ==
--- NOTE | 2019-09-03 18:48 | Diagnostic Imaging Report ---
PROCEDURE: MRI left joint lower extremity without contrast, 09/03/2019. TECHNIQUE: Multiplanar, multisequence non contrast-enhanced MRI of the left lower extremity was accomplished. INDICATION: History of diabetes. Open ulcers bottom of the foot and left heel. Attention hindfoot. Prior surgery along the heel area in April 2019. COMPARISON: 04/18/2019 and correlation made to radiographs from 07/31/2019 FINDINGS: The previous abnormal signal intensity throughout the calcaneus has improved. The degree of edema along the posterior calcaneus has decreased. There is however residual defect or abnormal area of signal intensity involving the posterior aspect of the calcaneus which extends towards the plantar aspect. The largest component measures 2.5 cm in proximal to distal dimension and extends through the posterior cortex of the calcaneus and is contiguous with an overlying soft tissue abnormality, likely known ulceration. A tract from the skin into the calcaneus is seen within this region. Overlying edema throughout the heel and extending along the plantar aspect of the heel more anteriorly is also noted but no measurable fluid collection is appreciated although this is a noncontrast examination. Diffuse abnormal signal intensity throughout the remaining soft tissues of the foot and ankle likely edema although cellulitis is not excluded. The previously described abnormality along the proximal plantar fascia once again seen with abnormal signal intensity in the proximal aspect of the plantar fascia which appears torn. The visualized distal Achilles tendon appears intact. Overlying subcutaneous edema is noted more pronounced than on previous. Deformity of the midfoot is likely due to the history of diabetes and perhaps an early developing Charcot joint. Mild heterogeneous signal intensity within the midfoot likely due to the osteopenia noted on the recent radiographs. The talar dome appears intact. The peroneal tendons are intact. The extensor and flexor tendons intact. The anterior and posterior inferior tibiofibular ligaments grossly intact. The region of the anterior talofibular ligament appears intact with fluid just deep to the ligament. The posterior talofibular ligament is intact. Deltoid ligament unremarkable IMPRESSION: 1. Persistent defect within the posterior calcaneus extending to the overlying skin abnormality suggesting residual osteomyelitis. An intraosseous abscess or fluid collection difficult to exclude given its appearance and the lack of contrast. However, the amount of the surrounding edema throughout the remaining calcaneus has markedly improved. 2. Findings of cellulitis and/or soft tissue edema along the heel slightly improved and diffusely throughout the remaining visualized foot and ankle increased from previous. 3. Other findings as above. Dictated by: Dictated on workstation # [id number]
== END ==
LOC: RAD 11:07
PROVIDERS: ATTEND Surgery
DX: M85.862 Other specified disorders of bone density and structure, left lower leg (principal); L97.426 Non-pressure chronic ulcer of left heel and midfoot with bone involvement without evidence of necrosis; E11.621 Type 2 diabetes mellitus with foot ulcer; M14.672 Charcot's joint, left ankle and foot; E11.42 Type 2 diabetes mellitus with diabetic polyneuropathy; I87.2 Venous insufficiency (chronic) (peripheral); E66.01 Morbid (severe) obesity due to excess calories
CPT/HCPCS: 73721

== ENCOUNTER → 2019-09-04 | Outpatient (CLI) | payer MEDICAID | LOC: WOUNDCARE 08:14 | PROVIDERS: ATTEND Surgery | DX: E11.621 Type 2 diabetes mellitus with foot ulcer (principal); M85.862 Other specified disorders of bone density and structure, left lower leg; L97.422 Non-pressure chronic ulcer of left heel and midfoot with fat layer exposed; E11.42 Type 2 diabetes mellitus with diabetic polyneuropathy; I87.2 Venous insufficiency (chronic) (peripheral); E66.01 Morbid (severe) obesity due to excess calories; E11.618 Type 2 diabetes mellitus with other diabetic arthropathy; G47.30 Sleep apnea, unspecified; E78.5 Hyperlipidemia, unspecified; Z79.84 Long term (current) use of oral hypoglycemic drugs; Z68.42 Body mass index [BMI] 45.0-49.9, adult | CPT/HCPCS: 11042 ==

== ENCOUNTER → 2019-09-11 | Outpatient (CLI) | payer MEDICAID | LOC: WOUNDCARE 08:16 | PROVIDERS: ATTEND Surgery | DX: E11.621 Type 2 diabetes mellitus with foot ulcer (principal); L97.422 Non-pressure chronic ulcer of left heel and midfoot with fat layer exposed; M85.862 Other specified disorders of bone density and structure, left lower leg; E11.618 Type 2 diabetes mellitus with other diabetic arthropathy; E11.42 Type 2 diabetes mellitus with diabetic polyneuropathy; I87.2 Venous insufficiency (chronic) (peripheral); E66.01 Morbid (severe) obesity due to excess calories; Z87.891 Personal history of nicotine dependence; I25.10 Atherosclerotic heart disease of native coronary artery without angina pectoris; I10 Essential (primary) hypertension; E78.5 Hyperlipidemia, unspecified; Z68.42 Body mass index [BMI] 45.0-49.9, adult; Z79.84 Long term (current) use of oral hypoglycemic drugs | CPT/HCPCS: 11042 ==

== ENCOUNTER 2019-09-12 08:12 | Outpatient (RCR) | payer MEDICAID | END 2019-09-12 12:00 | disposition home or self-care (01) | LOC: WOUNDCARE 08:12 | PROVIDERS: ATTEND Surgery | DX: E11.621 Type 2 diabetes mellitus with foot ulcer (principal); E11.42 Type 2 diabetes mellitus with diabetic polyneuropathy; E66.01 Morbid (severe) obesity due to excess calories; L97.423 Non-pressure chronic ulcer of left heel and midfoot with necrosis of muscle; M86.472 Chronic osteomyelitis with draining sinus, left ankle and foot; I87.2 Venous insufficiency (chronic) (peripheral) | CPT/HCPCS: 82962; 99183 ==

== ENCOUNTER → 2019-09-18 | Outpatient (CLI) | payer MEDICAID ==
[2019-09-18 10:03] LABS: BASOPHILS % (AUTO) 0 % (0-10); EOSINOPHILS # (AUTO) 0.1 10^3/uL (0.0-0.3); EOSINOPHILS % (AUTO) 2 % (0-10); HEMATOCRIT 42 % (40-54); HEMOGLOBIN 13.8 G/DL (13.3-17.7); LYMPHOCYTES # (AUTO) 1.2 X 10^3 (1.0-4.0); LYMPHOCYTES % (AUTO) 23 % (12-44); MEAN CORPUSCULAR HEMOGLOBIN 28 PG (25-34); MEAN CORPUSCULAR HGB CONC 33 G/DL (32-36); MEAN CORPUSCULAR VOLUME 85 FL (80-99); MEAN PLATELET VOLUME 10.4 FL (7.4-10.4); MONOCYTES # (AUTO) 0.4 X 10^3 (0.0-1.0); MONOCYTES % (AUTO) 7 % (0-12); NEUTROPHILS # (AUTO) 3.7 X 10^3 (1.8-7.8); NEUTROPHILS % (AUTO) 69 % (42-75); PLATELET COUNT 245 10^3/uL (130-400); RED CELL DISTRIBUTION WIDTH 18.6 % (10.0-14.5); WHITE BLOOD COUNT 5.4 10^3/uL (4.3-11.0)
[2019-09-18 10:27] LABS: ALANINE AMINOTRANSFERASE 19 U/L (0-55); ALBUMIN 3.9 GM/DL (3.2-4.5); ALKALINE PHOSPHATASE 129 U/L (40-136); BILIRUBIN,TOTAL 0.6 MG/DL (0.1-1.0); BUN/CREATININE RATIO 18; CALCIUM 9.4 MG/DL (8.5-10.1); CARBON DIOXIDE 22 MMOL/L (21-32); CHLORIDE 102 MMOL/L (98-107); CREATININE SERUM 1.05 MG/DL (0.60-1.30); GFR ESTIMATED > 60; GLUCOSE 121 MG/DL (70-105); POTASSIUM 3.8 MMOL/L (3.6-5.0); SODIUM 137 MMOL/L (135-145); TOTAL PROTEIN 7.2 GM/DL (6.4-8.2)
== END ==
LOC: LAB 09:34
PROVIDERS: ATTEND Surgery
DX: M85.862 Other specified disorders of bone density and structure, left lower leg (principal); L97.422 Non-pressure chronic ulcer of left heel and midfoot with fat layer exposed; E11.621 Type 2 diabetes mellitus with foot ulcer; M14.672 Charcot's joint, left ankle and foot; E11.42 Type 2 diabetes mellitus with diabetic polyneuropathy; I87.2 Venous insufficiency (chronic) (peripheral); E66.01 Morbid (severe) obesity due to excess calories
CPT/HCPCS: 36415; 80053; 83036; 85025

== ENCOUNTER → 2019-09-18 | Outpatient (CLI) | payer MEDICAID | LOC: WOUNDCARE 08:40 | PROVIDERS: ATTEND Surgery | DX: E11.621 Type 2 diabetes mellitus with foot ulcer (principal); L97.422 Non-pressure chronic ulcer of left heel and midfoot with fat layer exposed; M85.862 Other specified disorders of bone density and structure, left lower leg; E11.618 Type 2 diabetes mellitus with other diabetic arthropathy; E11.42 Type 2 diabetes mellitus with diabetic polyneuropathy; I87.2 Venous insufficiency (chronic) (peripheral); E66.01 Morbid (severe) obesity due to excess calories; Z87.891 Personal history of nicotine dependence; I25.10 Atherosclerotic heart disease of native coronary artery without angina pectoris; I10 Essential (primary) hypertension; E78.5 Hyperlipidemia, unspecified; Z68.42 Body mass index [BMI] 45.0-49.9, adult; Z79.84 Long term (current) use of oral hypoglycemic drugs | CPT/HCPCS: 11042 ==

== ENCOUNTER → 2019-09-25 | Outpatient (CLI) | payer MEDICAID | LOC: WOUNDCARE 08:27 | PROVIDERS: ATTEND Surgery | DX: E11.621 Type 2 diabetes mellitus with foot ulcer (principal); E11.42 Type 2 diabetes mellitus with diabetic polyneuropathy; M85.862 Other specified disorders of bone density and structure, left lower leg; L97.422 Non-pressure chronic ulcer of left heel and midfoot with fat layer exposed; I87.2 Venous insufficiency (chronic) (peripheral); E66.01 Morbid (severe) obesity due to excess calories; G47.30 Sleep apnea, unspecified; E78.5 Hyperlipidemia, unspecified; Z68.42 Body mass index [BMI] 45.0-49.9, adult; Z79.84 Long term (current) use of oral hypoglycemic drugs | CPT/HCPCS: 11042 ==

== ENCOUNTER → 2019-10-02 | Outpatient (CLI) | payer MEDICAID | LOC: WOUNDCARE 08:25 | PROVIDERS: ATTEND Surgery | DX: E11.621 Type 2 diabetes mellitus with foot ulcer (principal); E11.52 Type 2 diabetes mellitus with diabetic peripheral angiopathy with gangrene; E11.42 Type 2 diabetes mellitus with diabetic polyneuropathy; E11.610 Type 2 diabetes mellitus with diabetic neuropathic arthropathy; L97.422 Non-pressure chronic ulcer of left heel and midfoot with fat layer exposed; I96 Gangrene, not elsewhere classified; M85.862 Other specified disorders of bone density and structure, left lower leg; I87.2 Venous insufficiency (chronic) (peripheral); Z68.42 Body mass index [BMI] 45.0-49.9, adult | CPT/HCPCS: 11042 ==

== ENCOUNTER → 2019-10-09 | Outpatient (CLI) | payer MEDICAID | LOC: WOUNDCARE 08:39 | PROVIDERS: ATTEND Surgery | DX: E11.621 Type 2 diabetes mellitus with foot ulcer (principal); E11.42 Type 2 diabetes mellitus with diabetic polyneuropathy; E11.52 Type 2 diabetes mellitus with diabetic peripheral angiopathy with gangrene; L97.422 Non-pressure chronic ulcer of left heel and midfoot with fat layer exposed; M14.672 Charcot's joint, left ankle and foot; E66.01 Morbid (severe) obesity due to excess calories; I87.2 Venous insufficiency (chronic) (peripheral); M85.862 Other specified disorders of bone density and structure, left lower leg | CPT/HCPCS: 11042 ==

== ENCOUNTER → 2019-10-16 | Outpatient (CLI) | payer MEDICAID | LOC: WOUNDCARE 08:29 | PROVIDERS: ATTEND Surgery | DX: E11.621 Type 2 diabetes mellitus with foot ulcer (principal); E11.42 Type 2 diabetes mellitus with diabetic polyneuropathy; E11.52 Type 2 diabetes mellitus with diabetic peripheral angiopathy with gangrene; E11.610 Type 2 diabetes mellitus with diabetic neuropathic arthropathy; I96 Gangrene, not elsewhere classified; L97.422 Non-pressure chronic ulcer of left heel and midfoot with fat layer exposed; M85.862 Other specified disorders of bone density and structure, left lower leg; I87.2 Venous insufficiency (chronic) (peripheral); E66.01 Morbid (severe) obesity due to excess calories; Z68.42 Body mass index [BMI] 45.0-49.9, adult | CPT/HCPCS: 11042 ==

== ENCOUNTER → 2019-10-23 | Outpatient (CLI) | payer MEDICAID | LOC: WOUNDCARE 08:30 | PROVIDERS: ATTEND Surgery | DX: E11.621 Type 2 diabetes mellitus with foot ulcer (principal); E11.42 Type 2 diabetes mellitus with diabetic polyneuropathy; L97.422 Non-pressure chronic ulcer of left heel and midfoot with fat layer exposed; E11.610 Type 2 diabetes mellitus with diabetic neuropathic arthropathy; M85.862 Other specified disorders of bone density and structure, left lower leg; I87.2 Venous insufficiency (chronic) (peripheral); E66.01 Morbid (severe) obesity due to excess calories; Z87.891 Personal history of nicotine dependence; I25.10 Atherosclerotic heart disease of native coronary artery without angina pectoris; I10 Essential (primary) hypertension; Z79.84 Long term (current) use of oral hypoglycemic drugs; Z79.899 Other long term (current) drug therapy; E78.5 Hyperlipidemia, unspecified; Z68.42 Body mass index [BMI] 45.0-49.9, adult | CPT/HCPCS: 11042; G0463 ==

== ENCOUNTER → 2019-10-30 | Outpatient (CLI) | payer MEDICAID | LOC: WOUNDCARE 09:23 | PROVIDERS: ATTEND Orthopaedic Surgery Hand Surgery | DX: E11.621 Type 2 diabetes mellitus with foot ulcer (principal); E11.42 Type 2 diabetes mellitus with diabetic polyneuropathy; L97.426 Non-pressure chronic ulcer of left heel and midfoot with bone involvement without evidence of necrosis; E11.610 Type 2 diabetes mellitus with diabetic neuropathic arthropathy; I87.2 Venous insufficiency (chronic) (peripheral); E66.01 Morbid (severe) obesity due to excess calories; Z68.42 Body mass index [BMI] 45.0-49.9, adult; M85.862 Other specified disorders of bone density and structure, left lower leg | CPT/HCPCS: 11042 ==

== ENCOUNTER → 2019-11-06 | Outpatient (CLI) | payer MEDICAID | LOC: WOUNDCARE 08:33 | PROVIDERS: ATTEND Surgery | DX: E11.621 Type 2 diabetes mellitus with foot ulcer (principal); E11.42 Type 2 diabetes mellitus with diabetic polyneuropathy; L97.426 Non-pressure chronic ulcer of left heel and midfoot with bone involvement without evidence of necrosis; M14.672 Charcot's joint, left ankle and foot; M85.862 Other specified disorders of bone density and structure, left lower leg; I87.2 Venous insufficiency (chronic) (peripheral); E66.01 Morbid (severe) obesity due to excess calories; E11.52 Type 2 diabetes mellitus with diabetic peripheral angiopathy with gangrene | CPT/HCPCS: 11042; G0463 ==

== ENCOUNTER → 2019-11-13 | Outpatient (CLI) | payer MEDICAID | LOC: WOUNDCARE 08:36 | PROVIDERS: ATTEND Surgery | DX: E11.621 Type 2 diabetes mellitus with foot ulcer (principal); E11.42 Type 2 diabetes mellitus with diabetic polyneuropathy; L97.426 Non-pressure chronic ulcer of left heel and midfoot with bone involvement without evidence of necrosis; E11.610 Type 2 diabetes mellitus with diabetic neuropathic arthropathy; I87.2 Venous insufficiency (chronic) (peripheral); E66.01 Morbid (severe) obesity due to excess calories; M85.862 Other specified disorders of bone density and structure, left lower leg; Z87.891 Personal history of nicotine dependence; G47.30 Sleep apnea, unspecified; Z79.84 Long term (current) use of oral hypoglycemic drugs; E78.5 Hyperlipidemia, unspecified; Z68.42 Body mass index [BMI] 45.0-49.9, adult | CPT/HCPCS: 11042; G0463 ==

== ENCOUNTER → 2019-11-20 | Outpatient (CLI) | payer MEDICAID | LOC: WOUNDCARE 08:36 | PROVIDERS: ATTEND Surgery | DX: E11.621 Type 2 diabetes mellitus with foot ulcer (principal); E11.42 Type 2 diabetes mellitus with diabetic polyneuropathy; L97.422 Non-pressure chronic ulcer of left heel and midfoot with fat layer exposed; M14.672 Charcot's joint, left ankle and foot; M85.869 Other specified disorders of bone density and structure, unspecified lower leg; E66.01 Morbid (severe) obesity due to excess calories | CPT/HCPCS: 11042; G0463 ==

== ENCOUNTER → 2019-11-27 | Outpatient (CLI) | payer MEDICAID | LOC: WOUNDCARE 08:30 | PROVIDERS: ATTEND Surgery | DX: E11.621 Type 2 diabetes mellitus with foot ulcer (principal); E11.52 Type 2 diabetes mellitus with diabetic peripheral angiopathy with gangrene; E11.42 Type 2 diabetes mellitus with diabetic polyneuropathy; L97.422 Non-pressure chronic ulcer of left heel and midfoot with fat layer exposed; E11.610 Type 2 diabetes mellitus with diabetic neuropathic arthropathy; M85.862 Other specified disorders of bone density and structure, left lower leg; E66.01 Morbid (severe) obesity due to excess calories; I96 Gangrene, not elsewhere classified; Z68.42 Body mass index [BMI] 45.0-49.9, adult | CPT/HCPCS: 11042; G0463 ==

== ENCOUNTER → 2019-12-04 | Outpatient (CLI) | payer MEDICAID | LOC: WOUNDCARE 08:31 | PROVIDERS: ATTEND Surgery | DX: E11.52 Type 2 diabetes mellitus with diabetic peripheral angiopathy with gangrene (principal); E11.621 Type 2 diabetes mellitus with foot ulcer; E11.42 Type 2 diabetes mellitus with diabetic polyneuropathy; I96 Gangrene, not elsewhere classified; L97.422 Non-pressure chronic ulcer of left heel and midfoot with fat layer exposed; E11.610 Type 2 diabetes mellitus with diabetic neuropathic arthropathy; M85.862 Other specified disorders of bone density and structure, left lower leg; E66.01 Morbid (severe) obesity due to excess calories; Z68.42 Body mass index [BMI] 45.0-49.9, adult | CPT/HCPCS: 11042; G0463 ==

== ENCOUNTER → 2019-12-18 | Outpatient (CLI) | payer MEDICAID | LOC: WOUNDCARE 08:33 | PROVIDERS: ATTEND Surgery | DX: E11.621 Type 2 diabetes mellitus with foot ulcer (principal); E11.42 Type 2 diabetes mellitus with diabetic polyneuropathy; L97.422 Non-pressure chronic ulcer of left heel and midfoot with fat layer exposed; M14.672 Charcot's joint, left ankle and foot; M85.862 Other specified disorders of bone density and structure, left lower leg; E66.01 Morbid (severe) obesity due to excess calories; E11.52 Type 2 diabetes mellitus with diabetic peripheral angiopathy with gangrene | CPT/HCPCS: 11042; G0463 ==

== ENCOUNTER → 2019-12-25 | Outpatient (CLI) | payer MEDICAID | LOC: WOUNDCARE 08:31 | PROVIDERS: ATTEND Surgery | DX: E11.621 Type 2 diabetes mellitus with foot ulcer (principal); E11.42 Type 2 diabetes mellitus with diabetic polyneuropathy; L97.422 Non-pressure chronic ulcer of left heel and midfoot with fat layer exposed; M14.672 Charcot's joint, left ankle and foot; M85.862 Other specified disorders of bone density and structure, left lower leg; E66.01 Morbid (severe) obesity due to excess calories; E11.52 Type 2 diabetes mellitus with diabetic peripheral angiopathy with gangrene | CPT/HCPCS: 11042; A6207; G0463 ==

== ENCOUNTER → 2019-12-25 | Outpatient (CLI) | payer MEDICAID ==
[2019-12-25 10:04] LABS: BASOPHILS % (AUTO) 0 % (0-10); EOSINOPHILS # (AUTO) 0.1 10^3/uL (0.0-0.3); EOSINOPHILS % (AUTO) 1 % (0-10); HEMATOCRIT 47 % (40-54); HEMOGLOBIN 15.4 G/DL (13.3-17.7); LYMPHOCYTES # (AUTO) 1.2 X 10^3 (1.0-4.0); LYMPHOCYTES % (AUTO) 25 % (12-44); MEAN CORPUSCULAR HEMOGLOBIN 29 PG (25-34); MEAN CORPUSCULAR HGB CONC 33 G/DL (32-36); MEAN CORPUSCULAR VOLUME 88 FL (80-99); MEAN PLATELET VOLUME 10.9 FL (7.4-10.4); MONOCYTES # (AUTO) 0.4 X 10^3 (0.0-1.0); MONOCYTES % (AUTO) 9 % (0-12); NEUTROPHILS # (AUTO) 3.1 X 10^3 (1.8-7.8); NEUTROPHILS % (AUTO) 65 % (42-75); PLATELET COUNT 291 10^3/uL (130-400); WHITE BLOOD COUNT 4.7 10^3/uL (4.3-11.0)
[2019-12-25 10:23] LABS: ALANINE AMINOTRANSFERASE 29 U/L (0-55); ALBUMIN 3.9 GM/DL (3.2-4.5); ALKALINE PHOSPHATASE 136 U/L (40-136); BILIRUBIN,TOTAL 0.5 MG/DL (0.1-1.0); BUN/CREATININE RATIO 20; CALCIUM 9.3 MG/DL (8.5-10.1); CARBON DIOXIDE 26 MMOL/L (21-32); CHLORIDE 100 MMOL/L (98-107); CREATININE SERUM 1.05 MG/DL (0.60-1.30); GFR ESTIMATED > 60; GLUCOSE 96 MG/DL (70-105); POTASSIUM 4.1 MMOL/L (3.6-5.0); SODIUM 137 MMOL/L (135-145); TOTAL PROTEIN 7.4 GM/DL (6.4-8.2)
== END ==
LOC: LAB 09:46
PROVIDERS: ATTEND Surgery
DX: E11.621 Type 2 diabetes mellitus with foot ulcer (principal); E11.42 Type 2 diabetes mellitus with diabetic polyneuropathy; L97.422 Non-pressure chronic ulcer of left heel and midfoot with fat layer exposed; M14.672 Charcot's joint, left ankle and foot; M85.862 Other specified disorders of bone density and structure, left lower leg; E66.01 Morbid (severe) obesity due to excess calories
CPT/HCPCS: 36415; 80053; 83036; 85025

== ENCOUNTER → 2020-01-01 | Outpatient (CLI) | payer MEDICAID ==
[~2020-01-01] MED LIST changes: +FURO-125 PO; +POTA10CA43 PO
== END ==
LOC: WOUNDCARE 08:35
PROVIDERS: ATTEND Surgery
DX: E11.621 Type 2 diabetes mellitus with foot ulcer (principal); E11.42 Type 2 diabetes mellitus with diabetic polyneuropathy; L97.412 Non-pressure chronic ulcer of right heel and midfoot with fat layer exposed; M14.672 Charcot's joint, left ankle and foot; M85.862 Other specified disorders of bone density and structure, left lower leg; E66.01 Morbid (severe) obesity due to excess calories; E11.52 Type 2 diabetes mellitus with diabetic peripheral angiopathy with gangrene
CPT/HCPCS: 11042; G0463

== ENCOUNTER 2020-01-03 12:39 | Emergency (ER) | payer MEDICAID ==
[~2020-01-03] VITALS: Ht 72 cm; Wt 154.0 kg
[~2020-01-03 12:39] MED LIST changes: -FURO-125 PO; -POTA10CA43 PO
[2020-01-03 13:15] LABS: BASOPHILS % (AUTO) 1 % (0-10); EOSINOPHILS # (AUTO) 0.1 10^3/uL (0.0-0.3); EOSINOPHILS % (AUTO) 1 % (0-10); HEMATOCRIT 49 % (40-54); HEMOGLOBIN 15.7 g/dL (13.3-17.7); LYMPHOCYTES # (AUTO) 1.4 10^3/uL (1.0-4.0); LYMPHOCYTES % (AUTO) 23 % (12-44); MEAN CORPUSCULAR HEMOGLOBIN 28 pg (25-34); MEAN CORPUSCULAR HGB CONC 32 g/dL (32-36); MEAN CORPUSCULAR VOLUME 88 fL (80-99); MONOCYTES # (AUTO) 0.5 10^3/uL (0.0-1.0); MONOCYTES % (AUTO) 8 % (0-12); NEUTROPHILS # (AUTO) 3.9 10^3/uL (1.8-7.8); NEUTROPHILS % (AUTO) 67 % (42-75); PLATELET COUNT 317 10^3/uL (130-400); WHITE BLOOD COUNT 5.9 10^3/uL (4.3-11.0)
[2020-01-03 13:35] LABS: ALBUMIN 4.1 GM/DL (3.2-4.5); CHLORIDE 97 MMOL/L (98-107); POTASSIUM 3.9 MMOL/L (3.6-5.0); SODIUM 136 MMOL/L (135-145)
[2020-01-03 13:37] LABS: CALCIUM 9.7 MG/DL (8.5-10.1)
[2020-01-03 13:38] LABS: GLUCOSE 106 MG/DL (70-105); TOTAL PROTEIN 7.8 GM/DL (6.4-8.2)
[2020-01-03 13:39] LABS: CARBON DIOXIDE 25 MMOL/L (21-32)
[2020-01-03 13:40] LABS: BILIRUBIN,TOTAL 0.6 MG/DL (0.1-1.0)
[2020-01-03 13:41] LABS: ALKALINE PHOSPHATASE 136 U/L (40-136); CREATININE SERUM 1.25 MG/DL (0.60-1.30); GFR ESTIMATED > 60
[2020-01-03 13:43] LABS: BUN/CREATININE RATIO 15
[2020-01-03 13:44] LABS: ALANINE AMINOTRANSFERASE 24 U/L (0-55)
--- NOTE | 2020-01-03 13:54 | Diagnostic Imaging Report ---
INDICATION: Pleural effusion. EXAMINATION: PA and lateral chest obtained at 01:42 p.m. Comparison made to 04/22/2019. FINDINGS: There is a large right pleural effusion, occupying over half the right pleural space. There is some passive atelectasis or infiltrate in the right base. There is no pneumothorax. Left lung is clear. There is no left-sided pleural effusion. IMPRESSION: Large right pleural effusion with some passive atelectasis versus infiltrate in the right base. Dictated by: Dictated on workstation # [id number]
[2020-01-03] MEDS ORDERED: IOHEXOL 350 MG/ML 100 ML (OMNIPAQUE 350) VIAL IV ONE (14:45)
[2020-01-03] MEDS ORDERED: CATHETER FLUSH 10 ML SYR IV PRN (14:45)
[2020-01-03] MEDS ORDERED: NS 100 ML (IVPB) BAG IV ONE (14:45)
[2020-01-03] MEDS ORDERED: HOLD METFORMIN - RECEIVED CONTRAST 20 ML VIAL IV SCH (14:45)
--- NOTE | 2020-01-03 14:49 | ED Respiratory ---
General Chief Complaint: Respiratory Problems Stated Complaint: SOA;FLUID IN R LUNG Nursing Triage Note: PT ARRIVES TO ER WITH C/O SOB ON EXERSION STARTING MONDAY THIS WEEK 12/29 AND HAS NOT GOTTEN BTTER. PT STATES HE HAS STARTED PT AT [facility] AND SAW THE DOCTOR WHILE THERE FOR THE SOB AND THEY SENT HIM TO THE ER TODAY FOR A POSSIBLE PLEURAL EFFUSION. Source: patient, other ([facility] provider) Exam Limitations: no limitations History of Present Illness Date Seen by Provider: Jan 03, 2020 Time Seen by Provider: 12:47 Initial Comments This 49-year-old gentleman presents to the emergency room as directed by the [facility] clinic for reasons of progressive dyspnea on exertion and findings of right pleural effusion on chest x-ray. Oxygen saturation is in the low 90s on room air. He denies any fever or cough. He has chronic lower extremity edema for which she has been taking hydrochlorothiazide. He has had a recent wound care for a wound on his left foot. He has Charcot foot and a healing open wound. He has been nonweightbearing while this wound heals. He denies any prior history of pulmonary problems. He has no cancer history. He has remote smoking history. Allergies and Home Medications Allergies Coded Allergies: No Known Drug Allergies (Unverified , 03/16/14) Home Medications Aspirin 81 Mg Tab.chew, 81 MG DAILY, (Reported) Atorvastatin Calcium 80 Mg Tablet, 80 MG PO HS, (Reported) Cefepime HCl/Dextrose, Iso-Osm 2 Gm/100 Ml Froz.piggy, 2 GM IV BID Prescribed by: CRISTHIAN AMBROSIO on 04/25/19 1235 Cyclobenzaprine HCl 10 Mg Tablet, 10 MG PO TID PRN for MUSCLE SPASMS, (Reported) Enoxaparin Sodium 40 Mg/0.4 Ml Syringe, 40 MG SQ Q12H Prescribed by: CRISTHIAN AMBROSIO on 04/25/19 1235 Furosemide 20 Mg Tablet, 20 MG PO DAILY PRN for SHORTNESS OF BREATH Prescribed by: CHRISSIE YUAN on 01/03/20 1457 Gabapentin 600 Mg Tablet, 600 MG PO TID, (Reported) Glyburide 5 Mg Tablet, 10 MG PO BID, (Reported) TAKES 2 (5MG) TABS TO EQUAL 10 MG TWICE DAILY Latanoprost 2.5 Ml Drops, 1 DROP OU DAILY, (Reported) Liraglutide 0.6 Mg/0.1 Ml Pen.injctr, 1.8 MG SQ DAILY, (Reported) Lisinopril 40 Mg Tablet, 40 MG PO DAILY, (Reported) Naproxen 500 Mg Tablet, 500 MG PO BID, (Reported) Omeprazole 20 Mg Capsule.dr, 20 MG PO DAILY, (Reported) Pioglitazone HCl 45 Mg Tablet, 45 MG PO DAILY, (Reported) Potassium Chloride 10 Meq Tablet.er, 10 MEQ PO DAILY@0700 Prescribed by: CRISTHIAN AMBROSIO on 04/25/19 1235 Potassium Chloride 10 Meq Capsule.er, 10 MEQ PO DAILY Use with Lasix only. Prescribed by: CHRISSIE YUAN on 01/03/20 1457 Propranolol HCl 40 Mg Tablet, 40 MG PO BID, (Reported) Terbinafine HCl 15 Gm Cream..g., TOP BID, (Reported) Patient Home Medication List Home Medication List Reviewed: Yes Review of Systems Review of Systems Constitutional: no symptoms reported EENTM: no symptoms reported Respiratory: see HPI Cardiovascular: no symptoms reported Gastrointestinal: no symptoms reported Genitourinary: no symptoms reported Musculoskeletal: see HPI Skin: see HPI Psychiatric/Neurological: No Symptoms Reported Hematologic/Lymphatic: No Symptoms Reported Immunological/Allergic: no symptoms reported Past Eagahha-Xrcnid-Ltzcgl Hx Past Med/Social Hx: Reviewed Nursing Past Med/Soc Hx Patient Social History Alcohol Use: Denies Use Recreational Drug Use: No (SMOKES 1 PPD) Smoking Status: Former Smoker Type Used: Cigarettes Former Smoker, Quit: Sep 26, 2011 Recent Foreign Travel: No Contact w/Someone Who Travel: No Recent Infectious Disease Expo: No Recent Hopitalizations: No Immunizations Up To Date Tetanus Booster (TDap): Unknown Date of Influenza Vaccine: Dec 29, 2019 Seasonal Allergies Seasonal Allergies: Yes Past Medical History Surgeries: Yes (HERNIA AGE 1, HEART CATH, urethreal stricture, left big toe os teoectomy) Abdominal, Cardiac, Orthopedic, Tonsillectomy Respiratory: Yes (going to get a sleep study done) Currently Using CPAP: No Currently Using BIPAP: No Cardiac: Yes High Cholesterol, Hypertension Neurological: Yes Neuropathy Reproductive Disorders: No Sexually Transmitted Disease: No HIV/AIDS: No Genitourinary: No Gastrointestinal: No Musculoskeletal: Yes (open wound on left big toe, 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) Endocrine: Yes Diabetes, Non-Insulin dep Hearing Impairment: Denies Cancer: No Psychosocial: No Integumentary: No Pruritis Blood Disorders: No Adverse Reaction/Blood Tranf: No Family Medical History Reviewed Nursing Family Hx Chest pain 03 MOTHER, Onset:Unknown Congestive heart failure 03 MOTHER, Onset:Unknown Family history: Cardiovascular disease 03 MOTHER, Onset:Unknown Family history: Coronary thrombosis 03 MOTHER, Onset:Unknown Family history: Diabetes mellitus 03 FATHER, Onset:Unknown 03 MOTHER, Onset:Unknown 09 BROTHER, Onset:Unknown Family history: Glaucoma 03 MOTHER, Onset:Unknown Family history: Hypertension 03 FATHER, Onset:Unknown 03 MOTHER, Onset:Unknown 09 BROTHER, Onset:Unknown Heart disease 03 MOTHER, Onset:Unknown Hypercholesterolemia 03 FATHER, Onset:Unknown 03 MOTHER, Onset:Unknown 09 BROTHER, Onset:Unknown Myocardial infarction 03 MOTHER, Onset:Unknown Psychotic disorder 03 MOTHER, Onset:Unknown Seizure disorder 03 MOTHER, Onset:Unknown Stroke 03 MOTHER, Onset:Unknown Visual impairment 03 MOTHER, Onset:Unknown No Family History of: Abdominal aortic aneurysm Moody's disease Alcoholism Aphasia Cancer Cancer of colon Cataract Congenital heart disease Cystic fibrosis Dementia Dysphagia Family history: Allergy Family history: Alzheimer's disease Family history: Arthritis Family history: Asthma Family history: Breast disease Family history: Gastrointestinal disease Family history: Osteoporosis Family history: Thyroid disorder Headache Hearing loss Hereditary disease History of - anemia History of - disorder History of - respiratory disease History of drug abuse Human immunodeficiency virus (HIV) seropositivity Infertile Kidney disease Malignant neoplasm of lung Parkinson's disease Prostate cancer Tuberculosis Vascular Disease Physical Exam Vital Signs - First Documented 01/03/20 13:04 Temp 36.6 Pulse 85 Resp 18 B/P (MAP) 139/74 (95) Pulse Ox 93 O2 Delivery Room Air Capillary Refill : Less Than 3 Seconds Height: 6'0.00" Weight: 330lbs. 0.0oz. 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9 4.3-11.0 10^3/uL Red Blood Count 5.53 H 4.30-5.52 10^6/uL Hemoglobin 15.7 13.3-17.7 g/dL Hematocrit 49 40-54 % Mean Corpuscular Volume 88 80-99 fL Mean Corpuscular Hemoglobin 28 25-34 pg Mean Corpuscular Hemoglobin Concent 32 32-36 g/dL Red Cell Distribution Width 14.1 10.0-14.5 % Platelet Count 317 130-400 10^3/uL Mean Platelet Volume 11.0 9.0-12.2 fL Immature Granulocyte % (Auto) 0 % Neutrophils (%) (Auto) 67 42-75 % Lymphocytes (%) (Auto) 23 12-44 % Monocytes (%) (Auto) 8 0-12 % Eosinophils (%) (Auto) 1 0-10 % Basophils (%) (Auto) 1 0-10 % Neutrophils # (Auto) 3.9 1.8-7.8 10^3/uL Lymphocytes # (Auto) 1.4 1.0-4.0 10^3/uL Monocytes # (Auto) 0.5 0.0-1.0 10^3/uL Eosinophils # (Auto) 0.1 0.0-0.3 10^3/uL Basophils # (Auto) 0.0 0.0-0.1 10^3/uL Immature Granulocyte # (Auto) 0.0 0.0-0.1 10^3/uL Sodium Level 136 135-145 MMOL/L Potassium Level 3.9 3.6-5.0 MMOL/L Chloride Level 97 L 98-107 MMOL/L Carbon Dioxide Level 25 21-32 MMOL/L Anion Gap 14 5-14 MMOL/L Blood Urea Nitrogen 19 H 7-18 MG/DL Creatinine 1.25 0.60-1.30 MG/DL Estimat Glomerular Filtration Rate > 60 BUN/Creatinine Ratio 15 Glucose Level 106 H 70-105 MG/DL Calcium Level 9.7 8.5-10.1 MG/DL Corrected Calcium 9.6 8.5-10.1 MG/DL Total Bilirubin 0.6 0.1-1.0 MG/DL Aspartate Amino Transf (AST/SGOT) 23 5-34 U/L Alanine Aminotransferase (ALT/SGPT) 24 0-55 U/L Alkaline Phosphatase 136 40-136 U/L C-Reactive Protein High Sensitivity 0.62 H 0.00-0.50 MG/DL B-Type Natriuretic Peptide < 10.0 <100.0 PG/ML Total Protein 7.8 6.4-8.2 GM/DL Albumin 4.1 3.2-4.5 GM/DL My Orders Orders - CHRISSIE ROGERS MD BNP (01/03/20 12:47) Cbc With Automated Diff (01/03/20 12:47) Comprehensive Metabolic Panel (01/03/20 12:47) Hs C Reactive Protein (01/03/20 12:47) Ed Iv/Invasive Line Start (01/03/20 12:47) Chest Pa/Lat (2 View) (01/03/20 12:47) Ct Chest W (01/03/20 14:35) Iohexol Injection (Omnipaque 350 Mg/Ml 1 (01/03/20 14:45) Received Contrast (Hold Metformin- Contr (01/03/20 14:45) Sodium Chloride Flush (Catheter Flush Sy (01/03/20 14:45) Ns (Ivpb) (Sodium Chloride 0.9% Ivpb Bag (01/03/20 14:45) Medications Given in ED Current Medications Medications Dose Ordered Sig/Reji Route Start Time Stop Time Status Last Admin Dose Admin Iohexol 75 ml ONCE ONCE IV 01/03/20 14:45 01/03/20 14:46 DC 01/03/20 15:05 74 ML Sodium Chloride 10 ml NEEDED PRN IV 01/03/20 14:45 01/03/20 16:04 DC 01/03/20 15:05 10 ML Sodium Chloride 100 ml ONCE ONCE IV 01/03/20 14:45 01/03/20 14:46 DC 01/03/20 15:05 80 ML Vital Signs/I&O 01/03/20 01/03/20 13:04 15:52 Temp 36.6 36.7 Pulse 85 80 Resp 18 17 B/P (MAP) 139/74 (95) 140/72 Pulse Ox 93 95 O2 Delivery Room Air Capillary Refill : Less Than 3 Seconds Blood Pressure Mean: 95 Progress Note #1: Time: 14:54 Progress Note Labs and x-ray reviewed. Case was reviewed with Dr. Bess. He would like to obtain a CT scan and then see the patient on Monday for review and to set up thoracentesis. Progress Note #2: Progress Note CT seem to reveal a simple effusion with no masses or other abnormalities identified. This was communicated to Dr. Bess. Dr. Bess wishes for the patient to arrive 8:00 on Monday for consultation in the clinic. A small quantity of Lasix and potassium were provided to use should the patient have worsening problems with edema or breathing over the weekend. Diagnostic Imaging Diagonstic Imaging: Xray Plain Films/CT/US/NM/MRI: chest Comments Chest x-ray viewed by me and report reviewed. See report below: NAME: ASAF AGUILA [facility] REC#: [id number] PT STATUS: REG ER : 1970 PHYSICIAN: CHRISSIE ROGERS MD ADMIT DATE: 01/03/20/ER Draft Date of Exam:01/03/20 CHEST PA/LAT (2 VIEW) INDICATION: Pleural effusion. EXAMINATION: PA and lateral chest obtained at 01:42 p.m. Comparison made to 04/22/2019. FINDINGS: There is a large right pleural effusion, occupying over half the right pleural space. There is some passive atelectasis or infiltrate in the right base. There is no pneumothorax. Left lung is clear. There is no left-sided pleural effusion. IMPRESSION: Large right pleural effusion with some passive atelectasis versus infiltrate in the right base. Dictated on workstation # [id number] Dict: 01/03/20 1350 Trans: 01/03/20 1354 [id number] Interpreted by: KAMALJIT RUIZ MD Diagonstic Imaging: CT Plain Films/CT/US/NM/MRI: chest Comments NAME: ASAF AGUILA [facility] REC#: [id number] PT STATUS: DEP ER : 1970 PHYSICIAN: CHRISSIE ROGERS MD ADMIT DATE: 01/03/20/ER Signed Date of Exam:01/03/20 CT CHEST W INDICATION: Pleural effusion. TECHNIQUE: Multiple contiguous axial images were obtained through the chest after administration of intravenous contrast. Auto Exposure Controls were utilized during the CT exam to meet ALARA standards for radiation dose reduction. COMPARISON: There is no prior chest CT for comparison. FINDINGS: There is a large nonloculated right pleural effusion, occupying the majority of the right pleural space. There is some probable passive atelectasis of the right lung with only a small area of aerated right lung. There is no mediastinal or hilar adenopathy. There is no left-sided pleural fluid. The left lung appeared clear. Visualized portions of the upper abdomen were unremarkable. IMPRESSION: There is a large nonloculated right pleural effusion, occupying the majority of the right pleural space. There is some passive atelectasis in the right lung. There is no discrete mass lesion. Dictated by: Dictated on workstation # [id number] Dict: 01/03/20 1514 Trans: 01/03/205 AS6 [id number] Interpreted by: KAMALJIT RUIZ MD Electronically signed by: KAMALJIT RUIZ MD 01/03/20 1615 Reviewed: Reviewed by Me Departure Impression Primary Impression: Pleural effusion, right Additional Impression: Dyspnea on exertion Disposition: 01 HOME, SELF-CARE Condition: Stable Departure-Patient Inst. Decision time for Depature: 15:41 Referrals: [facility] (PCP) Primary Care Physician CATIA IBARRA (Family) Primary Care Physician SILVINO BESS DO Patient Instructions: Pleural Effusion (DC) Add. Discharge Instructions: Follow-up at Dr. Bess's clinic at 8:00 on Monday morning. If you have worsening swelling or shortness of breath, use the Lasix and potassium as prescribed. Return to the emergency room if you have worsening symptoms that do not respond to Lasix and potassium. All discharge instructions reviewed with patient and/or family. Voiced understanding. Scripts Potassium Chloride (Potassium Chloride) 10 Meq Capsule.er 10 MEQ PO DAILY, #10 CAP Use with Lasix only. Prov: CHRISSIE ROGERS MD 01/03/20 Furosemide (Lasix) 20 Mg Tablet 20 MG PO DAILY PRN for SHORTNESS OF BREATH, #10 TAB Prov: CHRISSIE ROGERS MD 01/03/20 Copy Copies To 1: SILVINO BESS DO Copies To 2: ROBERTA SAHU DO CHRISSIE ROGERS MD Jan 03, 2020 14:49
[2020-01-03] MEDS ORDERED: POTA10CA43 PO (14:57)
[2020-01-03] MEDS ORDERED: FURO-125 PO (14:57)
--- NOTE | 2020-01-03 15:22 | Diagnostic Imaging Report ---
INDICATION: Pleural effusion. TECHNIQUE: Multiple contiguous axial images were obtained through the chest after administration of intravenous contrast. Auto Exposure Controls were utilized during the CT exam to meet ALARA standards for radiation dose reduction. COMPARISON: There is no prior chest CT for comparison. FINDINGS: There is a large nonloculated right pleural effusion, occupying the majority of the right pleural space. There is some probable passive atelectasis of the right lung with only a small area of aerated right lung. There is no mediastinal or hilar adenopathy. There is no left-sided pleural fluid. The left lung appeared clear. Visualized portions of the upper abdomen were unremarkable. IMPRESSION: There is a large nonloculated right pleural effusion, occupying the majority of the right pleural space. There is some passive atelectasis in the right lung. There is no discrete mass lesion. Dictated by: Dictated on workstation # [id number]
[2020-01-03 15:52] VITALS: BP 140/72
== END 2020-01-03 15:55 | disposition home or self-care (01) ==
LOC: EDUNIT# 12:39 → ER 12:40
DX: J90 Pleural effusion, not elsewhere classified (principal); I10 Essential (primary) hypertension; E11.40 Type 2 diabetes mellitus with diabetic neuropathy, unspecified; E78.00 Pure hypercholesterolemia, unspecified; Z95.9 Presence of cardiac and vascular implant and graft, unspecified; Z82.49 Family history of ischemic heart disease and other diseases of the circulatory system; Z79.82 Long term (current) use of aspirin; Z87.891 Personal history of nicotine dependence
CPT/HCPCS: 36415; 71046; 71260; 80053; 83880; 85025; 86141

== ENCOUNTER → 2020-01-06 | Outpatient (CLI) | payer MEDICAID ==
[~2020-01-06] MED LIST changes: +FURO-125 PO; +POTA10CA43 PO
[2020-01-06 10:49] LABS: PROTHROMBIN TIME PATIENT 13.7 SEC (12.2-14.7)
--- NOTE | 2020-01-06 11:37 | Diagnostic Imaging Report ---
PA and lateral chest at 1006 hours. INDICATION: Dyspnea, pleural effusion. FINDINGS: As noted on the prior exam of 01/03/2020, the right mid lung and right lung base are obscured by atelectasis/infiltrate and fluid. There is also some fluid extending along the periphery of the right upper lobe and there is a small amount of atelectasis/infiltrate in the right upper lobe as well. These findings are similar to the prior exam. The left lung remains generally clear. The heart is stable. The mediastinum is not widened. The osseous structures are intact. IMPRESSION: There is persistent involvement of the right lung by pneumonia/atelectasis and fluid. Overall, there has been no significant change since the prior exam. A follow-up study would be recommended for continued evaluation. Dictated by: Dictated on workstation # [id number]
== END ==
LOC: RAD 09:37
PROVIDERS: ATTEND Internal Medicine Critical Care Medicine
DX: J91.8 Pleural effusion in other conditions classified elsewhere (principal); R91.8 Other nonspecific abnormal finding of lung field
CPT/HCPCS: 36415; 71046; 85610; 85730

== ENCOUNTER 2020-01-08 07:04 | Outpatient (CLI) | payer MEDICAID ==
[~2020-01-08] VITALS: Ht 182.9 cm; Wt 154.0 kg
--- NOTE | 2020-01-08 08:57 | Pulmonary Procedures ---
Pulmonary Procedures Date of Procedure Date of Service: Jan 08, 2020 Procedure: US guided complex thoracentesis Preop DX: pleural effusion post op DX: Same 2 liters of yellow fluid obtained Complications: None After informed consent obtained US was used to localize pleural fluid. Pt has Right pleural effusions. Skin was anesthetized at approximately the 10th ICS posterior axillary line. Thoracentesis needle was advanced through the 10th ICS posterior axillary line. Needle was removed and catheter left in place. 2 liters of yellow fluid obtained using vacuum bottles. Catheter was then removed. Pt tolerated procedure well. No complications noted. SILVINO GUTIERREZ DO Jan 08, 2020 08:57
--- NOTE | 2020-01-08 09:16 | Diagnostic Imaging Report ---
INDICATION: Status post right-sided thoracentesis. COMPARISON: 01/06/2020 FINDINGS: Single frontal radiograph view chest was obtained and demonstrates significant interval decrease in right-sided effusion status post thoracentesis. Mild residual pleural fluid persists. Left lung remains clear. There is no large effusion on the left. No pneumothorax is seen on either side. Cardiac silhouette and pulmonary vasculature stable. Osseous structures show no acute abnormalities. IMPRESSION: 1. No pneumothorax status post right-sided thoracentesis. 2. Significant interval decrease in right-sided pleural fluid. Dictated by: Dictated on workstation # [id number]
[2020-01-08 09:33] LABS: BODY FLUID TRIGLYCERIDES 37 MG/DL; GLUCOSE,BODY FLUID 131 MG/DL; TOTAL PROTEIN,BODY FLUID 4.5 G/DL
[2020-01-08 09:35] LABS: LDH,BODY FLUID 112 U/L
[2020-01-08 09:40] VITALS: BP 163/84
[2020-01-08 12:46] LABS: BODY FLUID SOURCE PLEURAL
[2020-01-08 12:47] LABS: BF OTHER CELLS 21 %; BODY FLUID APPEARENCE SLT CLDY; BODY FLUID COLOR YELLOW; BODY FLUID RBC COUNT 56 /uL; BODY FLUID WBC TOTAL COUNT 453 /uL; LYMPHOCYTES,BODY FLUID 71 %
[2020-01-08 13:02] LABS: BODY FLUID PH 7.7
== END 2020-01-08 09:40 | disposition home or self-care (01) ==
LOC: RAD 07:04
PROVIDERS: ATTEND Internal Medicine Critical Care Medicine
DX: J91.8 Pleural effusion in other conditions classified elsewhere (principal); R91.8 Other nonspecific abnormal finding of lung field
CPT/HCPCS: 32554; 32555; 71045; 76942; 82945; 83615; 83986; 84157; 84478; 87070; 87205; 88112; 88305; 89051

== ENCOUNTER → 2020-01-15 | Outpatient (CLI) | payer MEDICAID | LOC: WOUNDCARE 08:36 | PROVIDERS: ATTEND Surgery | DX: E11.621 Type 2 diabetes mellitus with foot ulcer (principal); E11.42 Type 2 diabetes mellitus with diabetic polyneuropathy; L97.422 Non-pressure chronic ulcer of left heel and midfoot with fat layer exposed; M14.672 Charcot's joint, left ankle and foot; M85.862 Other specified disorders of bone density and structure, left lower leg; E66.01 Morbid (severe) obesity due to excess calories; L92.8 Other granulomatous disorders of the skin and subcutaneous tissue; E11.52 Type 2 diabetes mellitus with diabetic peripheral angiopathy with gangrene | CPT/HCPCS: 11042; G0463 ==

== ENCOUNTER → 2020-01-22 | Outpatient (CLI) | payer MEDICAID | LOC: WOUNDCARE 08:32 | PROVIDERS: ATTEND Surgery | DX: E11.621 Type 2 diabetes mellitus with foot ulcer (principal); E11.42 Type 2 diabetes mellitus with diabetic polyneuropathy; L97.422 Non-pressure chronic ulcer of left heel and midfoot with fat layer exposed; M14.672 Charcot's joint, left ankle and foot; I96 Gangrene, not elsewhere classified; M85.862 Other specified disorders of bone density and structure, left lower leg; E66.01 Morbid (severe) obesity due to excess calories; Z68.42 Body mass index [BMI] 45.0-49.9, adult | CPT/HCPCS: 11042; G0463 ==

== ENCOUNTER → 2020-01-29 | Outpatient (CLI) | payer MEDICAID | LOC: WOUNDCARE 08:26 | PROVIDERS: ATTEND Surgery | DX: I96 Gangrene, not elsewhere classified (principal); E11.621 Type 2 diabetes mellitus with foot ulcer; E11.42 Type 2 diabetes mellitus with diabetic polyneuropathy; L97.422 Non-pressure chronic ulcer of left heel and midfoot with fat layer exposed; M14.672 Charcot's joint, left ankle and foot; M85.862 Other specified disorders of bone density and structure, left lower leg; E66.01 Morbid (severe) obesity due to excess calories; Z68.41 Body mass index [BMI] 40.0-44.9, adult | CPT/HCPCS: 11042; G0463 ==

== ENCOUNTER → 2020-02-05 | Outpatient (CLI) | payer MEDICAID | LOC: WOUNDCARE 08:32 | PROVIDERS: ATTEND Surgery | DX: E11.621 Type 2 diabetes mellitus with foot ulcer (principal); E11.42 Type 2 diabetes mellitus with diabetic polyneuropathy; I96 Gangrene, not elsewhere classified; L97.422 Non-pressure chronic ulcer of left heel and midfoot with fat layer exposed; M14.672 Charcot's joint, left ankle and foot; M85.862 Other specified disorders of bone density and structure, left lower leg; E66.01 Morbid (severe) obesity due to excess calories; Z68.42 Body mass index [BMI] 45.0-49.9, adult | CPT/HCPCS: 11042; G0463 ==

== ENCOUNTER → 2020-02-11 | Outpatient (CLI) | payer MEDICAID ==
[~2020-02-11] MED LIST changes: +HOLD METFORMIN - RECEIVED CONTRAST 20 ML VIAL IV SCH; +IOHEXOL 350 MG/ML 100 ML (OMNIPAQUE 350) VIAL IV ONE; +NS 100 ML (IVPB) BAG IV ONE
[2020-02-11 08:02] LABS: CREATININE SERUM 1.13 MG/DL (0.60-1.30); GFR ESTIMATED > 60
[2020-02-11 08:03] LABS: BUN/CREATININE RATIO 24
--- NOTE | 2020-02-11 09:48 | Diagnostic Imaging Report ---
CT CHEST W TECHNIQUE: Multiple contiguous axial images were obtained through the chest with the use of intravenous contrast. All CT scans use one or more of the following dose optimizing techniques: automated exposure control, MA and/or KvP adjustment based on a patient size and exam type, or iterative reconstruction. INDICATION: Pleural effusion COMPARISON: CT chest of 01/03/2020 FINDINGS: Lungs and airway: No endoluminal nodule within the trachea. There remains total atelectasis of the right lower lobe. Atelectasis within the lingula and upper middle lobe and right upper lobe persists but there is mildly improved aeration since prior exam. No mass, consolidation or suspicious nodule that developed in the left lung. Pleura: Large right-sided pleural effusion persists and maintains a simple attenuation. This effusion has mildly decreased in size since prior examination. No left-sided pleural effusion. Heart and mediastinum: Thyroid is normal. No supraclavicular or axillary lymphadenopathy. No mediastinal hilar lymphadenopathy. Anterior juxtaphrenic lymph node on the right is stable in size with a short axis dimension of 0.6 cm. Heart is normal in size without pericardial effusion. Normal caliber thoracic aorta. Upper abdomen: No acute abnormality upper abdomen. Musculoskeletal: No worrisome focal osseous lesion. IMPRESSION: 1. Large right pleural effusion has mildly decreased in size since prior examination but does continue to result in complete atelectasis of the right lower lobe. Aeration of the right middle and upper lobe has mildly improved since prior exam. 2. No new abnormality. Dictated by: Dictated on workstation # [id number]
== END ==
LOC: RAD 08:15
PROVIDERS: ATTEND Nurse Practitioner Family
DX: J91.8 Pleural effusion in other conditions classified elsewhere (principal)
CPT/HCPCS: 36415; 71260; 82565; 84520

== ENCOUNTER → 2020-02-19 | Outpatient (CLI) | payer MEDICAID ==
[~2020-02-19] MED LIST changes: -HOLD METFORMIN - RECEIVED CONTRAST 20 ML VIAL IV SCH; -IOHEXOL 350 MG/ML 100 ML (OMNIPAQUE 350) VIAL IV ONE; -NS 100 ML (IVPB) BAG IV ONE
== END ==
LOC: WOUNDCARE 08:39
PROVIDERS: ATTEND Surgery
DX: E11.621 Type 2 diabetes mellitus with foot ulcer (principal); E11.42 Type 2 diabetes mellitus with diabetic polyneuropathy; L97.422 Non-pressure chronic ulcer of left heel and midfoot with fat layer exposed; M14.672 Charcot's joint, left ankle and foot; M85.842 Other specified disorders of bone density and structure, left hand; I96 Gangrene, not elsewhere classified; E66.01 Morbid (severe) obesity due to excess calories; Z68.42 Body mass index [BMI] 45.0-49.9, adult
CPT/HCPCS: 11042; G0463

== ENCOUNTER 2020-02-24 08:22 | Outpatient (CLI) | payer MEDICAID | END 2020-02-24 09:20 | disposition home or self-care (01) | LOC: CARD 08:22 | PROVIDERS: ATTEND Nurse Practitioner Family | DX: I51.7 Cardiomegaly (principal); J91.8 Pleural effusion in other conditions classified elsewhere; G47.10 Hypersomnia, unspecified; R91.8 Other nonspecific abnormal finding of lung field | CPT/HCPCS: 93306 ==

== ENCOUNTER → 2020-02-26 | Outpatient (CLI) | payer MEDICAID | LOC: WOUNDCARE 08:36 | PROVIDERS: ATTEND Surgery | DX: E11.621 Type 2 diabetes mellitus with foot ulcer (principal); E11.42 Type 2 diabetes mellitus with diabetic polyneuropathy; I96 Gangrene, not elsewhere classified; L97.422 Non-pressure chronic ulcer of left heel and midfoot with fat layer exposed; M14.672 Charcot's joint, left ankle and foot; M85.862 Other specified disorders of bone density and structure, left lower leg; E66.01 Morbid (severe) obesity due to excess calories; Z68.42 Body mass index [BMI] 45.0-49.9, adult | CPT/HCPCS: 11042; G0463 ==

== ENCOUNTER → 2020-03-04 | Outpatient (CLI) | payer MEDICAID | LOC: WOUNDCARE 08:34 | PROVIDERS: ATTEND Surgery | DX: E11.621 Type 2 diabetes mellitus with foot ulcer (principal); E11.42 Type 2 diabetes mellitus with diabetic polyneuropathy; I96 Gangrene, not elsewhere classified; L97.422 Non-pressure chronic ulcer of left heel and midfoot with fat layer exposed; M14.672 Charcot's joint, left ankle and foot; M85.862 Other specified disorders of bone density and structure, left lower leg; E66.01 Morbid (severe) obesity due to excess calories; Z68.42 Body mass index [BMI] 45.0-49.9, adult | CPT/HCPCS: 11042; G0463 ==

== ENCOUNTER → 2020-03-11 | Outpatient (CLI) | payer MEDICAID | LOC: WOUNDCARE 08:29 | PROVIDERS: ATTEND Surgery | DX: E11.621 Type 2 diabetes mellitus with foot ulcer (principal); E11.42 Type 2 diabetes mellitus with diabetic polyneuropathy; I96 Gangrene, not elsewhere classified; M14.672 Charcot's joint, left ankle and foot; M85.862 Other specified disorders of bone density and structure, left lower leg; E66.01 Morbid (severe) obesity due to excess calories; L97.422 Non-pressure chronic ulcer of left heel and midfoot with fat layer exposed; Z68.42 Body mass index [BMI] 45.0-49.9, adult | CPT/HCPCS: 11042; A6207; A6234; G0463 ==

== ENCOUNTER → 2020-03-18 | Outpatient (CLI) | payer MEDICAID | LOC: WOUNDCARE 08:32 | PROVIDERS: ATTEND Surgery | DX: E11.621 Type 2 diabetes mellitus with foot ulcer (principal); E11.42 Type 2 diabetes mellitus with diabetic polyneuropathy; L97.422 Non-pressure chronic ulcer of left heel and midfoot with fat layer exposed; M14.672 Charcot's joint, left ankle and foot; M85.862 Other specified disorders of bone density and structure, left lower leg; E66.01 Morbid (severe) obesity due to excess calories; I96 Gangrene, not elsewhere classified; Z68.42 Body mass index [BMI] 45.0-49.9, adult | CPT/HCPCS: 11042; A6234; G0463 ==

== ENCOUNTER → 2020-03-25 | Outpatient (CLI) | payer MEDICAID | LOC: WOUNDCARE 08:36 | PROVIDERS: ATTEND Surgery | DX: E11.621 Type 2 diabetes mellitus with foot ulcer (principal); E11.42 Type 2 diabetes mellitus with diabetic polyneuropathy; L97.422 Non-pressure chronic ulcer of left heel and midfoot with fat layer exposed; M14.672 Charcot's joint, left ankle and foot; M85.862 Other specified disorders of bone density and structure, left lower leg; E66.01 Morbid (severe) obesity due to excess calories; I96 Gangrene, not elsewhere classified; Z68.42 Body mass index [BMI] 45.0-49.9, adult | CPT/HCPCS: 11042; A6234; G0463 ==

== ENCOUNTER → 2020-04-01 | Outpatient (CLI) | payer MEDICAID | LOC: WOUNDCARE 08:31 | PROVIDERS: ATTEND Surgery | DX: E11.621 Type 2 diabetes mellitus with foot ulcer (principal); E11.42 Type 2 diabetes mellitus with diabetic polyneuropathy; L97.422 Non-pressure chronic ulcer of left heel and midfoot with fat layer exposed; M14.672 Charcot's joint, left ankle and foot; M85.862 Other specified disorders of bone density and structure, left lower leg; E66.01 Morbid (severe) obesity due to excess calories; I96 Gangrene, not elsewhere classified; Z68.42 Body mass index [BMI] 45.0-49.9, adult | CPT/HCPCS: 11042; A6197; G0463 ==

== ENCOUNTER → 2020-04-08 | Outpatient (CLI) | payer MEDICAID ==
[2020-04-08 10:14] LABS: BASOPHILS % (AUTO) 0 % (0-10); EOSINOPHILS # (AUTO) 0.1 10^3/uL (0.0-0.3); EOSINOPHILS % (AUTO) 2 % (0-10); HEMATOCRIT 45 % (40-54); HEMOGLOBIN 14.1 g/dL (13.3-17.7); LYMPHOCYTES # (AUTO) 0.6 10^3/uL (1.0-4.0); LYMPHOCYTES % (AUTO) 13 % (12-44); MEAN CORPUSCULAR HEMOGLOBIN 28 pg (25-34); MEAN CORPUSCULAR HGB CONC 32 g/dL (32-36); MEAN CORPUSCULAR VOLUME 87 fL (80-99); MEAN PLATELET VOLUME 11.4 fL (9.0-12.2); MONOCYTES # (AUTO) 0.4 10^3/uL (0.0-1.0); MONOCYTES % (AUTO) 9 % (0-12); NEUTROPHILS # (AUTO) 3.4 10^3/uL (1.8-7.8); NEUTROPHILS % (AUTO) 75 % (42-75); PLATELET COUNT 244 10^3/uL (130-400); WHITE BLOOD COUNT 4.5 10^3/uL (4.3-11.0)
[2020-04-08 10:42] LABS: ALBUMIN 3.8 GM/DL (3.2-4.5); BILIRUBIN,TOTAL 0.4 MG/DL (0.1-1.0); CALCIUM 9.4 MG/DL (8.5-10.1); CREATININE SERUM 1.29 MG/DL (0.60-1.30); POTASSIUM 3.9 MMOL/L (3.6-5.0); TOTAL PROTEIN 7.7 GM/DL (6.4-8.2)
== END ==
LOC: LAB 09:49
PROVIDERS: ATTEND Surgery
DX: E11.621 Type 2 diabetes mellitus with foot ulcer (principal); E11.42 Type 2 diabetes mellitus with diabetic polyneuropathy; L97.422 Non-pressure chronic ulcer of left heel and midfoot with fat layer exposed; M14.672 Charcot's joint, left ankle and foot; M85.862 Other specified disorders of bone density and structure, left lower leg; E66.01 Morbid (severe) obesity due to excess calories
CPT/HCPCS: 36415; 80053; 83036; 85025

== ENCOUNTER → 2020-04-08 | Outpatient (CLI) | payer MEDICAID | LOC: WOUNDCARE 08:35 | PROVIDERS: ATTEND Surgery | DX: E11.621 Type 2 diabetes mellitus with foot ulcer (principal); E11.42 Type 2 diabetes mellitus with diabetic polyneuropathy; L97.222 Non-pressure chronic ulcer of left calf with fat layer exposed; M14.672 Charcot's joint, left ankle and foot; M85.862 Other specified disorders of bone density and structure, left lower leg; E66.01 Morbid (severe) obesity due to excess calories; E11.52 Type 2 diabetes mellitus with diabetic peripheral angiopathy with gangrene | CPT/HCPCS: 11042; G0463 ==

== ENCOUNTER → 2020-04-15 | Outpatient (CLI) | payer MEDICAID | LOC: WOUNDCARE 08:35 | PROVIDERS: ATTEND Surgery | DX: E11.621 Type 2 diabetes mellitus with foot ulcer (principal); E11.42 Type 2 diabetes mellitus with diabetic polyneuropathy; L97.422 Non-pressure chronic ulcer of left heel and midfoot with fat layer exposed; M14.672 Charcot's joint, left ankle and foot; M85.862 Other specified disorders of bone density and structure, left lower leg; E66.01 Morbid (severe) obesity due to excess calories; E11.52 Type 2 diabetes mellitus with diabetic peripheral angiopathy with gangrene | CPT/HCPCS: 11042; G0463 ==

== ENCOUNTER → 2020-04-22 | Outpatient (CLI) | payer MEDICAID | LOC: WOUNDCARE 08:59 | PROVIDERS: ATTEND Orthopaedic Surgery Hand Surgery | DX: E11.621 Type 2 diabetes mellitus with foot ulcer (principal); E11.42 Type 2 diabetes mellitus with diabetic polyneuropathy; L97.422 Non-pressure chronic ulcer of left heel and midfoot with fat layer exposed; I96 Gangrene, not elsewhere classified; M14.672 Charcot's joint, left ankle and foot; M85.862 Other specified disorders of bone density and structure, left lower leg; E66.01 Morbid (severe) obesity due to excess calories; Z68.41 Body mass index [BMI] 40.0-44.9, adult | CPT/HCPCS: 11042; G0463 ==

== ENCOUNTER → 2020-04-29 | Outpatient (CLI) | payer MEDICAID ==
[~2020-04-29] MED LIST changes: +GLBR5T PO
== END ==
LOC: WOUNDCARE 08:30
PROVIDERS: ATTEND Surgery
DX: B35.3 Tinea pedis (principal); E11.621 Type 2 diabetes mellitus with foot ulcer; E11.42 Type 2 diabetes mellitus with diabetic polyneuropathy; L97.422 Non-pressure chronic ulcer of left heel and midfoot with fat layer exposed; M14.672 Charcot's joint, left ankle and foot; M85.862 Other specified disorders of bone density and structure, left lower leg; E66.01 Morbid (severe) obesity due to excess calories
CPT/HCPCS: 11042

== ENCOUNTER → 2020-05-05 | Outpatient (CLI) | payer MEDICAID | LOC: WOUNDCARE 08:33 | PROVIDERS: ATTEND Orthopaedic Surgery Hand Surgery | DX: E11.621 Type 2 diabetes mellitus with foot ulcer (principal); E11.42 Type 2 diabetes mellitus with diabetic polyneuropathy; I96 Gangrene, not elsewhere classified; B35.3 Tinea pedis; L97.422 Non-pressure chronic ulcer of left heel and midfoot with fat layer exposed; M14.672 Charcot's joint, left ankle and foot; M85.862 Other specified disorders of bone density and structure, left lower leg; E66.01 Morbid (severe) obesity due to excess calories; Z68.41 Body mass index [BMI] 40.0-44.9, adult | CPT/HCPCS: 11042; G0463 ==

== ENCOUNTER → 2020-05-07 | Outpatient (CLI) | payer MEDICAID | LOC: WOUNDCARE 09:28 | PROVIDERS: ATTEND Surgery | DX: E11.621 Type 2 diabetes mellitus with foot ulcer (principal); E11.42 Type 2 diabetes mellitus with diabetic polyneuropathy; I96 Gangrene, not elsewhere classified; L97.422 Non-pressure chronic ulcer of left heel and midfoot with fat layer exposed; M14.672 Charcot's joint, left ankle and foot; M85.862 Other specified disorders of bone density and structure, left lower leg; E66.01 Morbid (severe) obesity due to excess calories; Z68.41 Body mass index [BMI] 40.0-44.9, adult | CPT/HCPCS: 29445; G0463 ==

== ENCOUNTER → 2020-05-13 | Outpatient (CLI) | payer MEDICAID | LOC: WOUNDCARE 08:35 | PROVIDERS: ATTEND Surgery | DX: E11.621 Type 2 diabetes mellitus with foot ulcer (principal); E11.42 Type 2 diabetes mellitus with diabetic polyneuropathy; I96 Gangrene, not elsewhere classified; L97.422 Non-pressure chronic ulcer of left heel and midfoot with fat layer exposed; M14.672 Charcot's joint, left ankle and foot; M85.862 Other specified disorders of bone density and structure, left lower leg; E66.01 Morbid (severe) obesity due to excess calories; Z68.41 Body mass index [BMI] 40.0-44.9, adult | CPT/HCPCS: 11042; G0463 ==

== ENCOUNTER → 2020-05-20 | Outpatient (CLI) | payer MEDICAID | LOC: WOUNDCARE 08:33 | PROVIDERS: ATTEND Surgery | DX: E11.621 Type 2 diabetes mellitus with foot ulcer (principal); E11.42 Type 2 diabetes mellitus with diabetic polyneuropathy; I96 Gangrene, not elsewhere classified; L97.422 Non-pressure chronic ulcer of left heel and midfoot with fat layer exposed; M14.672 Charcot's joint, left ankle and foot; M85.862 Other specified disorders of bone density and structure, left lower leg; E66.01 Morbid (severe) obesity due to excess calories; Z68.41 Body mass index [BMI] 40.0-44.9, adult | CPT/HCPCS: 11042; G0463 ==

== ENCOUNTER → 2020-05-27 | Outpatient (CLI) | payer MEDICAID ==
[~2020-05-27] MED LIST changes: -LISI40TA PO; +LISI40TA9 PO
== END ==
LOC: WOUNDCARE 09:04
PROVIDERS: ATTEND Orthopaedic Surgery Hand Surgery
DX: E11.621 Type 2 diabetes mellitus with foot ulcer (principal); E11.42 Type 2 diabetes mellitus with diabetic polyneuropathy; I96 Gangrene, not elsewhere classified; L97.422 Non-pressure chronic ulcer of left heel and midfoot with fat layer exposed; M14.672 Charcot's joint, left ankle and foot; M85.862 Other specified disorders of bone density and structure, left lower leg; E66.01 Morbid (severe) obesity due to excess calories; Z68.41 Body mass index [BMI] 40.0-44.9, adult
CPT/HCPCS: 11042; G0463

== ENCOUNTER → 2020-06-03 | Outpatient (CLI) | payer MEDICAID | LOC: WOUNDCARE 08:30 | PROVIDERS: ATTEND Surgery | DX: E11.621 Type 2 diabetes mellitus with foot ulcer (principal); E11.42 Type 2 diabetes mellitus with diabetic polyneuropathy; L97.422 Non-pressure chronic ulcer of left heel and midfoot with fat layer exposed; M14.672 Charcot's joint, left ankle and foot; M85.862 Other specified disorders of bone density and structure, left lower leg; E66.01 Morbid (severe) obesity due to excess calories; Z68.41 Body mass index [BMI] 40.0-44.9, adult | CPT/HCPCS: 29445; G0463 ==

== ENCOUNTER → 2020-06-11 | Outpatient (CLI) | payer MEDICAID | LOC: WOUNDCARE 09:00 | PROVIDERS: ATTEND Orthopaedic Surgery Hand Surgery | DX: L91.0 Hypertrophic scar (principal) | CPT/HCPCS: 99212 ==

== ENCOUNTER → 2021-07-13 | Outpatient (CLI) | payer MEDICAID ==
[~2021-07-13] MED LIST changes: +CYCL10TA25 PO; +POTA-160 PO; -POTA10TA6 PO
== END ==
LOC: CARD 08:30
PROVIDERS: ATTEND Internal Medicine Cardiovascular Disease
DX: I25.10 Atherosclerotic heart disease of native coronary artery without angina pectoris (principal); I51.7 Cardiomegaly
CPT/HCPCS: 93306

== ENCOUNTER → 2021-07-16 | Outpatient (CLI) | payer MEDICAID ==
[~2021-07-16] VITALS: Ht 183 cm; Wt 159.0 kg
[~2021-07-16] MED LIST changes: +CATHETER FLUSH 10 ML SYR IVP PRN; +REGADENOSON 0.4 MG/5 ML SYR (LEXISCAN) IV ONE
[2021-07-16 09:12] VITALS: BP 171/92
--- NOTE | 2021-07-21 10:43 | STRESS TEST ---
DATE OF SERVICE: 07/16/2021 RESTING AND POST REGADENOSON TECHNETIUM-99M TETROFOSMIN SPECT CT IMAGING ORDERING PHYSICIAN: Dr. Dias. PRIMARY PHYSICIAN: [facility]. CLINICAL DIAGNOSIS: Coronary artery disease. Baseline images were carried out after injection of 10.16 mCi of technetium-99m Tetrofosmin. This was followed by 0.4 mg regadenoson and 30.4 mCi of technetium-99m Tetrofosmin for stress imaging. The electrocardiogram showed sinus rhythm. There were isolated premature ventricular contractions. There was one couplet of premature ventricular contractions, as well. The patient noted a feeling of a rapid heartbeat, which resolved in a few minutes. Overall, he tolerated the procedure well. Review of images at rest and following stress indicates a small to moderate sized basal inferior perfusion defect that appears transient. Gated images show normal global left ventricular systolic function with normal regional wall motion. Left ventricular ejection fraction is calculated to be 82%. CONCLUSIONS: 1. This study is suggestive of a small to moderate amount of basal inferior ischemia. 2. Normal regional wall motion. 3. Normal to hyperdynamic left ventricular systolic function with a calculated ejection fraction of 82%. Job ID: [id number] DocumentID: [id number] Dictated Date: 07/21/2021 09:18:09 Account Liaison Date: 07/21/2021 10:43:10 Dictated By: TANESHA DIAS MD, MA, FACP, FACC,
== END ==
LOC: CARD 08:15
PROVIDERS: ATTEND Internal Medicine Cardiovascular Disease
DX: I25.10 Atherosclerotic heart disease of native coronary artery without angina pectoris (principal)
CPT/HCPCS: 78452; 93017; A9502

== ENCOUNTER 2021-08-10 09:00 | Day surgery (SDC) | payer MEDICAID ==
[2021-08-10] VITALS (18 sets, daily range): BP systolic 89–147; BP diastolic 43–75
[~2021-08-10] VITALS: Ht 182.8 cm; Wt 159.0 kg
[2021-08-10 08:22] LABS: HEMATOCRIT 42 % (40-54); HEMOGLOBIN 13.2 g/dL (13.3-17.7); MEAN CORPUSCULAR HEMOGLOBIN 28 pg (25-34); MEAN CORPUSCULAR HGB CONC 32 g/dL (32-36); MEAN CORPUSCULAR VOLUME 88 fL (80-99); WHITE BLOOD COUNT 6.2 10^3/uL (4.3-11.0)
[2021-08-10 08:23] LABS: MEAN PLATELET VOLUME 11.5 fL (9.0-12.2); PLATELET COUNT 234 10^3/uL (130-400)
[2021-08-10 08:33] LABS: ALBUMIN 4.1 GM/DL (3.2-4.5); POTASSIUM 3.8 MMOL/L (3.6-5.0)
[2021-08-10 08:34] LABS: CALCIUM 9.7 MG/DL (8.5-10.1)
[2021-08-10 08:36] LABS: TOTAL PROTEIN 7.5 GM/DL (6.4-8.2)
[2021-08-10 08:37] LABS: BILIRUBIN,TOTAL 0.7 MG/DL (0.1-1.0)
[2021-08-10 08:38] LABS: PROTHROMBIN TIME PATIENT 13.5 SEC (12.2-14.7)
[2021-08-10 08:39] LABS: CREATININE SERUM 1.38 MG/DL (0.60-1.30)
[~2021-08-10 09:00] MED LIST changes: +AMLO-251 PO; -CATHETER FLUSH 10 ML SYR IVP PRN; +CLOP75TA69 PO; +GABA800T10 PO; +HEParin (CATH LAB) 2,000 ML IV ONE; +LIDOCAINE 1% INJ 20 ML VIAL ONE; +NITR0.4T42 SL; +NS IV 1000 ML 1,000 ML IV SCH; +NS IV 1000 ML 1,000 ML ONE; +POLY454P4 MC; -REGADENOSON 0.4 MG/5 ML SYR (LEXISCAN) IV ONE
[2021-08-10] MEDS ORDERED: MIDAZOLAM 5 MG/5 ML (VERSED) VIAL ONE (09:45)
[2021-08-10] MEDS ORDERED: fentaNYL INJ 100 MCG/2 ML AMP ONE (09:45)
[2021-08-10] MEDS ORDERED: HEParin 1000 UNIT/ML (10ML VIAL) FOR BOLUS ONE (10:28)
[2021-08-10] MEDS ORDERED: ADENOSINE 90 MG/30 ML (ADENOSCAN) VIAL IV ONE (10:28)
[2021-08-10] MEDS ORDERED: EPTIFIBATIDE BOLUS 30 ML IV ONE (10:33)
[2021-08-10] MEDS ORDERED: NITRO DRIP 25000 MCG/D5W 250 ML IV ONE (10:41)
[2021-08-10] MEDS ORDERED: CLOPIDOGREL 75 MG (PLAVIX) TABLET ONE (10:46)
[2021-08-10] MEDS ORDERED: ASPIRIN 81 MG CHEW (CHILDREN'S ASA) ONE (10:46)
--- NOTE | 2021-08-10 10:52 | Cardiac Procedure Note-CS/ASA ---
Pre-Procedure Note Pre-Op Procedure Note H&P Reviewed The H&P was reviewed, patient examined and no changes noted. Date H&P Reviewed: August 10, 2021 Time H&P Reviewed: 10:00 Conscious Sedation Pre-Proced Time 10:00 ASA Score 3 For ASA 3 and 4: Consider anesthesia and medical clearance. Also, for patients with a history of failed moderate sedation consider anesthesia. Airway Lungs Heart ASA score ASA 1: a normal healthy patient ASA 2: a patient with a mild systemic disease (mid diabetes, controlled hypertension, obesity ASA 3: a patient with a severe systemic disease that limits activity (angina, COPD, prior Myocardial infarction) ASA 4: a patient with an incapacitating disease that is a constant threat to life (CHF, renal failure) ASA 5: a moribund patient not expected to survive 24 hrs. (ruptured aneurysm) ASA 6: a declared brain- patient whose organs are being harvested. For emergent operations, add the letter E after the classification Mallampati Classification Grade 3 Sedation Plan Analgesia, Amnesia, Plan communicated to team members, Discussed options with patient/fam, Discussed risks with patient/fam The patient is an appropriate candidate to undergo the planned procedure, sedation, and anesthesia. The patient immediately re-assessed prior to indication. TANESHA LEIGH MD FACP FAC CCDS August 10, 2021 10:52
[2021-08-10] MEDS ORDERED: PATIENT MAY USE OWN MEDS, ALL PO SCH (11:00)
[2021-08-10] MEDS ORDERED: POLYETHYLENE GLYCOL 500 GM MC SCH (11:00)
[2021-08-10] MEDS ORDERED: ACETAMINOPHEN 325 MG TABLET PO PRN (11:00)
[2021-08-10] MEDS ORDERED: NITROGLYCERIN 0.4 MG SL TABS BTL 25'S SL PRN (11:00)
[2021-08-10] MEDS ORDERED: RX-CYCLOBENZAPRINE 10 MG (FLEXERIL) TAB PPK#3 PO PRN (11:00)
--- NOTE | 2021-08-10 11:41 | CARDIAC CATHETERIZATION ---
DATE OF SERVICE: 08/10/2021 CARDIAC CATHETERIZATION AND CORONARY INTERVENTION REPORT The patient is a 51-year-old man who has coronary artery disease risk factors and who has been experiencing chest discomfort. Myocardial perfusion imaging was indicative of basal inferior ischemia. Cardiac catheterization was carried out after having obtained an informed consent for cardiac catheterization and possible ad hoc coronary intervention. DESCRIPTION OF PROCEDURE: He was brought to the cardiac catheterization laboratory in a fasting state. Right groin was prepared and draped in the usual sterile fashion. Lidocaine 1% was used for local anesthesia. Modified Seldinger technique used to advance a 5-Nigerian sheath in the right femoral artery, 5-Nigerian JL3.5 catheter was used for left coronary angiography, 5-Nigerian JR catheter was used for right coronary angiography, 5-Nigerian JR catheter was also used for left heart catheterization and left ventricular angiography. Following completion of the diagnostic procedure, we proceeded with percutaneous intervention of the right coronary. PERCUTANEOUS INTERVENTION TO THE RIGHT CORONARY: We exchanged the sheath over a wire for a 6-Nigerian sheath. We used a 6-Nigerian R4 guide catheter with side holes. We gave 7000 units intravenous heparin and double bolus of Integrilin during the procedure. We advanced a ChoICE floppy wire across an 80% stenosis in the proximal portion of the terminal posterolateral branch. We carried out balloon angioplasty with a 2.0 x 20 mm balloon with balloon inflation to 16 atmospheres. Subsequent angiography revealed less than 10% residual stenosis. Flow throughout the vessel is normal. He tolerated the procedure well. Angioplasty equipment was removed. Angiography of the right femoral artery was carried out through the sheath. Mynx was used to achieve hemostasis. He tolerated the procedure well. HEMODYNAMICS: Left ventricular end-diastolic pressure following coronary angiography was 2 mmHg. There was no significant pressure gradient on pullback across the aortic valve. Ascending aortic pressure was 111/60 with a mean of 83 mmHg. CORONARY ANGIOGRAPHY: Left main coronary artery, left anterior descending and left circumflex artery are free of significant disease. Right coronary artery is large and dominant. It had an 80% stenosis in the proximal portion of the terminal posterolateral branches, which successful balloon angioplasty was carried out with reduction of stenosis to less than 10% residual. LEFT VENTRICULAR ANGIOGRAPHY: Left ventricular angiography was carried out in the right anterior oblique projection. Global left ventricular systolic function is well preserved. Left ventricular ejection fraction approximately 50% to 55%. CONCLUSIONS: 1. Coronary artery disease primarily consisting of 80% stenosis in the proximal portion of the terminal posterolateral branch of a dominant right coronary, to which successful balloon angioplasty resulted in residual stenosis of less than 10%. No other significant lesions were seen. 2. Low normal left ventricular end-diastolic pressure (2 mmHg). 3. Well preserved global left ventricular systolic function with ejection fraction of 50 to 55%. DISCUSSION AND RECOMMENDATIONS: Dual antiplatelet therapy is being continued. Risk factor modification has been reviewed. We explained his findings and interventions to him and his in detail. Job ID: [id number] DocumentID: [id number] Dictated Date: 08/10/2021 11:16:37 Consumer Affairs Specialist Date: 08/10/2021 11:40:35 Dictated By: TANESHA LEIGH MD, MA, FACP, FACC, MTDD
[2021-08-10] MEDS: morphine INJ 4 MG/ML 1 ML (VIAL/SYRINGE) IVP PRN ×2 (12:53→14:53)
[2021-08-10] MEDS: NS IV 1000 ML 1,000 ML IV SCH ×2 (12:54→22:22)
[2021-08-10] MEDS ORDERED: NON-FORMULARY MEDICATION 1 EA EA (Gabapentin 800 MG) PO SCH (13:00)
[2021-08-10] MEDS ORDERED: CYCLOBENZAPRINE 10 MG (FLEXERIL) TAB PO PRN (13:00)
[2021-08-10] MEDS ORDERED: polyethylene glycoL POWDER 17 GM (MIRALAX) PACK PO PRN (13:00)
[2021-08-10] MEDS ORDERED: GABAPENTIN 400 MG (NEURONTIN) CAP PO SCH (13:00)
[2021-08-10] MEDS ORDERED: GBPN600T PO (15:29)
[2021-08-10] MEDS: GABAPENTIN 600 MG (NEURONTIN) TAB PO SCH ×2 (15:47→20:49)
[2021-08-10] MEDS: glyBURIDE 5 MG (MICRONASE) TAB PO SCH (17:53)
[2021-08-10] MEDS: PROPRANOLOL 40 MG TABLET PO SCH (20:50)
[2021-08-10] MEDS ORDERED: PROPRANOLOL 20 MG (INDERAL) TABLET PO SCH (21:00)
[2021-08-10] MEDS ORDERED: NON-FORMULARY MEDICATION 1 EA EA (Propranolol HCl 40 MG) PO SCH (21:00)
[2021-08-11] VITALS: BP 123/55
[2021-08-11 04:00] VITALS: BP 120/56
[2021-08-11] MEDS: NS IV 1000 ML 1,000 ML IV SCH (06:44)
[2021-08-11 07:49] VITALS: BP 139/53
--- NOTE | 2021-08-11 07:57 | Progress Note - Cardiology ---
Cardiology SOAP Progress Note Subjective: Lying in bed No c/o CP, SOB, palpitations No c/o right groin pain Objective: I&O/Vital Signs 08/10/21 08/11/21 08/11/21 08/11/21 23:12 00:00 01:00 04:00 Temp 36.6 36.7 Pulse 85 83 86 Resp 15 17 B/P (MAP) 123/55 (77) 120/56 (77) Pulse Ox 98 93 94 O2 Delivery NIV CPAP NIV CPAP NIV CPAP O2 Flow Rate 2.00 08/11/21 08/11/21 07:00 07:49 Temp 36.5 Pulse 90 89 Resp 12 B/P (MAP) 139/53 (81) Pulse Ox 95 O2 Delivery Room Air Weight (Pounds): 330 Weight (Ounces): 0.0 Weight (Calculated Kilograms): 149.070008 Side: right Groin site without hematoma: Yes Condition: extremity w/d/p Bruising: mild bruising Constitutional: AAO x 3, well-developed, well-nourished (obese) Respiratory: No accessory muscle use, No respiratory distress; chest expansion is symmetric, chest is bilaterally symmetric, lungs clear to auscultation Cardiovascular: regular rate-rhythm; No JVD; S1 and S2 Gastrointestional: No tender; soft, round; No guarding; audible bowel sounds Extremities: other (venous stasis discoloration of bilat LE. Bilat pitting and non-pitting edema) Neurologic/Psychiatric: other (moves all extremities) Skin: No rash on exposed areas, No ulcerations on exposed areas Results/Procedures: Labs Microbiology 08/10/21 MRSA Screen - Final, Complete MRSA not isolated Laboratory Tests 08/10/21 08:17 A/P: Assessment: CAD - Card cath of 10/23/10 showed mild to mod CAD, LVEF 60%, mild to mod elev of LVEDP - MPI of March 2019 showed no evidence of any significant myocardial ischemia or infarction. LVEF 79%. - Echocardiogram of 07-13-2021 showed LVEF 55-60%. - MPI of July 16, 2021: This study is suggestive of a small to moderate amount of basal inferior ischemia. Normal regional wall motion. Normal to hyperdynamic left ventricular systolic function with a calculated ejection fraction of 82%. - Cardiac cath of 08-10-21: Coronary artery disease primarily consisting of 80% s tenosis in the proximal portion of the terminal posterolateral branch of a dominant right coronary, to which successful balloon angioplasty resulted in residual stenosis of less than 10%. No other significant lesions were seen. Low normal left ventricular end-diastolic pressure (2 mmHg). Well preserved global left ventricular systolic function with ejection fraction of 50 to 55%. Type II DM - managed by PCP Peripheral neuropathy in a stocking distribution - No evidence of PAD per peripheral angiogram of Apr 01, [address] Issa Hypertension - managed by PCP Obesity - with BMI of approx 44 Hyperlipidemia - treated with statin therapy, managed by pcp Chronic bilat leg swelling - diagnosed as lymphedema H/O tobaccoism - Quit tobacco use in 2011 Chronic stasis dermatitis - managed by PCP Intermit Cellulits of RLE - being managed by his PCP Charliz foot bilat; h/o L foot cellulitis in 2019 treated with surgery - mostly wheelchair bound BAILEE - CPAP tx Plan: S/P cardiac cath with successful coronary intervention Continue DAPT Ok to discharge home today if lab comes back ok F/U in 2 weeks or sooner if needed VÍCTOR NUNEZ August 11, 2021 07:57
--- NOTE | 2021-08-11 07:59 | Discharge Inst-Cardiology ---
Discharge Inst-Cardiac Discharge Medications Continued Medications: Amlodipine Besylate (Amlodipine Besylate) 10 Mg Tablet 10 MG PO DAILY, TAB Aspirin (Aspirin) 81 Mg Tab.chew 81 MG DAILY, TAB Clopidogrel Bisulfate (Plavix) 75 Mg Tablet 75 MG PO DAILY, TAB Cyclobenzaprine HCl (Cyclobenzaprine HCl) 10 Mg Tablet 10 MG PO TID PRN for MUSCLE SPASMS, TAB Gabapentin (Gabapentin) 600 Mg Tablet 600 MG PO TID, TAB Glyburide (Glyburide) 5 Mg Tablet 10 MG PO BID, TAB TAKES 2 (5MG) TABS TO EQUAL 10 MG TWICE DAILY Hydrochlorothiazide (Hydrochlorothiazide) 25 Mg Tablet 25 MG PO DAILY, TAB Latanoprost (Latanoprost) 2.5 Ml Drops 1 DROP OU DAILY, DROPS Liraglutide (Victoza 3-Ludwig) 0.6 Mg/0.1 Ml Pen.injctr 1.8 MG SQ DAILY, VIAL Lisinopril (Lisinopril) 40 Mg Tablet 40 MG PO DAILY, TAB Nitroglycerin (Nitroglycerin) 0.4 Mg Tab.subl 0.4 MG SL PRN PRN for chest pain, #24 TAB Omeprazole (Omeprazole) 20 Mg Capsule.dr 20 MG PO DAILY, CAP Pioglitazone HCl (Pioglitazone HCl) 45 Mg Tablet 45 MG PO DAILY, TAB Polyethylene Glycol 1000 (Polyethylene Glycol) 500 Gm Powder 500 GM MC PRN for Constipation, EA Propranolol HCl (Propranolol HCl) 40 Mg Tablet 40 MG PO BID, TAB Patient Instructions Patient Instructions: Please schedule appointment to see Dr. Dias in 2 weeks VÍCTOR NUNEZ August 11, 2021 07:59
[2021-08-11] MEDS ORDERED: NON-FORMULARY MEDICATION 1 EA EA (Liraglutide (Victoza 3-Pak) 1.8 MG) SQ SCH (09:00)
[2021-08-11] MEDS ORDERED: VICTOZA 18 MG/3 ML SQ SCH (09:00)
[2021-08-11] MEDS ORDERED: CLOPIDOGREL 75 MG (PLAVIX) TABLET PO SCH (09:00)
[2021-08-11] MEDS ORDERED: ASPIRIN 81 MG CHEW (CHILDREN'S ASA) PO SCH (09:00)
[2021-08-11] MEDS ORDERED: LATANOPROST 0.005% (XALATAN) OPHTH SOLN 2.5 ML OU SCH (09:00)
[2021-08-11] MEDS ORDERED: ASPIRIN E.C. 81 MG (ECOTRIN) TAB PO SCH (09:00)
[2021-08-11] MEDS ORDERED: NON-FORMULARY MEDICATION 1 EA EA (Pioglitazone HCl 45 MG) PO SCH (09:00)
[2021-08-11] MEDS ORDERED: PANTOPRAZOLE 20 MG TABLET (PROTONIX) PO SCH (09:00)
[2021-08-11] MEDS ORDERED: PIOGLITAZONE 30MG (ACTOS) TAB PO SCH (09:00)
[2021-08-11] MEDS ORDERED: PIOGLITAZONE 45 MG TABLET PO SCH (09:00)
[2021-08-11] MEDS ORDERED: lisINopril 40 MG (PRINIVIL) TABLET PO SCH (09:00)
[2021-08-11] MEDS ORDERED: amLODIPine 10 MG (NORVASC) TAB PO SCH (09:00)
[2021-08-11] MEDS ORDERED: OMEPRAZOLE 20 MG (PriLOSEC) CAP NON-FORMULARY PO SCH ×2 (09:00)
[2021-08-11 09:12] LABS: HEMATOCRIT 34 % (40-54); HEMOGLOBIN 10.9 g/dL (13.3-17.7); MEAN CORPUSCULAR HEMOGLOBIN 28 pg (25-34); MEAN CORPUSCULAR HGB CONC 32 g/dL (32-36); MEAN CORPUSCULAR VOLUME 88 fL (80-99); MEAN PLATELET VOLUME 11.5 fL (9.0-12.2); PLATELET COUNT 242 10^3/uL (130-400); WHITE BLOOD COUNT 7.1 10^3/uL (4.3-11.0)
--- NOTE | 2021-08-11 09:19 | Progress Note - Cardiology ---
Cardiology SOAP Progress Note Subjective: No cp or palp or syncope or shortness of breath Denies groin discomfort or leg discoloration/discomfort No n/v/d Objective: I&O/Vital Signs 08/10/21 08/11/21 08/11/21 08/11/21 23:12 00:00 01:00 04:00 Temp 36.6 36.7 Pulse 85 83 86 Resp 15 17 B/P (MAP) 123/55 (77) 120/56 (77) Pulse Ox 98 93 94 O2 Delivery NIV CPAP NIV CPAP NIV CPAP O2 Flow Rate 2.00 08/11/21 08/11/21 08/11/21 07:00 07:49 08:45 Temp 36.5 Pulse 90 89 Resp 12 B/P (MAP) 139/53 (81) Pulse Ox 95 O2 Delivery Room Air Room Air Weight (Pounds): 330 Weight (Ounces): 0.0 Weight (Calculated Kilograms): 149.193232 Side: right Groin site without hematoma: Yes Condition: extremity w/d/p Bruising: mild bruising Constitutional: AAO x 3, well-developed, well-nourished (obese) Respiratory: No accessory muscle use, No respiratory distress; chest expansion is symmetric, chest is bilaterally symmetric, lungs clear to auscultation Cardiovascular: regular rate-rhythm; No JVD; S1 and S2 Gastrointestional: No tender; soft, round; No guarding; audible bowel sounds Extremities: other (venous stasis discoloration of bilat LE. Bilat pitting and non-pitting edema) Neurologic/Psychiatric: other (moves all limbs equally) Skin: No rash on exposed areas, No ulcerations on exposed areas Results/Procedures: Labs Laboratory Tests 08/11/21 09:06: Microbiology 08/10/21 MRSA Screen - Final, Complete MRSA not isolated A/P: Assessment: CAD - Card cath of 10/23/10 showed mild to mod CAD, LVEF 60%, mild to mod elev of LVEDP - MPI of March 2019 showed no evidence of any significant myocardial ischemia or infarction. LVEF 79%. - Echocardiogram of 07-13-2021 showed LVEF 55-60%. - MPI of July 16, 2021: This study is suggestive of a small to moderate amount of basal inferior ischemia. Normal regional wall motion. Normal to hyperdynamic left ventricular systolic function with a calculated ejection fraction of 82%. - Cardiac cath of 08-10-21: Coronary artery disease primarily consisting of 80% stenosis in the proximal portion of the terminal posterolateral branch of a dominant right coronary, to which successful balloon angioplasty resulted in residual stenosis of less than 10%. No other significant lesions were seen. Low normal left ventricular end-diastolic pressure (2 mmHg). Well preserved global left ventricular systolic function with ejection fraction of 50 to 55%. Type II DM - managed by PCP Peripheral neuropathy in a stocking distribution - No evidence of PAD per peripheral angiogram of Apr 01, [address] Issa Hypertension - managed by PCP Obesity - with BMI of approx 44 Hyperlipidemia - treated with statin therapy, managed by pcp Chronic bilat leg swelling - diagnosed as lymphedema H/O tobaccoism - Quit tobacco use in 2011 Chronic stasis dermatitis - managed by PCP Intermit Cellulits of RLE - being managed by his PCP Charliz foot bilat; h/o L foot cellulitis in 2019 treated with surgery - mostly wheelchair bound BAILEE - CPAP tx Plan: S/P cardiac cath with successful coronary intervention Continue DAPT D/c today F/U in 2 weeks or sooner if needed TANESHA LEIGH MD FACP FAC CCDS August 11, 2021 09:19
[2021-08-11 09:32] LABS: CREATININE SERUM 2.36 MG/DL (0.60-1.30); POTASSIUM 4.2 MMOL/L (3.6-5.0)
[2021-08-11] MEDS: GABAPENTIN 600 MG (NEURONTIN) TAB PO SCH (10:35)
[2021-08-11] MEDS: PROPRANOLOL 40 MG TABLET PO SCH (10:37)
[2021-08-11] MEDS: glyBURIDE 5 MG (MICRONASE) TAB PO SCH (10:40)
== END 2021-08-11 11:33 | disposition home or self-care (01) ==
LOC: CATH 09:00 → CSD 11:15 → CATH 08-11 11:33
PROVIDERS: ATTEND Internal Medicine Cardiovascular Disease
DX: I25.10 Atherosclerotic heart disease of native coronary artery without angina pectoris (principal); E11.42 Type 2 diabetes mellitus with diabetic polyneuropathy; I10 Essential (primary) hypertension; I87.2 Venous insufficiency (chronic) (peripheral); E66.9 Obesity, unspecified; E78.2 Mixed hyperlipidemia; R60.0 Localized edema; L03.116 Cellulitis of left lower limb; G47.33 Obstructive sleep apnea (adult) (pediatric); M14.679 Charcot's joint, unspecified ankle and foot; Z87.891 Personal history of nicotine dependence; Z68.41 Body mass index [BMI] 40.0-44.9, adult; Z99.89 Dependence on other enabling machines and devices; Z79.84 Long term (current) use of oral hypoglycemic drugs; Z79.899 Other long term (current) drug therapy
CPT/HCPCS: 80048; 80053; 80061; 85027 ×2; 85610; 85730; 87081; 92920; 93005; 93458; C1725; C1760; C1769 ×2; C1887; C1894 ×2; 36415

== ENCOUNTER 2021-09-20 05:37 | Outpatient (CLI) | payer MEDICAID ==
[~2021-09-20] VITALS: Ht 182.9 cm; Wt 159.1 kg
[~2021-09-20 05:37] MED LIST changes: -HEParin (CATH LAB) 2,000 ML IV ONE; -LIDOCAINE 1% INJ 20 ML VIAL ONE; -NS IV 1000 ML 1,000 ML IV SCH; -NS IV 1000 ML 1,000 ML ONE
[2021-09-21] MEDS ORDERED: GABA800T10 PO (16:05)
== END 2021-09-21 16:14 | disposition home or self-care (01) ==
LOC: PREOP 05:37
PROVIDERS: ATTEND Specialist
DX: Z01.818 Encounter for other preprocedural examination (principal)

== ENCOUNTER 2021-09-24 09:42 | Day surgery (SDC) | payer MEDICAID ==
[~2021-09-24] VITALS: Ht 182.9 cm; Wt 159.1 kg
[2021-09-24] MEDS ORDERED: TIMOLOL MALEATE 0.5% 5 ML (TIMOPTIC) BTL OU PRN (10:15)
[2021-09-24] MEDS ORDERED: POVIDONE (BETADINE) OPHTH SOLN 5% 30 ML OP ONE (10:15)
[2021-09-24] MEDS ORDERED: LIDOCAINE PF 1% 2 ML VIAL IR PRN (10:15)
[2021-09-24] MEDS ORDERED: MOXIFLOXACIN OPHTH SOLN 5 MG/ML 0.3 ML SYRINGE OP ONE (10:15)
[2021-09-24] MEDS: TETRACAINE 0.5% OPHTH SOLN 4 ML BTL (SINGLE DOSE ONLY) OU PRN ×4 (10:27→10:46)
[2021-09-24 10:30] VITALS: BP 148/83
[2021-09-24] MEDS: TROPICAMIDE 1% OPH SOLN (MYDRIACYL) 15 ML BTL OP SCH ×3 (10:34→10:46)
[2021-09-24] MEDS: PHENYLEPHRINE 10% OPHTH (NEO-SYN) 5 ML BTL OU SCH ×3 (10:34→10:46)
--- NOTE | 2021-09-24 11:25 | Ophthalmologist Pre-Op Note ---
Pre-Operative Progress Note H&P Reviewed The H&P was reviewed, patient examined and no changes noted. Date H&P Reviewed: Sep 24, 2021 Time H&P Reviewed: 11:24 Pre-Op Dx Cataract, Left Eye TAZ BELCHER MD Sep 24, 2021 11:25
--- NOTE | 2021-09-24 11:51 | Ophthalmology Operative Report ---
Cataract removal/placement IOL PREOPERATIVE DIAGNOSIS: Cataract Left Eye POSTOPERATIVE DIAGNOSIS: Cataract Left Eye PROCEDURE: Cataract removal and placement of posterior chamber implant, left eye SURGEON: Wellington Belcher ANESTHESIA: Topical with sedation COMPLICATIONS: None ESTIMATED BLOOD LOSS: Minimal DESCRIPTION OF PROCEDURE: After proper informed consent was obtained, the patient, a 51 male, was taken to the Operating Room and the left eye was anesthetized with tetracaine. The left eye was then prepped and draped in the usual manner. A wire lid speculum was placed. A paracentesis was made at the left hand position. Preservative free lidocaine was injected into the anterior chamber followed by viscoelastic. A clear corneal incision was made in the temporal position. A capsulorrhexis was preformed and the central nuclear and cortical material were removed. The posterior capsule was polished and an Richard 23.0 [id number] was placed into the capsular bag. The residual viscoelastic was aspirated and balanced saline solution was injected into the anterior chamber. Moxifloxacin was injected into the anterior chamber. The wound was checked and found to be water tight. The patient tolerated the procedure well without complications. WELLINGTON BELCHER MD Sep 24, 2021 11:51
--- NOTE | 2021-09-24 11:51 | Ophthalmologist Pre-Op Note ---
Pre-Operative Progress Note H&P Reviewed The H&P was reviewed, patient examined and no changes noted. Date H&P Reviewed: Sep 24, 2021 Time H&P Reviewed: 11:51 Pre-Op Dx Cataract, Right Eye TAZ BELCHER MD Sep 24, 2021 11:51
[2021-09-24 11:57] VITALS: BP 160/79
[2021-09-24] MEDS ORDERED: acetaZOLAMIDE ER 500 MG CAP (DIAMOX SEQUELS) PO ONE (12:15)
--- NOTE | 2021-09-24 12:48 | Anesthesia-General Post-Op ---
MAC Patient Condition Mental Status/LOC: Same as Preop Cardiovascular: Satisfactory Nausea/Vomiting: Absent Respiratory: Satisfactory Pain: Controlled Complications: Absent Post Op Complications Complications None Follow Up Care/Instructions Patient Instructions None needed. Anesthesiology Discharge Order Discharge Order Patient is doing well, no complaints, stable vital signs, no apparent adverse anesthesia problems. No complications reported per nursing. JD MADSEN CRNA Sep 24, 2021 12:47
== END 2021-09-24 11:58 | disposition home or self-care (01) ==
LOC: SDC 09:42
PROVIDERS: ATTEND Specialist
DX: E11.36 Type 2 diabetes mellitus with diabetic cataract (principal); H25.9 Unspecified age-related cataract; Z87.891 Personal history of nicotine dependence; E66.01 Morbid (severe) obesity due to excess calories; Z68.42 Body mass index [BMI] 45.0-49.9, adult; Z79.84 Long term (current) use of oral hypoglycemic drugs; Z79.82 Long term (current) use of aspirin
CPT/HCPCS: 66984; 82947; V2632

== ENCOUNTER → 2021-10-05 | Outpatient (CLI) | payer MEDICAID | END | disposition home or self-care (01) | LOC: PREOP 06:14 | PROVIDERS: ATTEND Specialist | DX: Z01.818 Encounter for other preprocedural examination (principal) ==

== ENCOUNTER 2021-10-15 08:23 | Day surgery (SDC) | payer MEDICAID ==
[~2021-10-15] VITALS: Ht 182.9 cm; Wt 159.1 kg
[2021-10-15] MEDS ORDERED: TIMOLOL MALEATE 0.5% 5 ML (TIMOPTIC) BTL OU PRN (08:30)
[2021-10-15] MEDS ORDERED: POVIDONE (BETADINE) OPHTH SOLN 5% 30 ML OP ONE (08:30)
[2021-10-15] MEDS ORDERED: MOXIFLOXACIN OPHTH SOLN 5 MG/ML 0.3 ML SYRINGE OP ONE (08:30)
[2021-10-15] MEDS ORDERED: LIDOCAINE PF 1% 2 ML VIAL IR PRN (08:30)
[2021-10-15] MEDS: TETRACAINE 0.5% OPHTH SOLN 4 ML BTL (SINGLE DOSE ONLY) OU PRN ×4 (08:36→08:55)
[2021-10-15] MEDS: TROPICAMIDE 1% OPH SOLN (MYDRIACYL) 15 ML BTL OP SCH ×3 (08:41→08:55)
[2021-10-15] MEDS: PHENYLEPHRINE 10% OPHTH (NEO-SYN) 5 ML BTL OU SCH ×3 (08:41→08:55)
[2021-10-15 08:51] VITALS: BP 151/94
--- NOTE | 2021-10-15 09:17 | Ophthalmologist Pre-Op Note ---
Pre-Operative Progress Note H&P Reviewed The H&P was reviewed, patient examined and no changes noted. Date H&P Reviewed: Oct 15, 2021 Time H&P Reviewed: 09:16 Pre-Op Dx Cataract, Right Eye TAZ BELCHER MD Oct 15, 2021 09:16
[2021-10-15] MEDS ORDERED: MIDAZOLAM 2 MG/2 ML (VERSED) VIAL ONE (09:18)
--- NOTE | 2021-10-15 09:33 | Ophthalmology Operative Report ---
Cataract removal/placement IOL PREOPERATIVE DIAGNOSIS: Cataract Right Eye POSTOPERATIVE DIAGNOSIS: Cataract Right Eye PROCEDURE: Cataract removal and placement of posterior chamber implant, right eye SURGEON: Wellington Belcher ANESTHESIA: Topical with sedation COMPLICATIONS: None ESTIMATED BLOOD LOSS: Minimal DESCRIPTION OF PROCEDURE: After proper informed consent was obtained, the patient, a 51 male, was taken to the Operating Room and the right eye was anesthetized with tetracaine. The right eye was then prepped and draped in the usual manner. A wire lid speculum was placed. A paracentesis was made at the left hand position. Preservative free lidocaine was injected into the anterior chamber followed by viscoelastic. A clear corneal incision was made in the temporal position. A capsulorrhexis was preformed and the central nuclear and cortical material were removed. The posterior capsule was polished and Richard [id number] 23.0 IOL was placed into the capsular bag. The residual viscoelastic was aspirated and balanced saline solution was injected into the anterior chamber. Moxifloxacin was injected into the anterior chamber. The wound was checked and found to be water tight. The patient tolerated the procedure well without complications. WELLINGTON BELCHER MD Oct 15, 2021 09:33
[2021-10-15 09:42] VITALS: BP 182/100
[2021-10-15] MEDS ORDERED: acetaZOLAMIDE ER 500 MG CAP (DIAMOX SEQUELS) PO ONE (11:00)
--- NOTE | 2021-10-15 13:43 | Anesthesia-General Post-Op ---
MAC Patient Condition Mental Status/LOC: Same as Preop Cardiovascular: Satisfactory Nausea/Vomiting: Absent Respiratory: Satisfactory Pain: Controlled Complications: Absent Post Op Complications Complications None Follow Up Care/Instructions Patient Instructions None needed. Anesthesiology Discharge Order Discharge Order Patient is doing well, no complaints, stable vital signs, no apparent adverse anesthesia problems. No complications reported per nursing. SANDRA KENNY CRNA Oct 15, 2021 13:43
== END 2021-10-15 09:44 | disposition home or self-care (01) ==
LOC: SDC 08:23
PROVIDERS: ATTEND Specialist
DX: E11.36 Type 2 diabetes mellitus with diabetic cataract (principal); H25.9 Unspecified age-related cataract; Z87.891 Personal history of nicotine dependence; E66.01 Morbid (severe) obesity due to excess calories; Z68.42 Body mass index [BMI] 45.0-49.9, adult; G47.33 Obstructive sleep apnea (adult) (pediatric); Z79.82 Long term (current) use of aspirin
CPT/HCPCS: 66984; 82947; V2632

== ENCOUNTER 2022-04-25 12:16 | Emergency (ER) | payer MEDICAID ==
[~2022-04-25] VITALS: Ht 182.9 cm; Wt 163.3 kg
[~2022-04-25 12:16] MED LIST changes: +CLOP-31 PO; -CLOP75TA69 PO; -POTA10CA43 PO; +POTA10CA44 PO
[2022-04-25] MEDS ORDERED: ANTACID SUSP 30 ML UDC (MYLANTA) PO ONE (12:30)
[2022-04-25] MEDS ORDERED: ACETAMINOPHEN 500 MG TAB (TYLENOL) PO ONE (12:30)
[2022-04-25] MEDS ORDERED: ASPIRIN 81 MG CHEW (CHILDREN'S ASA) PO ONE (12:30)
[2022-04-25] MEDS ORDERED: FAMOTIDINE 20 MG (PEPCID) TABLET PO STA (12:30)
[2022-04-25] MEDS ORDERED: NITROGLYCERIN 2% OINT 1 GM UNIT DOSE PACKET TOP STA (12:30)
[2022-04-25] MEDS ORDERED: LIDOCAINE 2% VISCOUS 15 ML UDC PO ONE (12:30)
[2022-04-25 12:59] LABS: POTASSIUM 4.4 MMOL/L (3.6-5.0)
[2022-04-25 13:00] LABS: CALCIUM 9.6 MG/DL (8.5-10.1)
[2022-04-25 13:01] LABS: TOTAL PROTEIN 7.5 GM/DL (6.4-8.2)
--- NOTE | 2022-04-25 13:01 | ED Chest Pain ---
General Chief Complaint: Cardiac/General Problems Stated Complaint: POSSIBLE CARDIAC EVENT | Nursing Triage Note: PT TO ROOM 07 VIA W/C WITH C/O BACK AND ABD PAIN. PT SENT FROM WALK-IN. WALK-IN TOLD PT HE MAY BE HAVING A CARDIC EVENT. PT REPORTS HEART CATH IN AUGUST. Source: patient, family Exam Limitations: no limitations History of Present Illness Date Seen by Provider: Apr 25, 2022 Time Seen by Provider: 12:18 Initial Comments 51-year-old male with past medical history of hypertension, hyperlipidemia, and diabetes coming in due to chest pain. Started having mid back pain after driving back and forth to [place] after his parents both within the past week from [email or web address]. He went to the walk-in clinic today due to 24 hours of chest aching type pain. Its mild to moderate. He states he has had a heart cath in August for real chest pain that felt worse than this, he states right now it does not feel similar at all. He states he did not have any stents placed during that time. Denies any changes in symptoms with any type of activity, particularly it does not get worse when he is being active. Denies any hemoptysis, shortness of breath, lower extremity swelling or pain, prior history of DVT or PE, recent surgery, cough, nausea, vomiting, diarrhea, weakness, numbness, or any other concerns. Took 1 baby aspirin today. Does not take blood thinners Allergies and Home Medications Allergies Coded Allergies: No Known Drug Allergies (Unverified , 04/25/22) Patient Home Medication List Home Medication List Reviewed: Yes Amlodipine Besylate (Amlodipine Besylate) 10 Mg Tablet, 10 MG PO DAILY, (Reported) Entered as Reported by: MARIA EUGENIA BEACH on 08/10/21 0844 Aspirin (Aspirin) 81 Mg Tab.chew, 81 MG DAILY, (Reported) Entered as Reported by: GENEVA QUINN on 03/29/19 1752 Clopidogrel Bisulfate (Plavix) 75 Mg Tablet, 75 MG PO DAILY, (Reported) Entered as Reported by: MARIA EUGENIA BEACH on 08/10/21 0844 Cyclobenzaprine HCl (Cyclobenzaprine HCl) 10 Mg Tablet, 10 MG PO TID PRN for MUSCLE SPASMS, (Reported) Entered as Reported by: SOL WORLEY on 09/19/17 1109 Gabapentin (Gabapentin) 800 Mg Tablet, 800 MG PO TID, (Reported) Entered as Reported by: DIMAS PETERSON on 09/21/21 1605 Glyburide (Glyburide) 5 Mg Tablet, 10 MG PO BID, (Reported) Entered as Reported by: SOL WORLEY on 09/19/17 110 Hydrochlorothiazide (Hydrochlorothiazide) 25 Mg Tablet, 25 MG PO DAILY, (Reported) Entered as Reported by: MARIA EUGENIA BEACH on 08/10/21 08 Latanoprost (Latanoprost) 2.5 Ml Drops, 1 DROP OU DAILY, (Reported) Entered as Reported by: SOL WORLEY on 09/19/17 110 Liraglutide (Victoza 3-Ludwig) 0.6 Mg/0.1 Ml Pen.injctr, 1.8 MG SQ DAILY, (Reported) Entered as Reported by: SOL WORLEY on 09/19/17 110 Lisinopril (Lisinopril) 40 Mg Tablet, 40 MG PO DAILY, (Reported) Entered as Reported by: SOL WORLEY on 09/19/171108 Nitroglycerin (Nitroglycerin) 0.4 Mg Tab.subl, 0.4 MG SL PRN PRN for chest pain, (Reported) Entered as Reported by: MARIA EUGENIA BEACH on 08/10/21843 Omeprazole (Omeprazole) 20 Mg Capsule.dr, 20 MG PO DAILY, (Reported) Entered as Reported by: GENEVA QUINN on 03/29/19 175 Pioglitazone HCl (Pioglitazone HCl) 45 Mg Tablet, 45 MG PO DAILY, (Reported) Entered as Reported by: SOL WORLEY on 09/19/171108 Polyethylene Glycol 1000 (Polyethylene Glycol) 500 Gm Powder, 500 GM MC PRN, (Reported) Entered as Reported by: MARIA EUGENIA BEACH on 08/10/21 08 Propranolol HCl (Propranolol HCl) 40 Mg Tablet, 40 MG PO BID, (Reported) Entered as Reported by: SOL WORLEY on 09/19/17 110 Review of Systems Review of Systems Constitutional: no symptoms reported EENTM: No Symptoms Reported Respiratory: No Symptoms Reported Cardiovascular: See HPI Gastrointestinal: No Symptoms Reported Genitourinary: No Symptoms Reported Musculoskeletal: no symptoms reported Skin: no symptoms reported Psychiatric/Neurological: No Symptoms Reported Endocrine: No Symptoms Reported Hematologic/Lymphatic: No Symptoms Reported All Other Systems Reviewed Negative Unless Noted: Yes Past Pseqzct-Uoprwa-Dalozc Hx Patient Social History Tobacco Use?: No Smoking Status: Never a Smoker Smokeless Tobacco Frequency: Never a User Use of E-Cig and/or Vaping dev: No Use of E-Cig and/or Vaping Tai: Never a User Substance use?: No Alcohol Use?: No Pt feels they are or have been: No Immunizations Up To Date Tetanus Booster (TDap): Unknown Seasonal Allergies Seasonal Allergies: Yes Past Medical History Surgeries: Yes (HERNIA AGE 1, HEART CATH, urethreal stricture, left big toe osteoectomy) Orthopedic Respiratory: Yes (going to get a sleep study done) Sleep Apnea Currently Using CPAP: Yes (WITH OXYGEN) Currently Using BIPAP: No Cardiac: Yes High Cholesterol, Hypertension Neurological: Yes Neuropathy Reproductive Disorders: No Sexually Transmitted Disease: No HIV/AIDS: No Genitourinary: No Gastrointestinal: No Musculoskeletal: Yes (open wound on left big toe, 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) Endocrine: Yes Diabetes, Non-Insulin dep Hearing Impairment: Denies Cancer: No Psychosocial: No Integumentary: No Pruritis Blood Disorders: No Adverse Reaction/Blood Tranf: No Family Medical History Chest pain 03 MOTHER, Onset:Unknown Congestive heart failure 03 MOTHER, Onset:Unknown Family history: Cardiovascular disease 03 MOTHER, Onset:Unknown Family history: Coronary thrombosis 03 MOTHER, Onset:Unknown Family history: Diabetes mellitus 03 FATHER, Onset:Unknown 03 MOTHER, Onset:Unknown 09 BROTHER, Onset:Unknown Family history: Glaucoma 03 MOTHER, Onset:Unknown Family history: Hypertension 03 FATHER, Onset:Unknown 03 MOTHER, Onset:Unknown 09 BROTHER, Onset:Unknown Heart disease 03 MOTHER, Onset:Unknown Hypercholesterolemia 03 FATHER, Onset:Unknown 03 MOTHER, Onset:Unknown 09 BROTHER, Onset:Unknown Myocardial infarction 03 MOTHER, Onset:Unknown Psychotic disorder 03 MOTHER, Onset:Unknown Seizure disorder 03 MOTHER, Onset:Unknown Stroke 03 MOTHER, Onset:Unknown Visual impairment 03 MOTHER, Onset:Unknown No Family History of: Abdominal aortic aneurysm Hudson's disease Alcoholism Aphasia Cancer Cancer of colon Cataract Congenital heart disease Cystic fibrosis Dementia Dysphagia Family history: Allergy Family history: Alzheimer's disease Family history: Arthritis Family history: Asthma Family history: Breast disease Family history: Gastrointestinal disease Family history: Osteoporosis Family history: Thyroid disorder Headache Hearing loss Hereditary disease History of - anemia History of - disorder History of - respiratory disease History of drug abuse Human immunodeficiency virus (HIV) seropositivity Infertile Kidney disease Malignant neoplasm of lung Parkinson's disease Prostate cancer Tuberculosis Vascular Disease Physical Exam Vital Signs Vital Signs - First Documented 04/25/22 04/25/22 12:24 14:40 Temp 37.1 Pulse 95 Resp 19 B/P (MAP) 178/85 (116) Pulse Ox 100 O2 Delivery Room Air Capillary Refill : Less Than 3 Seconds Height, Weight, BMI Height: 6'0.00" Weight: 330lbs. 0.0oz. 149.129564po; 48.00 BMI Method:Stated General Appearance: No Apparent Distress, WD/WN HEENT: PERRL/EOMI, Normal ENT Inspection, Pharynx Normal Neck: Full Range of Motion, Normal Inspection, Non Tender, Supple Respiratory: Chest Non Tender, Lungs Clear, Normal Breath Sounds, No Accessory Muscle Use, No Respiratory Distress Cardiovascular: Regular Rate, Rhythm, No Edema, Normal Peripheral Pulses Gastrointestinal: Normal Bowel Sounds, Soft; No Distended, No Guarding; Tenderness (Very mild epigastric discomfort that recreates his symptoms) Extremity: Normal Capillary Refill, Normal Inspection, Normal Range of Motion, Non Tender, No Calf Tenderness, Pedal Edema (Bilateral and equal) Neurologic/Psychiatric: Alert, No Motor/Sensory Deficits, Normal Mood/Affect Skin: Normal Color, Warm/Dry Lymphatic: No Adenopathy Progress/Results/Core Measures Results/Orders Lab Results Laboratory Tests Test 04/25/22 12:35 04/25/22 13:00 04/25/22 13:45 Range/Units Sodium Level 134 L 135-145 MMOL/L Potassium Level 4.4 3.6-5.0 MMOL/L Chloride Level 100 98-107 MMOL/L Carbon Dioxide Level 22 21-32 MMOL/L Anion Gap 12 5-14 MMOL/L Blood Urea Nitrogen 21 H 7-18 MG/DL Creatinine 1.34 H 0.60-1.30 MG/DL Estimat Glomerular Filtration Rate 63 BUN/Creatinine Ratio 16 Glucose Level 212 H 70-105 MG/DL Calcium Level 9.6 8.5-10.1 MG/DL Corrected Calcium 9.6 8.5-10.1 MG/DL Magnesium Level 2.0 1.6-2.4 MG/DL Total Bilirubin 1.4 H 0.1-1.0 MG/DL Aspartate Amino Transf (AST/SGOT) 284 H 5-34 U/L Alanine Aminotransferase (ALT/SGPT) 221 H 0-55 U/L Alkaline Phosphatase 185 H 40-136 U/L Troponin I < 0.028 < 0.028 <0.028 NG/ML Total Protein 7.5 6.4-8.2 GM/DL Albumin 4.0 3.2-4.5 GM/DL White Blood Count 6.2 4.3-11.0 10^3/uL Red Blood Count 4.81 4.30-5.52 10^6/uL Hemoglobin 13.8 13.3-17.7 g/dL Hematocrit 43 40-54 % Mean Corpuscular Volume 89 80-99 fL Mean Corpuscular Hemoglobin 29 25-34 pg Mean Corpuscular Hemoglobin Concent 32 32-36 g/dL Red Cell Distribution Width 15.5 H 10.0-14.5 % Platelet Count 227 130-400 10^3/uL Mean Platelet Volume 10.9 9.0-12.2 fL Immature Granulocyte % (Auto) 0 % Neutrophils (%) (Auto) 80 H 42-75 % Lymphocytes (%) (Auto) 10 L 12-44 % Monocytes (%) (Auto) 9 0-12 % Eosinophils (%) (Auto) 1 0-10 % Basophils (%) (Auto) 0 0-10 % Neutrophils # (Auto) 4.9 1.8-7.8 10^3/uL Lymphocytes # (Auto) 0.6 L 1.0-4.0 10^3/uL Monocytes # (Auto) 0.5 0.0-1.0 10^3/uL Eosinophils # (Auto) 0.1 0.0-0.3 10^3/uL Basophils # (Auto) 0.0 0.0-0.1 10^3/uL Immature Granulocyte # (Auto) 0.0 0.0-0.1 10^3/uL Prothrombin Time 13.6 12.2-14.7 SEC INR Comment 1.0 0.8-1.4 Activated Partial Thromboplast Time 28 24-35 SEC B-Type Natriuretic Peptide < 10.0 <100.0 PG/ML My Orders Orders - REED GALLARDO MD Ekg Tracing (04/25/22 12:25) Cbc With Automated Diff (04/25/22 12:30) Magnesium (04/25/22 12:30) Chest 1 View, Ap/Pa Only (04/25/22 12:30) Comprehensive Metabolic Panel (04/25/22 12:30) Protime With Inr (04/25/22 12:30) Partial Thromboplastin Time (04/25/22 12:30) O2 (04/25/22 12:30) Monitor-Rhythm Ecg Trace Only (04/25/22 12:30) Ed Iv/Invasive Line Start (04/25/22 12:30) Bnp [place] (04/25/22 12:30) Troponin I [place] (04/25/22 12:30) Nitroglycerin Ointment (Nitrobid Ointme (04/25/22 12:30) Aspirin Chewable Tablet (Baby Aspirin Ch (04/25/22 12:30) Acetaminophen Tablet (Tylenol Tablet) (04/25/22 12:30) Lidocaine 2% Viscous 15 Ml (Xylocaine Vi (04/25/22 12:30) Famotidine Tablet (Pepcid Tablet) (04/25/22 12:30) Antacid Suspension (Mylanta Suspension (04/25/22 12:30) Troponin I [place] (04/25/22 14:00) Medications Given in ED Current Medications Medications Dose Ordered Sig/Reji Route Start Time Stop Time Status Last Admin Dose Admin Acetaminophen 1,000 mg ONCE ONCE PO 04/25/22 12:30 04/25/22 12:33 DC 04/25/22 13:04 1,000 MG Al Hydrox/Mg Hydrox/Simethicone 30 ml ONCE ONCE PO 04/25/22 12:30 04/25/22 12:33 DC 04/25/22 13:04 30 ML Aspirin 243 mg ONCE ONCE PO 04/25/22 12:30 04/25/22 12:33 DC 04/25/22 13:03 243 MG Lidocaine HCl 15 ml ONCE ONCE PO 04/25/22 12:30 04/25/22 12:33 DC 04/25/22 13:04 15 ML Vital Signs/I&O 04/25/22 04/25/22 12:24 14:40 Temp 37.1 Pulse 95 87 Resp 19 18 B/P (MAP) 178/85 (116) 128/68 Pulse Ox 100 O2 Delivery Room Air Room Air Blood Pressure Mean: 116 Progress Progress Note : Progress Note 51-year-old male presenting for chest pain. ABCs were intact and vitals were stable on presentation. An IV was placed and basic labs were obtained including cardiac biomarkers. EKG obtained and on my interpretation shows no acute ischemic changes. Troponin was negative x2, BNP normal, labs otherwise unremarkable other than his liver enzymes were elevated. He is not having any right upper quadrant pain, no jaundice, does not drink alcohol, no large amount of Tylenol intake, and he is otherwise unaware if they have ever been elevated. We discussed that he needs to have these repeated, if they continue to be elevated he would need further work-up and potentially a GI specialist referral. I do believe that this is unrelated to his symptoms that he is presenting here today. I do think the patient has had a lot of stress, especially since both of his parents within the past week. Despite this, I do not think it is cardiac related. He is otherwise low risk for a PE per [place] criteria and I think it is very unlikely that he has a PE at this time. Chest x-ray on my interpretation with a stable right lower lung atelectasis with pleural effusion that was seen on CT even a couple years ago. No pneumothorax, no pneumonia. I believe he is otherwise stable for discharge with outpatient follow-up. He was sent home with strict return precautions. Initial ECG Impression Date: Apr 25, 2022 Initial ECG Impression Time: 12:28 Initial ECG Rate: 93 Initial ECG Rhythm: Normal Sinus Comment Narrow QRS, normal axis, no significant ST changes or T wave abnormality Diagnostic Imaging Diagonstic Imaging: Xray Plain Films/CT/US/NM/MRI: chest Comments [facility] [place], [place] NAME: ASAF AGUILA [facility] REC#: [id number] PT STATUS: REG ER : 1970 PHYSICIAN: REED GALLARDO MD ADMIT DATE: 04/25/22/ER Draft Date of Exam:04/25/22 CHEST 1 VIEW, AP/PA ONLY INDICATION: Chest pain Portable AP view chest obtained with comparison made to study of 01/08/2020. There is stable cardiomegaly. Pulmonary vascularity is unremarkable. Atelectasis and/or scarring is again noted in the right lung base with associated right pleural thickening which may be due to pleural fluid or scarring. IMPRESSION: Right basilar atelectasis and/or scarring with associated mild to moderate right pleural fluid and/or thickening. Left lung appears clear. Dictated on workstation # [id number] Dict: 04/25/22 1318 Trans: 04/25/22 1320 CVB [id number] Interpreted by: KATY MALDONADO MD Electronically signed by: Departure Impression Primary Impression: Chest discomfort Additional Impressions: Transaminitis Diabetes Qualified Codes: E11.9 - Type 2 diabetes mellitus without complications Hypertension Qualified Codes: I10 - Essential (primary) hypertension Disposition: HOME, SELF-CARE Condition: Stable Departure-Patient Inst. Decision time for Depature: 14:35 Referrals: MILA FERNANDEZ DO (PCP/Family) Primary Care Physician Patient Instructions: Chest Pain Add. Discharge Instructions: It does not appear like you are having a heart attack at this moment. This l ikely could be related to stress or the drive in regards to your back pain. The chest discomfort or really upper abdominal discomfort could be from your GI system or something else such as muscles. You can try taking ibuprofen and/or Tylenol. If you develop any epigastric burning sensation you can try Maalox or Pepcid. Your liver enzymes were elevated, and your regular doctor needs to order repeat labs within the next month or so to see how these trend. If they continue to be elevated, they may need to do further work-up. Work/School Note: Work Release Form Date Seen in the Emergency Department: Apr 25, 2022 Return to Work: Apr 26, 2022 Restrictions: No Restrictions REED GALLARDO MD Apr 25, 2022 13:01
[2022-04-25 13:03] LABS: BILIRUBIN,TOTAL 1.4 MG/DL (0.1-1.0)
[2022-04-25 13:05] LABS: CREATININE SERUM 1.34 MG/DL (0.60-1.30)
[2022-04-25 13:11] LABS: BASOPHILS % (AUTO) 0 % (0-10); EOSINOPHILS # (AUTO) 0.1 10^3/uL (0.0-0.3); EOSINOPHILS % (AUTO) 1 % (0-10); HEMATOCRIT 43 % (40-54); HEMOGLOBIN 13.8 g/dL (13.3-17.7); LYMPHOCYTES # (AUTO) 0.6 10^3/uL (1.0-4.0); LYMPHOCYTES % (AUTO) 10 % (12-44); MEAN CORPUSCULAR HEMOGLOBIN 29 pg (25-34); MEAN CORPUSCULAR HGB CONC 32 g/dL (32-36); MEAN CORPUSCULAR VOLUME 89 fL (80-99); MEAN PLATELET VOLUME 10.9 fL (9.0-12.2); MONOCYTES # (AUTO) 0.5 10^3/uL (0.0-1.0); MONOCYTES % (AUTO) 9 % (0-12); NEUTROPHILS # (AUTO) 4.9 10^3/uL (1.8-7.8); NEUTROPHILS % (AUTO) 80 % (42-75); PLATELET COUNT 227 10^3/uL (130-400); WHITE BLOOD COUNT 6.2 10^3/uL (4.3-11.0)
--- NOTE | 2022-04-25 13:21 | Diagnostic Imaging Report ---
INDICATION: Chest pain Portable AP view chest obtained with comparison made to study of 01/08/2020. There is stable cardiomegaly. Pulmonary vascularity is unremarkable. Atelectasis and/or scarring is again noted in the right lung base with associated right pleural thickening which may be due to pleural fluid or scarring. IMPRESSION: Right basilar atelectasis and/or scarring with associated mild to moderate right pleural fluid and/or thickening. Left lung appears clear. Dictated by: Dictated on workstation # [id number]
[2022-04-25 13:35] LABS: PROTHROMBIN TIME PATIENT 13.6 SEC (12.2-14.7)
[2022-04-25 14:40] VITALS: BP 128/68
== END 2022-04-25 14:40 | disposition home or self-care (01) ==
LOC: EDUNIT# 12:16 → ER 12:18
DX: I10 Essential (primary) hypertension (principal); E11.9 Type 2 diabetes mellitus without complications; R74.01 Elevation of levels of liver transaminase levels; Z28.310 Unvaccinated for COVID-19
CPT/HCPCS: 36415; 71045; 80053; 83735; 83880; 84484; 85025; 85610; 85730; 93005; 93041

== ENCOUNTER → 2022-06-29 | Outpatient (CLI) | payer MEDICAID ==
--- NOTE | 2022-06-29 15:01 | Diagnostic Imaging Report ---
EXAMINATION: Left calcaneus radiographs, 2 views. COMPARISON: None. HISTORY: 52-year-old male, left heel ulcer and pain. FINDINGS: There is a calcaneal heel spur. There are vascular calcifications. The bones appear potentially demineralized. There is likely subtalar arthritis. There are technical limitations of the study. There are lucencies in the posterior soft tissues which may reflect skin ulcer. There is no cortical or aggressive bone destruction. There is no periosteal reaction. IMPRESSION: 1. No radiographic evidence of osteomyelitis or other acute osseous abnormality. 2. Lucency in the posterior soft tissues which may reflect site of skin ulcer. 3. No identified radiopaque foreign body. Dictated by: Dictated on workstation # [id number]
== END ==
LOC: RAD 10:22
PROVIDERS: ATTEND Podiatrist Foot & Ankle Surgery
DX: L97.429 Non-pressure chronic ulcer of left heel and midfoot with unspecified severity (principal)
CPT/HCPCS: 73650

== ENCOUNTER → 2022-07-01 | Outpatient (CLI) | payer MEDICAID ==
[2022-07-04 09:16] LABS: CALCIUM 9.5 MG/DL (8.5-10.1); CREATININE SERUM 1.31 MG/DL (0.60-1.30); POTASSIUM 4.2 MMOL/L (3.6-5.0)
== END ==
LOC: WOUNDCARE 08:19
PROVIDERS: ATTEND Family Medicine
DX: L97.422 Non-pressure chronic ulcer of left heel and midfoot with fat layer exposed (principal); E11.621 Type 2 diabetes mellitus with foot ulcer; E11.65 Type 2 diabetes mellitus with hyperglycemia; M62.3 Immobility syndrome (paraplegic); E11.40 Type 2 diabetes mellitus with diabetic neuropathy, unspecified; E66.01 Morbid (severe) obesity due to excess calories; I89.0 Lymphedema, not elsewhere classified; Z68.41 Body mass index [BMI] 40.0-44.9, adult
CPT/HCPCS: 85652; 86141; A6197; G0463; 36415; 80048; 99214

== ENCOUNTER → 2022-07-04 | Outpatient (CLI) | payer MEDICAID ==
--- NOTE | 2022-07-04 17:57 | Diagnostic Imaging Report ---
HISTORY: Left heel ulcer TECHNIQUE: Ankle brachial indices of the bilateral lower extremities are obtained. COMPARISON: None FINDINGS: The right ankle-brachial index is 1.07 and the left is 0.99. The right toe brachial index is 1.01 and the left is 0.75. IMPRESSION: 1. Bilateral ankle brachial indices are normal. Dictated by: Dictated on workstation # [id number]
== END ==
LOC: RAD 14:40
PROVIDERS: ATTEND Family Medicine
DX: L97.422 Non-pressure chronic ulcer of left heel and midfoot with fat layer exposed (principal); E11.621 Type 2 diabetes mellitus with foot ulcer; E11.65 Type 2 diabetes mellitus with hyperglycemia; M62.3 Immobility syndrome (paraplegic); E11.40 Type 2 diabetes mellitus with diabetic neuropathy, unspecified; E66.01 Morbid (severe) obesity due to excess calories; I89.0 Lymphedema, not elsewhere classified; Z68.41 Body mass index [BMI] 40.0-44.9, adult
CPT/HCPCS: 93923

== ENCOUNTER → 2022-07-06 | Outpatient (CLI) | payer MEDICAID | LOC: WOUNDCARE 09:28 | PROVIDERS: ATTEND Family Medicine | DX: I96 Gangrene, not elsewhere classified (principal); L97.422 Non-pressure chronic ulcer of left heel and midfoot with fat layer exposed; E11.621 Type 2 diabetes mellitus with foot ulcer; E11.65 Type 2 diabetes mellitus with hyperglycemia; E11.40 Type 2 diabetes mellitus with diabetic neuropathy, unspecified; M62.3 Immobility syndrome (paraplegic); I89.0 Lymphedema, not elsewhere classified; B95.1 Streptococcus, group B, as the cause of diseases classified elsewhere; E66.01 Morbid (severe) obesity due to excess calories; Z68.41 Body mass index [BMI] 40.0-44.9, adult | CPT/HCPCS: 11042; 83036; G0463; 36415 ==

== ENCOUNTER → 2022-07-13 | Outpatient (CLI) | payer MEDICAID | LOC: WOUNDCARE 09:33 | PROVIDERS: ATTEND Family Medicine | DX: L97.422 Non-pressure chronic ulcer of left heel and midfoot with fat layer exposed (principal); E11.621 Type 2 diabetes mellitus with foot ulcer; E11.65 Type 2 diabetes mellitus with hyperglycemia; M62.3 Immobility syndrome (paraplegic); E11.40 Type 2 diabetes mellitus with diabetic neuropathy, unspecified; E66.01 Morbid (severe) obesity due to excess calories; Z68.41 Body mass index [BMI] 40.0-44.9, adult; I89.0 Lymphedema, not elsewhere classified; B95.1 Streptococcus, group B, as the cause of diseases classified elsewhere; M86.172 Other acute osteomyelitis, left ankle and foot; E11.52 Type 2 diabetes mellitus with diabetic peripheral angiopathy with gangrene; I96 Gangrene, not elsewhere classified | CPT/HCPCS: 11042; G0463 ==

== ENCOUNTER → 2022-07-20 | Outpatient (CLI) | payer MEDICAID | LOC: WOUNDCARE 09:36 | PROVIDERS: ATTEND Family Medicine | DX: L97.422 Non-pressure chronic ulcer of left heel and midfoot with fat layer exposed (principal); E11.621 Type 2 diabetes mellitus with foot ulcer; E11.65 Type 2 diabetes mellitus with hyperglycemia; M62.3 Immobility syndrome (paraplegic); E11.40 Type 2 diabetes mellitus with diabetic neuropathy, unspecified; E66.01 Morbid (severe) obesity due to excess calories; Z68.41 Body mass index [BMI] 40.0-44.9, adult; I89.0 Lymphedema, not elsewhere classified; B95.2 Enterococcus as the cause of diseases classified elsewhere; M86.272 Subacute osteomyelitis, left ankle and foot; E11.52 Type 2 diabetes mellitus with diabetic peripheral angiopathy with gangrene; I96 Gangrene, not elsewhere classified | CPT/HCPCS: 11042; G0463 ==

== ENCOUNTER → 2022-07-27 | Outpatient (CLI) | payer MEDICAID | LOC: WOUNDCARE 09:32 | PROVIDERS: ATTEND Family Medicine | DX: I96 Gangrene, not elsewhere classified (principal); L97.422 Non-pressure chronic ulcer of left heel and midfoot with fat layer exposed; E11.621 Type 2 diabetes mellitus with foot ulcer; E11.65 Type 2 diabetes mellitus with hyperglycemia; E11.40 Type 2 diabetes mellitus with diabetic neuropathy, unspecified; M62.3 Immobility syndrome (paraplegic); B95.1 Streptococcus, group B, as the cause of diseases classified elsewhere; I89.0 Lymphedema, not elsewhere classified; E66.01 Morbid (severe) obesity due to excess calories; M86.272 Subacute osteomyelitis, left ankle and foot; Z68.41 Body mass index [BMI] 40.0-44.9, adult | CPT/HCPCS: 11042; A6212; G0463 ==

== ENCOUNTER → 2022-08-10 | Outpatient (CLI) | payer MEDICAID | LOC: WOUNDCARE 14:39 | PROVIDERS: ATTEND Family Medicine | DX: E11.621 Type 2 diabetes mellitus with foot ulcer (principal); E11.65 Type 2 diabetes mellitus with hyperglycemia; L97.422 Non-pressure chronic ulcer of left heel and midfoot with fat layer exposed; M62.3 Immobility syndrome (paraplegic); E11.40 Type 2 diabetes mellitus with diabetic neuropathy, unspecified; E66.01 Morbid (severe) obesity due to excess calories; Z68.41 Body mass index [BMI] 40.0-44.9, adult; I89.0 Lymphedema, not elsewhere classified; B95.1 Streptococcus, group B, as the cause of diseases classified elsewhere; M86.272 Subacute osteomyelitis, left ankle and foot; E11.52 Type 2 diabetes mellitus with diabetic peripheral angiopathy with gangrene; I96 Gangrene, not elsewhere classified | CPT/HCPCS: 11042; 11750; A6212; G0463 ==

== ENCOUNTER → 2022-08-24 | Outpatient (CLI) | payer MEDICAID | LOC: WOUNDCARE 09:32 | PROVIDERS: ATTEND Family Medicine | DX: E11.621 Type 2 diabetes mellitus with foot ulcer (principal); E11.65 Type 2 diabetes mellitus with hyperglycemia; E11.40 Type 2 diabetes mellitus with diabetic neuropathy, unspecified; E66.01 Morbid (severe) obesity due to excess calories; Z68.41 Body mass index [BMI] 40.0-44.9, adult; I89.0 Lymphedema, not elsewhere classified; L97.422 Non-pressure chronic ulcer of left heel and midfoot with fat layer exposed; M62.3 Immobility syndrome (paraplegic); B95.1 Streptococcus, group B, as the cause of diseases classified elsewhere; M86.272 Subacute osteomyelitis, left ankle and foot | CPT/HCPCS: A6212; G0463; 99213 ==

== ENCOUNTER 2022-08-30 20:30 | Inpatient (IN) | payer MEDICAID ==
[~2022-08-30] VITALS: Ht 182 cm; Wt 154.1 kg
[2022-08-30] MEDS ORDERED: NS IV 1000 ML 1,000 ML IV SCH (20:45)
[2022-08-30] MEDS ORDERED: PIPERACILLIN SODIUM/TAZOBACTAM 4.5 GM in NS (IVPB) 100 ML IV ONE (20:45)
[2022-08-30 20:58] LABS: BASOPHILS # (AUTO) 0.1 10^3/uL (0.0-0.1); BASOPHILS % (AUTO) 0 % (0-10); EOSINOPHILS % (AUTO) 0 % (0-10); HEMATOCRIT 41 % (40-54); HEMOGLOBIN 13.4 g/dL (13.3-17.7); LYMPHOCYTES # (AUTO) 0.4 10^3/uL (1.0-4.0); LYMPHOCYTES % (AUTO) 3 % (12-44); MEAN CORPUSCULAR HEMOGLOBIN 29 pg (25-34); MEAN CORPUSCULAR HGB CONC 33 g/dL (32-36); MEAN CORPUSCULAR VOLUME 88 fL (80-99); MEAN PLATELET VOLUME 11.2 fL (9.0-12.2); MONOCYTES # (AUTO) 0.5 10^3/uL (0.0-1.0); MONOCYTES % (AUTO) 4 % (0-12); NEUTROPHILS # (AUTO) 14.2 10^3/uL (1.8-7.8); NEUTROPHILS % (AUTO) 92 % (42-75); PLATELET COUNT 278 10^3/uL (130-400); WHITE BLOOD COUNT 15.4 10^3/uL (4.3-11.0)
--- NOTE | 2022-08-30 21:04 | ED General ---
General Chief Complaint: Skin/Wound Problems Stated Complaint: INFECTION IN LEG Source of Information: Patient History of Present Illness Date Seen by Provider: August 30, 2022 Time Seen by Provider: 20:35 Initial Comments PT ARRIVES VIA POV FROM HOME WITH . PT STATES 4 HOURS AGO, HE BEGAN TO HAVE CHILLS AND FEVER WITH TEMP OF 102 PT IS DIABETIC, WITH PERIPHERAL NEUROPATHY, AND HAS HAD DIABETIC FOOT ULCER WITH OSTEOMYELITIS ON LEFT HEEL FOR THE LAST 3 YEARS HE HAS HAD PART OF LEFT HEEL REMOVED. HE WENT TO WOUND CARE FOR ABOUT A YEAR, AND IT WAS BETTER 2-3 MONTHS AGO, HE BEGAN HAVING CHILLS AND NAUSEA/VOMITING. WENT TO DR. BATES, [facility], AND HE WAS REFERRED BACK TO WOUND CARE HE HAS BEEN ON AUGMENTIN FOR THE LAST 2 MONTHS, FINISHED 2 WEEKS AGO. PT STATES HE SAW DR. SHAVER AT WOUND CARE LAST WEEK, AND THEY DISCUSSED BELOW THE KNEE AMPUTATION FOR CONTINUED OSTEOMYELITIS. PT OPTED TO BE REFERRED TO INFECTIOUS DISEASE PHYSICIAN FIRST. HE HAS AN APPOINTMENT NEXT MONDAY IN [place] WITH INFECTIOUS DISEASE PHYSICIAN. HE STILL HAS A WOUND TO THE LEFT HEEL, AND IT HAS A DRESSING IN PLACE AT THIS TIME. HE DOES NOT KNOW IF IT HAS BEEN DRAINING OR NOT. HE HAS BEEN NON-AMBULATORY FOR THE LAST 3 YEARS, IS ABLE TO STAND FOR TRANSFERS, HAS A WHEELCHAIR AT HOME. HE STATES THAT THE FEVER AND CHILLS BEGAN TODAY HE HAS NOT HAD ANY SYMPTOMS OTHER THAN THAT. HE HAS NOT TAKEN ANYTHING FOR FEVER. HE HAS NOT HAD HIS NIGHT TIME MEDICATIONS. HE ATE BREAKFAST THIS MORNING BUT HAS NOT HAD ANYTHING ELSE TO EAT TODAY. HE HAS BEEN DRINKING LIQUIDS TODAY. HE IS URINATING NORMALLY GLUCOSE WAS 142 TODAY. PCP: DR. FERNANDEZ, [facility] Allergies and Home Medications Allergies Coded Allergies: No Known Drug Allergies (Unverified , 04/25/22) Patient Home Medication List Home Medication List Reviewed: Yes Amlodipine Besylate (Amlodipine Besylate) 10 Mg Tablet, 10 MG PO DAILY, (Reported) Entered as Reported by: MARIA EUGENIA BEACH on 08/10/21 08 Aspirin (Aspirin) 81 Mg Tab.chew, 81 MG DAILY, (Reported) Entered as Reported by: GENEVA QUINN on 03/29/19 6632 Clopidogrel Bisulfate (Plavix) 75 Mg Tablet, 75 MG PO DAILY, (Reported) Entered as Reported by: MARIA EUGENIA BEACH on 08/10/21843 Cyclobenzaprine HCl (Cyclobenzaprine HCl) 10 Mg Tablet, 10 MG PO TID PRN for MUSCLE SPASMS, (Reported) Entered as Reported by: SOL WORLEY on 09/19/17 110 Gabapentin (Gabapentin) 800 Mg Tablet, 800 MG PO TID, (Reported) Entered as Reported by: DIMAS PETERSON on 09/21/21 1605 Glyburide (Glyburide) 5 Mg Tablet, 10 MG PO BID, (Reported) Entered as Reported by: SOL WORLEY on 09/19/17 110 Hydrochlorothiazide (Hydrochlorothiazide) 25 Mg Tablet, 25 MG PO DAILY, (Reported) Entered as Reported by: MARIA EUGENIA BEACH on 08/10/21843 Latanoprost (Latanoprost) 2.5 Ml Drops, 1 DROP OU DAILY, (Reported) Entered as Reported by: SOL WORLEY on 09/19/17 110 Liraglutide (Victoza 3-Ludwig) 0.6 Mg/0.1 Ml Pen.injctr, 1.8 MG SQ DAILY, (Reported) Entered as Reported by: SOL WORLEY on 09/19/17 110 Lisinopril (Lisinopril) 40 Mg Tablet, 40 MG PO DAILY, (Reported) Entered as Reported by: SOL WORLEY on 09/19/17 110 Nitroglycerin (Nitroglycerin) 0.4 Mg Tab.subl, 0.4 MG SL PRN PRN for chest pain, (Reported) Entered as Reported by: MARIA EUGENIA BEACH on 08/10/21843 Omeprazole (Omeprazole) 20 Mg Capsule.dr, 20 MG PO DAILY, (Reported) Entered as Reported by: GENEVA QUINN on 03/29/19 175 Pioglitazone HCl (Pioglitazone HCl) 45 Mg Tablet, 45 MG PO DAILY, (Reported) Entered as Reported by: SOL WORLEY on 09/19/17 110 Polyethylene Glycol 1000 (Polyethylene Glycol) 500 Gm Powder, 500 GM MC PRN, (Reported) Entered as Reported by: MARIA EUGENIA BEACH on 08/10/21843 Propranolol HCl (Propranolol HCl) 40 Mg Tablet, 40 MG PO BID, (Reported) Entered as Reported by: SOL WORLEY on 09/19/17 1109 Review of Systems Review of Systems Constitutional: see HPI, fever Respiratory: no symptoms reported Cardiovascular: no symptoms reported Gastrointestinal: no symptoms reported Genitourinary: no symptoms reported Musculoskeletal: see HPI Skin: see HPI Psychiatric/Neurological: No Symptoms Reported, Pre-Existing Deficit (PERIPHERA L NEUROPATHY) Hematologic/Lymphatic: No Symptoms Reported Immunological/Allergic: no symptoms reported Past Utyrgcb-Yyyaod-Rkhkys Hx Patient Social History Tobacco Use?: No Substance use?: No Alcohol Use?: No Immunizations Up To Date Tetanus Booster (TDap): Unknown Seasonal Allergies Seasonal Allergies: Yes Past Medical History Surgeries: Yes (HERNIA AGE 1;HEART CATH;urethreal stricture;left big toe o steoectomy;L HEEL) Orthopedic Respiratory: Yes (going to get a sleep study done) Sleep Apnea Currently Using CPAP: Yes (WITH OXYGEN) Currently Using BIPAP: No Cardiac: Yes High Cholesterol, Hypertension Neurological: Yes Neuropathy Reproductive Disorders: No Sexually Transmitted Disease: No HIV/AIDS: No Genitourinary: No Gastrointestinal: No Musculoskeletal: Yes (open wound on left big toe;BILAT CHARCOT FOOT;OSTEOMYELITIS/ L HEEL RESECT) Endocrine: Yes Diabetes, Non-Insulin dep HEENT: No Hearing Impairment: Denies Cancer: No Psychosocial: No Integumentary: Yes (DIABETIC FOOT ULCERS, CELLULITIS AND OSTEOMYELITIS) Pruritis Blood Disorders: No Adverse Reaction/Blood Tranf: No Family Medical History Chest pain 03 MOTHER, Onset:Unknown Congestive heart failure 03 MOTHER, Onset:Unknown Family history: Cardiovascular disease 03 MOTHER, Onset:Unknown Family history: Coronary thrombosis 03 MOTHER, Onset:Unknown Family history: Diabetes mellitus 03 FATHER, Onset:Unknown 03 MOTHER, Onset:Unknown 09 BROTHER, Onset:Unknown Family history: Glaucoma 03 MOTHER, Onset:Unknown Family history: Hypertension 03 FATHER, Onset:Unknown 03 MOTHER, Onset:Unknown 09 BROTHER, Onset:Unknown Heart disease 03 MOTHER, Onset:Unknown Hypercholesterolemia 03 FATHER, Onset:Unknown 03 MOTHER, Onset:Unknown 09 BROTHER, Onset:Unknown Myocardial infarction 03 MOTHER, Onset:Unknown Psychotic disorder 03 MOTHER, Onset:Unknown Seizure disorder 03 MOTHER, Onset:Unknown Stroke 03 MOTHER, Onset:Unknown Visual impairment 03 MOTHER, Onset:Unknown No Family History of: Abdominal aortic aneurysm Rome's disease Alcoholism Aphasia Cancer Cancer of colon Cataract Congenital heart disease Cystic fibrosis Dementia Dysphagia Family history: Allergy Family history: Alzheimer's disease Family history: Arthritis Family history: Asthma Family history: Breast disease Family history: Gastrointestinal disease Family history: Osteoporosis Family history: Thyroid disorder Headache Hearing loss Hereditary disease History of - anemia History of - disorder History of - respiratory disease History of drug abuse Human immunodeficiency virus (HIV) seropositivity Infertile Kidney disease Malignant neoplasm of lung Parkinson's disease Prostate cancer Tuberculosis Vascular Disease Physical Exam Vital Signs Vital Signs - First Documented 08/30/22 20:35 Temp 38.2 Pulse 123 Resp 26 B/P (MAP) 142/63 (89) Pulse Ox 95 O2 Delivery Room Air Capillary Refill : Height, Weight, BMI Height: 6'0.00" Weight: 330lbs. 0.0oz. 149.721946je; 48.00 BMI Method:Stated General Appearance: No Apparent Distress, WD/WN, Obese Respiratory: Normal Breath Sounds, No Accessory Muscle Use, No Respiratory Distress Cardiovascular: No Murmur, Tachycardia Gastrointestinal: Soft Extremity: Normal Capillary Refill, Other (LEFT LOWER LEG WITH KNEE HIGH COMPRESSION STOCKING AND WEARING A POST OP SHOE. THERE IS 2+ EDEMA TO BOTH LOWER LEGS AND FEET; BILAT CHARCOT FOOT; LEFT HEEL WITH WOUND, AND MODERATE ERYTHEMA AND WARMTH, OF FOOT UP TO MID LOWER LEG. ) Neurologic/Psychiatric: Alert, Oriented x3, Normal Mood/Affect, wildlife protector II-XII Norm as Tested Skin: Normal Color, Warm/Dry, Other ( ABOVE. ) Focused Exam Sepsis Stage: Sepsis Reason for ruling out sepsis: 2129 Possible Source: Skin/Soft Tissue Lactate Level 08/30/22 20:40: Lactic Acid Level 1.91 Time of Focused Exam: 21:30 Respiratory: Normal Breath Sounds, No Accessory Muscle Use, No Respiratory Distress Cardiovascular: Tachycardia (110's) Capillary Refill: Less Than 3 Seconds Skin: normal color, warm/dry Lactic Acid Level Laboratory Tests Test 08/30/22 20:40 Lactic Acid Level 1.91 MMOL/L (0.50-2.00) Within 3hrs of presentation: Admin fluids, Admin ABX, Blood cultures prior to ABX's, Focus exam, Lactate level Progress/Results/Core Measures Suspected Sepsis SIRS Temperature: Pulse: Respiratory Rate: Laboratory Tests 08/30/22 20:40: White Blood Count 15.4H Blood Pressure / Mean: 08/30/22 20:40: Lactic Acid Level 1.91 Laboratory Tests 08/30/22 20:40: Creatinine 1.33H, INR Comment 1.1, Platelet Count 278, Total Bilirubin 0.7 Results/Orders Lab Results Laboratory Tests Test 08/30/22 20:40 08/30/22 20:45 08/30/22 21:08 08/30/22 21:55 Range/Units White Blood Count 15.4 H 4.3-11.0 10^3/uL Red Blood Count 4.64 4.30-5.52 10^6/uL Hemoglobin 13.4 13.3-17.7 g/dL Hematocrit 41 40-54 % Mean Corpuscular Volume 88 80-99 fL Mean Corpuscular Hemoglobin 29 25-34 pg Mean Corpuscular Hemoglobin Concent 33 32-36 g/dL Red Cell Distribution Width 14.6 H 10.0-14.5 % Platelet Count 278 130-400 10^3/uL Mean Platelet Volume 11.2 9.0-12.2 fL Immature Granulocyte % (Auto) 1 % Neutrophils (%) (Auto) 92 H 42-75 % Lymphocytes (%) (Auto) 3 L 12-44 % Monocytes (%) (Auto) 4 0-12 % Eosinophils (%) (Auto) 0 0-10 % Basophils (%) (Auto) 0 0-10 % Neutrophils # (Auto) 14.2 H 1.8-7.8 10^3/uL Lymphocytes # (Auto) 0.4 L 1.0-4.0 10^3/uL Monocytes # (Auto) 0.5 0.0-1.0 10^3/uL Eosinophils # (Auto) 0.0 0.0-0.3 10^3/uL Basophils # (Auto) 0.1 0.0-0.1 10^3/uL Immature Granulocyte # (Auto) 0.1 0.0-0.1 10^3/uL Neutrophils % (Manual) 83 % Lymphocytes % (Manual) 3 % Monocytes % (Manual) 2 % Basophils % (Manual) 2 % Band Neutrophils 10 % Platelet Estimate NORMAL Blood Morphology Comment NORMAL Erythrocyte Sedimentation Rate 30 0-30 MM/HR Prothrombin Time 14.3 12.2-14.7 SEC INR Comment 1.1 0.8-1.4 Activated Partial Thromboplast Time 28 24-35 SEC Sodium Level 134 L 135-145 MMOL/L Potassium Level 3.9 3.6-5.0 MMOL/L Chloride Level 99 98-107 MMOL/L Carbon Dioxide Level 22 21-32 MMOL/L Anion Gap 13 5-14 MMOL/L Blood Urea Nitrogen 20 H 7-18 MG/DL Creatinine 1.33 H 0.60-1.30 MG/DL Estimat Glomerular Filtration Rate 64 BUN/Creatinine Ratio 15 Glucose Level 195 H 70-105 MG/DL Lactic Acid Level 1.91 0.50-2.00 MMOL/L Calcium Level 9.6 8.5-10.1 MG/DL Corrected Calcium 9.5 8.5-10.1 MG/DL Magnesium Level 1.7 1.6-2.4 MG/DL Total Bilirubin 0.7 0.1-1.0 MG/DL Aspartate Amino Transf (AST/SGOT) 28 5-34 U/L Alanine Aminotransferase (ALT/SGPT) 31 0-55 U/L Alkaline Phosphatase 95 40-136 U/L Total Creatine Kinase 31 30-200 U/L Creatine Kinase MB 0.2 <6.6 NG/ML Myoglobin 35.1 10.0-92.0 NG/ML C-Reactive Protein High Sensitivity 1.19 H 0.00-0.50 MG/DL Total Protein 7.7 6.4-8.2 GM/DL Albumin 4.1 3.2-4.5 GM/DL Influenza Type A (RT-PCR) Not Detected Not Detecte Influenza Type B (RT-PCR) Not Detected Not Detecte SARS-CoV-2 RNA (RT-PCR) Not Detected Not Detecte Glucometer 200 H 70-110 MG/DL Urine Color YELLOW Urine Clarity CLEAR Urine pH 5.5 5-9 Urine Specific [place] 1.020 1.016-1.022 Urine Protein NEGATIVE NEGATIVE Urine Glucose (UA) TRACE H NEGATIVE Urine Ketones TRACE H NEGATIVE Urine Nitrite NEGATIVE NEGATIVE Urine Bilirubin NEGATIVE NEGATIVE Urine Urobilinogen 0.2 < = 1.0 MG/DL Urine Leukocyte Esterase NEGATIVE NEGATIVE Urine RBC (Auto) NEGATIVE NEGATIVE Urine RBC NONE /HPF Urine WBC 2-5 /HPF Urine Squamous Epithelial Cells 5-10 /HPF Urine Crystals PRESENT H /LPF Urine Amorphous Sediment FEW MARSHAL URATES H /LPF Urine Bacteria TRACE /HPF Urine Casts NONE /LPF Urine Mucus SMALL H /LPF Urine Culture Indicated CULTURE PENDING My Orders Orders - MUNIRA,LETTY K DO Ed Iv/Invasive Line Start (08/30/22 20:41) Monitor-Rhythm Ecg Trace Only (08/30/22 20:41) Foot, Left, 3 Views (08/30/22 20:41) Creatine Kinase (08/30/22 20:41) Creatine Kinase Mb (08/30/22 20:41) Hs C Reactive Protein (08/30/22 20:41) Magnesium (08/30/22 20:41) Erythrocyte Sedimentation Rate (08/30/22 20:41) Myoglobin Serum (08/30/22 20:41) Covid 19 Inhouse Test (08/30/22 20:41) Cbc With Automated Diff (08/30/22 20:41) Comprehensive Metabolic Panel (08/30/22 20:41) Blood Culture (08/30/22 20:41) Sputum Culture (08/30/22 20:41) Urinalysis (08/30/22 20:41) Urine Culture (08/30/22 20:41) Protime With Inr (08/30/22 20:41) Partial Thromboplastin Time (08/30/22 20:41) Chest 1 View, Ap/Pa Only (08/30/22 20:41) Ed Iv/Invasive Line Start (08/30/22 20:41) Ed Iv/Invasive Line Start (08/30/22 20:41) Vital Signs Adult Sepsis Patie Q15M (08/30/22 20:41) O2 (08/30/22 20:41) Remove Rings In Anticipation O (08/30/22 20:41) Lactic Acid Analyzer (08/30/22 20:41) Piperacillin Sodium/Tazobactam (Zosyn Vi (08/30/22 20:45) Vancomycin Injection (Vancomycin Injecti (08/30/22 20:45) Influenza A And B By Pcr (08/30/22 20:41) Isolation Central Supply Req (08/30/22 20:41) Wound Culture (08/30/22 20:41) Accucheck Stat ONCE (08/30/22 20:41) Ed Iv/Invasive Line Start (08/30/22 20:41) Ns Iv 1000 Ml (Sodium Chloride 0.9%) (08/30/22 20:45) Manual Differential (08/30/22 20:40) Ed Admission (Communication) (08/30/22 21:49) Medications Given in ED Current Medications Medications Dose Ordered Sig/Reji Route Start Time Stop Time Status Last Admin Dose Admin Piperacillin Sod/ Tazobactam Sod 4.5 gm/Sodium Chloride 100 ml @ 200 mls/hr ONCE ONCE IV 08/30/22 20:45 08/30/22 21:14 DC 08/30/22 21:02 200 MLS/HR Vital Signs/I&O 08/30/22 08/30/22 20:35 22:50 Temp 38.2 Pulse 123 109 Resp 26 B/P (MAP) 142/63 (89) 125/71 Pulse Ox 95 98 O2 Delivery Room Air Room Air 08/31/22 00:00 Intake Total 1350 ml Balance 1350 ml Capillary Refill : Progress Note : Progress Note SEPSIS PROTOCOL INITIATED COVID AND FLU TESTING DONE GIVEN: -IV FLUIDS -TYLENOL -ZOSYN + VANCOMYCIN ACCUCHECK 200 VITALS ON ARRIVAL: TEMP 38.2 = 100.8, HR 123, BP 142/63, RR 26, O2 SAT 95% ON ROOM AIR. NO DETERIORATION IN PT'S CONDITION DURING ER STAY VITALS AT TIME OF ADMIT: TEMP 37.4 = 99.4, HR 109, BP 125/71, RR 20, O2 SAT 98% ON ROOM AIR LABS INCLUDING COVID AND FLU TESTS, CBC, CMP, CRP, SED RATE, LACTIC ACID, BLOOD CULTURES AND WOUND CULTURE ORDERED. CBD WITH WBC 15.4 BUN/CR 20/1.33 GLUCOSE 195 CRP 1.19 SED RATE 30 LACTIC ACID 1.91 UA WITH TRACE GLUCOSE, TRACE KETONES COVID AND FLU TESTS NEGATIVE. REVIEWED PRIOR RECORDS INCLUDING ER VISITS, ADMITS/H&P'S/CONSULTS/DISCHARGE SUMMARIES, TESTS/PROCEDURES. DISCUSSED TEST RESULTS, NEED FOR ADMIT AND PT IS AGREEABLE TO PLAN Diagnostic Imaging Comments CXR--PER RADIOLOGIST REPORT FINDINGS: The cardiac silhouette is mildly enlarged, though stable. No significant pulmonary vascular congestion. The left lung is clear. Small right basilar pleural-parenchymal opacity is again identified with opacities extending along the lateral right chest wall. This appears similar to the prior examination. Of note, this appeared relatively similar back on prior imaging from 01/08/2020. No pneumothorax. No acute osseous abnormality. IMPRESSION: Small right basilar pleural-parenchymal opacity. This appears similar to the prior examinations, including dating back to 2019. This may relate to a chronic right-sided pleural effusion with adjacent atelectasis and scarring. Superimposed acute component not completely excluded. Stable cardiomegaly without pulmonary vascular congestion. XRAYS LEFT FOOT--PER RADIOLOGIST REPORT FINDINGS: The bones appear demineralized. There is a calcaneal heel spur. There is a chronic-appearing deformity of the calcaneus. There appears to be ankylosis across at least the posterior subtalar joint and potentially across the anterior subtalar joint. There is nonspecific dorsal soft tissue swelling at the level of the distal metatarsals. There is no identified cortical or aggressive bone destruction. There is widening of the first interphalangeal joint space. There is no identified acute fracture. IMPRESSION: 1. No identified acute bony abnormality of the left thigh. 2. The bones appear demineralized. 3. Chronic appearing deformity of the calcaneus with probable ankylosis across the posterior and anterior subtalar joints. Reviewed: Reviewed by Ms Departure Communication (Admissions) 2144--SPOKE WITH DR. HINTON, HOSPITALIST FOR [facility]. ACCEPTS PT FOR ADMIT. SHE WILL DO ADMIT ORDERS Impression Primary Impression: Sepsis Additional Impressions: CELLULTIS OF LEFT FOOT AND LOWER LEG SUPSECTED OSTEOMYELITIS OF LEFT FOOT IDDM (insulin dependent diabetes mellitus) HTN (hypertension) NON AMBULATORY BILATERAL CHARCOT FOOT Peripheral neuropathy CHRONIC WOUND LEFT HEEL Disposition: ADMITTED INPATIENT Condition: Stable Admissions Decision to Admit Reason: Admit from ER (General) Decision to Admit/Date: August 30, 2022 Time/Decision to Admit Time: 19:45 Departure-Patient Inst. Referrals: MILA FERNANDEZ DO (PCP/Family) Primary Care Physician LETTY LOMBARDO DO August 30, 2022 21:04
[2022-08-30 21:08] LABS: INR 1.1 (0.8-1.4); PROTHROMBIN TIME PATIENT 14.3 SEC (12.2-14.7)
--- NOTE | 2022-08-30 21:13 | Diagnostic Imaging Report ---
EXAMINATION: Left foot radiographs, 3 views. COMPARISON: July 31, 2019. HISTORY: 52-year-old male, left foot pain. FINDINGS: The bones appear demineralized. There is a calcaneal heel spur. There is a chronic-appearing deformity of the calcaneus. There appears to be ankylosis across at least the posterior subtalar joint and potentially across the anterior subtalar joint. There is nonspecific dorsal soft tissue swelling at the level of the distal metatarsals. There is no identified cortical or aggressive bone destruction. There is widening of the first interphalangeal joint space. There is no identified acute fracture. IMPRESSION: 1. No identified acute bony abnormality of the left thigh. 2. The bones appear demineralized. 3. Chronic appearing deformity of the calcaneus with probable ankylosis across the posterior and anterior subtalar joints. Dictated by: Dictated on workstation # [id number]
--- NOTE | 2022-08-30 21:17 | Diagnostic Imaging Report ---
INDICATION: Foot pain COMPARISON: 04/25/2022 and 01/08/2020 TECHNIQUE: Single frontal radiograph of the chest dated 08/30/2022. FINDINGS: The cardiac silhouette is mildly enlarged, though stable. No significant pulmonary vascular congestion. The left lung is clear. Small right basilar pleural-parenchymal opacity is again identified with opacities extending along the lateral right chest wall. This appears similar to the prior examination. Of note, this appeared relatively similar back on prior imaging from 01/08/2020. No pneumothorax. No acute osseous abnormality. IMPRESSION: Small right basilar pleural-parenchymal opacity. This appears similar to the prior examinations, including dating back to 2019. This may relate to a chronic right-sided pleural effusion with adjacent atelectasis and scarring. Superimposed acute component not completely excluded. Stable cardiomegaly without pulmonary vascular congestion. Dictated by: Dictated on workstation # [id number]
[2022-08-30 21:19] LABS: ALBUMIN 4.1 GM/DL (3.2-4.5); BILIRUBIN,TOTAL 0.7 MG/DL (0.1-1.0); CALCIUM 9.6 MG/DL (8.5-10.1); CREATININE SERUM 1.33 MG/DL (0.60-1.30); MAGNESIUM 1.7 MG/DL (1.6-2.4); POTASSIUM 3.9 MMOL/L (3.6-5.0); TOTAL PROTEIN 7.7 GM/DL (6.4-8.2)
[2022-08-30 21:24] LABS: BAND NEUTROPHILS 10 %; BASOPHILS % (MANUAL) 2 %; LYMPHOCYTES % (MANUAL) 3 %; MONOCYTES % (MANUAL) 2 %; NEUTROPHILS % (MANUAL) 83 %; PLATELET ESTIMATE NORMAL; RBC MORPH NORMAL
[2022-08-30 21:25] LABS: CREATINE KINASE MB 0.2 NG/ML (<6.6); ERYTHROCYTE SEDIMENTATION RATE 30 MM/HR (0-30)
[2022-08-30] MEDS: VANCOMYCIN INJECTION 1,000 MG in NS (IVPB) 250 ML IV SCH ×2 (21:36→22:41)
[2022-08-30 22:01] LABS: BILIRUBIN,URINE NEGATIVE (NEGATIVE); CLARITY,URINE CLEAR; COLOR,URINE YELLOW; GLUCOSE, URINE (UA) TRACE (NEGATIVE); KETONES,URINE TRACE (NEGATIVE); LEUKOCYTE ESTERASE ,URINE NEGATIVE (NEGATIVE); NITRITE,URINE NEGATIVE (NEGATIVE); PH,URINE 5.5 (5-9); PROTEIN,URINE NEGATIVE (NEGATIVE)
[2022-08-30 22:08] LABS: AMORPHOUS SEDIMENT,UR FEW AMOR URATES /LPF; BACTERIA,URINE TRACE /HPF
[2022-08-30] MEDS ORDERED: VANCOMYCIN INJECTION 0.1 MG in NS (IVPB) 250 ML IV SCH (23:00)
[2022-08-30 23:05] VITALS: BP 129/69
[2022-08-30] MEDS ORDERED: VANCOMYCIN 1 GM/NS 250 ML IVPB IV ONE ×2 (23:15)
[2022-08-31] MEDS: NS IV 1000 ML 1,000 ML IV SCH ×5 (00:47→23:05)
[2022-08-31 02:59] VITALS: BP 127/67
[2022-08-31] MEDS: PIPERACILLIN SODIUM/TAZOBACTAM 4.5 GM in NS (IVPB) 100 ML IV SCH ×3 (03:02→18:43)
[2022-08-31 05:40] LABS: BASOPHILS % (AUTO) 0 % (0-10); EOSINOPHILS % (AUTO) 0 % (0-10); HEMATOCRIT 35 % (40-54); HEMOGLOBIN 11.5 g/dL (13.3-17.7); LYMPHOCYTES # (AUTO) 0.5 10^3/uL (1.0-4.0); LYMPHOCYTES % (AUTO) 4 % (12-44); MEAN CORPUSCULAR HEMOGLOBIN 29 pg (25-34); MEAN CORPUSCULAR HGB CONC 33 g/dL (32-36); MEAN CORPUSCULAR VOLUME 87 fL (80-99); MEAN PLATELET VOLUME 11.1 fL (9.0-12.2); MONOCYTES # (AUTO) 0.4 10^3/uL (0.0-1.0); MONOCYTES % (AUTO) 3 % (0-12); NEUTROPHILS % (AUTO) 93 % (42-75); PLATELET COUNT 231 10^3/uL (130-400)
[2022-08-31 06:05] LABS: ALBUMIN 3.4 GM/DL (3.2-4.5); BILIRUBIN,TOTAL 0.6 MG/DL (0.1-1.0); CALCIUM 8.5 MG/DL (8.5-10.1); CREATININE SERUM 1.39 MG/DL (0.60-1.30); POTASSIUM 3.4 MMOL/L (3.6-5.0); TOTAL PROTEIN 6.4 GM/DL (6.4-8.2)
[2022-08-31] MEDS: inSUlin ASPART (NovoLOG) 1 UNIT/0.01 ML (CHARGE PER UNIT) SC SCH ×4 (06:06→20:46)
[2022-08-31 07:15] VITALS: BP 128/58
[2022-08-31] MEDS ORDERED: KCL 20 MEQ TAB (K-DUR) PO ONE (07:15)
[2022-08-31 11:00] VITALS: BP 141/64
--- NOTE | 2022-08-31 11:17 | History & Physical ---
HPI History of Present Illness: 3 years ago had diabetic foot wound, got osteo and had part of heel bone removed, went to wound care for a year and was treated throughout that time. Has been in a wheelchair since that time, has Charcot foot in both feet. Had been doing okay, but two months ago got sick one night with vomiting and chills and he suspected infection and in the same spot where prior ulcer had been he had an ulcer re-emergin, saw Dr. Carpenter next day and debrided, started antibiotics and sent to wound care, and they got labs, xray, MRI and they told him osteomyelitis had returned in foot and lower leg and recommended below the knee amputation. He considered for a couple of weeks and wanted to try seeing ID first. He was to see ID next week. As of last week, wound care reported healing of the wound itself and released him from care. Had been on Augmentin for about 2 months and finished that out and was doing okay, but last night started getting sick with fever and chills. Of note, his MRI was done in [place] due to weight limitations, and he states it was indeterminate but in combination with labs, his primary (Dr. Harrison), wound care, salesperson china and glassware and surgeon all agreed with amputation. In December of 2019 had pleural effusion drained, never had clear diagnosis, reports he had CT and multiple testing, after drainage he didn't have more trouble with it. Source: patient Date seen by provider: August 31, 2022 Time Seen by Provider: 11:14 Attending Physician Olman Harrison DO PCP Admitting Physician: Renata Hinton MD Attending Physician: Renata Hinton MD Consult Date of Admission August 30, 2022 at 22:50 Home Medications Home Medications Reviewed patient Home Medication Reconciliation performed by pharmacy medication reconciliations land survey technician and/or nursing. Patients Allergies have been reviewed. Allergies Coded Allergies: No Known Drug Allergies (Unverified , 04/25/22) [id number] Hx Patient Social History Smoking Status: Former Smoker Former smoker/When Quit: Sep 09, 2011 Recent Hopitalizations: No Alcohol Use?: No Tobacco type used: Cigarettes Have you traveled recently?: No Immunizations Up To Date Tetanus Booster (TDap): Unknown Influenza Vaccine Up-to-Date: Yes; Up-to-Date First/Initial COVID19 Vaccinat: 2020 Second COVID19 Vaccination Javed: 2020 Third COVID19 Vaccination Date: 2021 Past Medical History Past Medical History 1. Diabetes Mellitus 2. Charcot Foot 3. Peripheral Neuropathy 4. HTN 5. Coronary artery disease with ballooning August 2021 6. Lymphedema 7. Diabetic retinopathy Past Surgical History 1. Tonsillectomy 2. Hernia Surgery at 1 years of age 3. Cardiac cath with ballooning 08/2021 Family Medical History Significant Family History: Vascular Disease Family History: Chest pain 03 MOTHER, Onset:Unknown Congestive heart failure 03 MOTHER, Onset:Unknown Family history: Cardiovascular disease 03 MOTHER, Onset:Unknown Family history: Coronary thrombosis 03 MOTHER, Onset:Unknown Family history: Diabetes mellitus 03 FATHER, Onset:Unknown 03 MOTHER, Onset:Unknown 09 BROTHER, Onset:Unknown Family history: Glaucoma 03 MOTHER, Onset:Unknown Family history: Hypertension 03 FATHER, Onset:Unknown 03 MOTHER, Onset:Unknown 09 BROTHER, Onset:Unknown Heart disease 03 MOTHER, Onset:Unknown Hypercholesterolemia 03 FATHER, Onset:Unknown 03 MOTHER, Onset:Unknown 09 BROTHER, Onset:Unknown Myocardial infarction 03 MOTHER, Onset:Unknown Psychotic disorder 03 MOTHER, Onset:Unknown Seizure disorder 03 MOTHER, Onset:Unknown Stroke 03 MOTHER, Onset:Unknown Visual impairment 03 MOTHER, Onset:Unknown No Family History of: Abdominal aortic aneurysm [place]'s disease Alcoholism Aphasia Cancer Cancer of colon Cataract Congenital heart disease Cystic fibrosis Dementia Dysphagia Family history: Allergy Family history: Alzheimer's disease Family history: Arthritis Family history: Asthma Family history: Breast disease Family history: Gastrointestinal disease Family history: Osteoporosis Family history: Thyroid disorder Headache Hearing loss Hereditary disease History of - anemia History of - disorder History of - respiratory disease History of drug abuse Human immunodeficiency virus (HIV) seropositivity Infertile Kidney disease Malignant neoplasm of lung Parkinson's disease Prostate cancer Tuberculosis Review of Systems ([facility]) Constitutional: chills, fever, malaise EENTM: nose congestion; No throat pain Respiratory: No cough, No short of breath Cardiovascular: No chest pain Gastrointestinal: No abdominal pain, No constipation, No diarrhea, No nausea, No vomiting Genitourinary: No dysuria Musculoskeletal: joint pain (fingers) Skin: see HPI Psychiatric/Neurological: Numbness (left hand) Reviewed Test Results Reviewed Test Results Lab Laboratory Tests Test 08/30/22 20:40 08/30/22 20:45 08/30/22 21:08 08/30/22 21:55 Range/Units White Blood Count 15.4 H 4.3-11.0 10^3/uL Red Blood Count 4.64 4.30-5.52 10^6/uL Hemoglobin 13.4 13.3-17.7 g/dL Hematocrit 41 40-54 % Mean Corpuscular Volume 88 80-99 fL Mean Corpuscular Hemoglobin 29 25-34 pg Mean Corpuscular Hemoglobin Concent 33 32-36 g/dL Red Cell Distribution Width 14.6 H 10.0-14.5 % Platelet Count 278 130-400 10^3/uL Mean Platelet Volume 11.2 9.0-12.2 fL Immature Granulocyte % (Auto) 1 % Neutrophils (%) (Auto) 92 H 42-75 % Lymphocytes (%) (Auto) 3 L 12-44 % Monocytes (%) (Auto) 4 0-12 % Eosinophils (%) (Auto) 0 0-10 % Basophils (%) (Auto) 0 0-10 % Neutrophils # (Auto) 14.2 H 1.8-7.8 10^3/uL Lymphocytes # (Auto) 0.4 L 1.0-4.0 10^3/uL Monocytes # (Auto) 0.5 0.0-1.0 10^3/uL Eosinophils # (Auto) 0.0 0.0-0.3 10^3/uL Basophils # (Auto) 0.1 0.0-0.1 10^3/uL Immature Granulocyte # (Auto) 0.1 0.0-0.1 10^3/uL Neutrophils % (Manual) 83 % Lymphocytes % (Manual) 3 % Monocytes % (Manual) 2 % Basophils % (Manual) 2 % Band Neutrophils 10 % Platelet Estimate NORMAL Blood Morphology Comment NORMAL Erythrocyte Sedimentation Rate 30 0-30 MM/HR Prothrombin Time 14.3 12.2-14.7 SEC INR Comment 1.1 0.8-1.4 Activated Partial Thromboplast Time 28 24-35 SEC Sodium Level 134 L 135-145 MMOL/L Potassium Level 3.9 3.6-5.0 MMOL/L Chloride Level 99 98-107 MMOL/L Carbon Dioxide Level 22 21-32 MMOL/L Anion Gap 13 5-14 MMOL/L Blood Urea Nitrogen 20 H 7-18 MG/DL Creatinine 1.33 H 0.60-1.30 MG/DL Estimat Glomerular Filtration Rate 64 BUN/Creatinine Ratio 15 Glucose Level 195 H 70-105 MG/DL Lactic Acid Level 1.91 0.50-2.00 MMOL/L Calcium Level 9.6 8.5-10.1 MG/DL Corrected Calcium 9.5 8.5-10.1 MG/DL Magnesium Level 1.7 1.6-2.4 MG/DL Total Bilirubin 0.7 0.1-1.0 MG/DL Aspartate Amino Transf (AST/SGOT) 28 5-34 U/L Alanine Aminotransferase (ALT/SGPT) 31 0-55 U/L Alkaline Phosphatase 95 40-136 U/L Total Creatine Kinase 31 30-200 U/L Creatine Kinase MB 0.2 <6.6 NG/ML Myoglobin 35.1 10.0-92.0 NG/ML C-Reactive Protein High Sensitivity 1.19 H 0.00-0.50 MG/DL Total Protein 7.7 6.4-8.2 GM/DL Albumin 4.1 3.2-4.5 GM/DL Influenza Type A (RT-PCR) Not Detected Not Detecte Influenza Type B (RT-PCR) Not Detected Not Detecte SARS-CoV-2 RNA (RT-PCR) Not Detected Not Detecte Glucometer 200 H 70-110 MG/DL Urine Color YELLOW Urine Clarity CLEAR Urine pH 5.5 5-9 Urine Specific Spur 1.020 1.016-1.022 Urine Protein NEGATIVE NEGATIVE Urine Glucose (UA) TRACE H NEGATIVE Urine Ketones TRACE H NEGATIVE Urine Nitrite NEGATIVE NEGATIVE Urine Bilirubin NEGATIVE NEGATIVE Urine Urobilinogen 0.2 < = 1.0 MG/DL Urine Leukocyte Esterase NEGATIVE NEGATIVE Urine RBC (Auto) NEGATIVE NEGATIVE Urine RBC NONE /HPF Urine WBC 2-5 /HPF Urine Squamous Epithelial Cells 5-10 /HPF Urine Crystals PRESENT H /LPF Urine Amorphous Sediment FEW MARSHAL URATES H /LPF Urine Bacteria TRACE /HPF Urine Casts NONE /LPF Urine Mucus SMALL H /LPF Urine Culture Indicated CULTURE PENDING Test 08/31/22 05:13 08/31/22 10:15 Range/Units White Blood Count 14.0 H 4.3-11.0 10^3/uL Red Blood Count 3.96 L 4.30-5.52 10^6/uL Hemoglobin 11.5 L 13.3-17.7 g/dL Hematocrit 35 L 40-54 % Mean Corpuscular Volume 87 80-99 fL Mean Corpuscular Hemoglobin 29 25-34 pg Mean Corpuscular Hemoglobin Concent 33 32-36 g/dL Red Cell Distribution Width 14.6 H 10.0-14.5 % Platelet Count 231 130-400 10^3/uL Mean Platelet Volume 11.1 9.0-12.2 fL Immature Granulocyte % (Auto) 0 % Neutrophils (%) (Auto) 93 H 42-75 % Lymphocytes (%) (Auto) 4 L 12-44 % Monocytes (%) (Auto) 3 0-12 % Eosinophils (%) (Auto) 0 0-10 % Basophils (%) (Auto) 0 0-10 % Neutrophils # (Auto) 13.0 H 1.8-7.8 10^3/uL Lymphocytes # (Auto) 0.5 L 1.0-4.0 10^3/uL Monocytes # (Auto) 0.4 0.0-1.0 10^3/uL Eosinophils # (Auto) 0.0 0.0-0.3 10^3/uL Basophils # (Auto) 0.0 0.0-0.1 10^3/uL Immature Granulocyte # (Auto) 0.1 0.0-0.1 10^3/uL Sodium Level 135 135-145 MMOL/L Potassium Level 3.4 L 3.6-5.0 MMOL/L Chloride Level 102 98-107 MMOL/L Carbon Dioxide Level 24 21-32 MMOL/L Anion Gap 9 5-14 MMOL/L Blood Urea Nitrogen 22 H 7-18 MG/DL Creatinine 1.39 H 0.60-1.30 MG/DL Estimat Glomerular Filtration Rate 60 BUN/Creatinine Ratio 16 Glucose Level 139 H 70-105 MG/DL Calcium Level 8.5 8.5-10.1 MG/DL Corrected Calcium 9.0 8.5-10.1 MG/DL Total Bilirubin 0.6 0.1-1.0 MG/DL Aspartate Amino Transf (AST/SGOT) 21 5-34 U/L Alanine Aminotransferase (ALT/SGPT) 26 0-55 U/L Alkaline Phosphatase 73 40-136 U/L Total Protein 6.4 6.4-8.2 GM/DL Albumin 3.4 3.2-4.5 GM/DL Glucometer 129 H 70-110 MG/DL Radiology CXR 08/30/22: IMPRESSION: Small right basilar pleural-parenchymal opacity. This appears similar to the prior examinations, including dating back to 2019. This may relate to a chronic right-sided pleural effusion with adjacent atelectasis and scarring. Superimposed acute component not completely excluded. 08/30/22 Left foot xray: IMPRESSION: 1. No identified acute bony abnormality of the left thigh. 2. The bones appear demineralized. 3. Chronic appearing deformity of the calcaneus with probable ankylosis across the posterior and anterior subtalar joints. Physical Exam-([facility]) Physical Exam Vital Signs VS - Last 72 Hours, by Label 08/30/22 08/30/22 08/30/22 08/30/22 20:35 22:50 23:05 23:15 Temp 38.2 37.4 Pulse 123 109 109 Resp 26 20 B/P (MAP) 142/63 (89) 125/71 129/69 (89) Pulse Ox 95 98 95 O2 Delivery Room Air Room Air Room Air Room Air 08/31/22 08/31/22 08/31/22 08/31/22 02:59 06:07 07:15 08:00 Temp 37.6 37.5 Pulse 103 92 Resp 20 20 B/P (MAP) 127/67 (87) 128/58 (81) Pulse Ox 96 95 96 96 O2 Delivery NIV Bilevel NIV Bilevel Room Air Room Air O2 Flow Rate 2.00 2.00 08/31/22 11:00 Temp 37.2 Pulse 98 Resp 20 B/P (MAP) 141/64 (89) Pulse Ox 96 O2 Delivery Room Air Capillary Refill : Less Than 3 Seconds General Appearance: no apparent distress, obese Respiratory: lungs clear, normal breath sounds Cardiovascular: regular rate, rhythm, no murmur Gastrointestinal: normal bowel sounds, non tender, soft Extremities: pedal edema (non pitting), other (grossly deformed ankles bilaterally with enlargement) Neurologic/Psychiatric: alert, normal mood/affect Skin: other (erythema of left underwood, chronic venous stasis and peeling on bilateral lower legs) Assessment/Plan Assessment/Plan Admission Status: Inpatient Order (span 2 midnights) Reason for Inpatient Admission: Severe sepsis (1) Sepsis Status: Acute Assessment & Plan: Suspect secondary to cellulitis/osteomyelitis. Started on vancomycin and zosyn, feeling clinically better, but not significantly improved in labs yet. Qualifiers: (2) Osteomyelitis Status: Chronic Assessment & Plan: Will review outside imaging, discussed with patient if he decides he wants to proceed with amputation, we can consult Dr. Susanna sahu as well. Qualifiers: Qualified Codes: M86.672 - Other chronic osteomyelitis, left ankle and foot (3) Cellulitis Status: Acute Qualifiers: (4) Charcot foot Status: Chronic (5) Diabetes mellitus, type 2 Status: Chronic Assessment & Plan: Sliding scale insulin, diabetic diet. Qualifiers: Qualified Codes: E11.621 - Type 2 diabetes mellitus with foot ulcer; L97.509 - Non-pressure chronic ulcer of other part of unspecified foot with unspecified severity; Z79.4 - alf (current) use of insulin (6) CAD (coronary artery disease) (7) Hypertension Status: Chronic Assessment & Plan: Resume home medications Qualifiers: Qualified Codes: I10 - Essential (primary) hypertension (8) Peripheral neuropathy Status: Acute (9) DVT prophylaxis Status: Acute Assessment & Plan: Enoxaparin RENATA HINTON MD August 31, 2022 11:17
[2022-08-31] MEDS ORDERED: CLOP75TA28 PO (11:41)
[2022-08-31] MEDS ORDERED: GBPN600T PO (11:41)
[2022-08-31] MEDS ORDERED: LATA2.5D19 OU (11:41)
[2022-08-31] MEDS ORDERED: POLY238P32 PO (11:41)
[2022-08-31] MEDS ORDERED: ASPI-1238 PO (11:41)
[2022-08-31] MEDS ORDERED: ANTACID SUSP 30 ML UDC (MYLANTA) PO NR (14:30)
[2022-08-31] MEDS ORDERED: polyethylene glycoL POWDER 17 GM (MIRALAX) PACK PO PRN (14:45)
[2022-08-31] MEDS ORDERED: ONDANSETRON 4 MG/2 ML (SDV) Z0FRAN IVP PRN (14:45)
[2022-08-31] MEDS ORDERED: CALCIUM CARBONATE 500 MG (TUMS) TAB.CHEW PO PRN (14:45)
[2022-08-31 15:23] VITALS: BP 144/63
[2022-08-31] MEDS: VANCOMYCIN 1500MG/300ML PREMIX 300 ML IV SCH (16:06)
[2022-08-31] MEDS: ENOXAPARIN 40 MG/0.4 ML (LOVENOX) SYR SQ SCH (16:08)
[2022-08-31] MEDS ORDERED: LIDOCAINE 2% VISCOUS 15 ML UDC PO NR (16:30)
[2022-08-31] MEDS ORDERED: FAMOTIDINE 20 MG (PEPCID) TABLET PO NR (16:30)
[2022-08-31 19:07] VITALS: BP 178/82
--- NOTE | 2022-08-31 20:05 | Diagnostic Imaging Report ---
INDICATION: Abdominal pain. COMPARISON: None available. TECHNIQUE: Three radiographs of the abdomen dated August 31, 2022. FINDINGS: Examination is slightly limited secondary to patient body habitus. Small amount of gas and stool is identified within the colon. No abnormally dilated loops of small bowel. No differential air-fluid levels. No free air. No suspicious calcifications overlying the renal shadows. Mild scattered osseous degenerative changes without acute osseous abnormality. IMPRESSION: No acute abnormality. Of note, the most superior aspect of the abdomen is excluded from the [id number]. Dictated by: Dictated on workstation # [id number]
[2022-08-31] MEDS ORDERED: ZOLPIDEM 5 MG (AMBIEN) TAB PO PRN (20:15)
[2022-08-31] MEDS ORDERED: HYDROcodone/APAP 5 MG/325 MG (LORTAB) TAB ONE (20:42)
[2022-08-31] MEDS ORDERED: MELATONIN 3 MG TABLET ONE (20:42)
[2022-08-31] MEDS ORDERED: ZOLPIDEM 5 MG (AMBIEN) TAB ONE (20:44)
[2022-08-31] MEDS: GABAPENTIN 600 MG (NEURONTIN) TAB PO SCH (20:46)
[2022-08-31] MEDS: PROPRANOLOL 20 MG (INDERAL) TABLET PO SCH (20:46)
[2022-08-31] MEDS: HYDROcodone/APAP 5 MG/325 MG (LORTAB) TAB PO PRN (20:46)
[2022-08-31] MEDS: MELATONIN 3 MG TABLET PO PRN (20:46)
[2022-08-31] MEDS: CYCLOBENZAPRINE 10 MG (FLEXERIL) TAB PO PRN (20:53)
[2022-08-31 21:40] VITALS: BP 140/70
[2022-09-01] MEDS ORDERED: morphine INJ 4 MG/ML 1 ML (VIAL/SYRINGE) ONE ×2 (01:19→05:11)
[2022-09-01] MEDS: morphine INJ 10 MG/ML 1ML (SYR OR VIAL) IVP PRN ×2 (01:21→05:20)
[2022-09-01] MEDS: PIPERACILLIN SODIUM/TAZOBACTAM 4.5 GM in NS (IVPB) 100 ML IV SCH ×3 (02:05→18:31)
[2022-09-01] MEDS: VANCOMYCIN 1500MG/300ML PREMIX 300 ML IV SCH ×2 (03:25→16:00)
[2022-09-01] MEDS: ENOXAPARIN 40 MG/0.4 ML (LOVENOX) SYR SQ SCH ×2 (05:20→18:28)
[2022-09-01] MEDS: inSUlin ASPART (NovoLOG) 1 UNIT/0.01 ML (CHARGE PER UNIT) SC SCH ×4 (06:25→21:45)
[2022-09-01 06:56] LABS: BASOPHILS % (AUTO) 0 % (0-10); EOSINOPHILS % (AUTO) 0 % (0-10); HEMATOCRIT 39 % (40-54); HEMOGLOBIN 12.8 g/dL (13.3-17.7); LYMPHOCYTES # (AUTO) 0.3 10^3/uL (1.0-4.0); LYMPHOCYTES % (AUTO) 4 % (12-44); MEAN CORPUSCULAR HEMOGLOBIN 29 pg (25-34); MEAN CORPUSCULAR HGB CONC 33 g/dL (32-36); MEAN CORPUSCULAR VOLUME 88 fL (80-99); MEAN PLATELET VOLUME 11.5 fL (9.0-12.2); MONOCYTES # (AUTO) 0.2 10^3/uL (0.0-1.0); MONOCYTES % (AUTO) 3 % (0-12); NEUTROPHILS % (AUTO) 93 % (42-75); PLATELET COUNT 238 10^3/uL (130-400); WHITE BLOOD COUNT 8.6 10^3/uL (4.3-11.0)
[2022-09-01 07:09] LABS: LYMPHOCYTES % (MANUAL) 6 %; MONOCYTES % (MANUAL) 3 %; NEUTROPHILS % (MANUAL) 91 %; RBC MORPH NORMAL
[2022-09-01 07:11] LABS: ALBUMIN 4.1 GM/DL (3.2-4.5); CALCIUM 9.8 MG/DL (8.5-10.1); CREATININE SERUM 1.44 MG/DL (0.60-1.30); POTASSIUM 3.7 MMOL/L (3.6-5.0); TOTAL PROTEIN 7.9 GM/DL (6.4-8.2)
[2022-09-01 07:19] VITALS: BP 148/82
--- NOTE | 2022-09-01 08:00 | Diagnostic Imaging Report ---
PROCEDURE: CT abdomen and pelvis without contrast. TECHNIQUE: Multiple contiguous axial images were obtained through the abdomen and pelvis without the use of intravenous contrast. Auto Exposure Controls were utilized during the CT exam to meet ALARA standards for radiation dose reduction. INDICATION: Right upper quadrant abdominal pain with nausea and emesis. There is coronary artery calcification with dependent right pleural thickening and associated rounded atelectasis. Unenhanced images of liver are unremarkable, however there is significant distention of the gallbladder with high density material in the dependent portion. No biliary ductal dilatation is identified. There is no evidence of pancreatic, adrenal gland or splenic abnormality. Kidneys are also unremarkable. There is no evidence of free fluid within the abdomen or pelvis. Unopacified bladder is unremarkable. Note is made of small fat-containing umbilical hernia. IMPRESSION: 1. Right pleural fluid and thickening with associated rounded atelectasis in the right lower lobe. There is also coronary artery calcification noted in the lower thorax. There is gallbladder distention without evidence of secondary inflammation. Clinical correlation is recommended. Hepatobiliary scan may be useful for further assessment if indicated. Otherwise, no definite acute abnormality is seen. Dictated by: Dictated on workstation # [id number]
[2022-09-01] MEDS: NS IV 1000 ML 1,000 ML IV SCH ×3 (08:52→21:46)
[2022-09-01] MEDS: CLOPIDOGREL 75 MG (PLAVIX) TABLET PO SCH (08:53)
[2022-09-01] MEDS: PROPRANOLOL 20 MG (INDERAL) TABLET PO SCH ×2 (08:53→20:07)
[2022-09-01] MEDS: amLODIPine 10 MG (NORVASC) TAB PO SCH (08:53)
[2022-09-01] MEDS: PANTOPRAZOLE 20 MG TABLET (PROTONIX) PO SCH (08:53)
[2022-09-01] MEDS: ASPIRIN E.C. 81 MG (ECOTRIN) TAB PO SCH (08:53)
[2022-09-01] MEDS: GABAPENTIN 600 MG (NEURONTIN) TAB PO SCH ×2 (08:54→20:07)
[2022-09-01] MEDS: LATANOPROST 0.005% (XALATAN) OPHTH SOLN 2.5 ML OU SCH (08:56)
[2022-09-01] MEDS ORDERED: OMEPRAZOLE 20 MG (PriLOSEC) CAP NON-FORMULARY PO SCH (09:00)
--- NOTE | 2022-09-01 09:40 | Progress Note ---
Subjective Subjective/Events-last exam Pt started having severe epigastric pain yesterday unrelieved with acid reflux treatment or hydrocodone. CT obtained which showed concern for GB disease and US is pending. Liver enzymes including bili and alk phos up today suspicious for obstruction. He is feeling better this morning. Focused Exam Lactate Level 08/30/22 20:40: Lactic Acid Level 1.91 Time of Focused Exam: 21:30 Objective Exam Last Set of Vital Signs Vital Signs Date Time Temp Pulse Resp B/P (MAP) Pulse Ox O2 Delivery O2 Flow Rate FiO2 09/01/22 08:30 95 Room Air 0.00 09/01/22 07:19 36.8 107 18 148/82 (104) Capillary Refill : Less Than 3 Seconds I&O Intake and Output 09/01/22 00:00 Intake Total 4770 ml Output Total 1325 ml Balance 3445 ml Intake Oral 2020 ml IV Total 2750 ml Output Urine Total 1325 ml # Bowel Movements 1 # Emeses 2 General: Alert, No Acute Distress Lungs: Clear to Auscultation, Normal Air Movement Heart: Regular Rate, No Murmurs Abdomen: Normal Bowel Sounds, Soft, No Tenderness Extremities: Other (erythema and peeling left underwood) Neuro: Normal Speech Results/Procedures Lab Laboratory Tests 08/31/22 10:15: Glucometer 129H 08/31/22 15:54: Glucometer 177H 08/31/22 16:52: Troponin I < 0.028 08/31/22 19:59: Glucometer 244H 09/01/22 05:18: White Blood Count 8.6, Red Blood Count 4.46, Hemoglobin 12.8L, Hematocrit 39L, Mean Corpuscular Volume 88, Mean Corpuscular Hemoglobin 29, Mean Corpuscular Hemoglobin Concent 33, Red Cell Distribution Width 14.5, Platelet Count 238, Mean Platelet Volume 11.5, Immature Granulocyte % (Auto) 1, Neutrophils (%) (Auto) 93H, Lymphocytes (%) (Auto) 4L, Monocytes (%) (Auto) 3, Eosinophils (%) (Auto) 0, Basophils (%) (Auto) 0, Neutrophils # (Auto) 8.0H, Lymphocytes # (Auto) 0.3L, Monocytes # (Auto) 0.2, Eosinophils # (Auto) 0.0, Basophils # (Auto) 0.0, Immature Granulocyte # (Auto) 0.0, Neutrophils % (Manual) 91, L ymphocytes % (Manual) 6, Monocytes % (Manual) 3, Blood Morphology Comment NORMAL, Sodium Level 136, Potassium Level 3.7, Chloride Level 100, Carbon Dioxide Level 22, Anion Gap 14, Blood Urea Nitrogen 17, Creatinine 1.44H, Estimat Glomerular Filtration Rate 58, BUN/Creatinine Ratio 12, Glucose Level 230H, Calcium Level 9.8, Corrected Calcium 9.7, Total Bilirubin 3.0H, Aspartate Amino Transf (AST/SGOT) 214H, Alanine Aminotransferase (ALT/SGPT) 228H, Alkaline Phosphatase 155H, Total Protein 7.9, Albumin 4.1, Lipase 36 09/01/22 06:19: Glucometer 227H Microbiology 08/30/22 Urine Culture - Final, Complete NO GROWTH 08/30/22 Blood Culture - Preliminary, Resulted No growth Radiology CXR 08/30/22: IMPRESSION: Small right basilar pleural-parenchymal opacity. This appears similar to the prior examinations, including dating back to 2019. This may relate to a chronic right-sided pleural effusion with adjacent atelectasis and scarring. Superimposed acute component not completely excluded. 08/30/22 Left foot xray: IMPRESSION: 1. No identified acute bony abnormality of the left thigh. 2. The bones appear demineralized. 3. Chronic appearing deformity of the calcaneus with probable ankylosis across the posterior and anterior subtalar joints. Assessment/Plan Assessment/Plan (1) Sepsis Status: Acute Assessment & Plan: Suspect secondary to cellulitis/osteomyelitis. Started on vancomycin and zosyn, feeling clinically better, but not significantly improved in labs yet. 09/01 leukocytosis resolved Qualifiers: (2) Osteomyelitis Status: Chronic Assessment & Plan: Will review outside imaging, discussed with patient if he decides he wants to proceed with amputation, we can consult Dr. Mullins inpatient as well. Given GB concern and osteo concern, Dr. Mullins consulted, to see today. Qualifiers: Qualified Codes: M86.672 - Other chronic osteomyelitis, left ankle and foot (3) Cellulitis Status: Acute Qualifiers: (4) Charcot foot Status: Chronic (5) Diabetes mellitus, type 2 Status: Chronic Assessment & Plan: Sliding scale insulin, diabetic diet. 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 (7) Hypertension Status: Chronic Assessment & Plan: Resume home medications Qualifiers: Qualified Codes: I10 - Essential (primary) hypertension (8) Peripheral neuropathy Status: Acute (9) Cholelithiasis Status: Acute Assessment & Plan: Appreciate Dr. Mullins's recommendations. Qualifiers: (10) DVT prophylaxis Status: Acute Assessment & Plan: Enoxaparin RENATA HINTON MD September 01, 2022 09:40
--- NOTE | 2022-09-01 10:04 | Diagnostic Imaging Report ---
PROCEDURE: US Gallbladder. TECHNIQUE: Multiple real-time grayscale images were obtained over the right upper quadrant in various projections. INDICATION: Abdominal pain and epigastric pain. The liver is enlarged at 22 cm. There is diffuse increased echogenicity throughout the liver consistent with hepatic steatosis. No discrete liver mass is identified. Gallbladder is markedly abnormal. There is diffuse dilatation of the gallbladder. There is fairly homogeneous increased echogenicity throughout the gallbladder. While this could potentially be secondary to numerous gallstones, the possibility of a gallbladder mass cannot be entirely excluded. No definite internal vascularity is present. Gallbladder wall thickness is difficult to assess. No definite biliary ductal dilatation is identified. The pancreas, aorta and IVC were obscured. Right kidney is unremarkable. There is no ascites. IMPRESSION: 1. Hepatomegaly and hepatic steatosis. 2. Significant abnormal appearance of the gallbladder, as described above. While this could be a stone filled gallbladder, the possibility of a gallbladder mass cannot be entirely excluded. Dictated by: Dictated on workstation # [id number]
[2022-09-01 11:10] VITALS: BP 127/78
--- NOTE | 2022-09-01 14:29 | Wound Care Assessment ---
Wound Care Assessment Date Seen by Provider: September 01, 2022 Time Seen by Provider: 14:22 Chief Complaint L. heel ulcer (chronic) HPI This pleasant 52 year old patient is well known to my outpatient clinic. He was last seen 1 week ago and at that time his ulcer was epithelialized. He presented to the hospital with abdominal pain and fever wiht N/V but was known to have possible subacute vs. chronic refractory osteomyelitis of his left heel for which I am consulted today. Saul had MRI on 07-11-22 at outside facility with bone marrow edema at heels suspicious for "early" osteomyelitis. It should be known that Saul has a h/o osteomyelitis in the past (3 years ago) to this area which was treated with surgery and prolonged antibiotics at the time. On 07-01-22: ESR 82 and CRP 6.54. Note that on this admission these numbers are still elevated but greatly improved. Saul was treated in my office with prolonged antibiotics and did see Dr. Mullins. Should he opt for surgical intervention, BKA would be indicated. Of note, Saul has bee wheelchair bound for the last 3 years following his first episode of osteomyelitis. His wound healing has also been complicated by lymphedema (obesity related), DM2 (last A1C 7.3 on 07-06-22) and obesity (BMI 44.8). We did arterial workup as outpatient as well and he has normal segmental studies. After counseling on his elevated inflammatory labs, history of osteo, recurrent nature of his ulcer and MRI findings, we did discuss options. Saul understands the significant risk of mortality associated with BKA and has opted to get ID input prior to deciding upon further aggressive treatment. This appointment is scheduled for next Monday. I do not think these chronic issues are causing his current symptoms but as his ulcer has again reopened, I will make dressing recommendations and am happy to follow up as an outpatient. Past Medical History: Admits Diabetes Type II Charcot foot, lymphedema, h/o osteomyelitis with possible subacute vs. chronic refractory osteomyelitis of left heel, Diabetic peripheral neuropathy, obesity (BMI 44.8), generalized weakness with muscular atrophy due to chronic disuse Smoking Status: Former Smoker Recreational Drug Use: No Alcohol Use: Denies Use Review of Systems General: Chills, Fatigue, Appetite HEENT: Other (hearing wnl) Cardiovascular: Chest Pain Gastrointestinal: Nausea, Vomiting, Abdominal Pain Neurological: Weakness Exam Vital Signs Date Time Temp Pulse Resp B/P (MAP) Pulse Ox O2 Delivery O2 Flow Rate FiO2 09/01/22 11:10 37.1 99 18 127/78 (94) 96 Room Air 09/01/22 08:30 0.00 Capillary Refill : Less Than 3 Seconds General Appearance: no apparent distress, obese HEENT: other (hearing wnl) Neck: full range of motion Cardiovascular: other (3+ pedal edema b/l) Respiratory: no respiratory distress, no accessory muscle use Extremities: pedal edema, other (muscular atrophy and contractures) Neurologic/Psychiatric: alert, normal mood/affect, oriented x 3 Skin: normal color Skin Problem Location: lower extremities Skin Character: drainage (serosanguinous), swelling Wound assessment: 0.7x0.7x0.3cm. The epithelialization is none. There is no tunneling or undermining. Drainage is large and serosanguinous. Granulation is none. Necrotic is large and slough. Margins show epibole. Results Laboratory Tests 08/31/22 15:54: Glucometer 177H 08/31/22 16:52: Troponin I < 0.028 08/31/22 19:59: Glucometer 244H 09/01/22 05:18: White Blood Count 8.6, Red Blood Count 4.46, Hemoglobin 12.8L, Hematocrit 39L, Mean Corpuscular Volume 88, Mean Corpuscular Hemoglobin 29, Mean Corpuscular Hemoglobin Concent 33, Red Cell Distribution Width 14.5, Platelet Count 238, Mean Platelet Volume 11.5, Immature Granulocyte % (Auto) 1, Neutrophils (%) (Auto) 93H, Lymphocytes (%) (Auto) 4L, Monocytes (%) (Auto) 3, Eosinophils (%) (Auto) 0, Basophils (%) (Auto) 0, Neutrophils # (Auto) 8.0H, Lymphocytes # (Auto) 0.3L, Monocytes # (Auto) 0.2, Eosinophils # (Auto) 0.0, Basophils # (Auto) 0.0, Immature Granulocyte # (Auto) 0.0, Neutrophils % (Manual) 91, Lymphocytes % (Manual) 6, Monocytes % (Manual) 3, Blood Morphology Comment N ORMAL, Sodium Level 136, Potassium Level 3.7, Chloride Level 100, Carbon Dioxide Level 22, Anion Gap 14, Blood Urea Nitrogen 17, Creatinine 1.44H, Estimat Glomerular Filtration Rate 58, BUN/Creatinine Ratio 12, Glucose Level 230H, Calcium Level 9.8, Corrected Calcium 9.7, Total Bilirubin 3.0H, Aspartate Amino Transf (AST/SGOT) 214H, Alanine Aminotransferase (ALT/SGPT) 228H, Alkaline Phosphatase 155H, Total Protein 7.9, Albumin 4.1, Lipase 36 09/01/22 06:19: Glucometer 227H 09/01/22 11:05: Glucometer 194H Microbiology 08/30/22 Urine Culture - Final, Complete NO GROWTH 08/30/22 Blood Culture - Preliminary, Resulted No growth Microbiology 08/30/22 Urine Culture - Final, Complete NO GROWTH 08/30/22 Blood Culture - Preliminary, Resulted No growth 08/30/22 Blood Culture - Preliminary, Resulted No growth Assessment/Plan/Dx Assessment: 1. Non-pressure ulcer left heel (WG3 by MRI) 2. Subacute vs. chronic refractory osteomyelitis (probable) 3. Diabetic foot ulcer 4. Hyperglycemic with DM2 5. Morbid obesity 6. Chronic immobility with muscular atrophy 7. Elevated LFT's with gallstone cholelithiasis Plan: 1. Cleanse daily with Vashe. Silver Alginate HF to wound bed secured with bordered foam dressing. Change daily. Off load with Primo boots 2. Still unclear (amy. with improvements in inflammatory labs) though with recurrence and history I do still favor this diagnosis. Patient would like ID input as BKA is the next option. This is reasonable. 3. See above 4. Good glycemic control indicated. Defer to primary team 5. Defer to primary team. Counseled on many occasions in regards to weight loss 6. Defer to primary team 7. Defer to primary team If ulcer is still open upon d/c home, I'm happy to follow up with patient as outpatient. MARBIN SHAVER MD September 01, 2022 14:29
[2022-09-01] MEDS ORDERED: HYPOCHLOROUS ACID/NaCl (VASHE) 250 ML IR SCH (14:30)
[2022-09-01] MEDS ORDERED: TROUGH ORDER-PHARMACY XX ONE (15:00)
[2022-09-01 15:41] VITALS: BP 105/52
--- NOTE | 2022-09-01 19:09 | CONSULTATION REPORT ---
DATE OF SERVICE: 09/01/2022 ADMITTING PHYSICIAN: Dr. Naomi Dubois. ATTENDING PRIMARY CARE PHYSICIAN: Dr. Olman Harrison. HISTORY OF PRESENT ILLNESS: The patient is a 52-year-old male known to us. We had seen him before in the office for osteomyelitis as well as Charcot foot on the left side. The patient is nonambulatory and he has a known history of osteomyelitis based on MRI and it was recommended to proceed with a below-knee amputation; however, was resistant to this idea. He wanted to continue with conservative medical management and antibiotics. He was admitted for worsening infection and was admitted for IV antibiotics. While on this admission, he developed pain in the right upper abdominal quadrant with nausea and vomiting. An ultrasound was performed, which showed mild gallbladder wall thickening as well as hypoechogenic area throughout the gallbladder consistent with multiple gallstones; however, this cannot rule out a mass. He states that he has had symptoms like this before in the past, which was slightly similar to this several months ago; however, has also had other symptoms that were much milder, which he thought was acid indigestion. PAST MEDICAL HISTORY: Diabetes, bilateral Charcot foot, peripheral neuropathy, hypertension, coronary artery disease, bilateral lymphedema, diabetic retinopathy. PAST SURGICAL HISTORY: Tonsillectomy, hernia surgery 1 years of age. Cardiac catheterization with angioplasty 08/2021. ALLERGIES: NO KNOWN DRUG ALLERGIES. MEDICATIONS: Amlodipine 10 mg daily, aspirin 81 mg daily, Plavix 75 mg daily, cyclobenzaprine 10 mg daily, gabapentin 600 mg b.i.d., glyburide 5 mg b.i.d., hydrochlorothiazide 25 mg daily, lisinopril 40 mg daily, omeprazole 20 mg daily, pioglitazone 45 mg daily, propranolol 40 mg daily, MiraLax 17 grams p.r.n. SOCIAL HISTORY: Previous smoker, quit 2011, 20 pack years, negative alcohol. FAMILY HISTORY: Noncontributory. PHYSICAL EXAMINATION: VITAL SIGNS: Temperature 37.7, blood pressure 105/52, pulse 100, respirations 18, pulse ox 95% on room air. REVIEW OF SYSTEMS: Well-nourished male, currently in no acute distress. He is not experiencing any shortness of breath or difficulty breathing. No chest pain, palpitations or diaphoresis. No nausea, vomiting or a previous episode of pain in the right upper abdominal quadrant with episodes of nausea and vomiting. Since getting antinausea medications as well as pain medications, this has resolved. No hematemesis, no coffee-ground emesis. No diarrhea or constipation. No red blood per rectum. No dark tarry stools. No fever, chills, no recent inadvertent weight loss. All other review of systems negative. PHYSICAL EXAM: CHEST: Few scattered rales bilaterally. HEART: Regular. No murmurs. EXTREMITIES: No lower extremity edema. Negative Homans sign. HEENT: No scleral icterus. No cervical lymphadenopathy. ABDOMEN: Soft, nondistended. There is pain in the right upper abdominal quadrant upon deep palpation with voluntary guarding, no rebound. SKIN: Warm, dry. LABORATORY DATA: WBC 8.6, hemoglobin 12.8, hematocrit 39, platelets 236, BUN 17, creatinine 1.44. ASSESSMENT AND PLAN: A 52-year-old male with acute on chronic calculous cholecystitis versus gallbladder solid mass with the possibility of polyp versus neoplastic process. Either way, the patient is symptomatic and would like to proceed with laparoscopic cholecystectomy for symptomatic relief as well as definitive diagnosis, which we will schedule on this admission. Job ID: [id number] DocumentID: [id number] Dictated Date: 09/01/2022 18:32:15 Police Manager Date: 09/01/2022 19:07:00 Dictated By: ALFA KELLER MD
[2022-09-01 20:00] VITALS: BP 144/76
[2022-09-01] MEDS: HYDROcodone/APAP 5 MG/325 MG (LORTAB) TAB PO PRN (20:07)
[2022-09-01] MEDS: MELATONIN 3 MG TABLET PO PRN (21:46)
[2022-09-01] MEDS: CYCLOBENZAPRINE 10 MG (FLEXERIL) TAB PO PRN (21:46)
[2022-09-02] VITALS (11 sets, daily range): BP systolic 84–146; BP diastolic 39–86
[2022-09-02] MEDS: PIPERACILLIN SODIUM/TAZOBACTAM 4.5 GM in NS (IVPB) 100 ML IV SCH ×2 (03:28→15:07)
[2022-09-02 03:56] LABS: BASOPHILS % (AUTO) 0 % (0-10); EOSINOPHILS % (AUTO) 0 % (0-10); HEMATOCRIT 35 % (40-54); HEMOGLOBIN 11.8 g/dL (13.3-17.7); LYMPHOCYTES # (AUTO) 0.4 10^3/uL (1.0-4.0); LYMPHOCYTES % (AUTO) 3 % (12-44); MEAN CORPUSCULAR HEMOGLOBIN 29 pg (25-34); MEAN CORPUSCULAR HGB CONC 34 g/dL (32-36); MEAN CORPUSCULAR VOLUME 87 fL (80-99); MEAN PLATELET VOLUME 11.3 fL (9.0-12.2); MONOCYTES # (AUTO) 0.7 10^3/uL (0.0-1.0); MONOCYTES % (AUTO) 5 % (0-12); NEUTROPHILS # (AUTO) 11.9 10^3/uL (1.8-7.8); NEUTROPHILS % (AUTO) 91 % (42-75); PLATELET COUNT 205 10^3/uL (130-400); WHITE BLOOD COUNT 13.1 10^3/uL (4.3-11.0)
[2022-09-02 04:06] LABS: ALBUMIN 3.1 GM/DL (3.2-4.5); POTASSIUM 3.1 MMOL/L (3.6-5.0)
[2022-09-02 04:08] LABS: CALCIUM 8.7 MG/DL (8.5-10.1)
[2022-09-02 04:11] LABS: BILIRUBIN,TOTAL 3.9 MG/DL (0.1-1.0)
[2022-09-02 04:12] LABS: CREATININE SERUM 1.39 MG/DL (0.60-1.30)
[2022-09-02] MEDS ORDERED: TROUGH ORDER-PHARMACY XX NR (06:00)
[2022-09-02] MEDS: ENOXAPARIN 40 MG/0.4 ML (LOVENOX) SYR SQ SCH ×2 (06:24→17:38)
[2022-09-02] MEDS: inSUlin ASPART (NovoLOG) 1 UNIT/0.01 ML (CHARGE PER UNIT) SC SCH ×4 (06:24→20:39)
[2022-09-02] MEDS: NS IV 1000 ML 1,000 ML IV SCH ×4 (08:01→20:40)
[2022-09-02] MEDS: POTASSIUM CL 10MEQ/50ML IVPB 50 ML IV SCH ×4 (08:13→15:03)
[2022-09-02] MEDS: VANCOMYCIN 1 GM/NS 250 ML IVPB IV SCH ×4 (08:17→20:36)
[2022-09-02] MEDS: amLODIPine 10 MG (NORVASC) TAB PO SCH (08:20)
[2022-09-02] MEDS: PROPRANOLOL 20 MG (INDERAL) TABLET PO SCH ×2 (08:20→20:37)
[2022-09-02] MEDS: LATANOPROST 0.005% (XALATAN) OPHTH SOLN 2.5 ML OU SCH (08:20)
[2022-09-02] MEDS: GABAPENTIN 600 MG (NEURONTIN) TAB PO SCH ×2 (08:20→20:37)
[2022-09-02] MEDS: ASPIRIN E.C. 81 MG (ECOTRIN) TAB PO SCH (08:20)
[2022-09-02] MEDS: CLOPIDOGREL 75 MG (PLAVIX) TABLET PO SCH (08:21)
[2022-09-02] MEDS: PANTOPRAZOLE 20 MG TABLET (PROTONIX) PO SCH (08:21)
--- NOTE | 2022-09-02 08:38 | Progress Note ---
Subjective Subjective/Events-last exam Pt states his abdomen is better today, did bother him after he tried to eat some dinner. Plan for cholecystectomy at around 11 am today. He denies leg pain. Focused Exam Lactate Level 08/30/22 20:40: Lactic Acid Level 1.91 Time of Focused Exam: 21:30 Objective Exam Last Set of Vital Signs Vital Signs Date Time Temp Pulse Resp B/P (MAP) Pulse Ox O2 Delivery O2 Flow Rate FiO2 09/02/22 07:36 36.7 96 20 146/76 (99) 94 Room Air 09/02/22 04:10 2.00 Capillary Refill : Less Than 3 Seconds I&O Intake and Output 09/02/22 00:00 Intake Total 1390 ml Output Total 1375 ml Balance 15 ml Intake Oral 1390 ml Output Urine Total 1375 ml General: Alert, No Acute Distress Lungs: Clear to Auscultation, Normal Air Movement Heart: Regular Rate, No Murmurs Abdomen: Normal Bowel Sounds, Other (distended, moderate ttp greatest in RUQ) Neuro: Normal Speech Psych/Mental Status: Mood NL Results/Procedures Lab Laboratory Tests 09/01/22 11:05: Glucometer 194H 09/01/22 14:55: Vancomycin Level Trough 19.2 09/01/22 15:43: Glucometer 181H 09/01/22 21:34: Glucometer 197H 09/02/22 03:50: White Blood Count 13.1H, Red Blood Count 4.05L, Hemoglobin 11.8L, Hematocrit 35L , Mean Corpuscular Volume 87, Mean Corpuscular Hemoglobin 29, Mean Corpuscular Hemoglobin Concent 34, Red Cell Distribution Width 14.5, Platelet Count 205, Mean Platelet Volume 11.3, Immature Granulocyte % (Auto) 1, Neutrophils (%) (Auto) 91H, Lymphocytes (%) (Auto) 3L, Monocytes (%) (Auto) 5, Eosinophils (%) (Auto) 0, Basophils (%) (Auto) 0, Neutrophils # (Auto) 11.9H, Lymphocytes # (Auto) 0.4L, Monocytes # (Auto) 0.7, Eosinophils # (Auto) 0.0, Basophils # (Auto) 0.0, Immature Granulocyte # (Auto) 0.1, Sodium Level 133L, Potassium Level 3.1L, Chloride Level 100, Carbon Dioxide Level 20L, Anion Gap 13, Blood Urea Nitrogen 11, Creatinine 1.39H, Estimat Glomerular Filtration Rate 60, BUN/Creatinine Ratio 8, Glucose Level 179H, Calcium Level 8.7, Corrected Calcium 9.4, Total Bilirubin 3.9H, Aspartate Amino Transf (AST/SGOT) 130H, Alanine Aminotransferase (ALT/SGPT) 221H, Alkaline Phosphatase 162H, Total Protein 6.0L, Albumin 3.1L, Vancomycin Level Trough 10.0 Microbiology 08/30/22 Urine Culture - Final, Complete NO GROWTH 08/30/22 Blood Culture - Preliminary, Resulted No growth Radiology CXR 08/30/22: IMPRESSION: Small right basilar pleural-parenchymal opacity. This appears similar to the prior examinations, including dating back to 2019. This may relate to a chronic right-sided pleural effusion with adjacent atelectasis and scarring. Superimposed acute component not completely excluded. 08/30/22 Left foot xray: IMPRESSION: 1. No identified acute bony abnormality of the left thigh. 2. The bones appear demineralized. 3. Chronic appearing deformity of the calcaneus with probable ankylosis across the posterior and anterior subtalar joints. Assessment/Plan Assessment/Plan (1) Sepsis Status: Acute Assessment & Plan: Suspect secondary to cellulitis/osteomyelitis. Started on vancomycin and zosyn, feeling clinically better, but not significantly improved in labs yet. 09/01 leukocytosis resolved 09/02 WBC slightly up Qualifiers: (2) Osteomyelitis Status: Chronic Assessment & Plan: Will review outside imaging, discussed with patient if he decides he wants to proceed with amputation, we can consult Dr. Mullins inpatient as well. 09/01 Given GB concern and osteo concern, Dr. Mullins consulted, to see today. Qualifiers: Qualified Codes: M86.672 - Other chronic osteomyelitis, left ankle and foot (3) Cellulitis Status: Acute Qualifiers: (4) Charcot foot Status: Chronic (5) Diabetes mellitus, type 2 Status: Chronic Assessment & Plan: Sliding scale insulin, diabetic diet. Wound care consulted for heel wound, appreciate recs. Qualifiers: Qualified Codes: E11.621 - Type 2 diabetes mellitus with foot ulcer; L97.509 - Non-pressure chronic ulcer of other part of unspecified foot with unspecified severity; Z79.4 - longterm (current) use of insulin (6) CAD (coronary artery disease) Assessment & Plan: Troponin and EKG normal yesterday during epigastric/sternal pain episodes. (7) Hypertension Status: Chronic Assessment & Plan: Resume home medications Qualifiers: Qualified Codes: I10 - Essential (primary) hypertension (8) Peripheral neuropathy Status: Acute (9) Cholelithiasis Status: Acute Assessment & Plan: Appreciate Dr. Mullins's recommendations. 09/02 plan for surgery today, US concerning for possible GB mass as opposed to stone, will follow up after surgery Qualifiers: (10) DVT prophylaxis Status: Acute Assessment & Plan: Enoxaparin RENATA HINTON MD September 02, 2022 08:38
[2022-09-02] MEDS ORDERED: LIDOCAINE PF 2% 5 ML (XYLOCAINE) VIAL ONE (11:11)
[2022-09-02] MEDS ORDERED: proPOfol 200 MG/20 ML (DIPRIVAN) VIAL IV ONE (11:11)
[2022-09-02] MEDS ORDERED: fentaNYL INJ 100 MCG/2 ML AMP ONE (11:11)
[2022-09-02] MEDS ORDERED: MIDAZOLAM 2 MG/2 ML (VERSED) VIAL ONE (11:11)
[2022-09-02] MEDS ORDERED: ONDANSETRON 4 MG/2 ML (SDV) Z0FRAN ONE (11:11)
[2022-09-02] MEDS ORDERED: ROCURONIUM 50 MG/5 ML (ZEMURON) VIAL IV ONE ×2 (11:11→12:26)
[2022-09-02] MEDS: LACTATED RINGERS 1,000 ML IV PRN ×2 (11:31→13:06)
[2022-09-02] MEDS ORDERED: ceFAZolin INJECTION 2,000 MG ONE (11:39)
[2022-09-02] MEDS ORDERED: BUP/EPI 0.5% 1:200,000 (SENSORCAINE) 30 ML VIAL ONE (11:39)
[2022-09-02] MEDS ORDERED: ceFAZolin INJECTION 2,000 MG in NS (IVPB) 50 ML IV ONE (12:15)
[2022-09-02] MEDS ORDERED: PHENYLEPHRINE 100 MCG/ML 10 ML (ANESTHESIA) SYR ONE (12:38)
[2022-09-02] MEDS ORDERED: SUGAMMADEX 500 MG/5 ML VIAL (BRIDION) IV ONE (13:30)
[2022-09-02] MEDS ORDERED: KETOROLAC 30 MG/ML VIAL ONE (13:31)
[2022-09-02] MEDS ORDERED: SEVOFLURANE (ULTANE) 15 ML INHAL SOLN ONE (13:51)
[2022-09-02] MEDS ORDERED: HYDROmorphone 2 MG/ML VIAL (DILAUDID) IV ONE (14:00)
[2022-09-02] MEDS ORDERED: ONDANSETRON 4 MG/2 ML (SDV) Z0FRAN IVP PRN (14:00)
[2022-09-02] MEDS ORDERED: fentaNYL INJ 100 MCG/2 ML AMP IVP PRN (14:00)
--- NOTE | 2022-09-02 14:06 | Progress Note-Post Operative ---
Post-Operative Progess Note Surgeon (s)/Associate Brand Manager (s) Surgeon ALFA KELLER MD Associate Brand Manager: alejandra swan HOTEL MANAGER Pre-Operative Diagnosis acute calculous cholecystitis Post-Operative Diagnosis gangrenous calculous cholecystitis. Procedure & Operative Findings Date of Procedure 09/02/22 Procedure Performed/Findings laparoscopic cholecystectomy Anesthesia Type get Estimated Blood Loss Estimated blood loss (mL): minimal Specimens/Packing Specimens Removed gallbladder ALFA KELLER MD September 02, 2022 14:06
--- NOTE | 2022-09-02 20:12 | OPERATIVE REPORT ---
DATE OF SERVICE: 09/02/2022 ATTENDING PRIMARY CARE PHYSICIAN: Dr. Olman Harrison. ADMITTING PHYSICIAN: Dr. Naomi Dubois. PREOPERATIVE DIAGNOSIS: Acute calculous cholecystitis. POSTOPERATIVE DIAGNOSES: Gangrenous calculous cholecystitis. PROCEDURE: Laparoscopic cholecystectomy. SURGEON: Celia Mullins MD BUNDLE BREAKER: Bradly Strickland APRN ANESTHESIA: General endotracheal. EBL: 100ml FINDINGS: Gangrenous calculous cholecystitis. DISPOSITION: The patient tolerated the procedure well. INDICATIONS: The patient is a 52-year-old male known to us. We had seen him before in the office for osteomyelitis as well as Charcot foot, which was symptomatic on the left side. The patient is nonambulatory and has a known history of osteomyelitis based on MRI and was recommended to proceed with a below-knee amputation; however, the patient was resistant to this idea. He wanted to continue with conservative management and with antibiotics. He was admitted for worsening infection and was admitted for IV antibiotics. On this admission, he developed right upper abdominal quadrant pain with associated nausea and vomiting. An ultrasound was performed, which showed the gallbladder wall thickening as well as hypoechogenic area throughout the gallbladder that may have been consistent with multiple stones; however, they could not rule out the possibility of a biliary mass. The patient states that he has had a similar episodes before in the past as well. DESCRIPTION OF PROCEDURE: The patient was brought to the operating room, laid supine on the table. After adequate IV pain and sedative medications and general endotracheal intubation, the abdomen was prepped and draped in standard surgical fashion. A 0.5% Marcaine with epinephrine was used to anesthetize the overlying skin in the left upper abdominal quadrant and a transverse skin incision made using #15 blade. An 0 silk suture was applied to the medial aspect of the incision for retraction and a Veress needle inserted with a low opening pressure of 0 mmHg. The abdomen was then insufflated to 15 mmHg pressure. The Veress needle removed and a 5 mm XL trocar placed followed by a 5 mm 45-degree angle laparoscope visualized the peritoneal cavity. A 4-quadrant abdominal exploration was performed. There was a gangrenous gallbladder with significant omental adhesions towards the fundus of the gallbladder. There was no perforation. Moderate liver steatosis was also identified. Under direct visualization, we then proceeded to place a supraumbilical 10 mm port after the skin and peritoneal lining were anesthetized using 0.5% Marcaine with epinephrine and a transverse skin incision made using #15 blade. In a similar manner, two right upper abdominal quadrant 5 mm ports were placed. The patient was then placed in steep reverse Trendelenburg position as well as plane right side up, left side down. The gallbladder was significantly distended and we proceeded with a needle decompression with a laparoscopic needle and a sterile tubing. The fundus of the gallbladder was then retracted anteriorly and superiorly using 2 graspers and the omental adhesions were taken down using blunt dissection. We then proceeded to identify the hepatoduodenal ligament where there was a significant amount of inflammatory tissue. We then proceeded with meticulous identification of the critical view of safety, including the triangle of Calot as well as the cystic duct and artery as the only 2 structures going into the gallbladder as well as the cystic plate behind the proximal gallbladder. This was done using a hook instrument as well as [place] dissector. A timeout was then taken and the cystic duct and artery were then clipped proximally and distally and cut with EndoShears. Good hemostasis was observed. We then proceeded to dissect the liver off of the hepatic bed using cautery on the hook instrument with visualization of good hemostasis. There was some leakage of biliary content and this was irrigated copiously with 2 liters of saline and suctioned out. Surgicel was then placed along the hepatic bed and a 19-Anguillan Joseph-Slade drain was placed in the hepatic bed. The drain was pulled out of the left upper abdominal 5 mm port and sutured to the skin using 3-0 nylon suture. The 10 mm port site fascia and peritoneum were then closed under direct visualization using a Abhishek-Connie device and 0 Vicryl suture. The abdomen was desufflated and the remaining ports were removed. All skin incisions were closed using 4-0 Monocryl running subcuticular sutures. Wounds were then cleaned and covered with Dermabond. The patient tolerated the procedure well. Due to the severe nature of the gangrenous cholecystitis, we will continue IV antibiotics as well as continued monitoring of labs. He did develop elevation of total bilirubin, likely consistent with biliary sludge causing transient obstruction of the common bile duct and we will await normalization of this before discharge. We will also start a clear liquid diet and advance to 2400 kilocalorie ADA diet. Job ID: [id number] DocumentID: [id number] Dictated Date: 09/02/2022 14:05:23 Applications Consultant Date: 09/02/2022 20:09:00 Dictated By: CELIA MULLINS MD MTDD
[2022-09-02] MEDS: CYCLOBENZAPRINE 10 MG (FLEXERIL) TAB PO PRN (20:39)
[2022-09-02] MEDS: MELATONIN 3 MG TABLET PO PRN (20:39)
[2022-09-03] MEDS: PIPERACILLIN SODIUM/TAZOBACTAM 4.5 GM in NS (IVPB) 100 ML IV SCH ×4 (00:03→22:00)
[2022-09-03 04:00] VITALS: BP 140/63
[2022-09-03 05:49] LABS: BASOPHILS % (AUTO) 0 % (0-10); EOSINOPHILS % (AUTO) 0 % (0-10); HEMATOCRIT 31 % (40-54); HEMOGLOBIN 10.4 g/dL (13.3-17.7); LYMPHOCYTES # (AUTO) 0.7 10^3/uL (1.0-4.0); LYMPHOCYTES % (AUTO) 6 % (12-44); MEAN CORPUSCULAR HEMOGLOBIN 29 pg (25-34); MEAN CORPUSCULAR HGB CONC 33 g/dL (32-36); MEAN CORPUSCULAR VOLUME 87 fL (80-99); MEAN PLATELET VOLUME 11.7 fL (9.0-12.2); MONOCYTES # (AUTO) 0.7 10^3/uL (0.0-1.0); MONOCYTES % (AUTO) 6 % (0-12); NEUTROPHILS # (AUTO) 10.5 10^3/uL (1.8-7.8); NEUTROPHILS % (AUTO) 88 % (42-75); PLATELET COUNT 225 10^3/uL (130-400)
[2022-09-03 06:12] LABS: ALBUMIN 2.6 GM/DL (3.2-4.5); BILIRUBIN,TOTAL 4.8 MG/DL (0.1-1.0); CALCIUM 8.5 MG/DL (8.5-10.1); CREATININE SERUM 2.02 MG/DL (0.60-1.30); POTASSIUM 3.4 MMOL/L (3.6-5.0); TOTAL PROTEIN 5.5 GM/DL (6.4-8.2)
[2022-09-03] MEDS: inSUlin ASPART (NovoLOG) 1 UNIT/0.01 ML (CHARGE PER UNIT) SC SCH ×4 (06:19→22:06)
[2022-09-03] MEDS: ENOXAPARIN 40 MG/0.4 ML (LOVENOX) SYR SQ SCH ×2 (06:48→17:25)
[2022-09-03 07:52] VITALS: BP 131/61
[2022-09-03] MEDS: NS IV 1000 ML 1,000 ML IV SCH ×3 (09:04→15:49)
[2022-09-03] MEDS: VANCOMYCIN 1 GM/NS 250 ML IVPB IV SCH ×4 (09:04→20:22)
[2022-09-03] MEDS: CLOPIDOGREL 75 MG (PLAVIX) TABLET PO SCH (09:05)
[2022-09-03] MEDS: GABAPENTIN 600 MG (NEURONTIN) TAB PO SCH ×2 (09:05→20:22)
[2022-09-03] MEDS: PANTOPRAZOLE 20 MG TABLET (PROTONIX) PO SCH (09:05)
[2022-09-03] MEDS: PROPRANOLOL 20 MG (INDERAL) TABLET PO SCH ×2 (09:05→20:22)
[2022-09-03] MEDS: ASPIRIN E.C. 81 MG (ECOTRIN) TAB PO SCH (09:05)
[2022-09-03] MEDS: amLODIPine 10 MG (NORVASC) TAB PO SCH (09:05)
[2022-09-03] MEDS: HYDROcodone/APAP 7.5 MG/325 MG (LORTAB, LORCET PLUS) TABLET PO PRN ×2 (09:07→15:49)
[2022-09-03] MEDS: LATANOPROST 0.005% (XALATAN) OPHTH SOLN 2.5 ML OU SCH (09:14)
[2022-09-03] MEDS: SIMETHICONE 80 MG (MYLICON) CHEW PO PRN ×2 (09:52→16:04)
--- NOTE | 2022-09-03 10:52 | Progress Note ---
Subjective Date Seen by a Provider: September 03, 2022 Time Seen by a Provider: 10:00 Subjective/Events-last exam doing ok. pain controlled. tolerating diet. LINA drain SS. no fever/chills. Focused Exam Time of Focused Exam: 21:30 Objective Exam Vital Signs Date Time Temp Pulse Resp B/P (MAP) Pulse Ox O2 Delivery O2 Flow Rate FiO2 09/03/22 08:00 Room Air 09/03/22 07:52 36.6 98 20 131/61 (84) 94 Room Air 09/03/22 04:00 95 18 140/63 (88) 95 Nasal Cannula 2.00 09/02/22 23:07 36.5 99 16 116/66 (83) 95 Nasal Cannula 2.00 09/02/22 19:44 36.7 98 18 131/68 (89) 93 Room Air 09/02/22 19:15 Room Air 09/02/22 16:15 36.5 90 18 134/73 (93) 90 Room Air 09/02/22 14:35 Room Air 09/02/22 14:30 36.9 16 128/67 (87) 92 Room Air 09/02/22 14:20 16 138/67 (90) 98 OxyMask 2.00 09/02/22 14:20 OxyMask 2.00 09/02/22 14:10 18 138/71 (93) 99 OxyMask 2.00 09/02/22 14:05 OxyMask 4.00 09/02/22 14:00 16 136/70 (92) 99 OxyMask 4.00 09/02/22 13:52 OxyMask 6.00 09/02/22 13:52 36.6 16 122/64 (83) 95 OxyMask 6.00 09/02/22 11:34 36.7 44 18 84/39 (54) 98 Room Air I & O 09/03/22 07:00 Intake Total 5370 ml Output Total 935 ml Balance 4435 ml Capillary Refill : Less Than 3 Seconds General Appearance: No Apparent Distress HEENT: PERRL/EOMI Neck: Full Range of Motion Respiratory: Chest Non Tender, Decreased Breath Sounds Cardiovascular: Regular Rate, Rhythm Gastrointestinal: soft, tenderness, other (inc clean/dry) Extremity: Normal Capillary Refill Neurologic/Psychiatric: Alert, Oriented x3 Skin: Normal Color Lymphatic: No Adenopathy Results Lab Laboratory Tests 09/02/22 11:05: Glucometer 171H 09/02/22 15:45: Glucometer 174H 09/02/22 20:10: Glucometer 170H 09/03/22 05:34: White Blood Count 12.0H, Red Blood Count 3.62L, Hemoglobin 10.4L, Hematocrit 31L , Mean Corpuscular Volume 87, Mean Corpuscular Hemoglobin 29, Mean Corpuscular Hemoglobin Concent 33, Red Cell Distribution Width 14.9H, Platelet Count 225, Mean Platelet Volume 11.7, Immature Granulocyte % (Auto) 1, Neutrophils (%) (Auto) 88H, Lymphocytes (%) (Auto) 6L, Monocytes (%) (Auto) 6, Eosinophils (%) (Auto) 0, Basophils (%) (Auto) 0, Neutrophils # (Auto) 10.5H, Lymphocytes # (Auto) 0.7L, Monocytes # (Auto) 0.7, Eosinophils # (Auto) 0.0, Basophils # (Auto) 0.0, Immature Granulocyte # (Auto) 0.1, Sodium Level 132L, Potassium Level 3.4L, Chloride Level 101, Carbon Dioxide Level 21, Anion Gap 10, Blood Urea Nitrogen 21H, Creatinine 2.02H, Estimat Glomerular Filtration Rate 38, BUN/Creatinine Ratio 10, Glucose Level 142H, Calcium Level 8.5, Corrected Calci um 9.6, Total Bilirubin 4.8H, Aspartate Amino Transf (AST/SGOT) 202H, Alanine Aminotransferase (ALT/SGPT) 248H, Alkaline Phosphatase 180H, Total Protein 5.5L, Albumin 2.6L Microbiology 09/01/22 MRSA Screen - Final, Complete No growth 08/30/22 Urine Culture - Final, Complete NO GROWTH 08/30/22 Blood Culture - Preliminary, Resulted No growth Assessment/Plan Assessment/Plan Assess & Plan/Chief Complaint gangrenous calculous cholecystitis s/p lap cholecystectomy. clinically doing well. cont ambulation and IS. hyperbilirubinemia secondary to biliary sludge in CBD. WBC normalizing with no signs cholangitis. will monitor. cont IV abx. ALFA KELLER MD September 03, 2022 10:52
--- NOTE | 2022-09-03 10:55 | Progress Note - Hospitalist ---
Subjective HPI/CC On Admission Date Seen by Provider: September 03, 2022 Time Seen by Provider: 11:00 Subjective/Events-last exam Patient doing a lot better Cholecystectomy performed yesterday postoperatively and showed Gangrenous calculous cholecystitis. Liver enzymes still elevated Creatinine 2.0 Review of Systems General: Fatigue, Malaise Focused Exam Time of Focused Exam: 21:30 Objective Exam Vital Signs Vital Signs Date Time Temp Pulse Resp B/P (MAP) Pulse Ox O2 Delivery O2 Flow Rate FiO2 09/03/22 11:30 37.1 95 18 121/59 (79) 94 Nasal Cannula 2.00 Capillary Refill : Less Than 3 Seconds General Appearance: No Apparent Distress, WD/WN, Chronically ill, Obese Respiratory: Lungs Clear, Normal Breath Sounds Cardiovascular: Regular Rate, Rhythm Neurologic/Psychiatric: Alert, Oriented x3, Depressed Affect Results/Procedures Lab Laboratory Tests 09/03/22 05:34 Patient resulted labs reviewed. Assessment/Plan Assessment and Plan Assess & Plan/Chief Complaint (1) Sepsis Status: Acute Assessment & Plan: Suspect secondary to cellulitis/osteomyelitis. Started on vancomycin and zosyn, feeling clinically better, but not significantly improved in labs yet. 09/01 leukocytosis resolved Qualifiers: (2) Osteomyelitis Status: Chronic Assessment & Plan: Will review outside imaging, discussed with patient if he decides he wants to proceed with amputation, we can consult Dr. Mullins inpatient as well. Qualifiers: Qualified Codes: M86.672 - Other chronic osteomyelitis, left ankle and foot (3) Cellulitis Status: Acute Qualifiers: (4) Charcot foot Status: Chronic (5) Diabetes mellitus, type 2 Status: Chronic Assessment & Plan: Sliding scale insulin, diabetic diet. 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 (7) Hypertension Status: Chronic Assessment & Plan: Resume home medications Qualifiers: Qualified Codes: I10 - Essential (primary) hypertension (8) Peripheral neuropathy Status: Acute (9) Cholelithiasis Status: Acute Assessment & Plan: Appreciate Dr. Kido's recommendations. Qualifiers: (10) DVT prophylaxis Status: Acute Assessment & Plan: Enoxaparin CRISTHIAN AMBROSIO DO September 03, 2022 10:55
[2022-09-03 11:30] VITALS: BP 121/59
[2022-09-03 15:40] VITALS: BP 131/60
--- NOTE | 2022-09-03 15:54 | Anesthesia-General Post-Op ---
General Patient Condition Mental Status/LOC: Same as Preop Cardiovascular: Satisfactory Nausea/Vomiting: Absent Respiratory: Satisfactory Pain: Controlled Complications: Absent Post Op Complications Complications None Follow Up Care/Instructions Patient Instructions None needed. Anesthesia/Patient Condition Patient Condition Patient is doing well, no complaints, stable vital signs, no apparent adverse anesthesia problems. No complications reported per nursing. AUDREY WELCH CRNA September 03, 2022 15:54
[2022-09-03] MEDS ORDERED: LIDOCAINE UROJET 2% GEL 10 ML PKG ONE (17:54)
[2022-09-03] MEDS ORDERED: LIDOCAINE UROJET 2% GEL 10 ML PKG TOP ONE (18:00)
[2022-09-03 19:58] VITALS: BP 113/58
[2022-09-03] MEDS: CYCLOBENZAPRINE 10 MG (FLEXERIL) TAB PO PRN (20:23)
[2022-09-03] MEDS: MELATONIN 3 MG TABLET PO PRN (20:23)
[2022-09-03 23:11] VITALS: BP 118/58
[2022-09-04] MEDS: SIMETHICONE 80 MG (MYLICON) CHEW PO PRN ×2 (01:02→09:01)
[2022-09-04] MEDS: HYDROcodone/APAP 7.5 MG/325 MG (LORTAB, LORCET PLUS) TABLET PO PRN ×2 (01:02→09:01)
[2022-09-04 03:18] VITALS: BP 106/66
[2022-09-04] MEDS: ENOXAPARIN 40 MG/0.4 ML (LOVENOX) SYR SQ SCH ×2 (05:23→17:08)
[2022-09-04 05:45] LABS: BASOPHILS % (AUTO) 0 % (0-10); EOSINOPHILS % (AUTO) 0 % (0-10); HEMATOCRIT 30 % (40-54); LYMPHOCYTES # (AUTO) 0.5 10^3/uL (1.0-4.0); LYMPHOCYTES % (AUTO) 5 % (12-44); MEAN CORPUSCULAR HEMOGLOBIN 29 pg (25-34); MEAN CORPUSCULAR HGB CONC 33 g/dL (32-36); MEAN CORPUSCULAR VOLUME 87 fL (80-99); MEAN PLATELET VOLUME 11.6 fL (9.0-12.2); MONOCYTES # (AUTO) 0.7 10^3/uL (0.0-1.0); MONOCYTES % (AUTO) 6 % (0-12); NEUTROPHILS # (AUTO) 10.1 10^3/uL (1.8-7.8); NEUTROPHILS % (AUTO) 87 % (42-75); PLATELET COUNT 226 10^3/uL (130-400); WHITE BLOOD COUNT 11.6 10^3/uL (4.3-11.0)
[2022-09-04 05:52] LABS: ALBUMIN 2.5 GM/DL (3.2-4.5); POTASSIUM 3.4 MMOL/L (3.6-5.0)
[2022-09-04 05:53] LABS: CALCIUM 8.5 MG/DL (8.5-10.1)
[2022-09-04 05:55] LABS: TOTAL PROTEIN 5.4 GM/DL (6.4-8.2)
[2022-09-04 05:56] LABS: BILIRUBIN,TOTAL 5.2 MG/DL (0.1-1.0)
[2022-09-04] MEDS: inSUlin ASPART (NovoLOG) 1 UNIT/0.01 ML (CHARGE PER UNIT) SC SCH ×4 (05:57→21:02)
[2022-09-04 05:58] LABS: CREATININE SERUM 3.12 MG/DL (0.60-1.30)
--- NOTE | 2022-09-04 07:12 | Progress Note - Hospitalist ---
Subjective HPI/CC On Admission Date Seen by Provider: September 04, 2022 Time Seen by Provider: 11:00 Subjective/Events-last exam Patient doing about the same Garcia catheter required due to urinary retention Patient reports had urethral stricture and was managed at the after surgery and did well He does get UTIs about 3/year Spoke with Dr. Moreno and he is concerned about his elevated total bilirubin I did speak to Dr. Vee nephrology who will see him in consultation and recommended no more IV fluids due to fluid overload and check UA and urine eosinophils UTI noted so will place on meropenem considering his recent broad-spectrum antibiotics and his history of UTIs it could be ESBL Attempted to transfer to [place] for higher level of care but there is no EMS transfers at all and since he is not critical he will not need med flight so we will closely monitor in the meantime Review of Systems General: Fatigue, Malaise Cardiovascular: Edema Genitourinary: Retention Focused Exam Time of Focused Exam: 21:30 Objective Exam Vital Signs Vital Signs Date Time Temp Pulse Resp B/P (MAP) Pulse Ox O2 Delivery O2 Flow Rate FiO2 09/04/22 15:34 36.9 77 18 108/59 (75) 97 Nasal Cannula 2.00 Capillary Refill : Less Than 3 Seconds General Appearance: No Apparent Distress, WD/WN, Chronically ill, Obese Respiratory: Lungs Clear, Normal Breath Sounds Cardiovascular: Regular Rate, Rhythm Extremity: Pedal Edema Neurologic/Psychiatric: Alert, Oriented x3, No Motor/Sensory Deficits, Normal Mood/Affect Results/Procedures Lab Laboratory Tests 09/04/22 05:30 Patient resulted labs reviewed. Assessment/Plan Assessment and Plan Assess & Plan/Chief Complaint (1) Sepsis Resolved (2) Osteomyelitis Meets criteria for left BKA (3) Cellulitis Resolved (4) Charcot foot Status: Chronic (5) Diabetes mellitus, type 2 Status: Chronic Assessment & Plan: Sliding scale insulin, diabetic diet. 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 (7) Hypertension Status: Chronic Assessment & Plan: Resume home medications Qualifiers: Qualified Codes: I10 - Essential (primary) hypertension (8) Peripheral neuropathy Status: Acute (9) Cholelithiasis Status post cholecystectomy (10) DVT prophylaxis Status: Acute Assessment & Plan: Enoxaparin Acute on chronic kidney disease with worsening dysfunction Consulting nephrology Biliary duct obstruction? May need ERCP No EMS transfer available if he becomes critical will need to fly Acute UTI with history of UTIs history of urethral obstruction status postsurgery at the in the past but has 3 UTIs per year high risk for ESBL placed on meropenem CRISTHIAN AMBROSIO DO September 04, 2022 07:12
[2022-09-04 07:32] VITALS: BP 111/55
[2022-09-04] MEDS: CLOPIDOGREL 75 MG (PLAVIX) TABLET PO SCH (08:46)
[2022-09-04] MEDS: ASPIRIN E.C. 81 MG (ECOTRIN) TAB PO SCH (08:47)
[2022-09-04] MEDS: GABAPENTIN 600 MG (NEURONTIN) TAB PO SCH ×2 (08:47→20:35)
[2022-09-04] MEDS: amLODIPine 10 MG (NORVASC) TAB PO SCH (08:47)
[2022-09-04] MEDS: PANTOPRAZOLE 20 MG TABLET (PROTONIX) PO SCH (08:47)
[2022-09-04] MEDS: PROPRANOLOL 20 MG (INDERAL) TABLET PO SCH ×2 (08:47→20:32)
[2022-09-04] MEDS: LATANOPROST 0.005% (XALATAN) OPHTH SOLN 2.5 ML OU SCH (08:48)
[2022-09-04] MEDS: VANCOMYCIN 1 GM/NS 250 ML IVPB IV SCH ×2 (08:48)
[2022-09-04] MEDS ORDERED: D5 1/2 NS 1000 ML IV SOLUTION 1,000 ML IV SCH (09:30)
[2022-09-04 10:51] LABS: CLARITY,URINE CLOUDY; COLOR,URINE ORANGE; GLUCOSE, URINE (UA) NEGATIVE (NEGATIVE); KETONES,URINE TRACE (NEGATIVE); LEUKOCYTE ESTERASE ,URINE 2+ (NEGATIVE); NITRITE,URINE NEGATIVE (NEGATIVE); PROTEIN,URINE 2+ (NEGATIVE)
[2022-09-04 11:01] LABS: BILIRUBIN,URINE 3+ (NEGATIVE)
[2022-09-04 11:02] LABS: AMORPHOUS SEDIMENT,UR RARE AMOR URATES /LPF; BACTERIA,URINE MODERATE /HPF; RBC,URINE 25-50 /HPF; WBC,URINE 50-100 /HPF
[2022-09-04 11:18] VITALS: BP 118/57
[2022-09-04] MEDS: MEROPENEM 1,000 MG in NS (IVPB) 100 ML IV SCH ×2 (12:48→23:32)
--- NOTE | 2022-09-04 13:01 | Progress Note - Surgery ---
Subjective Time Seen by a Provider: 11:09 Subjective/Events-last exam Pt seen and examined, sitting in bed comfortable. He has minor abdominal pain, mostly at incisions. He is tolerating diet. His only complaint is that he is "puffy". Review of Systems General: Fatigue Pulmonary: No Dyspnea, No Cough Cardiovascular: No: Chest Pain, Palpitations Gastrointestinal: Abdominal Pain; No: Nausea, Vomiting Genitourinary: Other (decreased urine output) Focused Exam Time of Focused Exam: 21:30 Objective Exam Vital Signs Date Time Temp Pulse Resp B/P (MAP) Pulse Ox O2 Delivery O2 Flow Rate FiO2 09/04/22 11:18 36.9 86 18 118/57 (77) 97 High Flow N/C 2.00 09/04/22 08:00 96 Nasal Cannula 2.00 09/04/22 07:43 92 Room Air 0.00 09/04/22 07:42 96 Nasal Cannula 2.00 09/04/22 07:32 36.6 87 18 111/55 (73) 96 Nasal Cannula 2.00 09/04/22 03:18 36.6 81 16 106/66 (79) 96 Nasal Cannula 2.00 09/03/22 23:11 37.2 84 16 118/58 (78) 98 Nasal Cannula 2.00 09/03/22 19:58 37.2 87 18 113/58 (76) 92 Room Air 09/03/22 19:20 Room Air 09/03/22 15:40 36.9 90 18 131/60 (83) 96 Nasal Cannula 2.00 I & O0 09/04/22 07:00 Intake Total 2880 ml Output Total 1275 ml Balance 1605 ml Capillary Refill : Less Than 3 Seconds General Appearance: No Apparent Distress, Obese HEENT: PERRL/EOMI, Scleral Icterus (L), Scleral Icterus (R) Respiratory: Lungs Clear, Normal Breath Sounds Cardiovascular: Regular Rate, Rhythm, No Murmur Gastrointestinal: soft, tenderness (at incisions), other (inc clean/dry) Extremity: Normal Capillary Refill, Pedal Edema Neurologic/Psychiatric: Alert, Oriented x3, Depressed Affect Results Lab Laboratory Tests 09/03/22 15:18: Glucometer 163H 09/03/22 20:38: Glucometer 199H 09/04/22 05:30: White Blood Count 11.6H, Red Blood Count 3.46L, Hemoglobin 10.0L, Hematocrit 30L , Mean Corpuscular Volume 87, Mean Corpuscular Hemoglobin 29, Mean Corpuscular Hemoglobin Concent 33, Red Cell Distribution Width 15.0H, Platelet Count 226, Mean Platelet Volume 11.6, Immature Granulocyte % (Auto) 2, Neutrophils (%) (Auto) 87H, Lymphocytes (%) (Auto) 5L, Monocytes (%) (Auto) 6, Eosinophils (%) (Auto) 0, Basophils (%) (Auto) 0, Neutrophils # (Auto) 10.1H, Lymphocytes # (Auto) 0.5L, Monocytes # (Auto) 0.7, Eosinophils # (Auto) 0.0, Basophils # (Auto) 0.0, Immature Granulocyte # (Auto) 0.2H, Sodium Level 131L, Potassium Level 3.4L, Chloride Level 100, Carbon Dioxide Level 21, Anion Gap 10, Blood Urea Nitrogen 36H, Creatinine 3.12#H, Estimat Glomerular Filtration Rate 23, BUN/Creatinine Ratio 12, Glucose Level 150H, Calcium Level 8.5, Corrected Calcium 9.7, Total Bilirubin 5.2H, Aspartate Amino Transf (AST/SGOT) 130H, Alanine Aminotransferase (ALT/SGPT) 211H, Alkaline Phosphatase 213H, Total Protein 5.4L, Albumin 2.5L 09/04/22 10:30: Urine Color ORANGE, Urine Clarity CLOUDY, Urine pH 5.0, Urine Specific [place] 1.025H, Urine Protein 2+H, Urine Glucose (UA) NEGATIVE, Urine Ketones TRACEH, Urine Nitrite NEGATIVE, Urine Bilirubin 3+H, Urine Urobilinogen 1.0, Urine Leukocyte Esterase 2+H, Urine RBC (Auto) 3+H, Urine RBC 25-50H, Urine WBC 50- 100H, Urine Squamous Epithelial Cells 5-10, Urine Crystals PRESENTH, Urine Amorphous Sediment RARE MARSHAL URATESH, Urine Bacteria MODERATEH, Urine Casts NONE, Urine Mucus NEGATIVE, Urine Culture Indicated YES 09/04/22 11:17: Glucometer 165H 09/04/22 11:40: Microbiology 09/01/22 MRSA Screen - Final, Complete No growth 08/30/22 Urine Culture - Final, Complete NO GROWTH 08/30/22 Blood Culture - Preliminary, Resulted No growth Assessment/Plan Assessment/Plan Assessment/Plan Hyperbilirubinemia Acute Renal failure S/P Lap Shauna for gangrenous GB Pt's bilirubin is continuing to climb and he may need and ERCP; unfortunately, he is too large for MRCP. Could do a HIDA scan but would not be able to get that until Monday. He is getting a consult from Nephrology today, regarding his renal function. In addition, he is starting to have some Oliguria. He may need transfer for dialysis....will wait for Nephrology consult. Ok to continue current diet. I will see if lab can add on a direct Bilirubin to blood sample already drawn. Will monitor labs. Pt does not appear to be in any distress at this time, so transfer is not urgent. Have looked into possible transport and EMS is not available today. MENDY MCKEON DO September 04, 2022 13:01
--- NOTE | 2022-09-04 13:30 | Consultation ---
History of Present Illness History of Present Illness Patient Consulted On(javed/time) 09/04/22 13:28 Date Seen by Provider: September 04, 2022 Time Seen by Provider: 13:29 Reason for Visit: alfred History of Present Illness Mr. Chung is a very pleasant 52 y/o WM with h/o DM complicated by charcot foot and diabetic foot ulcer progressing to osteo, HTN, obesity/non ambulatory, and BAILEE who was admitted with chronic osteo and acute cholecystits s/p lap cholecystectomy now with rising creatinine. Pt required butler placement with 400ml out post void. Denies h/o BPH. He is off vanc and zosyn now given development of ALFRED. IVF were stopped due to third spacing. Not on nsaids. stopped them 2 years ago. Allergies and Home Medications Allergies Coded Allergies: No Known Drug Allergies (Unverified , 04/25/22) Patient Home Medication List Home Medication List Reviewed: Yes Amlodipine Besylate (Amlodipine Besylate) 10 Mg Tablet, 10 MG PO DAILY, (Reported) Entered as Reported by: MARIA EUGENIA BEACH on 08/10/2144 Last Action: Continued Aspirin (Aspirin EC) 81 Mg Tablet.dr, 81 MG PO DAILY, (Reported) Entered as Reported by: MILA DIAS on 08/31/22 1141 Last Action: Continued Clopidogrel Bisulfate (Clopidogrel) 75 Mg Tablet, 75 MG PO DAILY, (Reported) Entered as Reported by: MILA DIAS on 08/31/22 114 Last Action: Continued Cyclobenzaprine HCl (Cyclobenzaprine HCl) 10 Mg Tablet, 10 MG PO TID PRN for MUSCLE SPASMS, (Reported) Entered as Reported by: SOL WORLEY on 09/19/17 1109 Last Action: Continued Gabapentin (Gabapentin) 600 Mg Tablet, 600 MG PO BID, (Reported) Entered as Reported by: MILA DIAS on 08/31/22 1141 Last Action: Continued Glyburide (Glyburide) 5 Mg Tablet, 10 MG PO BID, (Reported) Entered as Reported by: SOL WORLEY on 09/19/17 1109 Last Action: Held Hydrochlorothiazide (Hydrochlorothiazide) 25 Mg Tablet, 25 MG PO DAILY, (Reported) Entered as Reported by: MARIA EUGENIA BEACH on 08/10/2144 Last Action: Continued Latanoprost (Xalatan) 0.005 % Drops, 1 DROP OU DAILY, (Reported) Entered as Reported by: MILA DIAS on 08/31/22 114 Last Action: Continued Lisinopril (Lisinopril) 40 Mg Tablet, 40 MG PO DAILY, (Reported) Entered as Reported by: SOL WORLEY on 09/19/171108 Last Action: Held Omeprazole (Omeprazole) 20 Mg Capsule.dr, 20 MG PO DAILY, (Reported) Entered as Reported by: GENEVA QUINN on 03/29/191751 Last Action: Continued Pioglitazone HCl (Pioglitazone HCl) 45 Mg Tablet, 45 MG PO DAILY, (Reported) Entered as Reported by: SOL WORLEY on 09/19/171108 Last Action: Held Polyethylene Glycol 3350 ([id number]) 17 Gram/Dose Powder, 17 GM PO DAILY PRN for CONSTIPATION-2ND LINE, (Reported) Entered as Reported by: MILA DIAS on 08/31/221140 Last Action: Continued Propranolol HCl (Propranolol HCl) 40 Mg Tablet, 40 MG PO BID, (Reported) Entered as Reported by: SOL WORLEY on 09/19/171108 Last Action: Converted Discontinued Medications Aspirin (Aspirin) 81 Mg Tab.chew, 81 MG DAILY, (Reported) Discontinued Reason: Duplicate Order Entered as Reported by: GENEVA QUINN on 03/29/191751 Last Action: Discontinued Clopidogrel Bisulfate (Plavix) 75 Mg Tablet, 75 MG PO DAILY, (Reported) Discontinued Reason: Duplicate Order Entered as Reported by: MARIA EUGENIA BEACH on 08/10/21 9636 Last Action: Discontinued Gabapentin (Gabapentin) 800 Mg Tablet, 800 MG PO TID, (Reported) Discontinued Reason: No Longer Taking Entered as Reported by: DIMAS PETERSON on 09/21/21 1605 Last Action: Discontinued Liraglutide (Victoza 3-Ludwig) 0.6 Mg/0.1 Ml Pen.injctr, 1.8 MG SQ DAILY, (Reported) Discontinued Reason: No Longer Taking Entered as Reported by: SOL WOLREY on 09/19/171108 Last Action: Discontinued Nitroglycerin (Nitroglycerin) 0.4 Mg Tab.subl, 0.4 MG SL PRN PRN for chest pain, (Reported) Discontinued Reason: No Longer Taking Entered as Reported by: MARIA EUGENIA BEACH on 08/10/21843 Last Action: Discontinued Polyethylene Glycol 1000 (Polyethylene Glycol) 500 Gm Powder, 500 GM MC PRN, (Reported) Discontinued Reason: No Longer Taking Entered as Reported by: MARIA EUGENIA BEACH on 08/10/21843 Last Action: Discontinued Past Yeiekpj-Pjqttv-Uxifsc Hx Patient Social History Tobacco Use?: Yes Tobacco type used: Cigarettes Smoking Status: Former Smoker Use of E-Cig and/or Vaping dev: No Substance use?: No Alcohol Use?: No Pt feels they are or have been: No Immunizations Up To Date Tetanus Booster (TDap): Unknown Influenza Vaccine Up-to-Date: Yes; Up-to-Date First/Initial COVID19 Vaccinat: 2020 Second COVID19 Vaccination Javed: 2020 Third COVID19 Vaccination Date: 2021 Seasonal Allergies Seasonal Allergies: Yes Past Medical History Surgery/Hospitalization HX: DIABETIC Surgeries: Yes (HERNIA AGE 1;HEART CATH;urethreal stricture;left big toe osteoectomy;L HEEL) Orthopedic Respiratory: Yes (going to get a sleep study done) Sleep Apnea Currently Using CPAP: Yes Currently Using BIPAP: No Cardiac: Yes High Cholesterol, Hypertension Neurological: Yes Neuropathy Reproductive Disorders: No Sexually Transmitted Disease: No HIV/AIDS: No Genitourinary: No Gastrointestinal: No Musculoskeletal: Yes (open wound on left big toe;BILAT CHARCOT FOOT;OSTEOMYELITIS/ L HEEL RESECT) Endocrine: Yes Diabetes, Non-Insulin dep HEENT: No Hearing Impairment: Denies Cancer: No Psychosocial: No Integumentary: Yes (DIABETIC FOOT ULCERS, CELLULITIS AND OSTEOMYELITIS) Pruritis Blood Disorders: No Adverse Reaction/Blood Tranf: No Family Medical History Chest pain 03 MOTHER, Onset:Unknown Congestive heart failure 03 MOTHER, Onset:Unknown Family history: Cardiovascular disease 03 MOTHER, Onset:Unknown Family history: Coronary thrombosis 03 MOTHER, Onset:Unknown Family history: Diabetes mellitus 03 FATHER, Onset:Unknown 03 MOTHER, Onset:Unknown 09 BROTHER, Onset:Unknown Family history: Glaucoma 03 MOTHER, Onset:Unknown Family history: Hypertension 03 FATHER, Onset:Unknown 03 MOTHER, Onset:Unknown 09 BROTHER, Onset:Unknown Heart disease 03 MOTHER, Onset:Unknown Hypercholesterolemia 03 FATHER, Onset:Unknown 03 MOTHER, Onset:Unknown 09 BROTHER, Onset:Unknown Myocardial infarction 03 MOTHER, Onset:Unknown Psychotic disorder 03 MOTHER, Onset:Unknown Seizure disorder 03 MOTHER, Onset:Unknown Stroke 03 MOTHER, Onset:Unknown Visual impairment 03 MOTHER, Onset:Unknown No Family History of: Abdominal aortic aneurysm Tab's disease Alcoholism Aphasia Cancer Cancer of colon Cataract Congenital heart disease Cystic fibrosis Dementia Dysphagia Family history: Allergy Family history: Alzheimer's disease Family history: Arthritis Family history: Asthma Family history: Breast disease Family history: Gastrointestinal disease Family history: Osteoporosis Family history: Thyroid disorder Headache Hearing loss Hereditary disease History of - anemia History of - disorder History of - respiratory disease History of drug abuse Human immunodeficiency virus (HIV) seropositivity Infertile Kidney disease Malignant neoplasm of lung Parkinson's disease Prostate cancer Tuberculosis Vascular Disease Review of Systems-General Constitutional: see HPI Physical Exam-General Problems Physical Exam Vital Signs Vital Signs - First Documented 08/30/22 08/31/22 20:35 02:59 Temp 38.2 Pulse 123 Resp 26 B/P (MAP) 142/63 (89) Pulse Ox 95 O2 Delivery Room Air O2 Flow Rate 2.00 Capillary Refill : Less Than 3 Seconds Assessment/Plan Assessment/Plan Admission Diagnosis/Plan ALFRED on CKD 2 baseline 1.3 ALFRED due to retention +- hypoperfusion in the shari-operative setting butler placed 09/03/22 with 400ml of urine outpt recommend starting flomax for suspected BPH avoiding nephrotoxins will check urine pro/cr to see if edema is likely due to nephrotic range prot einuria also recommend urine eos and u/a to evaluate for acute interstitial nephritis secondary to zosyn renally dose meds avoid use of scheduled diuretics and use prn 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 Pt gave verbal consent. ADDI HARKINS MD September 04, 2022 13:30
[2022-09-04 15:34] VITALS: BP 108/59
[2022-09-04] MEDS ORDERED: TAMSULOSIN 0.4 MG (FLOMAX) CAP PO SCH (18:00)
[2022-09-04 20:30] VITALS: BP 95/55
[2022-09-04] MEDS: CYCLOBENZAPRINE 10 MG (FLEXERIL) TAB PO PRN (20:57)
[2022-09-04] MEDS: MELATONIN 3 MG TABLET PO PRN (20:57)
[2022-09-04 23:40] VITALS: BP 103/61
[2022-09-05 03:28] LABS: BASOPHILS % (AUTO) 0 % (0-10); EOSINOPHILS # (AUTO) 0.1 10^3/uL (0.0-0.3); EOSINOPHILS % (AUTO) 1 % (0-10); HEMATOCRIT 28 % (40-54); HEMOGLOBIN 9.3 g/dL (13.3-17.7); LYMPHOCYTES # (AUTO) 0.7 10^3/uL (1.0-4.0); LYMPHOCYTES % (AUTO) 6 % (12-44); MEAN CORPUSCULAR HEMOGLOBIN 29 pg (25-34); MEAN CORPUSCULAR HGB CONC 34 g/dL (32-36); MEAN CORPUSCULAR VOLUME 86 fL (80-99); MEAN PLATELET VOLUME 11.2 fL (9.0-12.2); MONOCYTES # (AUTO) 0.8 10^3/uL (0.0-1.0); MONOCYTES % (AUTO) 8 % (0-12); NEUTROPHILS # (AUTO) 8.7 10^3/uL (1.8-7.8); NEUTROPHILS % (AUTO) 80 % (42-75); PLATELET COUNT 211 10^3/uL (130-400); WHITE BLOOD COUNT 10.8 10^3/uL (4.3-11.0)
[2022-09-05 03:38] LABS: ALBUMIN 2.3 GM/DL (3.2-4.5); POTASSIUM 3.4 MMOL/L (3.6-5.0)
[2022-09-05 03:39] LABS: CALCIUM 8.4 MG/DL (8.5-10.1)
[2022-09-05 03:40] LABS: TOTAL PROTEIN 5.4 GM/DL (6.4-8.2)
[2022-09-05 03:42] LABS: BILIRUBIN,TOTAL 3.9 MG/DL (0.1-1.0)
[2022-09-05 03:44] LABS: CREATININE SERUM 5.18 MG/DL (0.60-1.30)
[2022-09-05 03:53] VITALS: BP 116/56
[2022-09-05] MEDS: inSUlin ASPART (NovoLOG) 1 UNIT/0.01 ML (CHARGE PER UNIT) SC SCH (05:10)
[2022-09-05] MEDS: ENOXAPARIN 40 MG/0.4 ML (LOVENOX) SYR SQ SCH (05:26)
[2022-09-05] MEDS ORDERED: MERO1PIG IV (08:04)
[2022-09-05] MEDS ORDERED: TMSL.4C PO (08:04)
[2022-09-05] MEDS ORDERED: SIME80TA16 PO (08:04)
[2022-09-05] MEDS ORDERED: ENOX40DI8 SQ (08:04)
--- NOTE | 2022-09-05 08:05 | Discharge Summary ---
Discharge Summary Hospital Course Was the Problem List Reviewed?: Yes Problems/Dx: (1) Acute kidney failure (2) Sepsis Status: Acute Qualifiers: (3) Osteomyelitis Status: Chronic Qualifiers: Qualified Codes: M86.672 - Other chronic osteomyelitis, left ankle and foot (4) Cholelithiasis Status: Acute Qualifiers: (5) Transaminitis Status: Acute (6) Diabetes Status: Acute (7) Cellulitis Status: Acute Qualifiers: (8) Charcot foot Status: Chronic (9) Hypertension Status: Chronic Qualifiers: Qualified Codes: I10 - Essential (primary) hypertension (10) DVT prophylaxis Status: Acute Hospital Course Date of Admission: August 30, 2022 at 22:50 Admission Diagnosis : Family Physician/Provider: Olman Harrison DO Date of Discharge: 09/05/22 Discharge Diagnosis: [ ] Hospital Course: Patient had a very complicated and lengthy hospital course after he was admitted for sepsis and presumed left heel cellulitis and has been a candidate for a left BKA for many months but noticed elevated liver enzymes and cholecystitis with cholelithiasis diagnosed Dr. Vazquez perform cholecystectomy total bilirubin had started going up suspicious for bile duct obstruction but total bilirubin went down to 3.9 consistent with elevated liver enzymes from fatty liver and acute illness so ERCP was not required. Acute kidney injury required nephrology Dr. Vee who graciously provided consultation services and recommended close monitoring and discontinue HCTZ and Zosyn but meropenem was required due to likelihood of ESBL for UTI status post broad-spectrum antibiotics and history of UTIs in the past with a urethral stricture so Garcia catheter was inserted relieved obstruction with retention of 400 cc but he ultimately became oliguric with only 50 cc of urine in 1 shift and arrangements were made to be transferred to [facility] for acute kidney failure. Labs and Pending Lab Test: Laboratory Tests 09/04/22 10:30: Urine Color ORANGE, Urine Clarity CLOUDY, Urine pH 5.0, Urine Specific [place] 1.025H, Urine Protein 2+H, Urine Glucose (UA) NEGATIVE, Urine Ketones TRACEH, Urine Nitrite NEGATIVE, Urine Bilirubin 3+H, Urine Urobilinogen 1.0, Urine Leukocyte Esterase 2+H, Urine RBC (Auto) 3+H, Urine RBC 25-50H, Urine WBC 50- 100H, Urine Squamous Epithelial Cells 5-10, Urine Crystals PRESENTH, Urine Amorp hous Sediment RARE MARSHAL URATESH, Urine Bacteria MODERATEH, Urine Casts NONE, Urine Mucus NEGATIVE, Urine Culture Indicated YES 09/04/22 11:17: Glucometer 165H 09/04/22 11:40: Urine Protein 128H, Urine Eosinophils None, Urine Creatinine 228H, Urine Protein/Creatinine Ratio 0.56 09/04/22 15:23: Glucometer 174H 09/04/22 20:39: Glucometer 137H 09/05/22 03:20: White Blood Count 10.8, Red Blood Count 3.22L, Hemoglobin 9.3L, Hematocrit 28L, Mean Corpuscular Volume 86, Mean Corpuscular Hemoglobin 29, Mean Corpuscular Hemoglobin Concent 34, Red Cell Distribution Width 15.2H, Platelet Count 211, Mean Platelet Volume 11.2, Immature Granulocyte % (Auto) 5, Neutrophils (%) (Auto) 80H, Lymphocytes (%) (Auto) 6L, Monocytes (%) (Auto) 8, Eosinophils (%) (Auto) 1, Basophils (%) (Auto) 0, Neutrophils # (Auto) 8.7H, Lymphocytes # (Auto) 0.7L, Monocytes # (Auto) 0.8, Eosinophils # (Auto) 0.1, Basophils # (Auto) 0.0, Immature Granulocyte # (Auto) 0.5H, Sodium Level 129L, Potassium Level 3.4L, Chloride Level 98, Carbon Dioxide Level 19L, Anion Gap 12, Blood Ur ea Nitrogen 49H, Creatinine 5.18#H, Estimat Glomerular Filtration Rate 12, BUN/Creatinine Ratio 9, Glucose Level 121H, Calcium Level 8.4L, Corrected Calcium 9.8, Total Bilirubin 3.9H, Aspartate Amino Transf (AST/SGOT) 92H, Alanine Aminotransferase (ALT/SGPT) 138H, Alkaline Phosphatase 219H, Total Protein 5.4L, Albumin 2.3L Microbiology 09/01/22 MRSA Screen - Final, Complete No growth 08/30/22 Urine Culture - Final, Complete NO GROWTH 08/30/22 Blood Culture - Preliminary, Resulted No growth Home Meds Active Simethicone 80 Mg Tab.chew 80 Mg PO TID PRN 30 Days Enoxaparin Sodium 40 Mg/0.4 Ml Syringe 40 Mg SQ Q12H 30 Days Flomax (Tamsulosin HCl) 0.4 Mg Cap 0.4 Mg PO DAILY@1800 30 Days Meropenem-0.9% NaCl 1 Gram/50 (Meropenem-0.9% Sodium Chloride) 1 Gram/50 Ml Piggyback 1 Gm IV Q12H 6 Days Reported [id number] (Polyethylene Glycol 3350) 17 Gram/Dose Powder 17 Gm PO DAILY PRN Clopidogrel (Clopidogrel Bisulfate) 75 Mg Tablet 75 Mg PO DAILY Gabapentin 600 Mg Tablet 600 Mg PO BID Aspirin EC (Aspirin) 81 Mg Tablet.dr 81 Mg PO DAILY Xalatan (Latanoprost) 0.005 % Drops 1 Drop OU DAILY Hydrochlorothiazide 25 Mg Tablet 25 Mg PO DAILY Amlodipine Besylate 10 Mg Tablet 10 Mg PO DAILY Omeprazole 20 Mg Capsule.dr 20 Mg PO DAILY Propranolol HCl 40 Mg Tablet 40 Mg PO BID Pioglitazone HCl 45 Mg Tablet 45 Mg PO DAILY Lisinopril 40 Mg Tablet 40 Mg PO DAILY Cyclobenzaprine HCl 10 Mg Tablet 10 Mg PO TID PRN Glyburide 5 Mg Tablet 10 Mg PO BID TAKES 2 (5MG) TABS TO EQUAL 10 MG TWICE DAILY Assessment/Pt Instructions [facility] Discharge Planning: <30 minutes discharge planning Discharge Instructions Discharge Diet: ADA Diet Discharge Physical Examination Vital Signs Vital Signs Date Time Temp Pulse Resp B/P (MAP) Pulse Ox O2 Delivery O2 Flow Rate FiO2 09/05/22 06:22 Nasal Cannula 2.00 09/05/22 03:53 36.8 82 16 116/56 (76) 97 General Appearance: No Apparent Distress, WD/WN, Chronically ill Neurologic/Psychiatric: Alert, Oriented x3, No Motor/Sensory Deficits, Normal Mood/Affect Allergies: Coded Allergies: No Known Drug Allergies (Unverified , 04/25/22) Discharge Summary Date of Admission August 30, 2022 at 22:50 Date of Discharge Discharge Date: September 05, 2022 Discharge Diagnosis (1) Sepsis Resolved (2) Osteomyelitis Meets criteria for left BKA (3) Cellulitis Resolved (4) Charcot foot Status: Chronic (5) Diabetes mellitus, type 2 Status: Chronic Assessment & Plan: Sliding scale insulin, diabetic diet. Qualifiers: Qualified Codes: E11.621 - Type 2 diabetes mellitus with foot ulcer; L97.509 - Non-pressure chronic ulcer of other part of unspecified foot with unspecified severity; Z79.4 - snf (current) use of insulin (6) CAD (coronary artery disease) Assessment & Plan: Troponin and EKG normal yesterday during epigastric/sternal pain episodes. (7) Hypertension Status: Chronic Assessment & Plan: Resume home medications Qualifiers: Qualified Codes: I10 - Essential (primary) hypertension (8) Peripheral neuropathy Status: Acute (9) Cholelithiasis Status post cholecystectomy (10) DVT prophylaxis Status: Acute Assessment & Plan: Enoxaparin Acute on chronic kidney disease with worsening dysfunction Consulting nephrology Biliary duct obstruction? May need ERCP No EMS transfer available if he becomes critical will need to fly Acute UTI with history of UTIs history of urethral obstruction status postsurgery at the in the past but has 3 UTIs per year high risk for ESBL placed on meropenem CRISTHIAN AMBROSIO DO September 05, 2022 08:05
[2022-09-05 08:27] VITALS: BP 123/64
[2022-09-05] MEDS: PANTOPRAZOLE 20 MG TABLET (PROTONIX) PO SCH (09:43)
[2022-09-05] MEDS: GABAPENTIN 600 MG (NEURONTIN) TAB PO SCH (09:43)
[2022-09-05] MEDS: PROPRANOLOL 20 MG (INDERAL) TABLET PO SCH (09:43)
[2022-09-05] MEDS: amLODIPine 10 MG (NORVASC) TAB PO SCH (09:43)
[2022-09-05] MEDS: CLOPIDOGREL 75 MG (PLAVIX) TABLET PO SCH (09:43)
[2022-09-05] MEDS: ASPIRIN E.C. 81 MG (ECOTRIN) TAB PO SCH (09:43)
[2022-09-05] MEDS: LATANOPROST 0.005% (XALATAN) OPHTH SOLN 2.5 ML OU SCH (09:44)
[2022-09-05 11:42] VITALS: BP 123/64
== END 2022-09-05 11:25 | disposition short-term general hospital (02) | DRG 854 ==
LOC: EDUNIT# 20:30 → ER 20:31 → 4TH 22:50
PROVIDERS: ADMIT Family Medicine; ATTEND Internal Medicine
PROC: 5A09357 Assistance with Respiratory Ventilation, Less than 24 Consecutive Hours, Continuous Positive Airway Pressure (ICD-10-PCS; 2022-08-31)
PROC: 0FT44ZZ Resection of Gallbladder, Percutaneous Endoscopic Approach (ICD-10-PCS; principal; 2022-09-02 11:31)
PROC: 5A0935A Assistance with Respiratory Ventilation, Less than 24 Consecutive Hours, High Flow/Velocity Cannula (ICD-10-PCS; 2022-09-04)
DX: A41.9 Sepsis, unspecified organism (principal); K80.00 Calculus of gallbladder with acute cholecystitis without obstruction; L03.116 Cellulitis of left lower limb; L97.426 Non-pressure chronic ulcer of left heel and midfoot with bone involvement without evidence of necrosis; M86.672 Other chronic osteomyelitis, left ankle and foot; N39.0 Urinary tract infection, site not specified; N17.9 Acute kidney failure, unspecified; Z68.42 Body mass index [BMI] 45.0-49.9, adult; E11.621 Type 2 diabetes mellitus with foot ulcer; E11.69 Type 2 diabetes mellitus with other specified complication; R65.20 Severe sepsis without septic shock; E11.42 Type 2 diabetes mellitus with diabetic polyneuropathy; E11.610 Type 2 diabetes mellitus with diabetic neuropathic arthropathy; Z79.85 Long-term (current) use of injectable non-insulin antidiabetic drugs; Z79.84 Long term (current) use of oral hypoglycemic drugs; Z99.3 Dependence on wheelchair; G47.30 Sleep apnea, unspecified; E78.00 Pure hypercholesterolemia, unspecified; E11.319 Type 2 diabetes mellitus with unspecified diabetic retinopathy without macular edema; Z79.82 Long term (current) use of aspirin; Z79.02 Long term (current) use of antithrombotics/antiplatelets; Z79.899 Other long term (current) drug therapy; I25.10 Atherosclerotic heart disease of native coronary artery without angina pectoris; I89.0 Lymphedema, not elsewhere classified; E66.01 Morbid (severe) obesity due to excess calories; Z87.891 Personal history of nicotine dependence; N18.2 Chronic kidney disease, stage 2 (mild); I12.9 Hypertensive chronic kidney disease with stage 1 through stage 4 chronic kidney disease, or unspecified chronic kidney disease; E11.51 Type 2 diabetes mellitus with diabetic peripheral angiopathy without gangrene; E11.22 Type 2 diabetes mellitus with diabetic chronic kidney disease; Z20.822 Contact with and (suspected) exposure to COVID-19
CPT/HCPCS: 36410; 36415; 71045; 73630; 74018; 74176; 76705; 76937; 80053; 80202; 81000; 82550; 82553; 82570; 82947; 83605; 83690; 83735; 83874; 84156; 84484; 85007; 85025; 85027; 85610; 85652; 85730; 86141; 87040; 87081; 87088; 87636; 93005; 93041; 94760

== ENCOUNTER 2022-09-28 16:14 | Emergency (ER) | payer MEDICAID ==
[~2022-09-28] VITALS: Ht 182 cm; Wt 147.0 kg
[~2022-09-28 16:14] MED LIST changes: +ASPI-1238 PO; +CLOP75TA28 PO; +LATA2.5D19 OU; +MERO1PIG IV; +POLY238P32 PO; +SIME80TA16 PO; +TMSL.4C PO
--- NOTE | 2022-09-28 16:39 | ED General ---
General Chief Complaint: Fever-Adult/Adol Stated Complaint: N/V - FEVER - CHILLS Nursing Triage Note: PT TO [facility] 9 BY W/C PT CO OF FEVERS LAST PM, ALSO HAD N/V AND CHILLS LAST PM. SENT TO ED BY DR MUIR OFFICE. PT HAS DIALYSIS CATH IN [facility], PT NO LONGER IS TAKING DIALYSIS (KAYLIE GRUBER DO) History of Present Illness Date Seen by Provider: Sep 28, 2022 Time Seen by Provider: 16:34 Initial Comments 52-year-old male presents with some generalized malaise. He has not chills episode of nausea vomiting last night. Patient recently a few weeks ago had a bad gallbladder that was gangrenous taken out and was given Vanco and had a kidney failure and On dialysis. He now off dialysis after his kidneys recovered and went back to his baseline. He also reports a low-grade fever. Patient does report that he has not felt completely well since his surgery. Patient called his primary care provider's office who sent him here for further evaluation. (KAYLIE GRUBER DO) Allergies and Home Medications Allergies Coded Allergies: No Known Drug Allergies (Unverified , 04/25/22) Patient Home Medication List Home Medication List Reviewed: Yes (KAYLIE GRUBER DO) Amlodipine Besylate (Amlodipine Besylate) 10 Mg Tablet, 10 MG PO DAILY, (Reported) Entered as Reported by: MARIA EUGENIA BEACH on 08/10/21 0844 Amoxicillin/Potassium Clav (Amox Tr-K Clv 875-125 mg Tab) 875 Mg-125 Mg Tablet, 1 EACH PO BID Prescribed by: DANIEL LOPEZ on 09/28/222027 Aspirin (Aspirin EC) 81 Mg Tablet., 81 MG PO DAILY, (Reported) Entered as Reported by: MILA DIAS on 08/31/22 1141 Clopidogrel Bisulfate (Clopidogrel) 75 Mg Tablet, 75 MG PO DAILY, (Reported) Entered as Reported by: MILA DIAS on 08/31/22 1141 Cyclobenzaprine HCl (Cyclobenzaprine HCl) 10 Mg Tablet, 10 MG PO TID PRN for MUSCLE SPASMS, (Reported) Entered as Reported by: SOL WORLEY on 09/19/17 1109 Enoxaparin Sodium (Enoxaparin Sodium) 40 Mg/0.4 Ml Syringe, 40 MG SQ Q12H Prescribed by: CRISTHIAN AMBROSIO on 09/05/22 0804 Gabapentin (Gabapentin) 600 Mg Tablet, 600 MG PO BID, (Reported) Entered as Reported by: MILA DIAS on 08/31/22 1141 Latanoprost (Xalatan) 0.005 % Drops, 1 DROP OU DAILY, (Reported) Entered as Reported by: MILA DIAS on 08/31/22 1141 Meropenem-0.9% Sodium Chloride (Meropenem-0.9% NaCl 1 Gram/50) 1 Gram/50 Ml Piggyback, 1 GM IV Q12H Prescribed by: CRISTHIAN AMBROSIO on 09/05/22 0804 Omeprazole (Omeprazole) 20 Mg Capsule.dr, 20 MG PO DAILY, (Reported) Entered as Reported by: GENEVA QUINN on 03/29/19 175 Ondansetron (Ondansetron Odt) 4 Mg Tab.rapdis, 4 MG SL Q8H PRN for NAUSEA/VOMITING Prescribed by: DANIEL LOPEZ on 09/28/222027 Polyethylene Glycol 3350 ([id number]) 17 Gram/Dose Powder, 17 GM PO DAILY PRN for CONSTIPATION-2ND LINE, (Reported) Entered as Reported by: MILA DIAS on 08/31/22 1141 Propranolol HCl (Propranolol HCl) 40 Mg Tablet, 40 MG PO BID, (Reported) Entered as Reported by: SOL WORLEY on 09/19/17 1109 Simethicone (Simethicone) 80 Mg Tab.chew, 80 MG PO TID PRN for GAS Prescribed by: CRISTHIAN AMBROSIO on 09/05/22 0804 Tamsulosin HCl (Flomax) 0.4 Mg Cap, 0.4 MG PO DAILY@1800 Prescribed by: CRISTHIAN AMBROSIO on 09/05/22 0804 Review of Systems Review of Systems Constitutional: fever, malaise Gastrointestinal: see HPI, nausea, vomiting Genitourinary: no symptoms reported Musculoskeletal: no symptoms reported Skin: no symptoms reported Psychiatric/Neurological: No Symptoms Reported (KAYLIE GRUBER DO) Past Scxylhl-Vsbvsg-Ptdgqc Hx Patient Social History Tobacco Use?: No Substance use?: No Alcohol Use?: No (KAYLIE GRUBER DO) Immunizations Up To Date Tetanus Booster (TDap): Unknown First/Initial COVID19 Vaccinat: 2020 Second COVID19 Vaccination Javed: 2020 Third COVID19 Vaccination Date: 2021 (KAYLIE GRUBER DO) Seasonal Allergies Seasonal Allergies: Yes (KAYLIE GRUBER DO) Past Medical History Surgery/Hospitalization HX: DIABETIC Surgeries: Yes (HERNIA AGE 1;HEART CATH;urethreal stricture;left big toe osteoectomy;L HEEL) Orthopedic Respiratory: Yes (going to get a sleep study done) Sleep Apnea Currently Using CPAP: Yes Currently Using BIPAP: No Cardiac: Yes High Cholesterol, Hypertension Neurological: Yes Neuropathy Reproductive Disorders: No Sexually Transmitted Disease: No HIV/AIDS: No Genitourinary: No Gastrointestinal: No Musculoskeletal: Yes (open wound on left big toe;BILAT CHARCOT FOOT;OSTEOMYELITIS/ L HEEL RESECT) Endocrine: Yes Diabetes, Non-Insulin dep HEENT: No Hearing Impairment: Denies Cancer: No Psychosocial: No Integumentary: Yes (DIABETIC FOOT ULCERS, CELLULITIS AND OSTEOMYELITIS) Pruritis Blood Disorders: No Adverse Reaction/Blood Tranf: No (KAYLIE GRUBER DO) Family Medical History Chest pain 03 MOTHER, Onset:Unknown Congestive heart failure 03 MOTHER, Onset:Unknown Family history: Cardiovascular disease 03 MOTHER, Onset:Unknown Family history: Coronary thrombosis 03 MOTHER, Onset:Unknown Family history: Diabetes mellitus 03 FATHER, Onset:Unknown 03 MOTHER, Onset:Unknown 09 BROTHER, Onset:Unknown Family history: Glaucoma 03 MOTHER, Onset:Unknown Family history: Hypertension 03 FATHER, Onset:Unknown 03 MOTHER, Onset:Unknown 09 BROTHER, Onset:Unknown Heart disease 03 MOTHER, Onset:Unknown Hypercholesterolemia 03 FATHER, Onset:Unknown 03 MOTHER, Onset:Unknown 09 BROTHER, Onset:Unknown Myocardial infarction 03 MOTHER, Onset:Unknown Psychotic disorder 03 MOTHER, Onset:Unknown Seizure disorder 03 MOTHER, Onset:Unknown Stroke 03 MOTHER, Onset:Unknown Visual impairment 03 MOTHER, Onset:Unknown No Family History of: Abdominal aortic aneurysm Elliott's disease Alcoholism Aphasia Cancer Cancer of colon Cataract Congenital heart disease Cystic fibrosis Dementia Dysphagia Family history: Allergy Family history: Alzheimer's disease Family history: Arthritis Family history: Asthma Family history: Breast disease Family history: Gastrointestinal disease Family history: Osteoporosis Family history: Thyroid disorder Headache Hearing loss Hereditary disease History of - anemia History of - disorder History of - respiratory disease History of drug abuse Human immunodeficiency virus (HIV) seropositivity Infertile Kidney disease Malignant neoplasm of lung Parkinson's disease Prostate cancer Tuberculosis Vascular Disease (KAYLIE GRUBER DO) Physical Exam Vital Signs Vital Signs - First Documented 09/28/22 16:25 Temp 37.8 Pulse 88 Resp 18 B/P (MAP) 149/75 (99) Pulse Ox 96 (DANIEL LOPEZ MD) Vital Signs Capillary Refill : Less Than 3 Seconds (KAYLIE GRUBER DO) Height, Weight, BMI Height: 6'0.00" Weight: 330lbs. 0.0oz. 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 Dialysis catheter right upper chest with no signs of infection erythema) (KAYLIE GRUBER DO) Focused Exam Lactate Level 09/28/22 16:55: Lactic Acid Level 1.09 (DANIEL LOPEZ MD) Lactic Acid Level Laboratory Tests Test 09/28/22 16:55 Lactic Acid Level 1.09 MMOL/L (0.50-2.00) (DANIEL LOPEZ MD) Progress/Results/Core Measures Suspected Sepsis SIRS Temperature: Pulse: 88 Respiratory Rate: 18 Blood Pressure 149 /75 Mean: 99 (KAYLIE GRUBER DO) Results/Orders Lab Results Laboratory Tests Test 09/28/22 16:55 09/28/22 18:33 Range/Units White Blood Count 11.4 H 4.3-11.0 10^3/uL Red Blood Count 3.00 L 4.30-5.52 10^6/uL Hemoglobin 8.6 L 13.3-17.7 g/dL Hematocrit 27 L 40-54 % Mean Corpuscular Volume 89 80-99 fL Mean Corpuscular Hemoglobin 29 25-34 pg Mean Corpuscular Hemoglobin Concent 32 32-36 g/dL Red Cell Distribution Width 14.7 H 10.0-14.5 % Platelet Count 236 130-400 10^3/uL Mean Platelet Volume 10.7 9.0-12.2 fL Immature Granulocyte % (Auto) 0 % Neutrophils (%) (Auto) 90 H 42-75 % Lymphocytes (%) (Auto) 5 L 12-44 % Monocytes (%) (Auto) 4 0-12 % Eosinophils (%) (Auto) 0 0-10 % Basophils (%) (Auto) 0 0-10 % Neutrophils # (Auto) 10.3 H 1.8-7.8 10^3/uL Lymphocytes # (Auto) 0.6 L 1.0-4.0 10^3/uL Monocytes # (Auto) 0.4 0.0-1.0 10^3/uL Eosinophils # (Auto) 0.0 0.0-0.3 10^3/uL Basophils # (Auto) 0.0 0.0-0.1 10^3/uL Immature Granulocyte # (Auto) 0.1 0.0-0.1 10^3/uL Neutrophils % (Manual) 74 % Lymphocytes % (Manual) 2 % Monocytes % (Manual) 2 % Band Neutrophils 22 % Sodium Level 135 135-145 MMOL/L Potassium Level 3.4 L 3.6-5.0 MMOL/L Chloride Level 103 98-107 MMOL/L Carbon Dioxide Level 22 21-32 MMOL/L Anion Gap 10 5-14 MMOL/L Blood Urea Nitrogen 13 7-18 MG/DL Creatinine 1.62 H 0.60-1.30 MG/DL Estimat Glomerular Filtration Rate 50 BUN/Creatinine Ratio 8 Glucose Level 98 70-105 MG/DL Lactic Acid Level 1.09 0.50-2.00 MMOL/L Calcium Level 8.8 8.5-10.1 MG/DL Corrected Calcium 9.2 8.5-10.1 MG/DL Total Bilirubin 0.8 0.1-1.0 MG/DL Aspartate Amino Transf (AST/SGOT) 26 5-34 U/L Alanine Aminotransferase (ALT/SGPT) 32 0-55 U/L Alkaline Phosphatase 179 H 40-136 U/L Total Protein 6.6 6.4-8.2 GM/DL Albumin 3.5 3.2-4.5 GM/DL Urine Color YELLOW Urine Clarity CLEAR Urine pH 6.0 5-9 Urine Specific [place] 1.010 L 1.016-1.022 Urine Protein 1+ H NEGATIVE Urine Glucose (UA) NEGATIVE NEGATIVE Urine Ketones NEGATIVE NEGATIVE Urine Nitrite NEGATIVE NEGATIVE Urine Bilirubin NEGATIVE NEGATIVE Urine Urobilinogen 0.2 < = 1.0 MG/DL Urine Leukocyte Esterase TRACE H NEGATIVE Urine RBC (Auto) NEGATIVE NEGATIVE Urine RBC NONE /HPF Urine WBC 0-2 /HPF Urine Squamous Epithelial Cells 0-2 /HPF Urine Renal Epithelial Cells NONE /HPF Urine Crystals PRESENT H /LPF Urine Amorphous Sediment RARE MARSHAL URATES H /LPF Urine Bacteria TRACE /HPF Urine Casts NONE /LPF Urine Hyaline Casts RARE /LPF Urine Mucus NEGATIVE /LPF Urine Culture Indicated NO (DANIEL LOPEZ MD) Micro Results Microbiology 09/28/22 Blood Culture - Preliminary, Resulted No growth 09/28/22 Blood Culture - Preliminary, Resulted No growth (DANIEL LOPEZ MD) My Orders Orders - DANIEL LOPEZ MD Ondansetron Injection (Zofran Injectio (09/28/22 20:30) Amoxicillin/Clavulanate Tablet (Augmenti (09/28/22 20:19) (DANIEL LOPEZ MD) Vital Signs/I&O 09/28/22 09/28/22 16:25 20:34 Temp 37.8 Pulse 88 81 Resp 18 18 B/P (MAP) 149/75 (99) 161/73 Pulse Ox 96 96 (DANIEL LOPEZ MD) Vital Signs/I&O Capillary Refill : Less Than 3 Seconds (KAYLIE GRUBER DO) Blood Pressure Mean: 99 Progress Note : Time: 20:00 Progress Note Patient care transferred to mt at shift change with CT read pending. Patient resting comfortably in the chair at the bedside. Still has some Mild nausea and has had generalized fatigue and malaise. Has been on a round of antibiotics per PCP. CT read shows question of possible developing abscess in the liver with fluid in the GB fossa. I discussed the findings with Dr Mullins - the patient's surgeon and advised him of labs and CT results. Dr Mullins recommended re-starting antibiotics (Augmentin) and will follow up with the patient in the office on Monday at 10 am. The patient indicated that he would much prefer to go home as he has had multiple prolonged stays in the hospital recently. He is very happy with the plan of discharge. He states that he would like a prescription for nausea medications for home - Zofran prescription provided. His is also comfortable with the plan of care. Patient was given his first dose of antibiotics prior to discharge. (DANIEL LOPEZ MD) Diagnostic Imaging Diagonstic Imaging: CT Comments [facility] [place], [place] NAME: ASAF AGUILA [facility] REC#: [id number] PT STATUS: DEP ER : 1970 PHYSICIAN: KAYLIE GRUBER DO ADMIT DATE: 09/28/22/ER Signed Date of Exam:09/28/22 CT ABDOMEN/PELVIS WO PROCEDURE: CT abdomen and pelvis without contrast. TECHNIQUE: Multiple contiguous axial images were obtained through the abdomen and pelvis without the use of intravenous contrast. Auto Exposure Controls were utilized during the CT exam to meet ALARA standards for radiation dose reduction. INDICATION: 52-year-old male, fever, nausea and vomiting and chills last p.m. CORRELATION STUDY: 09/01/2022. FINDINGS: LOWER THORAX: Tip at the dialysis catheter at the high right atrium. Heart size enlarged. Trace pericardial effusion versus pericardial thickening. Small right pleural effusion. Swirled rounded consolidation in posterior right lower lobe, approximately 5.7 x 3.9 cm, persists. Left lung base clear. LIVER: There is new, subtle low-attenuation along the more peripheral aspect of the right hepatic lobe in the plane of the gallbladder. GALLBLADDER: There has been apparent cholecystectomy since prior. There is moderate haziness within the gallbladder fossa with some perihepatic fluid, both in the gallbladder fossa and adjacent to the right hepatic lobe tip. Small amount of pelvic fluid. SPLEEN: Unremarkable. PANCREAS: Unremarkable. ADRENAL GLANDS: Unremarkable. KIDNEYS: Normal configuration. No calcification or obstruction. ABDOMINAL AORTA: Unremarkable, nonaneurysmal. A few shotty aortocaval lymph nodes. GASTROINTESTINAL TRACT: No obstruction or inflammation. Normal appendix. Small amount of paracolic fluid, right slightly greater than left, likely attributed to the right upper quadrant findings. Postoperative changes of the abdominal wall are suggested. URINARY BLADDER: Unremarkable. REPRODUCTIVE: Prostate gland unremarkable. OSSEOUS STRUCTURES: No acute abnormality. OTHER: Some generalized haziness of the subcutaneous fat to the abdominal wall. May be reflective of mild third spacing. IMPRESSION: 1. Interval surgical changes of cholecystectomy. There are inflammatory changes including fluid in the gallbladder fossa, adjacent liver as well as paracolic gutters. Correlation for timing of the surgery. If this is immediately postoperative could potentially be expected. Otherwise, somewhat prominent amount of fluid and possibility of inflammation/infection or even bile leak not completely excluded. 2. Question of developing low attenuating lesions in right hepatic lobe. Possibility of developing intraparenchymal abscesses or perhaps contusion postoperatively would be considerations. 3. Continued right pleural fluid/thickening with associated likely rounded atelectasis in the right lower lobe. Dictated by: Dictated on workstation # [id number] Dict: 09/28/221736 Trans: 09/28/222046 PJE [id number] Interpreted by: JODIE FRANKLIN DO Electronically signed by: JODIE FRANKLIN DO 09/28/222046 (DANIEL LOPEZ MD) Departure Communication (Admissions) Time/Spoke to Consulting Phy: 20:[address] Mullins - antibiotics and f/u Monday in clinic (DANIEL LOPEZ MD) Impression Primary Impression: Nausea and vomiting Qualified Codes: R11.2 - Nausea with vomiting, unspecified Additional Impression: Anemia Qualified Codes: D64.9 - Anemia, unspecified Disposition: 01 HOME, SELF-CARE Condition: Stable Departure-Patient Inst. Decision time for Depature: 20:25 (DANIEL LOPEZ MD) Referrals: MILA FERNANDEZ DO (PCP/Family) Primary Care Physician Patient Instructions: Nausea and Vomiting, Adult ED Add. Discharge Instructions: Drink plenty of fluids to stay well-hydrated. Start an sikh-uwf-oimwqmc iron supplement such as VTIRON C daily. You can take the ondansetron/Zofran 4 mg orally disintegrating tablets every 6 hours as needed for nausea. We have started you back on amoxicillin/clavulanic acid (Augmentin) 875 mg. Please take 1 twice a day for a total of 10 days. Advance your diet as tolerated. You will need to follow-up with Dr. MULLINS in his office at 10 AM on Monday morning. If you develop high fever, persistent nausea vomiting or any other emergent, c oncerning symptoms please return to the emergency room for reevaluation. Scripts Amoxicillin/Potassium Clav (Amox Tr-K Clv 875-125 mg Tab) 875 Mg-125 Mg Tablet 1 EACH PO BID, #20 TAB Prov: DANIEL LOPEZ MD 09/28/22 Ondansetron (Ondansetron Odt) 4 Mg Tab.rapdis 4 MG SL Q8H PRN for NAUSEA/VOMITING, #15 TAB Prov: DANIEL LOPEZ MD 09/28/22 Copy Copies To 1: ALFA MULLINS MD Copies To 2: MILA FERNANDEZ TREVOR L DO Sep 28, 2022 16:39 DANIEL LOPEZ MD Sep 28, 2022 20:28
[2022-09-28 17:09] LABS: BASOPHILS % (AUTO) 0 % (0-10); EOSINOPHILS % (AUTO) 0 % (0-10); HEMATOCRIT 27 % (40-54); HEMOGLOBIN 8.6 g/dL (13.3-17.7); LYMPHOCYTES # (AUTO) 0.6 10^3/uL (1.0-4.0); LYMPHOCYTES % (AUTO) 5 % (12-44); MEAN CORPUSCULAR HEMOGLOBIN 29 pg (25-34); MEAN CORPUSCULAR HGB CONC 32 g/dL (32-36); MEAN CORPUSCULAR VOLUME 89 fL (80-99); MEAN PLATELET VOLUME 10.7 fL (9.0-12.2); MONOCYTES # (AUTO) 0.4 10^3/uL (0.0-1.0); MONOCYTES % (AUTO) 4 % (0-12); NEUTROPHILS # (AUTO) 10.3 10^3/uL (1.8-7.8); NEUTROPHILS % (AUTO) 90 % (42-75); PLATELET COUNT 236 10^3/uL (130-400); WHITE BLOOD COUNT 11.4 10^3/uL (4.3-11.0)
[2022-09-28 17:15] LABS: ALBUMIN 3.5 GM/DL (3.2-4.5); POTASSIUM 3.4 MMOL/L (3.6-5.0)
[2022-09-28 17:16] LABS: CALCIUM 8.8 MG/DL (8.5-10.1)
[2022-09-28 17:17] LABS: TOTAL PROTEIN 6.6 GM/DL (6.4-8.2)
[2022-09-28 17:19] LABS: BILIRUBIN,TOTAL 0.8 MG/DL (0.1-1.0)
[2022-09-28 17:21] LABS: CREATININE SERUM 1.62 MG/DL (0.60-1.30)
[2022-09-28 17:36] LABS: BAND NEUTROPHILS 22 %; LYMPHOCYTES % (MANUAL) 2 %; NEUTROPHILS % (MANUAL) 74 %
[2022-09-28 17:37] LABS: MONOCYTES % (MANUAL) 2 %
[2022-09-28 18:39] LABS: BILIRUBIN,URINE NEGATIVE (NEGATIVE); CLARITY,URINE CLEAR; COLOR,URINE YELLOW; GLUCOSE, URINE (UA) NEGATIVE (NEGATIVE); KETONES,URINE NEGATIVE (NEGATIVE); LEUKOCYTE ESTERASE ,URINE TRACE (NEGATIVE); NITRITE,URINE NEGATIVE (NEGATIVE); PROTEIN,URINE 1+ (NEGATIVE)
[2022-09-28 18:50] LABS: AMORPHOUS SEDIMENT,UR RARE AMOR URATES /LPF; BACTERIA,URINE TRACE /HPF; HYALINE CASTS, URINE RARE /LPF; SQUAMOUS EPITHELIAL CELL,UR 0-2 /HPF; WBC,URINE 0-2 /HPF
--- NOTE | 2022-09-28 19:38 | Diagnostic Imaging Report ---
PROCEDURE: CT abdomen and pelvis without contrast. TECHNIQUE: Multiple contiguous axial images were obtained through the abdomen and pelvis without the use of intravenous contrast. Auto Exposure Controls were utilized during the CT exam to meet ALARA standards for radiation dose reduction. INDICATION: 52-year-old male, fever, nausea and vomiting and chills last p.m. CORRELATION STUDY: 09/01/2022. FINDINGS: LOWER THORAX: Tip at the dialysis catheter at the high right atrium. Heart size enlarged. Trace pericardial effusion versus pericardial thickening. Small right pleural effusion. Swirled rounded consolidation in posterior right lower lobe, approximately 5.7 x 3.9 cm, persists. Left lung base clear. LIVER: There is new, subtle low-attenuation along the more peripheral aspect of the right hepatic lobe in the plane of the gallbladder. GALLBLADDER: There has been apparent cholecystectomy since prior. There is moderate haziness within the gallbladder fossa with some perihepatic fluid, both in the gallbladder fossa and adjacent to the right hepatic lobe tip. Small amount of pelvic fluid. SPLEEN: Unremarkable. PANCREAS: Unremarkable. ADRENAL GLANDS: Unremarkable. KIDNEYS: Normal configuration. No calcification or obstruction. ABDOMINAL AORTA: Unremarkable, nonaneurysmal. A few shotty aortocaval lymph nodes. GASTROINTESTINAL TRACT: No obstruction or inflammation. Normal appendix. Small amount of paracolic fluid, right slightly greater than left, likely attributed to the right upper quadrant findings. Postoperative changes of the abdominal wall are suggested. URINARY BLADDER: Unremarkable. REPRODUCTIVE: Prostate gland unremarkable. OSSEOUS STRUCTURES: No acute abnormality. OTHER: Some generalized haziness of the subcutaneous fat to the abdominal wall. May be reflective of mild third spacing. IMPRESSION: 1. Interval surgical changes of cholecystectomy. There are inflammatory changes including fluid in the gallbladder fossa, adjacent liver as well as paracolic gutters. Correlation for timing of the surgery. If this is immediately postoperative could potentially be expected. Otherwise, somewhat prominent amount of fluid and possibility of inflammation/infection or even bile leak not completely excluded. 2. Question of developing low attenuating lesions in right hepatic lobe. Possibility of developing intraparenchymal abscesses or perhaps contusion postoperatively would be considerations. 3. Continued right pleural fluid/thickening with associated likely rounded atelectasis in the right lower lobe. Dictated by: Dictated on workstation # [id number]
[2022-09-28] MEDS ORDERED: AUGMENTIN 875 MG TAB (AMOXICILLIN/CLAVULANATE) PO STA (20:19)
[2022-09-28] MEDS ORDERED: ONDA4TAB11 SL (20:28)
[2022-09-28] MEDS ORDERED: AMOX1TAB12 PO (20:28)
[2022-09-28] MEDS ORDERED: ONDANSETRON 4 MG/2 ML (SDV) Z0FRAN IVP ONE (20:30)
[2022-09-28 20:34] VITALS: BP 161/73
== END 2022-09-28 20:35 | disposition home or self-care (01) ==
LOC: EDUNIT# 16:14 → ER 16:15
DX: R11.2 Nausea with vomiting, unspecified (principal); D64.9 Anemia, unspecified; G47.30 Sleep apnea, unspecified; Z99.89 Dependence on other enabling machines and devices
CPT/HCPCS: 36415; 74176; 80053; 81000; 83605; 85007; 85027; 87040

== ENCOUNTER → 2022-11-01 | Outpatient (CLI) | payer MEDICAID ==
[~2022-11-01] MED LIST changes: +AMOX1TAB12 PO; +ONDA4TAB11 SL; -POTA10CA44 PO; +POTA10CA84 PO
== END ==
LOC: WOUNDCARE 10:56
PROVIDERS: ATTEND Family Medicine
DX: E11.621 Type 2 diabetes mellitus with foot ulcer (principal); L97.422 Non-pressure chronic ulcer of left heel and midfoot with fat layer exposed; E66.01 Morbid (severe) obesity due to excess calories; M62.3 Immobility syndrome (paraplegic); I89.0 Lymphedema, not elsewhere classified; L92.8 Other granulomatous disorders of the skin and subcutaneous tissue; E11.22 Type 2 diabetes mellitus with diabetic chronic kidney disease; N18.9 Chronic kidney disease, unspecified; D63.1 Anemia in chronic kidney disease; E11.52 Type 2 diabetes mellitus with diabetic peripheral angiopathy with gangrene
CPT/HCPCS: 11042; 87070; 87205; A6212; G0463; 87077

== ENCOUNTER → 2022-11-08 | Outpatient (CLI) | payer MEDICAID | LOC: WOUNDCARE 09:02 | PROVIDERS: ATTEND Family Medicine | DX: L97.422 Non-pressure chronic ulcer of left heel and midfoot with fat layer exposed (principal); E11.621 Type 2 diabetes mellitus with foot ulcer; E66.01 Morbid (severe) obesity due to excess calories; M62.3 Immobility syndrome (paraplegic); I89.0 Lymphedema, not elsewhere classified; L92.8 Other granulomatous disorders of the skin and subcutaneous tissue; N18.9 Chronic kidney disease, unspecified; D63.1 Anemia in chronic kidney disease; B95.1 Streptococcus, group B, as the cause of diseases classified elsewhere | CPT/HCPCS: 11042; A6212; G0463 ==

== ENCOUNTER → 2022-11-15 | Outpatient (CLI) | payer MEDICAID | LOC: WOUNDCARE 08:59 | PROVIDERS: ATTEND Family Medicine | DX: L97.412 Non-pressure chronic ulcer of right heel and midfoot with fat layer exposed (principal); E11.621 Type 2 diabetes mellitus with foot ulcer; E66.01 Morbid (severe) obesity due to excess calories; M62.3 Immobility syndrome (paraplegic); I89.0 Lymphedema, not elsewhere classified; L92.8 Other granulomatous disorders of the skin and subcutaneous tissue; D63.1 Anemia in chronic kidney disease; B95.1 Streptococcus, group B, as the cause of diseases classified elsewhere; E11.52 Type 2 diabetes mellitus with diabetic peripheral angiopathy with gangrene; I96 Gangrene, not elsewhere classified | CPT/HCPCS: 11042; A6212; G0463 ==

== ENCOUNTER → 2022-11-30 | Outpatient (CLI) | payer MEDICAID | LOC: WOUNDCARE 08:27 | PROVIDERS: ATTEND Family Medicine | DX: E11.621 Type 2 diabetes mellitus with foot ulcer (principal); E66.01 Morbid (severe) obesity due to excess calories; I89.0 Lymphedema, not elsewhere classified; L97.422 Non-pressure chronic ulcer of left heel and midfoot with fat layer exposed; M62.3 Immobility syndrome (paraplegic); N18.9 Chronic kidney disease, unspecified; D63.1 Anemia in chronic kidney disease; E11.52 Type 2 diabetes mellitus with diabetic peripheral angiopathy with gangrene | CPT/HCPCS: 11042; A6212; G0463 ==

== ENCOUNTER → 2022-12-06 | Outpatient (CLI) | payer MEDICAID | LOC: WOUNDCARE 09:00 | PROVIDERS: ATTEND Family Medicine | DX: L97.422 Non-pressure chronic ulcer of left heel and midfoot with fat layer exposed (principal); E11.621 Type 2 diabetes mellitus with foot ulcer; E66.01 Morbid (severe) obesity due to excess calories; M62.3 Immobility syndrome (paraplegic); E11.22 Type 2 diabetes mellitus with diabetic chronic kidney disease; N18.9 Chronic kidney disease, unspecified; D63.1 Anemia in chronic kidney disease; E11.52 Type 2 diabetes mellitus with diabetic peripheral angiopathy with gangrene; I96 Gangrene, not elsewhere classified | CPT/HCPCS: 11042; A6212; G0463 ==

== ENCOUNTER → 2022-12-13 | Outpatient (CLI) | payer MEDICAID | LOC: WOUNDCARE 09:00 | PROVIDERS: ATTEND Family Medicine | DX: L97.422 Non-pressure chronic ulcer of left heel and midfoot with fat layer exposed (principal); E11.621 Type 2 diabetes mellitus with foot ulcer; E66.01 Morbid (severe) obesity due to excess calories; M62.3 Immobility syndrome (paraplegic); I89.0 Lymphedema, not elsewhere classified; E11.22 Type 2 diabetes mellitus with diabetic chronic kidney disease; N18.9 Chronic kidney disease, unspecified; D63.1 Anemia in chronic kidney disease; E11.52 Type 2 diabetes mellitus with diabetic peripheral angiopathy with gangrene; I96 Gangrene, not elsewhere classified | CPT/HCPCS: 11042; A6212; G0463 ==

== ENCOUNTER → 2022-12-27 | Outpatient (CLI) | payer MEDICAID | LOC: WOUNDCARE 09:07 | PROVIDERS: ATTEND Family Medicine | DX: L97.422 Non-pressure chronic ulcer of left heel and midfoot with fat layer exposed (principal); E11.621 Type 2 diabetes mellitus with foot ulcer; E66.01 Morbid (severe) obesity due to excess calories; M62.3 Immobility syndrome (paraplegic); I89.0 Lymphedema, not elsewhere classified; E11.22 Type 2 diabetes mellitus with diabetic chronic kidney disease; N18.9 Chronic kidney disease, unspecified; D63.1 Anemia in chronic kidney disease; E11.52 Type 2 diabetes mellitus with diabetic peripheral angiopathy with gangrene; I96 Gangrene, not elsewhere classified | CPT/HCPCS: 11042; A6209; G0463 ==

== ENCOUNTER → 2022-12-29 | Outpatient (CLI) | payer MEDICAID | LOC: WOUNDCARE 08:59 | PROVIDERS: ATTEND Family Medicine | DX: L97.422 Non-pressure chronic ulcer of left heel and midfoot with fat layer exposed (principal); E11.621 Type 2 diabetes mellitus with foot ulcer; E66.01 Morbid (severe) obesity due to excess calories; M62.3 Immobility syndrome (paraplegic); I89.0 Lymphedema, not elsewhere classified; E11.22 Type 2 diabetes mellitus with diabetic chronic kidney disease; N18.9 Chronic kidney disease, unspecified; D63.1 Anemia in chronic kidney disease; E11.52 Type 2 diabetes mellitus with diabetic peripheral angiopathy with gangrene; I96 Gangrene, not elsewhere classified | CPT/HCPCS: 29445; A6209; G0463 ==

== ENCOUNTER → 2023-01-10 | Outpatient (CLI) | payer MEDICAID | LOC: WOUNDCARE 09:06 | PROVIDERS: ATTEND Family Medicine | DX: E11.621 Type 2 diabetes mellitus with foot ulcer (principal); L97.422 Non-pressure chronic ulcer of left heel and midfoot with fat layer exposed; E66.01 Morbid (severe) obesity due to excess calories; M62.3 Immobility syndrome (paraplegic); I89.0 Lymphedema, not elsewhere classified; D63.1 Anemia in chronic kidney disease; E11.52 Type 2 diabetes mellitus with diabetic peripheral angiopathy with gangrene | CPT/HCPCS: 11042; A6209; G0463 ==

== ENCOUNTER → 2023-01-17 | Outpatient (CLI) | payer MEDICAID | LOC: WOUNDCARE 09:10 | PROVIDERS: ATTEND Family Medicine | DX: L97.422 Non-pressure chronic ulcer of left heel and midfoot with fat layer exposed (principal); E11.621 Type 2 diabetes mellitus with foot ulcer; E66.01 Morbid (severe) obesity due to excess calories; M62.3 Immobility syndrome (paraplegic); I89.0 Lymphedema, not elsewhere classified; E11.22 Type 2 diabetes mellitus with diabetic chronic kidney disease; N18.9 Chronic kidney disease, unspecified; D63.1 Anemia in chronic kidney disease; E11.52 Type 2 diabetes mellitus with diabetic peripheral angiopathy with gangrene; I96 Gangrene, not elsewhere classified | CPT/HCPCS: 11042; 83036; A6209; G0463; 36415 ==

== ENCOUNTER → 2023-01-24 | Outpatient (CLI) | payer MEDICAID | LOC: WOUNDCARE 09:05 | PROVIDERS: ATTEND Family Medicine | DX: E11.621 Type 2 diabetes mellitus with foot ulcer (principal); L97.422 Non-pressure chronic ulcer of left heel and midfoot with fat layer exposed; I89.0 Lymphedema, not elsewhere classified; M62.3 Immobility syndrome (paraplegic); D63.1 Anemia in chronic kidney disease; E66.01 Morbid (severe) obesity due to excess calories; Z68.41 Body mass index [BMI] 40.0-44.9, adult | CPT/HCPCS: 29445; A6209; A6212; G0463 ==

== ENCOUNTER → 2023-01-31 | Outpatient (CLI) | payer MEDICAID | LOC: WOUNDCARE 09:04 | PROVIDERS: ATTEND Family Medicine | DX: E11.621 Type 2 diabetes mellitus with foot ulcer (principal); L97.422 Non-pressure chronic ulcer of left heel and midfoot with fat layer exposed; I89.0 Lymphedema, not elsewhere classified; M62.3 Immobility syndrome (paraplegic); E66.01 Morbid (severe) obesity due to excess calories; D63.1 Anemia in chronic kidney disease; Z68.41 Body mass index [BMI] 40.0-44.9, adult | CPT/HCPCS: 29445; A6209; A6212; G0463 ==

== ENCOUNTER → 2023-02-07 | Outpatient (CLI) | payer MEDICAID | LOC: WOUNDCARE 09:01 | PROVIDERS: ATTEND Family Medicine | DX: E11.621 Type 2 diabetes mellitus with foot ulcer (principal); L97.422 Non-pressure chronic ulcer of left heel and midfoot with fat layer exposed; E66.01 Morbid (severe) obesity due to excess calories; I89.0 Lymphedema, not elsewhere classified; D63.1 Anemia in chronic kidney disease; M62.3 Immobility syndrome (paraplegic); Z68.41 Body mass index [BMI] 40.0-44.9, adult | CPT/HCPCS: A6212; G0463; 99212 ==